=== PATIENT | male | born 1965 | race African-American/Black ===

== ENCOUNTER 2017-01-14 12:52 | Inpatient (IN) | payer OTHER ==
[2017-01-14 16:11] VITALS: BMI 51.0
--- NOTE | 2017-01-14 17:05 | HP ---
Admission ROS [facility] - [facility] Chief Complaint: I need rehab to stop using alcohol & cocaine Allergies/Adverse Reactions: Allergies Allergy/AdvReac Type Severity Reaction Status Date / Time No Known Allergies Allergy Verified 01/14/17 16:14 History of Present Illness: 51 y/o man with a long hx. of drug and alcohol dependence is admitted to rehab. Pt. completed detox [facility]. He reports previous detox & rehab and 18 months sober. Exam Limitations: No Limitations - Ebola screening Have you traveled outside of the country in the last 21 days: No Have you had contact with anyone from an Ebola affected area: No Have you been sick,other than usual withdrawal symptoms: No Do you have a fever: No - Review of Systems Constitutional: No Symptoms Reported EENT: reports: No Symptoms Reported Respiratory: reports: No Symptoms reported Cardiac: reports: No Symptoms Reported GI: reports: No Symptoms Reported : reports: No Symptoms Reported Musculoskeletal: reports: No Symptoms Reported Integumentary: reports: No Symptoms Reported Neuro: reports: No Symptoms reported Endocrine: reports: No Symptoms Reported Hematology: reports: No Symptoms Reported Psychiatric: reports: No Sypmtoms Reported Other Systems: Reviewed and Negative Patient History - Patient Medical History Hx Anemia: No Hx Asthma: No Hx Chronic Obstructive Pulmonary Disease (COPD): No Hx Cancer: No Hx Cardiac Disorders: No Hx Congestive Heart Failure: No Hx Hypertension: Yes Hx Hypercholesterolemia: No Hx Pacemaker: No HX Cerebrovascular Accident: No Hx Seizures: No Hx Diabetes: No Hx Gastrointestinal Disorders: No Hx Liver Disease: No Hx Genitourinary Disorders: No Hx Sexually Transmitted Disorders: No Hx Renal Disease (ESRD): No Hx Thyroid Disease: No Hx Human Immunodeficiency Virus (HIV): No Hx Hepatitis C: No Hx Depression: Yes Hx Suicide Attempt: No Hx Bipolar Disorder: No Hx Schizophrenia: No - Patient Surgical History Past Surgical History: No Hx Neurologic Surgery: No Hx Cataract Extraction: No Hx Cardiac Surgery: No Hx Lung Surgery: No Hx Breast Surgery: No Hx Breast Biopsy: No Hx Abdominal Surgery: No Hx Appendectomy: No Hx Cholecystectomy: No Hx Genitourinary Surgery: No Hx Section: No Hx Orthopedic Surgery: No Anesthesia Reaction: No - PPD History Previous Implant?: Yes Documented Results: Negative w/proof Implanted On Prior [facility] Admission?: Yes Date: 01/08/16 Results: 0 mm PPD to be Administered?: Yes - Smoking Cessation Smoking history: Current every day smoker Have you smoked in the past 12 months: Yes Aproximately how many cigarettes per day: 20 Cigars Per Day: 0 Hx Chewing Tobacco Use: No Initiated information on smoking cessation: Yes 'Breaking Loose' booklet given: 01/14/17 - Substance & Tx. History Hx Alcohol Use: Yes Hx Substance Use: Yes Substance Use Type: Alcohol, Cocaine Hx Substance Use Treatment: Yes (Detox & Rehab 08/2016) - Substances Abused Alcohol Route: Oral Frequency: Daily Amount used: 3-4 pints vodka of 4-5 6pks beer Age of first use: 14 Date of Last Use: 01/09/17 Crack Route: Smoking Frequency: Daily Amount used: $150 Age of first use: 16 Date of Last Use: 01/08/17 Family Disease History - Family Disease History Family History: Denies Admission Physical Exam [facility] - Vital Signs Vital Signs: Vital Signs - 24 hr 01/14/17 16:10 Temperature 97.0 F L Pulse Rate 96 H Respiratory 20 Rate Blood Pressure 146/108 - Physical General Appearance: Yes: Within Normal Limits HEENTM: Yes: Within Normal Limits Respiratory: Yes: Chest Non-Tender, Lungs Clear, Normal Breath Sounds Neck: Yes: Supple Breast: Yes: Breast Exam Deferred Cardiology: Yes: Regular Rhythm, Regular Rate, S1, S2 Abdominal: Yes: Normal Bowel Sounds, Non Tender, Soft, Protuberent Genitourinary: Yes: Within Normal Limits Back: Yes: Within Normal Limits Musculoskeletal: Yes: Within Normal Limits Extremities: Yes: Within Normal Limits Neurological: Yes: Fully Oriented, Alert Integumentary: Yes: Within Normal Limits Lymphatic: Yes: Within Normal Limits - Diagnostic (1) Alcohol dependence Current Visit: No Status: Acute Qualifiers: Substance use status: uncomplicated Qualified Code(s): F10.20 - Alcohol dependence, uncomplicated (2) Cocaine dependence Current Visit: No Status: Acute Qualifiers: Substance use status: uncomplicated Qualified Code(s): F14.20 - Cocaine dependence, uncomplicated (3) Nicotine dependence Current Visit: No Status: Acute Qualifiers: Nicotine product type: cigarettes Substance use status: uncomplicated Qualified Code(s): F17.210 - Nicotine dependence, cigarettes, uncomplicated (4) Essential hypertension Current Visit: No Status: Chronic (5) Obesity Current Visit: No Status: Chronic Qualifiers: Obesity type: unspecified obesity type Cleared for Admission [facility] - Detox or Rehab Claeared for Rehab Admission: Yes [facility] Breath Alcohol Content Breath Alcohol Content: 0 Urine Drug Screen - Results Drug Screen Negative: No Urine Drug Screen Results: BZO-Benzodiazepines
[2017-01-14] MEDS ORDERED: ACETAMINOPHEN 325 MG TABLET (FP) PO PRN (17:12)
[2017-01-14] MEDS ORDERED: MAGNESIUM HYDROX 2400MG/30ML ORAL SUSPENSION 30 ML CUP PO PRN (17:12)
[2017-01-14] MEDS ORDERED: IBUPROFEN 400 MG TABLET (FP) PO PRN (17:12)
[2017-01-14] MEDS ORDERED: guaiFENesin/D-METHORPHAN HB 10 ML UNIT-DOSE CUPS PO PRN (17:12)
[2017-01-14] MEDS ORDERED: NICOTINE POLACRILEX 2 MG GUM BUC PRN (17:12)
[2017-01-14] MEDS ORDERED: MENTHOL/PHENOL 1 EACH UD MM PRN (17:12)
[2017-01-14] MEDS ORDERED: LOPERAMIDE HCL 2 MG CAPSULE PO PRN (17:12)
[2017-01-14] MEDS ORDERED: P-EPHED 60MG/TRIPROLIDI 2.5MG TABLET PO PRN (17:12)
[2017-01-14] MEDS ORDERED: MAGNESIUM CITRATE 300 ML BOTTLE PO PRN (17:12)
[2017-01-14] MEDS ORDERED: MAG HYDROX/AL HYDROX/SIMETH 30 ML UNIT-DOSE CUP PO PRN (17:12)
[2017-01-14] MEDS: NICOTINE 21 MG/24 HOURS TOPICAL PATCH TD SCH (19:18)
[2017-01-14] MEDS ORDERED: TUBERCULIN PPD 5 TU/0.1ML VIAL ID ONE (19:46)
[2017-01-14] MEDS: amLODIPine BESYLATE 5 MG TABLET (FP) PO SCH (21:12)
[2017-01-14] MEDS: THIAMINE HCL 100 MG TABLET (FP) PO SCH (21:12)
[2017-01-14] MEDS: LISINOPRIL 20 MG TABLET (FP) PO SCH (21:12)
[2017-01-14 23:19] LABS: URINE APPEARANCE CLEAR; URINE BILIRUBIN NEGATIVE (NEGATIVE); URINE BLOOD NEGATIVE (NEGATIVE); URINE COLOR LTYELLOW; URINE GLUCOSE (UA) 2+ (NEGATIVE); URINE KETONE NEGATIVE (NEGATIVE); URINE LEUK ESTERASE NEGATIVE (NEGATIVE); URINE NITRITE NEGATIVE (NEGATIVE); URINE PROTEIN NEGATIVE (NEGATIVE); URINE UROBILINOGEN NEGATIVE mg/dL (0.2-1.0)
[2017-01-15] MEDS: amLODIPine BESYLATE 5 MG TABLET (FP) PO SCH ×2 (09:39→21:05)
[2017-01-15] MEDS: PRENATAL VITAMINS W/ FOLIC ACID TABLET (FP) PO SCH (09:39)
[2017-01-15] MEDS: LISINOPRIL 20 MG TABLET (FP) PO SCH ×2 (09:39→21:05)
[2017-01-15] MEDS: NICOTINE 21 MG/24 HOURS TOPICAL PATCH TD SCH (09:40)
[2017-01-15] MEDS: HYDROCHLOROTHIAZIDE 25 MG TABLET (FP) PO SCH (09:40)
--- NOTE | 2017-01-15 09:54 | HP ---
Psychiatrist Admission - Data Date of interview: 01/15/17 Admission source: [facility] Identifying data: This is the forth inpatient rehabilitation admission for this 51 year old dovorced Black male father of 2 children, he is unemployed and on SSI. [facility]. Medical History: HTN. Smokes cigarettes 1 PPD. Psychiatric History: Patient carries a diagnosis of Major Depressive Disorder, reports one psychiatric hospitalization at [facility] in 1988 for his first depressed episode. Since then was on and off treatments, non-compliant with follow ups and medications, states he visits ER to obtain scripts , or when in detox. or rehab. treat,emt he continues his medications. he currently on Zoloft 75 mf. Denies history of suicidal/homicidal attempts/thoughts. Physical/Sexual Abuse/Trauma History: Denies history of sexual, physical or verbal abuse. Additional Comment: The longest period of abstinence 18 month. Vital Signs: Vital Signs - 24 hr 01/14/17 01/14/17 01/14/17 16:10 20:42 21:00 Temperature 97.0 F L 98.4 F Pulse Rate 96 H 91 H 119 H Respiratory 20 18 Rate Blood Pressure 146/108 157/99 157/98 01/15/17 01/15/17 01/15/17 00:34 03:30 06:41 Temperature 98.1 F Pulse Rate 90 Respiratory 18 18 18 Rate Blood Pressure 144/93 Allergies/Adverse Reactions: Allergies Allergy/AdvReac Type Severity Reaction Status Date / Time No Known Allergies Allergy Verified 01/14/17 16:14 Date of last physical exam: 01/14/17 Concur with the findings of this exam: Yes - Substance Abuse/Tx History Hx Alcohol Use: Yes (beer 4- 40 oz , vodka 2 pints daily and rum 3 pints ) Hx Substance Use: Yes Substance Use Type: Cocaine (crack daily $150 daily) Hx Substance Use Treatment: Yes ([facility] - Admission Criteria Previous failed treatment: Yes Poor recovery environment: Yes Comorbidities: Yes Lacks judgement: Yes Mental Status Exam - Mental Status Exam Alert and Oriented to: Time, Place, Person Cognitive Function: Good Patient Appearance: Well Groomed Mood: Hopeful Affect: Appropriate, Mood Congruent Patient Behavior: Appropriate, Cooperative Speech Pattern: Clear, Appropriate Voice Loudness: Normal Thought Process: Intact, Goal Oriented Thought Disorder: Not Present Hallucinations: Denies Suicidal Ideation: Denies Homicidal Ideation: Denies Insight/Judgement: Fair Sleep: Fair Appetite: Good Muscle strength/Tone: Normal Gait/Station: Normal Psychiatric Findings - Problem List ([place] 1, 2,3) (1) Alcohol dependence Current Visit: No Status: Acute Qualifiers: Substance use status: uncomplicated Qualified Code(s): F10.20 - Alcohol dependence, uncomplicated (2) Cocaine dependence Current Visit: No Status: Acute Qualifiers: Substance use status: uncomplicated Qualified Code(s): F14.20 - Cocaine dependence, uncomplicated (3) MDD (major depressive disorder), recurrent episode, mild Current Visit: No Status: Acute (4) Nicotine dependence Current Visit: No Status: Acute Qualifiers: Nicotine product type: cigarettes Substance use status: uncomplicated Qualified Code(s): F17.210 - Nicotine dependence, cigarettes, uncomplicated - Initial Treatment Plan Initial Treatment Plan: Will continue Zoloft, monitor porgress. Psychoeducation on mental illness, medications/side effects discussed with the patient. Supportive tharapy provided, patient was encouraged to ventilate thoughts and feelings.
[2017-01-15 10:18] LABS: MCH 28.2 pg (25.7-33.7); MCHC 32.5 g/dl (32.0-35.9); MEAN CELL VOLUME 86.9 fl (80-96); MEAN PLT VOLUME 8.2 fl (7.5-11.1); PLATELET COUNT 168 K/MM3 (134-434); RDW 14.3 % (11.9-15.9); WHITE BLOOD COUNT 5.8 K/mm3 (4.0-10.0)
[2017-01-15] MEDS: SERTRALINE HCL 25 MG TABLET (FP) PO SCH (11:11)
[2017-01-15 11:25] LABS: ALBUMIN 3.9 g/dl (3.4-5.0); ALK PHOS 96 U/L (45-117); ANION GAP 11 (8-16); BILIRUBIN,TOTAL 0.3 mg/dL (0.2-1.0); CALCIUM 10.4 mg/dL (8.5-10.1); CO2 27 mmol/L (21-32); CREATININE 1.2 mg/dL (0.7-1.3); GLUCOSE,RANDOM 162 mg/dL (74-106); SGOT/AST 20 U/L (15-37); SGPT/ALT 43 U/L (12-78); TOT PROT 7.2 g/dl (6.4-8.2)
--- NOTE | 2017-01-15 12:22 | EKG ---
Test Reason : Blood Pressure : / mmHG Vent. Rate : 108 BPM Atrial Rate : 108 BPM P-R Int : 194 ms QRS Dur : 086 ms QT Int : 342 ms P-R-T Axes : 048 048 044 degrees QTc Int : 458 ms SINUS TACHYCARDIA OTHERWISE NORMAL ECG WHEN COMPARED WITH ECG OF 11-SEP-2016 18:20, NO SIGNIFICANT CHANGE WAS FOUND Confirmed by NAKUL CARRILLO MD ([id number]) on 01/15/2017 12:22:12 PM Referred By: Confirmed By:NAKUL CARRILLO MD
[2017-01-15] MEDS: THIAMINE HCL 100 MG TABLET (FP) PO SCH (21:05)
[2017-01-16] MEDS: PRENATAL VITAMINS W/ FOLIC ACID TABLET (FP) PO SCH (09:43)
[2017-01-16] MEDS: amLODIPine BESYLATE 5 MG TABLET (FP) PO SCH ×2 (09:43→21:10)
[2017-01-16] MEDS: HYDROCHLOROTHIAZIDE 25 MG TABLET (FP) PO SCH (09:43)
[2017-01-16] MEDS: LISINOPRIL 20 MG TABLET (FP) PO SCH ×2 (09:43→21:09)
[2017-01-16] MEDS: SERTRALINE HCL 25 MG TABLET (FP) PO SCH (09:44)
[2017-01-16] MEDS: NICOTINE 21 MG/24 HOURS TOPICAL PATCH TD SCH (09:44)
--- NOTE | 2017-01-16 15:27 | PN ---
[facility] Progress Note Note: Laboratory Last Values WBC 5.8 K/mm3 (4.0-10.0) 01/15/17 07:30 RBC 5.24 M/mm3 (4.00-5.60) 01/15/17 07:30 Hgb 14.8 GM/dL (11.7-16.9) 01/15/17 07:30 Hct 45.5 % (35.4-49) 01/15/17 07:30 MCV 86.9 fl (80-96) 01/15/17 07:30 MCH 28.2 pg (25.7-33.7) 01/15/17 07:30 MCHC 32.5 g/dl (32.0-35.9) 01/15/17 07:30 RDW 14.3 % (11.9-15.9) 01/15/17 07:30 Plt Count 168 K/MM3 (134-434) 01/15/17 07:30 MPV 8.2 fl (7.5-11.1) 01/15/17 07:30 Sodium 140 mmol/L (136-145) 01/15/17 07:30 Potassium 4.2 mmol/L (3.5-5.1) 01/15/17 07:30 Chloride 102 mmol/L (98-107) 01/15/17 07:30 Carbon Dioxide 27 mmol/L (21-32) 01/15/17 07:30 Anion Gap 11 (8-16) 01/15/17 07:30 BUN 14 mg/dL (7-18) D 01/15/17 07:30 Creatinine 1.2 mg/dL (0.7-1.3) 01/15/17 07:30 Creat Clearance w eGFR > 60 (>60) 01/15/17 07:30 Random Glucose 162 mg/dL (74-106) H 01/15/17 07:30 Calcium 10.4 mg/dL (8.5-10.1) H 01/15/17 07:30 Total Bilirubin 0.3 mg/dL (0.2-1.0) 01/15/17 07:30 AST 20 U/L (15-37) 01/15/17 07:30 ALT 43 U/L (12-78) 01/15/17 07:30 Alkaline Phosphatase 96 U/L (45-117) 01/15/17 07:30 Total Protein 7.2 g/dl (6.4-8.2) 01/15/17 07:30 Albumin 3.9 g/dl (3.4-5.0) 01/15/17 07:30 Urine Color Ltyellow 01/14/17 20:00 Urine Appearance Clear 01/14/17 20:00 Urine pH 7.0 (5.0-8.0) D 01/14/17 20:00 Ur Specific Gilliam 1.020 (1.005-1.025) 01/14/17 20:00 Urine Protein Negative (NEGATIVE) 01/14/17 20:00 Urine Glucose (UA) 2+ (NEGATIVE) H 01/14/17 20:00 Urine Ketones Negative (NEGATIVE) 01/14/17 20:00 Urine Blood Negative (NEGATIVE) 01/14/17 20:00 Urine Nitrite Negative (NEGATIVE) 01/14/17 20:00 Urine Bilirubin Negative (NEGATIVE) 01/14/17 20:00 Urine Urobilinogen Negative mg/dL (0.2-1.0) 01/14/17 20:00 Ur Leukocyte Esterase Negative (NEGATIVE) 01/14/17 20:00 RPR Titer Nonreactive (NONREACTIVE) 01/15/17 07:30 impression r/o dm glucose is 162,ca is 10.4 treatment bgm bid repeat Ca in am
[2017-01-16] MEDS: THIAMINE HCL 100 MG TABLET (FP) PO SCH (21:09)
[2017-01-16] MEDS: diphenhydrAMINE HCL 50 MG CAPSULE PO PRN (21:10)
[2017-01-17] MEDS: LISINOPRIL 20 MG TABLET (FP) PO SCH ×2 (09:44→21:03)
[2017-01-17] MEDS: amLODIPine BESYLATE 5 MG TABLET (FP) PO SCH ×2 (09:44→21:03)
[2017-01-17] MEDS: PRENATAL VITAMINS W/ FOLIC ACID TABLET (FP) PO SCH (09:45)
[2017-01-17] MEDS: NICOTINE 21 MG/24 HOURS TOPICAL PATCH TD SCH (09:45)
[2017-01-17] MEDS: HYDROCHLOROTHIAZIDE 25 MG TABLET (FP) PO SCH (10:35)
[2017-01-17] MEDS: SERTRALINE HCL 25 MG TABLET (FP) PO SCH (10:35)
[2017-01-17] MEDS: diphenhydrAMINE HCL 50 MG CAPSULE PO PRN (21:03)
[2017-01-17] MEDS: THIAMINE HCL 100 MG TABLET (FP) PO SCH (21:03)
[2017-01-18] MEDS: LISINOPRIL 20 MG TABLET (FP) PO SCH ×2 (09:42→21:11)
[2017-01-18] MEDS: amLODIPine BESYLATE 5 MG TABLET (FP) PO SCH ×2 (09:42→21:11)
[2017-01-18] MEDS: PRENATAL VITAMINS W/ FOLIC ACID TABLET (FP) PO SCH (09:42)
[2017-01-18] MEDS: SERTRALINE HCL 25 MG TABLET (FP) PO SCH (09:42)
[2017-01-18] MEDS: HYDROCHLOROTHIAZIDE 25 MG TABLET (FP) PO SCH (09:42)
[2017-01-18] MEDS: NICOTINE 21 MG/24 HOURS TOPICAL PATCH TD SCH (09:42)
[2017-01-18] MEDS: THIAMINE HCL 100 MG TABLET (FP) PO SCH (21:09)
[2017-01-18] MEDS: diphenhydrAMINE HCL 50 MG CAPSULE PO PRN (21:11)
[2017-01-19] MEDS: LISINOPRIL 20 MG TABLET (FP) PO SCH ×2 (09:49→21:14)
[2017-01-19] MEDS: PRENATAL VITAMINS W/ FOLIC ACID TABLET (FP) PO SCH (09:49)
[2017-01-19] MEDS: NICOTINE 21 MG/24 HOURS TOPICAL PATCH TD SCH (09:50)
[2017-01-19] MEDS: amLODIPine BESYLATE 5 MG TABLET (FP) PO SCH ×2 (09:50→21:14)
[2017-01-19] MEDS: SERTRALINE HCL 25 MG TABLET (FP) PO SCH (09:50)
[2017-01-19] MEDS: HYDROCHLOROTHIAZIDE 25 MG TABLET (FP) PO SCH (09:50)
[2017-01-19] MEDS: THIAMINE HCL 100 MG TABLET (FP) PO SCH (21:14)
[2017-01-19] MEDS: diphenhydrAMINE HCL 50 MG CAPSULE PO PRN (21:14)
[2017-01-20] MEDS: LISINOPRIL 20 MG TABLET (FP) PO SCH ×2 (09:46→21:16)
[2017-01-20] MEDS: SERTRALINE HCL 25 MG TABLET (FP) PO SCH (09:46)
[2017-01-20] MEDS: PRENATAL VITAMINS W/ FOLIC ACID TABLET (FP) PO SCH (09:46)
[2017-01-20] MEDS: HYDROCHLOROTHIAZIDE 25 MG TABLET (FP) PO SCH (09:46)
[2017-01-20] MEDS: amLODIPine BESYLATE 5 MG TABLET (FP) PO SCH ×2 (09:46→21:16)
[2017-01-20] MEDS: NICOTINE 21 MG/24 HOURS TOPICAL PATCH TD SCH (09:48)
[2017-01-20] MEDS: THIAMINE HCL 100 MG TABLET (FP) PO SCH (21:16)
[2017-01-20] MEDS: diphenhydrAMINE HCL 50 MG CAPSULE PO PRN (21:16)
[2017-01-21] MEDS: PRENATAL VITAMINS W/ FOLIC ACID TABLET (FP) PO SCH (10:26)
[2017-01-21] MEDS: NICOTINE 21 MG/24 HOURS TOPICAL PATCH TD SCH (10:27)
[2017-01-21] MEDS: amLODIPine BESYLATE 5 MG TABLET (FP) PO SCH ×2 (10:27→21:14)
[2017-01-21] MEDS: SERTRALINE HCL 25 MG TABLET (FP) PO SCH (10:27)
[2017-01-21] MEDS: LISINOPRIL 20 MG TABLET (FP) PO SCH ×2 (10:27→21:14)
[2017-01-21] MEDS: HYDROCHLOROTHIAZIDE 25 MG TABLET (FP) PO SCH (10:27)
[2017-01-21] MEDS: THIAMINE HCL 100 MG TABLET (FP) PO SCH (21:14)
[2017-01-21] MEDS: diphenhydrAMINE HCL 50 MG CAPSULE PO PRN (21:15)
[2017-01-22] MEDS: amLODIPine BESYLATE 5 MG TABLET (FP) PO SCH ×2 (09:48→21:22)
[2017-01-22] MEDS: HYDROCHLOROTHIAZIDE 25 MG TABLET (FP) PO SCH (09:48)
[2017-01-22] MEDS: SERTRALINE HCL 25 MG TABLET (FP) PO SCH (09:48)
[2017-01-22] MEDS: NICOTINE 21 MG/24 HOURS TOPICAL PATCH TD SCH (09:48)
[2017-01-22] MEDS: LISINOPRIL 20 MG TABLET (FP) PO SCH ×2 (09:48→21:22)
[2017-01-22] MEDS: PRENATAL VITAMINS W/ FOLIC ACID TABLET (FP) PO SCH (09:48)
[2017-01-22] MEDS: diphenhydrAMINE HCL 50 MG CAPSULE PO PRN (21:22)
[2017-01-22] MEDS: THIAMINE HCL 100 MG TABLET (FP) PO SCH (21:22)
[2017-01-23] MEDS: LISINOPRIL 20 MG TABLET (FP) PO SCH ×2 (09:49→21:16)
[2017-01-23] MEDS: SERTRALINE HCL 25 MG TABLET (FP) PO SCH (09:49)
[2017-01-23] MEDS: NICOTINE 21 MG/24 HOURS TOPICAL PATCH TD SCH (09:49)
[2017-01-23] MEDS: amLODIPine BESYLATE 5 MG TABLET (FP) PO SCH ×2 (09:49→21:16)
[2017-01-23] MEDS: HYDROCHLOROTHIAZIDE 25 MG TABLET (FP) PO SCH (09:49)
[2017-01-23] MEDS: PRENATAL VITAMINS W/ FOLIC ACID TABLET (FP) PO SCH (09:49)
[2017-01-23] MEDS: diphenhydrAMINE HCL 50 MG CAPSULE PO PRN (21:16)
[2017-01-23] MEDS: THIAMINE HCL 100 MG TABLET (FP) PO SCH (21:16)
[2017-01-24 06:52] VITALS: BP 122/75; PULSE 98; TEMP 98.7
[2017-01-24] MEDS: LISINOPRIL 20 MG TABLET (FP) PO SCH (09:30)
[2017-01-24] MEDS: PRENATAL VITAMINS W/ FOLIC ACID TABLET (FP) PO SCH (09:30)
[2017-01-24] MEDS: SERTRALINE HCL 25 MG TABLET (FP) PO SCH (09:31)
[2017-01-24] MEDS: NICOTINE 21 MG/24 HOURS TOPICAL PATCH TD SCH (09:31)
[2017-01-24] MEDS: HYDROCHLOROTHIAZIDE 25 MG TABLET (FP) PO SCH (09:31)
[2017-01-24] MEDS: amLODIPine BESYLATE 5 MG TABLET (FP) PO SCH (09:31)
--- NOTE | 2017-01-24 10:35 | PN ---
Psychiatric Progress Note Vital Signs: Vital Signs Period Temp Pulse Resp BP Sys/Mcfarland Pulse Ox Last 24 Hr 98.7 F 94-98 16-20 122-132/75-88 Date of Session: 01/24/17 Chief Complaint:: discharge visit HPI: Patient has addressed Alcohol and Cocaine Dependence comorbid with Nicotine Dependence and Major Depressive Disorder ROS: HTN medically managed. Current Medications: Active Medications Generic Name Dose Route Start Last Admin Trade Name Freq PRN Reason Stop Dose Admin Acetaminophen 650 mg 01/14/17 17:12 Tylenol - PO Q4H PRN PAIN Al Hydroxide/Mg Hydroxide 30 ml 01/14/17 17:12 Mylanta Oral Suspension - PO Q6H PRN DYSPEPSIA Amlodipine Besylate 5 mg 01/14/17 22:00 01/24/17 09:31 Norvasc - PO 5 mg BID TRINIDAD Administration Diphenhydramine HCl 50 mg 01/14/17 22:00 01/23/17 21:16 Benadryl - PO 50 mg HSMR1 PRN Administration INSOMNIA Eucalyptus/Menthol/Phenol/Sorbitol 1 each 01/14/17 17:12 Cepastat Lozenge - MM Q4H PRN SORE THROAT Guaifenesin 10 ml 01/14/17 17:12 Robitussin Dm - PO Q6H PRN COUGH Hydrochlorothiazide 25 mg 01/15/17 10:00 01/24/17 09:31 Hctz - PO 25 mg DAILY TRINIDAD Administration Ibuprofen 400 mg 01/14/17 17:12 Motrin - PO Q6H PRN SEVERE PAIN Lisinopril 20 mg 01/14/17 22:00 01/24/17 09:30 Prinivil PO 20 mg BID TRINIDAD Administration Loperamide HCl 4 mg 01/14/17 17:12 Imodium - PO Q6H PRN DIARRHEA Magnesium Citrate 300 ml 01/14/17 17:12 Citroma - PO Q48H PRN CONSTIPATION Magnesium Hydroxide 30 ml 01/14/17 17:12 Milk Of Magnesia - PO DAILY PRN CONSTIPATION Nicotine 21 mg 01/14/17 17:15 01/24/17 09:31 Nicoderm Patch - TD Not Given DAILY TRINIDAD Nicotine Polacrilex 2 mg 01/14/17 17:12 Nicorette Gum - BUC Q2H PRN NICOTINE REPLACEMENT RX Multivit/Folic Acid/Iron 1 tab 01/15/17 10:00 01/24/17 09:30 Vitamins (Sjr) - PO 1 tab DAILY TRINIDAD Administration Pseudoephedrine/Triprolidine 1 combo 01/14/17 17:12 Actifed - PO TID PRN NASAL CONGESTION Sertraline HCl 75 mg 01/15/17 11:02 01/24/17 09:31 Zoloft - PO 75 mg DAILY TRINIDAD Administration Thiamine HCl 100 mg 01/14/17 22:00 01/23/17 21:16 Vitamin B1 - PO 100 mg HS TRINIDAD Administration Current Side Effect: No Lab tests ordered: No Lab tests reviewed: Yes Provider note:: Patient requested for discharge today, he completed 10 days , met short term goals, will continue to address his issues at [facility] outpatient program.Patient gained indights into imprtnace of chaging attitudes for the utilization of supports to prevent relapses and to continue maintain abstinence. Zoloft well tolereted, scripts provided for 30 days, stable for discharge. Total face to face time:: 35 Mental Status Exam - Mental Status Exam Alert and Oriented to: Time, Place, Person Cognitive Function: Grossly Intact Patient Appearance: Well Groomed Mood: Hopeful Affect: Appropriate, Mood Congruent Patient Behavior: Appropriate, Cooperative Speech Pattern: Clear, Appropriate Voice Loudness: Normal Thought Process: Intact, Goal Oriented Thought Disorder: Not Present Hallucinations: Denies Suicidal Ideation: Denies Homicidal Ideation: Denies Insight/Judgement: Fair Sleep: Fair Appetite: Fair Muscle strength/Tone: Normal Gait/Station: Normal Psychiatric Treatment Plan - Problem List (1) Alcohol dependence Current Visit: No Qualifiers: Substance use status: uncomplicated Qualified Code(s): F10.20 - Alcohol dependence, uncomplicated (2) Cocaine dependence Current Visit: No Qualifiers: Substance use status: uncomplicated Qualified Code(s): F14.20 - Cocaine dependence, uncomplicated (3) MDD (major depressive disorder), recurrent episode, mild Current Visit: No (4) Nicotine dependence Current Visit: No Qualifiers: Nicotine product type: cigarettes Substance use status: uncomplicated Qualified Code(s): F17.210 - Nicotine dependence, cigarettes, uncomplicated
== END 2017-01-24 11:00 | disposition home or self-care (01) | DRG 895 ==
LOC: YASAS 12:52 → Y5N 17:20
PROVIDERS: ADMIT Psychiatry & Neurology Psychiatry; ATTEND Psychiatry & Neurology Psychiatry
PROC: HZ42ZZZ Group Counseling for Substance Abuse Treatment, Cognitive-Behavioral (ICD-10-PCS; principal; 2017-01-14)
DX: F10.20 Alcohol dependence, uncomplicated (principal); F14.20 Cocaine dependence, uncomplicated; F33.2 Major depressive disorder, recurrent severe without psychotic features; Z68.43 Body mass index [BMI] 50.0-59.9, adult; F17.210 Nicotine dependence, cigarettes, uncomplicated; I10 Essential (primary) hypertension; E66.9 Obesity, unspecified
CPT/HCPCS: 36415; 80053; 81003; 85027; 86593; 93005; 93010

== ENCOUNTER 2017-11-21 11:46 | Inpatient (IN) | payer OTHER ==
[2017-11-21 12:11] VITALS: BMI 31.6
--- NOTE | 2017-11-21 12:35 | HP ---
CIWA Score - CIWA Score Nausea/Vomitin-No Nausea/No Vomiting Muscle Tremors: 3 Anxiety: 4-Mod. Anxious/Guarded Agitation: 4-Moderately Restless Paroxysmal Sweats: 1-Minimal Palms Moist Orientation: 0-Oriented Tacttile Disturbances: 0-None Auditory Disturbances: 0-None Visual Disturbances: 0-None Headache: 0-None Present CIWA-Ar Total Score: 12 Admission ROS [facility] - HPI Chief Complaint: ALCOHOL WITHDRAWAL SX Allergies/Adverse Reactions: Allergies Allergy/AdvReac Type Severity Reaction Status Date / Time No Known Allergies Allergy Verified 11/21/17 12:17 History of Present Illness: 52 Y/O AA/MALE WITH A HX OF ALCOHOL AND CRACK DEPENDENCE SEEKING DETOX [place]. Exam Limitations: No Limitations - Ebola screening Have you traveled outside of the country in the last 21 days: No Have you had contact with anyone from an Ebola affected area: No Have you been sick,other than usual withdrawal symptoms: No Do you have a fever: No - Review of Systems Constitutional: Chills, Night Sweats, Changes in sleep EENT: reports: No Symptoms Reported Respiratory: reports: No Symptoms reported Cardiac: reports: Lightheadedness GI: reports: Poor Fluid Intake : reports: No Symptoms Reported Musculoskeletal: reports: No Symptoms Reported Integumentary: reports: No Symptoms Reported Neuro: reports: Headache, Unsteady Gait Endocrine: reports: No Symptoms Reported Hematology: reports: No Symptoms Reported Psychiatric: reports: Orientated x3 Other Systems: Reviewed and Negative Patient History - Patient Medical History Hx Anemia: No Hx Asthma: No Hx Chronic Obstructive Pulmonary Disease (COPD): No Hx Cancer: No Hx Cardiac Disorders: No Hx Congestive Heart Failure: No Hx Hypertension: Yes (ON NORVASC 10 MG DAILY) Hx Hypercholesterolemia: No Hx Pacemaker: No HX Cerebrovascular Accident: No Hx Seizures: No Hx Diabetes: No Hx Gastrointestinal Disorders: No Hx Liver Disease: No Hx Genitourinary Disorders: No Hx Sexually Transmitted Disorders: No (DENIES) Hx Renal Disease (ESRD): No Hx Thyroid Disease: No Hx Human Immunodeficiency Virus (HIV): No (NEGATIVE HX) Hx Hepatitis C: No (DENIES) Hx Depression: Yes (ON MEDS) Hx Suicide Attempt: No (DENIES) Hx Bipolar Disorder: No Hx Schizophrenia: No - Patient Surgical History Past Surgical History: No Hx Neurologic Surgery: No Hx Cataract Extraction: No Hx Cardiac Surgery: No Hx Lung Surgery: No Hx Breast Surgery: No Hx Breast Biopsy: No Hx Abdominal Surgery: No Hx Appendectomy: No Hx Cholecystectomy: No Hx Genitourinary Surgery: No Hx Orthopedic Surgery: No Anesthesia Reaction: No - PPD History Previous Implant?: Yes Documented Results: Negative w/proof Implanted On Prior [facility] Admission?: Yes Date: 01/16/17 Results: 0 mm PPD to be Administered?: No - Reproductive History Patient is a Female of Child Bearing Age (11 -55 yrs old): No (MALE) - Smoking Cessation Smoking history: Current every day smoker Have you smoked in the past 12 months: Yes Aproximately how many cigarettes per day: 20 Cigars Per Day: 0 Hx Chewing Tobacco Use: No Initiated information on smoking cessation: Yes 'Breaking Loose' booklet given: 11/21/17 - Substance & Tx. History Hx Alcohol Use: Yes (BEER/VODKA/RUM) Hx Substance Use: Yes (CRACK) Substance Use Type: Alcohol, Cocaine Hx Substance Use Treatment: Yes (LAST TX AT [facility]) - Substances Abused Crack Route: Smoking Frequency: Daily Amount used: $150 Age of first use: 16 Date of Last Use: 11/21/17 Alcohol-beer/vodka/rum Route: Oral Frequency: Daily Amount used: 2-3 6 pks./2 pts. Age of first use: 12 Date of Last Use: 11/21/17 Family Disease History - Family Disease History Family History: Denies Admission Physical Exam [facility] - Vital Signs Vital Signs: Vital Signs - 24 hr 11/21/17 12:07 Temperature 98.1 F Pulse Rate 98 H Respiratory 18 Rate Blood Pressure 135/84 - Physical General Appearance: Yes: Mild Distress, Irritable, Anxious HEENTM: Yes: EOMI, Normocephalic, MAKEDA, Pharynx Normal Respiratory: Yes: Chest Non-Tender, Lungs Clear, Normal Breath Sounds, No Respiratory Distress Neck: Yes: No masses,lesions,Nodules, Supple, Trachea in good position Breast: Yes: Breast Exam Deferred Cardiology: Yes: Regular Rhythm, Regular Rate, S1, S2 Abdominal: Yes: Normal Bowel Sounds, Non Tender, Soft, Protuberent Genitourinary: Yes: Other Back: Yes: Within Normal Limits Musculoskeletal: Yes: full range of Motion, Gait Steady Extremities: Yes: Normal Range of Motion, Non-Tender Neurological: Yes: academic coordinator II-XII NML intact, Fully Oriented, Alert, Motor Strength 5/5 Integumentary: Yes: Dry, Warm Lymphatic: Yes: Within Normal Limits - Diagnostic (1) Alcohol dependence Current Visit: Yes Status: Acute Qualifiers: Substance use status: in withdrawal (2) Cocaine dependence Current Visit: Yes Status: Acute Qualifiers: Substance use status: uncomplicated Qualified Code(s): F14.20 - Cocaine dependence, uncomplicated (3) Nicotine dependence Current Visit: Yes Status: Acute Qualifiers: Nicotine product type: cigarettes Substance use status: in withdrawal Qualified Code(s): F17.213 - Nicotine dependence, cigarettes, with withdrawal (4) Essential hypertension Current Visit: Yes Status: Chronic (5) Obesity Current Visit: Yes Status: Chronic Qualifiers: Obesity type: unspecified obesity type Cleared for Admission S - Detox or Rehab [facility] Level of Care: Medically Managed Detox Regimen/Protocol: Librium S Breath Alcohol Content Breath Alcohol Content: 0.062 Urine Drug Screen - Results Drug Screen Negative: No Urine Drug Screen Results: KRISTINA-Cocaine
[2017-11-21] MEDS ORDERED: MENTHOL/PHENOL 1 EACH UD MM PRN (12:56)
[2017-11-21] MEDS ORDERED: LOPERAMIDE HCL 2 MG CAPSULE PO PRN (12:56)
[2017-11-21] MEDS ORDERED: P-EPHED 60MG/TRIPROLIDI 2.5MG TABLET PO PRN (12:56)
[2017-11-21] MEDS ORDERED: chlordiazePOXIDE HCL 25 MG CAPSULE PO PRN (12:56)
[2017-11-21] MEDS ORDERED: guaiFENesin/D-METHORPHAN HB 10 ML UNIT-DOSE CUPS PO PRN (12:56)
[2017-11-21] MEDS ORDERED: NICOTINE POLACRILEX 4 MG GUM BC PRN (12:56)
[2017-11-21] MEDS ORDERED: hydrOXYzine PAMOATE 50 MG CAPSULE (FP) PO PRN (12:56)
[2017-11-21] MEDS ORDERED: MAGNESIUM HYDROX 2400MG/30ML ORAL SUSPENSION 30 ML CUP PO PRN (12:56)
[2017-11-21] MEDS ORDERED: IBUPROFEN 400 MG TABLET (FP) PO PRN (12:56)
[2017-11-21] MEDS ORDERED: MAGNESIUM CITRATE 300 ML BOTTLE PO PRN (12:56)
[2017-11-21] MEDS ORDERED: chlordiazePOXIDE HCL 25 MG CAPSULE PO ONE (14:00)
[2017-11-21] MEDS: amLODIPine BESYLATE 5 MG TABLET (FP) PO SCH (15:01)
[2017-11-21] MEDS: NICOTINE 21 MG/24 HOURS TOPICAL PATCH TD SCH (15:02)
[2017-11-21] MEDS: HYDROCHLOROTHIAZIDE 25 MG TABLET (FP) PO SCH (15:02)
[2017-11-21 17:14] LABS: URINE APPEARANCE CLEAR; URINE BILIRUBIN NEGATIVE (<2.0 mg/dL); URINE BLOOD NEGATIVE (NEGATIVE); URINE COLOR STRAW; URINE GLUCOSE (UA) NEGATIVE (NEGATIVE); URINE KETONE NEGATIVE (NEGATIVE); URINE LEUK ESTERASE NEGATIVE (NEGATIVE); URINE NITRITE NEGATIVE (NEGATIVE); URINE PROTEIN NEGATIVE (NEGATIVE); URINE UROBILINOGEN NEGATIVE mg/dL (0.2-1.0)
[2017-11-21] MEDS: chlordiazePOXIDE HCL 25 MG CAPSULE PO SCH ×2 (17:38→22:30)
[2017-11-21] MEDS ORDERED: MELATONIN 5 MG TABLETS PO PRN (22:00)
[2017-11-21] MEDS: THIAMINE HCL 100 MG TABLET (FP) PO SCH (22:28)
[2017-11-21] MEDS: LISINOPRIL 20 MG TABLET (FP) PO SCH (22:29)
[2017-11-22] MEDS: chlordiazePOXIDE HCL 25 MG CAPSULE PO SCH ×4 (05:49→22:12)
[2017-11-22] MEDS: ACETAMINOPHEN 325 MG TABLET (FP) PO PRN (09:45)
[2017-11-22 10:14] LABS: HEMATOCRIT 36.2 % (35.4-49); HEMOGLOBIN 10.7 GM/dL (11.7-16.9); MCH 21.9 pg (25.7-33.7); MCHC 29.6 g/dl (32.0-35.9); MEAN CELL VOLUME 73.9 fl (80-96); MEAN PLT VOLUME 9.2 fl (7.5-11.1); PLATELET COUNT 243 K/MM3 (134-434); RDW 26.7 % (11.9-15.9); WHITE BLOOD COUNT 8.6 K/mm3 (4.0-10.0)
[2017-11-22] MEDS: NICOTINE 21 MG/24 HOURS TOPICAL PATCH TD SCH (10:25)
[2017-11-22] MEDS: PRENATAL VITAMINS W/ FOLIC ACID TABLET (FP) PO SCH (10:25)
[2017-11-22] MEDS: HYDROCHLOROTHIAZIDE 25 MG TABLET (FP) PO SCH (10:26)
[2017-11-22] MEDS: amLODIPine BESYLATE 5 MG TABLET (FP) PO SCH (10:26)
[2017-11-22] MEDS: LISINOPRIL 20 MG TABLET (FP) PO SCH ×2 (10:26→22:12)
[2017-11-22 10:47] LABS: ALBUMIN 3.9 g/dl (3.4-5.0); ANION GAP 13 (8-16); BLOOD UREA NITROGEN 15 mg/dL (7-18); CALCIUM 9.7 mg/dL (8.5-10.1); CHLORIDE 105 mmol/L (98-107); CO2 21 mmol/L (21-32); GLUCOSE,RANDOM 99 mg/dL (74-106); POTASSIUM 3.6 mmol/L (3.5-5.1); SODIUM 139 mmol/L (136-145)
--- NOTE | 2017-11-22 10:51 | CONSULT ---
[facility] Psychiatric Consult - Data Date of interview: 11/22/17 Admission source: [facility] Identifying data: This is one of several admissions to [facility] for this 52 y/ o AA male seeking detox treatment on for alcohol and cocaine dependence.Patient is ,a father of two,homeless (resides in [facility]), unemployed and supported on SSI/SSD benefits. Substance Abuse History: Confirmed by patient in this session.Smoking history: Current every day smoker. Have you smoked in the past 12 months: Yes. Aproximately how many cigarettes per day: 20. Cigars Per Day: 0. Hx Chewing Tobacco Use: No. Initiated information on smoking cessation: Yes. 'Breaking Loose' booklet given: 11/21/17. - Substance & Tx. History. Hx Alcohol Use: Yes (BEER/VODKA/RUM). Hx Substance Use: Yes (CRACK). Substance Use Type: Alcohol, Cocaine. Hx Substance Use Treatment: Yes (LAST TX AT [facility]). - Substances Abused. Crack. Route: Smoking. Frequency: Daily. Amount used: $150. Age of first use: 16. Date of Last Use: 11/21/17. Alcohol-beer/vodka /rum. Route: Oral. Frequency: Daily. Amount used: 2-3 6 pks./2 pts. Age of first use: 12. Date of Last Use: 11/21/17 Medical History: Hypertension. Psychiatric History: Already known history of multiple but distant psychiatric hospitalizations at [facility] in [facility].Diagnosed with MDD, in 1988,and treated with sertraline 50 mg/day.Mr Gill reports OPD care at the [facility] in [facility].Patient denies history of suicide attempts. Physical/Sexual Abuse/Trauma History: Patient denies. Additional Comment: Urine Drug Screen Results: KRISTINA-Cocaine.Noted. Mental Status Exam - Mental Status Exam Alert and Oriented to: Time, Place, Person Cognitive Function: Good Patient Appearance: Well Groomed Mood: Withdrawn Affect: Appropriate, Normal Range Patient Behavior: Fatigued, Appropriate, Cooperative Speech Pattern: Clear, Appropriate Voice Loudness: Normal Thought Process: Intact, Goal Oriented Thought Disorder: Not Present Hallucinations: Denies Suicidal Ideation: Denies Homicidal Ideation: Denies Insight/Judgement: Poor Sleep: Poorly, Difficulty falling asleep Appetite: Good Muscle strength/Tone: Normal Gait/Station: Normal Psychiatric Findings - Problem List ([place] 1, 2,3) (1) Alcohol dependence Current Visit: Yes Status: Acute Qualifiers: Substance use status: in withdrawal (2) Cocaine dependence Current Visit: Yes Status: Acute Qualifiers: Substance use status: uncomplicated Qualified Code(s): F14.20 - Cocaine dependence, uncomplicated (3) Nicotine dependence Current Visit: Yes Status: Acute Qualifiers: Nicotine product type: cigarettes Substance use status: in withdrawal Qualified Code(s): F17.213 - Nicotine dependence, cigarettes, with withdrawal (4) MDD (major depressive disorder) Current Visit: Yes Status: Chronic (5) Insomnia Current Visit: Yes Status: Acute - Initial Treatment Plan Initial Treatment Plan: Psychoeducation.Sleep hygiene.Detoxification in progress.Zoloft 50 mg po daily + ambien 5 mg po hs prn.Side effects/benefits of both medications are discussed with the patient.Made aware of the risk of suicidal ideation,sexual dysfunction and parasomnias.Mr Gill has expressed his agreement with this plan of care.Observation.
[2017-11-22 10:52] LABS: ALK PHOS 109 U/L (45-117); BILIRUBIN,TOTAL 0.2 mg/dL (0.2-1.0); CREATININE 1.2 mg/dL (0.7-1.3); SGOT/AST 14 U/L (15-37); SGPT/ALT 21 U/L (12-78); TOT PROT 7.6 g/dl (6.4-8.2)
[2017-11-22] MEDS ORDERED: SERTRALINE HCL 25 MG TABLET (FP) PO SCH (11:15)
--- NOTE | 2017-11-22 13:11 | PN ---
S CIWA - CIWA Score Nausea/Vomitin-No Nausea/No Vomiting Muscle Tremors: 4-Moderate,w/Arms Extend Anxiety: 2 Agitation: 2 Paroxysmal Sweats: No Perspiration Orientation: 0-Oriented Tacttile Disturbances: 2-Mild Itch/Numbness/Burn Auditory Disturbances: 1-Very Mild Visual Disturbances: 2-Mild Sensitivity Headache: 0-None Present CIWA-Ar Total Score: 13 BHS Progress Note (SOAP) Subjective: Tremors, Anxious, Interrupted Sleep, Fatigue. Objective: PATIENT A & O X 3, OBSERVED AMBULATING ON UNIT. NO ACUTE DISTRESS. 11/22/17 13:11 Vital Signs Temperature 97.0 F L 11/22/17 09:24 Pulse Rate 78 11/22/17 09:24 Respiratory Rate 18 11/22/17 09:24 Blood Pressure 91/60 11/22/17 09:24 O2 Sat by Pulse Oximetry (%) Laboratory Tests 11/21/17 11/22/17 11/22/17 15:15 05:50 05:50 WBC 8.6 D RBC 4.90 Hgb 10.7 L D Hct 36.2 D MCV 73.9 L MCH 21.9 L D MCHC 29.6 L RDW 26.7 H Plt Count 243 D MPV 9.2 D Sodium 139 Potassium 3.6 Chloride 105 Carbon Dioxide 21 D Anion Gap 13 BUN 15 Creatinine 1.2 Creat Clearance w eGFR > 60 Random Glucose 99 D Calcium 9.7 Total Bilirubin 0.2 D AST 14 L D ALT 21 D Alkaline Phosphatase 109 Total Protein 7.6 Albumin 3.9 Urine Color Straw Urine Appearance Clear Urine pH 5.0 D Ur Specific [place] 1.011 Urine Protein Negative Urine Glucose (UA) Negative Urine Ketones Negative Urine Blood Negative Urine Nitrite Negative Urine Bilirubin Negative Urine Urobilinogen Negative Ur Leukocyte Esterase Negative LABS NOTED. RPR RESULT PENDING. 11/22/17 13:13 Assessment: 11/22/17 13:12 WITHDRAWAL SYMPTOMS. Plan: CONTINUE DETOX. INCREASE DAILY PO FLUID INTAKE.
[2017-11-22] MEDS: SERTRALINE HCL 50 MG TABLET (FP) PO SCH (13:40)
[2017-11-22] MEDS: THIAMINE HCL 100 MG TABLET (FP) PO SCH (22:12)
[2017-11-22] MEDS: ZOLPIDEM TARTRATE 5 MG TABLET PO PRN (22:12)
[2017-11-23] MEDS: chlordiazePOXIDE HCL 25 MG CAPSULE PO SCH ×2 (05:47→10:18)
[2017-11-23] MEDS: HYDROCHLOROTHIAZIDE 25 MG TABLET (FP) PO SCH (10:18)
[2017-11-23] MEDS: PRENATAL VITAMINS W/ FOLIC ACID TABLET (FP) PO SCH (10:18)
[2017-11-23] MEDS: SERTRALINE HCL 50 MG TABLET (FP) PO SCH (10:18)
[2017-11-23] MEDS: amLODIPine BESYLATE 5 MG TABLET (FP) PO SCH (10:18)
[2017-11-23] MEDS: LISINOPRIL 20 MG TABLET (FP) PO SCH ×2 (10:19→22:13)
[2017-11-23] MEDS: NICOTINE 21 MG/24 HOURS TOPICAL PATCH TD SCH (10:20)
--- NOTE | 2017-11-23 15:56 | PN ---
S CIWA - CIWA Score Nausea/Vomitin-No Nausea/No Vomiting Muscle Tremors: 4-Moderate,w/Arms Extend Anxiety: 3 Agitation: 1-Slight > Activity Paroxysmal Sweats: No Perspiration Orientation: 0-Oriented Tacttile Disturbances: 2-Mild Itch/Numbness/Burn Auditory Disturbances: 1-Very Mild Visual Disturbances: 2-Mild Sensitivity Headache: 0-None Present CIWA-Ar Total Score: 13 BHS Progress Note (SOAP) Subjective: Tremors, Anxious, Interrupted Sleep. Objective: PATIENT A & O X 3, OBSERVED AMBULATING ON UNIT. NO ACUTE DISTRESS. 11/23/17 15:56 Vital Signs Temperature 98 F 11/23/17 13:15 Pulse Rate 82 11/23/17 13:15 Respiratory Rate 18 11/23/17 13:15 Blood Pressure 121/88 11/23/17 13:15 O2 Sat by Pulse Oximetry (%) Laboratory Tests 11/21/17 11/22/17 11/22/17 15:15 05:50 05:50 WBC 8.6 D RBC 4.90 Hgb 10.7 L D Hct 36.2 D MCV 73.9 L MCH 21.9 L D MCHC 29.6 L RDW 26.7 H Plt Count 243 D MPV 9.2 D Sodium 139 Potassium 3.6 Chloride 105 Carbon Dioxide 21 D Anion Gap 13 BUN 15 Creatinine 1.2 Creat Clearance w eGFR > 60 Random Glucose 99 D Calcium 9.7 Total Bilirubin 0.2 D AST 14 L D ALT 21 D Alkaline Phosphatase 109 Total Protein 7.6 Albumin 3.9 Urine Color Straw Urine Appearance Clear Urine pH 5.0 D Ur Specific [place] 1.011 Urine Protein Negative Urine Glucose (UA) Negative Urine Ketones Negative Urine Blood Negative Urine Nitrite Negative Urine Bilirubin Negative Urine Urobilinogen Negative Ur Leukocyte Esterase Negative RPR Titer 11/22/17 05:50 WBC RBC Hgb Hct MCV MCH MCHC RDW Plt Count MPV Sodium Potassium Chloride Carbon Dioxide Anion Gap BUN Creatinine Creat Clearance w eGFR Random Glucose Calcium Total Bilirubin AST ALT Alkaline Phosphatase Total Protein Albumin Urine Color Urine Appearance Urine pH Ur Specific [place] Urine Protein Urine Glucose (UA) Urine Ketones Urine Blood Urine Nitrite Urine Bilirubin Urine Urobilinogen Ur Leukocyte Esterase RPR Titer Nonreactive LABS NOTED. Assessment: 11/23/17 15:57 WITHDRAWAL SYMPTOMS. Plan: CONTINUE DETOX.
[2017-11-23] MEDS: chlordiazePOXIDE 5 MG CAPSULE PO SCH ×2 (17:06→22:13)
[2017-11-23] MEDS: THIAMINE HCL 100 MG TABLET (FP) PO SCH (22:13)
[2017-11-23] MEDS: ZOLPIDEM TARTRATE 5 MG TABLET PO PRN (22:16)
--- NOTE | 2017-11-23 22:46 | EKG ---
Test Reason : Blood Pressure : / mmHG Vent. Rate : 092 BPM Atrial Rate : 092 BPM P-R Int : 192 ms QRS Dur : 084 ms QT Int : 368 ms P-R-T Axes : 056 058 056 degrees QTc Int : 455 ms NORMAL SINUS RHYTHM NORMAL ECG WHEN COMPARED WITH ECG OF 14-JAN-2017 20:47, NO SIGNIFICANT CHANGE WAS FOUND Confirmed by GERALDO PERRY MD ([id number]) on 11/23/2017 10:46:09 PM Referred By: Confirmed By:GERALDO PERRY MD
[2017-11-24] MEDS: chlordiazePOXIDE 5 MG CAPSULE PO SCH ×2 (05:57→10:18)
[2017-11-24] MEDS: PRENATAL VITAMINS W/ FOLIC ACID TABLET (FP) PO SCH (10:17)
[2017-11-24] MEDS: SERTRALINE HCL 50 MG TABLET (FP) PO SCH (10:20)
[2017-11-24] MEDS: NICOTINE 21 MG/24 HOURS TOPICAL PATCH TD SCH (10:20)
[2017-11-24] MEDS: LISINOPRIL 20 MG TABLET (FP) PO SCH (10:20)
[2017-11-24] MEDS: HYDROCHLOROTHIAZIDE 25 MG TABLET (FP) PO SCH (10:20)
[2017-11-24] MEDS: amLODIPine BESYLATE 5 MG TABLET (FP) PO SCH (10:21)
--- NOTE | 2017-11-24 10:41 | PN ---
BHS Progress Note (SOAP) Subjective: Sweats Sleep disturbance Objective: 11/24/17 10:38 A & O x 3 Sleepy BP low - denies dizziness nor other symptoms Vital Signs Temperature 99.6 F 11/24/17 09:53 Pulse Rate 93 H 11/24/17 09:53 Respiratory Rate 18 11/24/17 09:53 Blood Pressure 95/59 11/24/17 09:53 O2 Sat by Pulse Oximetry (%) Assessment: 11/24/17 10:40 withdrawal sx Plan: continue detox Hold day's dose of lisinopril and Norvasc Monitor Bp Increase hydration
[2017-11-24] MEDS: chlordiazePOXIDE HCL 10 MG CAPSULE PO SCH ×2 (17:28→22:10)
[2017-11-24] MEDS: THIAMINE HCL 100 MG TABLET (FP) PO SCH (22:08)
[2017-11-24] MEDS: ZOLPIDEM TARTRATE 5 MG TABLET PO PRN (22:10)
[2017-11-25] MEDS: chlordiazePOXIDE HCL 10 MG CAPSULE PO SCH ×2 (05:32→10:09)
[2017-11-25] MEDS: LISINOPRIL 20 MG TABLET (FP) PO SCH ×2 (10:09→22:54)
[2017-11-25] MEDS: SERTRALINE HCL 50 MG TABLET (FP) PO SCH (10:09)
[2017-11-25] MEDS: NICOTINE 21 MG/24 HOURS TOPICAL PATCH TD SCH (10:09)
[2017-11-25] MEDS: HYDROCHLOROTHIAZIDE 25 MG TABLET (FP) PO SCH (10:09)
[2017-11-25] MEDS: amLODIPine BESYLATE 5 MG TABLET (FP) PO SCH (10:09)
[2017-11-25] MEDS: PRENATAL VITAMINS W/ FOLIC ACID TABLET (FP) PO SCH (10:09)
--- NOTE | 2017-11-25 11:20 | PN ---
BHS Progress Note (SOAP) Subjective: Patient denies current Detox symptoms and reports that he feels well overall. Objective: PATIENT A & O X 3, OBSERVED AMBULATING ON UNIT. NO ACUTE DISTRESS. 11/25/17 11:18 Vital Signs Temperature 97.9 F 11/25/17 09:09 Pulse Rate 67 11/25/17 09:09 Respiratory Rate 18 11/25/17 09:09 Blood Pressure 118/93 11/25/17 09:09 O2 Sat by Pulse Oximetry (%) Laboratory Tests 11/21/17 11/22/17 11/22/17 15:15 05:50 05:50 WBC 8.6 D RBC 4.90 Hgb 10.7 L D Hct 36.2 D MCV 73.9 L MCH 21.9 L D MCHC 29.6 L RDW 26.7 H Plt Count 243 D MPV 9.2 D Sodium 139 Potassium 3.6 Chloride 105 Carbon Dioxide 21 D Anion Gap 13 BUN 15 Creatinine 1.2 Creat Clearance w eGFR > 60 Random Glucose 99 D Calcium 9.7 Total Bilirubin 0.2 D AST 14 L D ALT 21 D Alkaline Phosphatase 109 Total Protein 7.6 Albumin 3.9 Urine Color Straw Urine Appearance Clear Urine pH 5.0 D Ur Specific [place] 1.011 Urine Protein Negative Urine Glucose (UA) Negative Urine Ketones Negative Urine Blood Negative Urine Nitrite Negative Urine Bilirubin Negative Urine Urobilinogen Negative Ur Leukocyte Esterase Negative RPR Titer 11/22/17 05:50 WBC RBC Hgb Hct MCV MCH MCHC RDW Plt Count MPV Sodium Potassium Chloride Carbon Dioxide Anion Gap BUN Creatinine Creat Clearance w eGFR Random Glucose Calcium Total Bilirubin AST ALT Alkaline Phosphatase Total Protein Albumin Urine Color Urine Appearance Urine pH Ur Specific [place] Urine Protein Urine Glucose (UA) Urine Ketones Urine Blood Urine Nitrite Urine Bilirubin Urine Urobilinogen Ur Leukocyte Esterase RPR Titer Nonreactive LABS NOTED. Assessment: 11/25/17 11:19 COMPLETION OF DETOX REGIMEN. Plan: PATIENT SCHEDULED FOR DISCHARGE FROM DETOX UNIT TODAY.
--- NOTE | 2017-11-25 11:23 | DS ---
[facility] Detox Discharge Summary Admission Date: 11/21/17 Discharge Date: 11/25/17 - History Present History: Alcohol Dependence, Cocaine Dependence Additional Comments: PATIENT GOING TO [facility] ([place]) FOR AFTERCARE. PATIENT WAS DISCHARGED FROM DETOX UNIT IN STABLE MEDICAL CONDITION. Pertinent Past History: Depression, Nicotine Dependence, HTN, Insomnia. - Physical Exam Results Vital Signs: Vital Signs Temperature 97.9 F 11/25/17 09:09 Pulse Rate 67 11/25/17 09:09 Respiratory Rate 18 11/25/17 09:09 Blood Pressure 118/93 11/25/17 09:09 O2 Sat by Pulse Oximetry (%) Pertinent Admission Physical Exam Findings: WITHDRAWAL SYMPTOMS. Laboratory Tests 11/21/17 11/22/17 11/22/17 15:15 05:50 05:50 WBC 8.6 D RBC 4.90 Hgb 10.7 L D Hct 36.2 D MCV 73.9 L MCH 21.9 L D MCHC 29.6 L RDW 26.7 H Plt Count 243 D MPV 9.2 D Sodium 139 Potassium 3.6 Chloride 105 Carbon Dioxide 21 D Anion Gap 13 BUN 15 Creatinine 1.2 Creat Clearance w eGFR > 60 Random Glucose 99 D Calcium 9.7 Total Bilirubin 0.2 D AST 14 L D ALT 21 D Alkaline Phosphatase 109 Total Protein 7.6 Albumin 3.9 Urine Color Straw Urine Appearance Clear Urine pH 5.0 D Ur Specific [place] 1.011 Urine Protein Negative Urine Glucose (UA) Negative Urine Ketones Negative Urine Blood Negative Urine Nitrite Negative Urine Bilirubin Negative Urine Urobilinogen Negative Ur Leukocyte Esterase Negative RPR Titer 11/22/17 05:50 WBC RBC Hgb Hct MCV MCH MCHC RDW Plt Count MPV Sodium Potassium Chloride Carbon Dioxide Anion Gap BUN Creatinine Creat Clearance w eGFR Random Glucose Calcium Total Bilirubin AST ALT Alkaline Phosphatase Total Protein Albumin Urine Color Urine Appearance Urine pH Ur Specific [place] Urine Protein Urine Glucose (UA) Urine Ketones Urine Blood Urine Nitrite Urine Bilirubin Urine Urobilinogen Ur Leukocyte Esterase RPR Titer Nonreactive LABS NOTED. - Treatment Hospital Course: Detox Protocol Followed, Detoxed Safely, Responded well, Discharged Condition Good, Rehab Referral Accepted Patient has Accepted a Rehab Referral to: [facility] ([place]) . - Medication Discharge Medications: Ambulatory Orders Amlodipine Besylate [Norvasc -] 5 mg PO DAILY #30 tab 01/24/17 Hydrochlorothiazide 25 mg PO DAILY #30 tablet 01/24/17 Lisinopril [Prinivil] 20 mg PO DAILY #30 tab 01/24/17 Sertraline HCl [Zoloft -] 75 mg PO DAILY #45 tablet 01/24/17 - Diagnosis (1) Alcohol dependence with uncomplicated withdrawal Current Visit: Yes Status: Chronic (2) Cocaine dependence Current Visit: Yes Status: Acute Qualifiers: Substance use status: uncomplicated Qualified Code(s): F14.20 - Cocaine dependence, uncomplicated (3) Nicotine dependence Current Visit: Yes Status: Chronic Qualifiers: Nicotine product type: cigarettes Substance use status: in withdrawal Qualified Code(s): F17.213 - Nicotine dependence, cigarettes, with withdrawal (4) Essential hypertension Current Visit: Yes Status: Chronic (5) Obesity Current Visit: Yes Status: Chronic Qualifiers: Obesity type: unspecified obesity type Obesity classification: adult class 1 (BMI 30 - 34.9) Serious obesity comorbidity presence: unspecified whether serious comorbidity present Body mass index: BMI 31.0-31.9 Qualified Code(s) : E66.9 - Obesity, unspecified; Z68.31 - Body mass index (BMI) 31.0-31.9, adult (6) MDD (major depressive disorder) Current Visit: Yes Status: Chronic Qualifiers: Major depression recurrence: recurrent Active/Remission status: remission status unspecified Qualified Code(s): F33.9 - Major depressive disorder, recurrent, unspecified (7) Insomnia Current Visit: Yes Status: Chronic Qualifiers: Insomnia type: unspecified Qualified Code(s): G47.00 - Insomnia, unspecified - AMA Did Patient Leave Against Medical Advice: No
--- NOTE | 2017-11-25 11:26 | HP ---
[facility] Re[facility] Assess/Revision - Admission History Admitted to Rehab from: [facility] Date of Admission to Rehab: 11/25/2017 - Vital signs Vital Signs: Vital Signs Period Temp Pulse Resp BP Sys/[place]cfarland Pulse Ox Last 24 Hr 96.2 F-101.4 F 67-104 17-20 118-132/81-93 - Findings Detox History & Physical reviewed: Yes Concur with findings: Yes Comments/Additional Findings: PATIENT'S MEDICAL / MEDICATION HISTORY REVIEWED PRIOR TO DISCHARGE FROM DETOX UNIT. PATIENT WAS DISCHARGED FROM DETOX UNIT TO BE TAKEN TO REHAB UNIT IN STABLE MEDICAL CONDITION. Inpatient Rehab Admission - Initial Determination Are CD services needed?: Yes Free of communicable disease: Yes Not in need of hospitalization: Yes - Rehab Admission Criteria Previous failed treatment: Yes Comorbidities: Yes Patient is meeting Inpatient Rehab admission criteria:: Yes
--- NOTE | 2017-11-25 14:03 | HP ---
Psychiatrist Admission - Data Date of interview: 11/25/17 Admission source: 3N Identifying data: This is one of the multiple [facility] for this 52 years old Black, father of 2 children, unemployed on SSI/SSD, homeless Medical History: Significant for hypertension. Smokes cigarettes 1 ppd Psychiatric History: Patient reports that his first psychiatric contact was in 1982 when he was first admitted to [facility] in [place], [place] and diagnosed with MDD. Reports one subsequent admission to [facility] in 1984. Reports receiving psychiatric outpatient services at [facility] in [place] and he is prescribed Zoloft 50 mg po daily. Denies previous suicidal attempt. At present, reports doing well but sleeping poorly Physical/Sexual Abuse/Trauma History: Denies history of emotional, physical or sexual abuse as well as DV relationship. No service Additional Comment: Denies criminal history Vital Signs: Vital Signs - 24 hr 11/24/17 11/24/17 11/25/17 14:35 22:11 00:30 Temperature 98.0 F 98.5 F Pulse Rate 87 Respiratory 17 18 Rate Blood Pressure 132/85 11/25/17 11/25/17 11/25/17 03:30 05:43 09:09 Temperature 96.2 F L 97.9 F Pulse Rate 90 67 Respiratory 18 18 18 Rate Blood Pressure 122/81 118/93 Allergies/Adverse Reactions: Allergies Allergy/AdvReac Type Severity Reaction Status Date / Time No Known Allergies Allergy Verified 11/21/17 12:17 Date of last physical exam: 11/21/17 Concur with the findings of this exam: Yes - Substance Abuse/Tx History Hx Alcohol Use: Yes Hx Substance Use: Yes Substance Use Type: Alcohol (Started drinking alcohol at age 12, consumes 2pints of dodka or rum & 2-3x 6pk of beer daily. Last drank on 11/21/17), Cocaine (Started smoking crack cocaine at age 16, consumes $150 worth daily. Last smoked on 11/21/17) Hx Substance Use Treatment: Yes (Multiple inpt detox & inpt rehab admission@ [facility]) Mental Status Exam - Mental Status Exam Alert and Oriented to: Time, Place, Person Cognitive Function: Fair Patient Appearance: Well Groomed Mood: Hopeful, Euthymic Patient Behavior: Cooperative Speech Pattern: Clear Voice Loudness: Normal Thought Process: Intact, Goal Oriented Hallucinations: Denies Suicidal Ideation: Denies Homicidal Ideation: Denies Insight/Judgement: Fair Sleep: Poorly Appetite: Good Muscle strength/Tone: Normal Gait/Station: Normal Psychiatric Findings - Problem List ([place] 1, 2,3) (1) Alcohol dependence Current Visit: Yes Status: Acute Qualifiers: Substance use status: in withdrawal (2) Cocaine dependence Current Visit: Yes Status: Acute Qualifiers: Substance use status: uncomplicated Qualified Code(s): F14.20 - Cocaine dependence, uncomplicated (3) Nicotine dependence Current Visit: Yes Status: Chronic Qualifiers: Nicotine product type: cigarettes Substance use status: in withdrawal Qualified Code(s): F17.213 - Nicotine dependence, cigarettes, with withdrawal (4) MDD (major depressive disorder) Current Visit: Yes Status: Chronic Qualifiers: Major depression recurrence: recurrent Active/Remission status: remission status unspecified Qualified Code(s): F33.9 - Major depressive disorder, recurrent, unspecified (5) Substance-induced sleep disorder Current Visit: Yes Status: Acute (6) Essential hypertension Current Visit: Yes Status: Chronic - Initial Treatment Plan Initial Treatment Plan: 1) Continue Zoloft 50 mg po daily. 2) Start Trazadone 100 mg po HS for insomnia. 3) Monitor progress
[2017-11-25] MEDS: THIAMINE HCL 100 MG TABLET (FP) PO SCH (21:43)
[2017-11-25] MEDS: traZODone HCL 100 MG TABLET (FP) PO SCH (21:43)
[2017-11-26] MEDS: HYDROCHLOROTHIAZIDE 25 MG TABLET (FP) PO SCH (09:51)
[2017-11-26] MEDS: SERTRALINE HCL 50 MG TABLET (FP) PO SCH (09:51)
[2017-11-26] MEDS: LISINOPRIL 20 MG TABLET (FP) PO SCH ×2 (09:52→21:36)
[2017-11-26] MEDS: amLODIPine BESYLATE 5 MG TABLET (FP) PO SCH (09:52)
[2017-11-26] MEDS: PRENATAL VITAMINS W/ FOLIC ACID TABLET (FP) PO SCH (09:52)
[2017-11-26] MEDS: NICOTINE 21 MG/24 HOURS TOPICAL PATCH TD SCH (09:52)
[2017-11-26] MEDS: traZODone HCL 100 MG TABLET (FP) PO SCH (21:36)
[2017-11-26] MEDS: THIAMINE HCL 100 MG TABLET (FP) PO SCH (21:36)
[2017-11-27] MEDS: NICOTINE 21 MG/24 HOURS TOPICAL PATCH TD SCH (10:00)
[2017-11-27] MEDS: SERTRALINE HCL 50 MG TABLET (FP) PO SCH (10:00)
[2017-11-27] MEDS: amLODIPine BESYLATE 5 MG TABLET (FP) PO SCH (10:00)
[2017-11-27] MEDS: PRENATAL VITAMINS W/ FOLIC ACID TABLET (FP) PO SCH (10:00)
[2017-11-27] MEDS: LISINOPRIL 20 MG TABLET (FP) PO SCH ×2 (10:00→21:25)
[2017-11-27] MEDS: HYDROCHLOROTHIAZIDE 25 MG TABLET (FP) PO SCH (10:00)
[2017-11-27] MEDS: THIAMINE HCL 100 MG TABLET (FP) PO SCH (21:24)
[2017-11-27] MEDS: traZODone HCL 100 MG TABLET (FP) PO SCH (21:26)
[2017-11-28] MEDS: PRENATAL VITAMINS W/ FOLIC ACID TABLET (FP) PO SCH (09:46)
[2017-11-28] MEDS: amLODIPine BESYLATE 5 MG TABLET (FP) PO SCH (09:46)
[2017-11-28] MEDS: LISINOPRIL 20 MG TABLET (FP) PO SCH ×2 (09:46→21:28)
[2017-11-28] MEDS: NICOTINE 21 MG/24 HOURS TOPICAL PATCH TD SCH (09:46)
[2017-11-28] MEDS: SERTRALINE HCL 50 MG TABLET (FP) PO SCH (09:46)
[2017-11-28] MEDS: HYDROCHLOROTHIAZIDE 25 MG TABLET (FP) PO SCH (09:46)
[2017-11-28] MEDS: THIAMINE HCL 100 MG TABLET (FP) PO SCH (21:26)
[2017-11-28] MEDS: traZODone HCL 100 MG TABLET (FP) PO SCH (21:27)
[2017-11-29] MEDS: SERTRALINE HCL 50 MG TABLET (FP) PO SCH (09:56)
[2017-11-29] MEDS: amLODIPine BESYLATE 5 MG TABLET (FP) PO SCH (09:56)
[2017-11-29] MEDS: NICOTINE 21 MG/24 HOURS TOPICAL PATCH TD SCH (09:56)
[2017-11-29] MEDS: LISINOPRIL 20 MG TABLET (FP) PO SCH ×2 (09:56→21:48)
[2017-11-29] MEDS: HYDROCHLOROTHIAZIDE 25 MG TABLET (FP) PO SCH (09:56)
[2017-11-29] MEDS: PRENATAL VITAMINS W/ FOLIC ACID TABLET (FP) PO SCH (09:56)
[2017-11-29] MEDS: traZODone HCL 100 MG TABLET (FP) PO SCH (21:48)
[2017-11-29] MEDS: THIAMINE HCL 100 MG TABLET (FP) PO SCH (21:48)
[2017-11-30] MEDS: ACETAMINOPHEN 325 MG TABLET (FP) PO PRN (06:06)
[2017-11-30] MEDS: NICOTINE 21 MG/24 HOURS TOPICAL PATCH TD SCH (09:53)
[2017-11-30] MEDS: HYDROCHLOROTHIAZIDE 25 MG TABLET (FP) PO SCH (09:53)
[2017-11-30] MEDS: amLODIPine BESYLATE 5 MG TABLET (FP) PO SCH (09:53)
[2017-11-30] MEDS: SERTRALINE HCL 50 MG TABLET (FP) PO SCH (09:53)
[2017-11-30] MEDS: PRENATAL VITAMINS W/ FOLIC ACID TABLET (FP) PO SCH (09:53)
[2017-11-30] MEDS: LISINOPRIL 20 MG TABLET (FP) PO SCH ×2 (09:55→21:06)
[2017-11-30] MEDS: traZODone HCL 100 MG TABLET (FP) PO SCH (21:05)
[2017-11-30] MEDS: THIAMINE HCL 100 MG TABLET (FP) PO SCH (21:05)
[2017-12-01] MEDS: PRENATAL VITAMINS W/ FOLIC ACID TABLET (FP) PO SCH (10:07)
[2017-12-01] MEDS: SERTRALINE HCL 50 MG TABLET (FP) PO SCH (10:07)
[2017-12-01] MEDS: NICOTINE 21 MG/24 HOURS TOPICAL PATCH TD SCH (10:08)
[2017-12-01] MEDS: amLODIPine BESYLATE 5 MG TABLET (FP) PO SCH (10:08)
[2017-12-01] MEDS: LISINOPRIL 20 MG TABLET (FP) PO SCH ×2 (10:08→21:42)
[2017-12-01] MEDS: HYDROCHLOROTHIAZIDE 25 MG TABLET (FP) PO SCH (10:08)
[2017-12-01] MEDS: MAG HYDROX/AL HYDROX/SIMETH 30 ML UNIT-DOSE CUP PO PRN (15:16)
[2017-12-01] MEDS: THIAMINE HCL 100 MG TABLET (FP) PO SCH (21:41)
[2017-12-01] MEDS: traZODone HCL 100 MG TABLET (FP) PO SCH (21:41)
[2017-12-02] MEDS: PRENATAL VITAMINS W/ FOLIC ACID TABLET (FP) PO SCH (09:36)
[2017-12-02] MEDS: NICOTINE 21 MG/24 HOURS TOPICAL PATCH TD SCH (09:37)
[2017-12-02] MEDS: SERTRALINE HCL 50 MG TABLET (FP) PO SCH (09:37)
[2017-12-02] MEDS: amLODIPine BESYLATE 5 MG TABLET (FP) PO SCH (09:37)
[2017-12-02] MEDS: LISINOPRIL 20 MG TABLET (FP) PO SCH ×2 (09:37→21:41)
[2017-12-02] MEDS: HYDROCHLOROTHIAZIDE 25 MG TABLET (FP) PO SCH (09:37)
[2017-12-02] MEDS: MAG HYDROX/AL HYDROX/SIMETH 30 ML UNIT-DOSE CUP PO PRN (16:56)
[2017-12-02] MEDS: THIAMINE HCL 100 MG TABLET (FP) PO SCH (21:41)
[2017-12-02] MEDS: traZODone HCL 100 MG TABLET (FP) PO SCH (21:41)
[2017-12-03 07:03] VITALS: TEMP 98.4
[2017-12-03] MEDS: SERTRALINE HCL 50 MG TABLET (FP) PO SCH (10:05)
[2017-12-03] MEDS: PRENATAL VITAMINS W/ FOLIC ACID TABLET (FP) PO SCH (10:05)
[2017-12-03] MEDS: LISINOPRIL 20 MG TABLET (FP) PO SCH (10:06)
[2017-12-03] MEDS: NICOTINE 21 MG/24 HOURS TOPICAL PATCH TD SCH (10:06)
[2017-12-03] MEDS: HYDROCHLOROTHIAZIDE 25 MG TABLET (FP) PO SCH (10:06)
[2017-12-03] MEDS: amLODIPine BESYLATE 5 MG TABLET (FP) PO SCH (10:06)
[2017-12-03 10:31] VITALS: BP 124/82; PULSE 113
--- NOTE | 2017-12-03 11:10 | PN ---
Psychiatric Progress Note Vital Signs: Vital Signs Period Temp Pulse Resp BP Sys/Mcfarland Pulse Ox Last 24 Hr 98.4 F 97-113 18-20 124-146/80-82 Date of Session: 12/03/17 Chief Complaint:: Discharge Note HPI: Patient addressing Alcohol and Cocaine Dependence comorbid with Nicotine Dependence, MDD and Substance-Induced Sleep Disorder ROS: HTN Current Medications: Active Medications Generic Name Dose Route Start Last Admin Trade Name Freq PRN Reason Stop Dose Admin Acetaminophen 650 mg 11/21/17 12:56 11/30/17 06:06 Tylenol - PO 650 mg Q4H PRN Administration FEVER Al Hydroxide/Mg Hydroxide 30 ml 11/21/17 12:56 12/02/17 16:56 Mylanta Oral Suspension - PO 30 ml Q6H PRN Administration DYSPEPSIA Amlodipine Besylate 5 mg 11/21/17 13:45 12/03/17 10:06 Norvasc - PO 5 mg DAILY TRINIDAD Administration Eucalyptus/Menthol/Phenol/Sorbitol 1 each 11/21/17 12:56 Cepastat Lozenge - MM Q4H PRN SORE THROAT Guaifenesin 10 ml 11/21/17 12:56 Robitussin Dm - PO Q6H PRN COUGH Hydrochlorothiazide 25 mg 11/21/17 14:00 12/03/17 10:06 Hctz - PO 25 mg DAILY TRINIDAD Administration Hydroxyzine Pamoate 50 mg 11/21/17 12:56 Vistaril - PO Q4H PRN AGITATION Ibuprofen 400 mg 11/21/17 12:56 11/24/17 12:38 Motrin - PO 400 mg Q6H PRN Administration PAIN LEVEL 4-6 Lisinopril 10 mg 11/21/17 22:00 12/03/17 10:06 Prinivil PO 10 mg BID TRINIDAD Administration Loperamide HCl 4 mg 11/21/17 12:56 Imodium - PO Q6H PRN DIARRHEA Magnesium Citrate 300 ml 11/21/17 12:56 Citroma - PO Q48H PRN CONSTIPATION Magnesium Hydroxide 30 ml 11/21/17 12:56 Milk Of Magnesia - PO DAILY PRN CONSTIPATION Melatonin 5 mg 11/21/17 22:00 Melatonin PO HS PRN INSOMNIA Nicotine 21 mg 11/21/17 14:00 12/03/17 10:06 Nicoderm Patch - TD Not Given DAILY TRINIDAD Nicotine Polacrilex 4 mg 11/21/17 12:56 Nicorette Gum - BC Q2H PRN NICOTINE REPLACEMENT RX Multivit/Folic Acid/Iron 1 tab 11/22/17 10:00 12/03/17 10:05 Vitamins (Sjr) - PO 1 tab DAILY TRINIDAD Administration Pseudoephedrine/Triprolidine 1 combo 11/21/17 12:56 Actifed - PO TID PRN NASAL CONGESTION Sertraline HCl 50 mg 11/22/17 11:15 12/03/17 10:05 Zoloft - PO 50 mg DAILY TRINIDAD Administration Thiamine HCl 100 mg 11/21/17 22:00 12/02/17 21:41 Vitamin B1 - PO 100 mg HS TRINIDAD Administration Trazodone HCl 100 mg 11/25/17 22:00 12/02/17 21:41 Desyrel - PO 100 mg HS TRINIDAD Administration Current Side Effect: No Lab tests ordered: Yes Lab tests reviewed: Yes Provider note:: Patient has completed this program today. He has partially met his treatment goals and will continue to address his issues in outpatient treatment at [facility](self-referral). Told insurance underwriter from his participation in this program, he has learned to have a positive attitude and to identify his feelings. He responded well to Zoloft 50 mg po daily and Trazadone 100 mg po HS. Scripts for 30 days supply of these medications are electronically transmitted to [facility] at [address] [place] [address]. He is stable for discharge today Total face to face time:: 35 Mental Status Exam - Mental Status Exam Alert and Oriented to: Time, Place, Person Cognitive Function: Fair Patient Appearance: Well Groomed Mood: Hopeful, Euthymic Affect: Appropriate Patient Behavior: Cooperative Speech Pattern: Clear Voice Loudness: Normal Thought Process: Intact, Goal Oriented Thought Disorder: Not Present Hallucinations: Denies Suicidal Ideation: Denies Homicidal Ideation: Denies Insight/Judgement: Fair Sleep: Fair Appetite: Good Muscle strength/Tone: Normal Gait/Station: Normal Psychiatric Treatment Plan - Problem List (1) Alcohol dependence Current Visit: Yes Qualifiers: Substance use status: in withdrawal (2) Cocaine dependence Current Visit: Yes Qualifiers: Substance use status: uncomplicated Qualified Code(s): F14.20 - Cocaine dependence, uncomplicated (3) Nicotine dependence Current Visit: Yes Qualifiers: Nicotine product type: cigarettes Substance use status: in withdrawal Qualified Code(s): F17.213 - Nicotine dependence, cigarettes, with withdrawal (4) MDD (major depressive disorder) Current Visit: Yes Qualifiers: Major depression recurrence: recurrent Active/Remission status: remission status unspecified Qualified Code(s): F33.9 - Major depressive disorder, recurrent, unspecified (5) Substance-induced sleep disorder Current Visit: Yes (6) Essential hypertension Current Visit: Yes Initial treatment plan: Patient is discharged today and refuses referral for outpatient treatment. Claims that before this admission for rehab, he had a referral appointment at [facility] and he missed it because he relapsed. Told insurance underwriter that he will go there for outpatient treament
== END 2017-12-03 11:27 | disposition home or self-care (01) | DRG 895 ==
LOC: YASAS 11:46 → Y3N 13:38 → Y3W 11-25 12:24
PROVIDERS: ADMIT Surgery; ATTEND Psychiatry & Neurology Psychiatry
PROC: HZ2ZZZZ Detoxification Services for Substance Abuse Treatment (ICD-10-PCS; principal; 2017-11-21)
PROC: HZ42ZZZ Group Counseling for Substance Abuse Treatment, Cognitive-Behavioral (ICD-10-PCS; 2017-11-25)
DX: F10.230 Alcohol dependence with withdrawal, uncomplicated (principal); F14.20 Cocaine dependence, uncomplicated; F33.9 Major depressive disorder, recurrent, unspecified; F19.282 Other psychoactive substance dependence with psychoactive substance-induced sleep disorder; F17.213 Nicotine dependence, cigarettes, with withdrawal; I10 Essential (primary) hypertension; G47.00 Insomnia, unspecified; E66.9 Obesity, unspecified; Z68.31 Body mass index [BMI] 31.0-31.9, adult
CPT/HCPCS: 36415; 80053; 81003; 85027; 86593; 93005; 93010

== ENCOUNTER 2018-01-21 11:34 | Inpatient (IN) | payer OTHER ==
[2018-01-21 11:54] VITALS: BMI 29.3
--- NOTE | 2018-01-21 14:52 | HP ---
CIWA Score - CIWA Score Nausea/Vomitin Muscle Tremors: 3 Anxiety: 3 Agitation: 3 Paroxysmal Sweats: 1-Minimal Palms Moist Orientation: 0-Oriented Tacttile Disturbances: 1-Very Mild Itch/Numbness Auditory Disturbances: 1-Very Mild Visual Disturbances: 0-None Headache: 2-Mild CIWA-Ar Total Score: 17 Admission ROS BHS - HPI Chief Complaint: I NEED HELP TO STOP DRINKING ALCOHOL AND CRACK Allergies/Adverse Reactions: Allergies Allergy/AdvReac Type Severity Reaction Status Date / Time No Known Allergies Allergy Verified 01/21/18 11:55 History of Present Illness: THIS 52 YEARS OLD MALE WITH ALCOHOL AND CRACK DEPENDENCE,SEEKING DETOX, WITHDRAWAL SYMPTOM,LAST TREATMENT [facility] FROM 11/21/17 OT 12/03/17 HYPERTENSION TAKING MEDICATION NICOTINE DEPENDENCE DEPRESSION LONGEST PERIOD OF SOBRIETY 6 MONTHS MULTIPLE ADMISSIONS IN THE PAST BUT KEEP RELAPSING Exam Limitations: No Limitations - Ebola screening Have you traveled outside of the country in the last 21 days: No Have you had contact with anyone from an Ebola affected area: No Have you been sick,other than usual withdrawal symptoms: No Do you have a fever: No - Review of Systems Constitutional: Loss of Appetite, Malaise, Night Sweats, Changes in sleep EENT: reports: Nose Congestion Respiratory: reports: No Symptoms reported Cardiac: reports: No Symptoms Reported GI: reports: Diarrhea, Nausea, Abdominal cramping : reports: No Symptoms Reported Musculoskeletal: reports: Muscle Pain Integumentary: reports: Dryness Neuro: reports: Tremors Endocrine: reports: No Symptoms Reported Hematology: reports: No Symptoms Reported Psychiatric: reports: No Sypmtoms Reported, Judgement Intact, Mood/Affect Appropiate, Orientated x3, Depressed Patient History - Patient Medical History Hx Anemia: No Hx Asthma: No Hx Chronic Obstructive Pulmonary Disease (COPD): No Hx Cancer: No Hx Cardiac Disorders: No Hx Congestive Heart Failure: No Hx Hypertension: Yes (ON MED) Hx Hypercholesterolemia: No Hx Pacemaker: No HX Cerebrovascular Accident: No Hx Seizures: No Hx Diabetes: No Hx Gastrointestinal Disorders: No Hx Liver Disease: No Hx Genitourinary Disorders: No Hx Sexually Transmitted Disorders: No Hx Renal Disease (ESRD): No Hx Thyroid Disease: No Hx Human Immunodeficiency Virus (HIV): No (NEGATIVE HX LAST 11/07 NEGATIVE) Hx Hepatitis C: No (DENIES) Hx Depression: Yes (N MED) Hx Suicide Attempt: No Hx Bipolar Disorder: No Hx Schizophrenia: No Other Medical History: NO SUICIDAL,NO HOMICIDAL - Patient Surgical History Past Surgical History: No Hx Neurologic Surgery: No Hx Cataract Extraction: No Hx Cardiac Surgery: No Hx Lung Surgery: No Hx Breast Surgery: No Hx Breast Biopsy: No Hx Abdominal Surgery: No Hx Appendectomy: No Hx Cholecystectomy: No Hx Genitourinary Surgery: No Hx Section: No Hx Orthopedic Surgery: No Anesthesia Reaction: No - PPD History Previous Implant?: Yes Documented Results: Negative w/proof Implanted On Prior [facility] Admission?: Yes Date: 01/16/17 Results: 0 mm PPD to be Administered?: Yes - Smoking Cessation Smoking history: Current every day smoker Have you smoked in the past 12 months: Yes Aproximately how many cigarettes per day: 20 Cigars Per Day: 0 Hx Chewing Tobacco Use: No Initiated information on smoking cessation: Yes 'Breaking Loose' booklet given: 01/21/18 - Substance & Tx. History Hx Alcohol Use: Yes Hx Substance Use: Yes Substance Use Type: Alcohol, Cocaine - Substances Abused Crack Route: Smoking Frequency: Daily Amount used: $200 Age of first use: 16 Date of Last Use: 01/21/18 Alcohol-beer/vodka/rum Route: Oral Frequency: Daily Amount used: 3-6 pks./3 pts. Age of first use: 14 Date of Last Use: 01/21/18 Family Disease History - Family Disease History Family History: Denies Admission Physical Exam BHS - Vital Signs Vital Signs: Vital Signs - 24 hr 01/21/18 11:50 Temperature 98.2 F Pulse Rate 83 Respiratory 20 Rate Blood Pressure 146/101 - Physical General Appearance: Yes: Moderate Distress, Tremorous, Irritable, Sweating, Anxious HEENTM: Yes: Normal ENT Inspection, MAKEDA, Pharynx Normal Respiratory: Yes: Lungs Clear, Normal Breath Sounds, No Respiratory Distress Neck: Yes: Within Normal Limits, Supple, Trachea in good position Breast: Yes: Within Normal Limits Cardiology: Yes: Within Normal Limits, Regular Rhythm, Regular Rate, S1, S2 Abdominal: Yes: Within Normal Limits, Normal Bowel Sounds, Non Tender, Flat, Soft Genitourinary: Yes: Within Normal Limits Back: Yes: Muscle Spasm Extremities: Yes: Within Normal Limits, Normal Range of Motion, Tremors 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, Fully Oriented, Alert, Motor Strength 5/5 Integumentary: Yes: Dry Lymphatic: Yes: Within Normal Limits - Diagnostic (1) Alcohol dependence with uncomplicated withdrawal Current Visit: No Status: Chronic (2) Cocaine dependence Current Visit: No Status: Acute Qualifiers: Substance use status: uncomplicated Qualified Code(s): F14.20 - Cocaine dependence, uncomplicated (3) Syncope Current Visit: No Status: Acute (4) Essential hypertension Current Visit: No Status: Chronic (5) Insomnia Current Visit: No Status: Chronic Qualifiers: Insomnia type: unspecified Qualified Code(s): G47.00 - Insomnia, unspecified (6) MDD (major depressive disorder) Current Visit: No Status: Chronic Qualifiers: Major depression recurrence: recurrent Active/Remission status: remission status unspecified Qualified Code(s): F33.9 - Major depressive disorder, recurrent, unspecified Cleared for Admission B[facility] - Detox or Rehab [facility] Level of Care: Medically Managed Detox Regimen/Protocol: Librium S Breath Alcohol Content Breath Alcohol Content: 0.003 Urine Drug Screen - Results Drug Screen Negative: No Urine Drug Screen Results: KRISTINA-Cocaine
[2018-01-21] MEDS ORDERED: P-EPHED 60MG/TRIPROLIDI 2.5MG TABLET PO PRN (15:03)
[2018-01-21] MEDS ORDERED: MENTHOL/PHENOL 1 EACH UD MM PRN (15:03)
[2018-01-21] MEDS ORDERED: chlordiazePOXIDE HCL 25 MG CAPSULE PO PRN (15:03)
[2018-01-21] MEDS ORDERED: MAGNESIUM CITRATE 300 ML BOTTLE PO PRN (15:03)
[2018-01-21] MEDS ORDERED: guaiFENesin/D-METHORPHAN HB 10 ML UNIT-DOSE CUPS PO PRN (15:03)
[2018-01-21] MEDS ORDERED: hydrOXYzine PAMOATE 25 MG CAPSULE (FP) PO PRN (15:03)
[2018-01-21] MEDS ORDERED: MAG HYDROX/AL HYDROX/SIMETH 30 ML UNIT-DOSE CUP PO PRN (15:03)
[2018-01-21] MEDS ORDERED: IBUPROFEN 400 MG TABLET (FP) PO PRN (15:03)
[2018-01-21] MEDS ORDERED: MAGNESIUM HYDROX 2400MG/30ML ORAL SUSPENSION 30 ML CUP PO PRN (15:03)
[2018-01-21] MEDS ORDERED: LOPERAMIDE HCL 2 MG CAPSULE PO PRN (15:03)
[2018-01-21] MEDS: HYDROCHLOROTHIAZIDE 25 MG TABLET (FP) PO SCH (17:10)
[2018-01-21] MEDS: chlordiazePOXIDE HCL 25 MG CAPSULE PO SCH ×2 (17:10→22:21)
[2018-01-21] MEDS: amLODIPine BESYLATE 5 MG TABLET (FP) PO SCH (17:10)
[2018-01-21] MEDS: LISINOPRIL 20 MG TABLET (FP) PO SCH (17:10)
[2018-01-21] MEDS: ACETAMINOPHEN 325 MG TABLET (FP) PO PRN (17:18)
[2018-01-21] MEDS: NICOTINE 21 MG/24 HOURS TOPICAL PATCH TD SCH (17:21)
[2018-01-21] MEDS ORDERED: MELATONIN 5 MG TABLETS PO PRN (22:00)
[2018-01-21 22:14] LABS: URINE APPEARANCE TURBID; URINE BILIRUBIN NEGATIVE (<2.0 mg/dL); URINE COLOR YELLOW; URINE GLUCOSE (UA) NEGATIVE (NEGATIVE); URINE KETONE NEGATIVE (NEGATIVE); URINE LEUK ESTERASE NEGATIVE (NEGATIVE); URINE NITRITE NEGATIVE (NEGATIVE); URINE UROBILINOGEN NEGATIVE mg/dL (0.2-1.0)
[2018-01-21 22:15] LABS: URINE PROTEIN 1+ (NEGATIVE)
[2018-01-21] MEDS: THIAMINE HCL 100 MG TABLET (FP) PO SCH (22:21)
[2018-01-22] MEDS: chlordiazePOXIDE HCL 25 MG CAPSULE PO SCH ×4 (05:33→23:45)
[2018-01-22] MEDS: ACETAMINOPHEN 325 MG TABLET (FP) PO PRN ×2 (05:59→10:28)
--- NOTE | 2018-01-22 07:44 | CONSULT ---
[facility] Psychiatric Consult - Data Date of interview: 01/22/18 Admission source: [facility] Identifying data: THIS 52 YEARS OLD MALE WITH ALCOHOL AND CRACK DEPENDENCE, SEEKING DETOX,WITHDRAWAL SYMPTOM,LAST TREATMENT [facility] FROM 11/21/17 OT . HYPERTENSION TAKING MEDICATION. NICOTINE DEPENDENCE. DEPRESSION. LONGEST PERIOD OF SOBRIETY 6 MONTHS. MULTIPLE ADMISSIONS IN THE PAST BUT KEEP RELAPSING Substance Abuse History: - Smoking Cessation. Smoking history: Current every day smoker. Have you smoked in the past 12 months: Yes. Aproximately how many cigarettes per day: 20. Cigars Per Day: 0. Hx Chewing Tobacco Use: No. Initiated information on smoking cessation: Yes. 'Breaking Loose' booklet given : 01/21/18. - Substance & Tx. History. Hx Alcohol Use: Yes. Hx Substance Use : Yes. Substance Use Type: Alcohol, Cocaine. - Substances Abused. Crack. Route: Smoking. Frequency: Daily. Amount used: $200. Age of first use: 16. Date of Last Use: 01/21/18. Alcohol-beer/vodka/rum. Route: Oral. Frequency : Daily. Amount used: 3-6 pks./3 pts. Age of first use: 14. Date of Last Use : 01/21/18 Medical History: Syncope history, HTN, Psychiatric History: Patient reports history of MDD, denies psychiatric hospitalization history, denies suicidal, homicidal history, reports taking prior to admission: Trazodone 100 mg pomqhs. Zoloft 50mg poqd Physical/Sexual Abuse/Trauma History: Denies Additional Comment: Trazodone 100 mg pomqhs. Zoloft 50mg poqd Mental Status Exam - Mental Status Exam Alert and Oriented to: Person Cognitive Function: Fair Patient Appearance: Unkempt Mood: Sad Affect: Flat Patient Behavior: Sedated Speech Pattern: Delayed Voice Loudness: Normal Thought Process: Goal Oriented Thought Disorder: Being Controlled Hallucinations: Denies Suicidal Ideation: Denies Homicidal Ideation: Denies Insight/Judgement: Fair Sleep: Difficulty falling asleep Appetite: Weight gain Muscle strength/Tone: Mild Hypotonicity Gait/Station: Shuffling Additional Comments: Trazodone 100 mg pomqhs. Zoloft 50mg poqd Psychiatric Findings - Problem List ([place] 1, 2,3) (1) Alcohol dependence Current Visit: No Status: Acute Qualifiers: Substance use status: in withdrawal (2) Cocaine dependence Current Visit: No Status: Acute Qualifiers: Substance use status: uncomplicated Qualified Code(s): F14.20 - Cocaine dependence, uncomplicated (3) Substance-induced sleep disorder Current Visit: No Status: Acute (4) Syncope Current Visit: No Status: Acute (5) Alcohol dependence with uncomplicated withdrawal Current Visit: No Status: Chronic (6) Alcohol withdrawal Current Visit: No Status: Chronic Qualifiers: Complication of substance-induced condition: uncomplicated Qualified Code(s ): F10.230 - Alcohol dependence with withdrawal, uncomplicated (7) Crack cocaine use Current Visit: No Status: Chronic (8) Essential hypertension Current Visit: No Status: Chronic (9) MDD (major depressive disorder) Current Visit: No Status: Chronic Qualifiers: Major depression recurrence: recurrent Active/Remission status: remission status unspecified Qualified Code(s): F33.9 - Major depressive disorder, recurrent, unspecified (10) Obesity Current Visit: No Status: Chronic Qualifiers: Obesity type: unspecified obesity type Obesity classification: adult class 1 (BMI 30 - 34.9) Serious obesity comorbidity presence: unspecified whether serious comorbidity present Body mass index: BMI 31.0-31.9 Qualified Code(s) : E66.9 - Obesity, unspecified; Z68.31 - Body mass index (BMI) 31.0-31.9, adult - Initial Treatment Plan Initial Treatment Plan: Trazodone 100 mg pomqhs. Zoloft 50mg poqd
[2018-01-22 09:39] LABS: HEMATOCRIT 43.7 % (35.4-49); HEMOGLOBIN 13.7 GM/dL (11.7-16.9); MCHC 31.5 g/dl (32.0-35.9); MEAN CELL VOLUME 79.4 fl (80-96); MEAN PLT VOLUME 8.8 fl (7.5-11.1); PLATELET COUNT 161 K/MM3 (134-434); RDW 19.9 % (11.9-15.9); WHITE BLOOD COUNT 6.3 K/mm3 (4.0-10.0)
[2018-01-22 09:54] LABS: ANION GAP 9 (8-16); CALCIUM 10.8 mg/dL (8.5-10.1); CHLORIDE 105 mmol/L (98-107); CO2 26 mmol/L (21-32); POTASSIUM 3.9 mmol/L (3.5-5.1); SODIUM 140 mmol/L (136-145)
[2018-01-22 10:00] LABS: ALBUMIN 3.7 g/dl (3.4-5.0); ALK PHOS 109 U/L (45-117); BILIRUBIN,TOTAL 0.3 mg/dL (0.2-1.0); BLOOD UREA NITROGEN 18 mg/dL (7-18); CREATININE 1.3 mg/dL (0.7-1.3); GLUCOSE,RANDOM 116 mg/dL (74-106); SGOT/AST 13 U/L (15-37); SGPT/ALT 28 U/L (12-78); TOT PROT 7.2 g/dl (6.4-8.2)
[2018-01-22] MEDS: SERTRALINE HCL 50 MG TABLET (FP) PO SCH (10:26)
[2018-01-22] MEDS: amLODIPine BESYLATE 5 MG TABLET (FP) PO SCH (10:26)
[2018-01-22] MEDS: PRENATAL VITAMINS W/ FOLIC ACID TABLET (FP) PO SCH (10:26)
[2018-01-22] MEDS: HYDROCHLOROTHIAZIDE 25 MG TABLET (FP) PO SCH (10:26)
[2018-01-22] MEDS: LISINOPRIL 20 MG TABLET (FP) PO SCH (10:26)
[2018-01-22] MEDS: NICOTINE 21 MG/24 HOURS TOPICAL PATCH TD SCH (10:28)
--- NOTE | 2018-01-22 10:46 | PN ---
S CIWA - CIWA Score Nausea/Vomitin Muscle Tremors: 3 Anxiety: 2 Agitation: 2 Paroxysmal Sweats: 1-Minimal Palms Moist Orientation: 0-Oriented Tacttile Disturbances: 1-Very Mild Itch/Numbness Auditory Disturbances: 1-Very Mild Visual Disturbances: 0-None Headache: 2-Mild CIWA-Ar Total Score: 15 BHS Progress Note (SOAP) Subjective: alert,irritable,anxious,interrupted sleep,tremor Objective: 01/22/18 10:41 Vital Signs Temperature 98 F 01/22/18 09:18 Pulse Rate 92 H 01/22/18 09:18 Respiratory Rate 18 01/22/18 09:18 Blood Pressure 114/80 01/22/18 09:18 O2 Sat by Pulse Oximetry (%) ekg nsr,normal ecg 382/440 Laboratory Last Values WBC 6.3 K/mm3 (4.0-10.0) 01/22/18 07:30 RBC 5.50 M/mm3 (4.00-5.60) 01/22/18 07:30 Hgb 13.7 GM/dL (11.7-16.9) 01/22/18 07:30 Hct 43.7 % (35.4-49) D 01/22/18 07:30 MCV 79.4 fl (80-96) L 01/22/18 07:30 MCH 25.0 pg (25.7-33.7) L D 01/22/18 07:30 MCHC 31.5 g/dl (32.0-35.9) L 01/22/18 07:30 RDW 19.9 % (11.9-15.9) H 01/22/18 07:30 Plt Count 161 K/MM3 (134-434) D 01/22/18 07:30 MPV 8.8 fl (7.5-11.1) 01/22/18 07:30 Sodium 140 mmol/L (136-145) 01/22/18 07:30 Potassium 3.9 mmol/L (3.5-5.1) 01/22/18 07:30 Chloride 105 mmol/L (98-107) 01/22/18 07:30 Carbon Dioxide 26 mmol/L (21-32) D 01/22/18 07:30 Anion Gap 9 (8-16) 01/22/18 07:30 BUN 18 mg/dL (7-18) 01/22/18 07:30 Creatinine 1.3 mg/dL (0.7-1.3) 01/22/18 07:30 Creat Clearance w eGFR 57.53 (>60) 01/22/18 07:30 Random Glucose 116 mg/dL (74-106) H 01/22/18 07:30 Calcium 10.8 mg/dL (8.5-10.1) H 01/22/18 07:30 Total Bilirubin 0.3 mg/dL (0.2-1.0) 01/22/18 07:30 AST 13 U/L (15-37) L 01/22/18 07:30 ALT 28 U/L (12-78) D 01/22/18 07:30 Alkaline Phosphatase 109 U/L (45-117) 01/22/18 07:30 Total Protein 7.2 g/dl (6.4-8.2) 01/22/18 07:30 Albumin 3.7 g/dl (3.4-5.0) 01/22/18 07:30 Urine Color Yellow 01/21/18 20:30 Urine Appearance Turbid 01/21/18 20:30 Urine pH 5.0 (5.0-8.0) 01/21/18 20:30 Ur Specific [place] 1.028 (1.001-1.035) 01/21/18 20:30 Urine Protein 1+ (NEGATIVE) H 01/21/18 20:30 Urine Glucose (UA) Negative (NEGATIVE) 01/21/18 20:30 Urine Ketones Negative (NEGATIVE) 01/21/18 20:30 Urine Blood Negative (NEGATIVE) 01/21/18 20:30 Urine Nitrite Negative (NEGATIVE) 01/21/18 20:30 Urine Bilirubin Negative (<2.0 mg/dL) 01/21/18 20:30 Urine Urobilinogen Negative mg/dL (0.2-1.0) 01/21/18 20:30 Ur Leukocyte Esterase Negative (NEGATIVE) 01/21/18 20:30 Urine WBC (Auto) None /hpf (3-5) 01/21/18 20:30 Urine RBC (Auto) None /hpf (0-3) 01/21/18 20:30 Assessment: 01/22/18 10:44 withdrawal symptom Plan: continue detox,ca is 10.8,bun 18,creatinine 1.3 encourage oral fluid,repeat cmp in am
--- NOTE | 2018-01-22 12:50 | EKG ---
Test Reason : Blood Pressure : / mmHG Vent. Rate : 080 BPM Atrial Rate : 080 BPM P-R Int : 194 ms QRS Dur : 084 ms QT Int : 382 ms P-R-T Axes : 060 058 060 degrees QTc Int : 440 ms NORMAL SINUS RHYTHM NORMAL ECG WHEN COMPARED WITH ECG OF 21-NOV-2017 14:17, NO SIGNIFICANT CHANGE WAS FOUND Confirmed by ARMANDO JOHNSON MD ([id number]) on 01/22/2018 12:49:32 PM Referred By: Confirmed By:ARMANDO JOHNSON MD
[2018-01-22] MEDS: traZODone HCL 100 MG TABLET (FP) PO SCH (23:45)
[2018-01-22] MEDS: THIAMINE HCL 100 MG TABLET (FP) PO SCH (23:45)
[2018-01-23] MEDS: chlordiazePOXIDE HCL 25 MG CAPSULE PO SCH ×2 (05:47→10:53)
[2018-01-23 10:51] LABS: CHLORIDE 106 mmol/L (98-107); SODIUM 139 mmol/L (136-145)
[2018-01-23] MEDS: SERTRALINE HCL 50 MG TABLET (FP) PO SCH (10:53)
[2018-01-23] MEDS: LISINOPRIL 20 MG TABLET (FP) PO SCH (10:53)
[2018-01-23] MEDS: PRENATAL VITAMINS W/ FOLIC ACID TABLET (FP) PO SCH (10:53)
[2018-01-23] MEDS: HYDROCHLOROTHIAZIDE 25 MG TABLET (FP) PO SCH (10:53)
[2018-01-23] MEDS: amLODIPine BESYLATE 5 MG TABLET (FP) PO SCH (10:53)
[2018-01-23] MEDS: NICOTINE 21 MG/24 HOURS TOPICAL PATCH TD SCH (10:54)
--- NOTE | 2018-01-23 10:55 | PN ---
S CIWA - CIWA Score Nausea/Vomitin Muscle Tremors: 3 Anxiety: 2 Agitation: 2 Paroxysmal Sweats: 1-Minimal Palms Moist Orientation: 0-Oriented Tacttile Disturbances: 1-Very Mild Itch/Numbness Auditory Disturbances: 1-Very Mild Visual Disturbances: 0-None Headache: 2-Mild CIWA-Ar Total Score: 15 BHS Progress Note (SOAP) Subjective: alert,irritable,anxious,interrupted sleep,tremor,pain in the body Objective: 01/23/18 10:57 Vital Signs Temperature 97.2 F L 01/23/18 09:44 Pulse Rate 90 01/23/18 09:44 Respiratory Rate 18 01/23/18 09:44 Blood Pressure 109/71 01/23/18 09:44 O2 Sat by Pulse Oximetry (%) Assessment: 01/23/18 10:58 withdrawal symptom Plan: continue detox,repeat cmp pending
[2018-01-23 11:03] LABS: ALBUMIN 3.6 g/dl (3.4-5.0); ALK PHOS 110 U/L (45-117); ANION GAP 10 (8-16); BILIRUBIN,TOTAL 0.3 mg/dL (0.2-1.0); BLOOD UREA NITROGEN 11 mg/dL (7-18); CALCIUM 9.9 mg/dL (8.5-10.1); CO2 23 mmol/L (21-32); CREATININE 0.9 mg/dL (0.7-1.3); GLUCOSE,RANDOM 83 mg/dL (74-106); SGPT/ALT 29 U/L (12-78); TOT PROT 7.1 g/dl (6.4-8.2)
[2018-01-23 11:05] LABS: POTASSIUM 4.3 mmol/L (3.5-5.1); SGOT/AST 15 U/L (15-37)
[2018-01-23] MEDS: ACETAMINOPHEN 325 MG TABLET (FP) PO PRN (15:25)
[2018-01-23] MEDS: chlordiazePOXIDE 5 MG CAPSULE PO SCH ×2 (17:57→22:06)
[2018-01-23] MEDS: traZODone HCL 100 MG TABLET (FP) PO SCH (22:06)
[2018-01-23] MEDS: THIAMINE HCL 100 MG TABLET (FP) PO SCH (22:06)
[2018-01-24] MEDS: chlordiazePOXIDE 5 MG CAPSULE PO SCH ×2 (06:12→10:28)
[2018-01-24] MEDS: LISINOPRIL 20 MG TABLET (FP) PO SCH (10:28)
[2018-01-24] MEDS: HYDROCHLOROTHIAZIDE 25 MG TABLET (FP) PO SCH (10:28)
[2018-01-24] MEDS: SERTRALINE HCL 50 MG TABLET (FP) PO SCH (10:28)
[2018-01-24] MEDS: NICOTINE 21 MG/24 HOURS TOPICAL PATCH TD SCH (10:28)
[2018-01-24] MEDS: amLODIPine BESYLATE 5 MG TABLET (FP) PO SCH (10:28)
[2018-01-24] MEDS: PRENATAL VITAMINS W/ FOLIC ACID TABLET (FP) PO SCH (10:28)
--- NOTE | 2018-01-24 12:26 | PN ---
S Progress Note (SOAP) Subjective: alert,irritable,interrupted sleep,,pain in the body Objective: 01/24/18 12:23 Vital Signs Temperature 96.3 F L 01/24/18 09:55 Pulse Rate 85 01/24/18 09:55 Respiratory Rate 18 01/24/18 09:55 Blood Pressure 113/79 01/24/18 09:55 O2 Sat by Pulse Oximetry (%) 01/24/18 12:25 Laboratory Last Values WBC 6.3 K/mm3 (4.0-10.0) 01/22/18 07:30 RBC 5.50 M/mm3 (4.00-5.60) 01/22/18 07:30 Hgb 13.7 GM/dL (11.7-16.9) 01/22/18 07:30 Hct 43.7 % (35.4-49) D 01/22/18 07:30 MCV 79.4 fl (80-96) L 01/22/18 07:30 MCH 25.0 pg (25.7-33.7) L D 01/22/18 07:30 MCHC 31.5 g/dl (32.0-35.9) L 01/22/18 07:30 RDW 19.9 % (11.9-15.9) H 01/22/18 07:30 Plt Count 161 K/MM3 (134-434) D 01/22/18 07:30 MPV 8.8 fl (7.5-11.1) 01/22/18 07:30 Sodium 139 mmol/L (136-145) 01/23/18 07:40 Potassium 4.3 mmol/L (3.5-5.1) 01/23/18 07:40 Chloride 106 mmol/L (98-107) 01/23/18 07:40 Carbon Dioxide 23 mmol/L (21-32) 01/23/18 07:40 Anion Gap 10 (8-16) 01/23/18 07:40 BUN 11 mg/dL (7-18) 01/23/18 07:40 Creatinine 0.9 mg/dL (0.7-1.3) 01/23/18 07:40 Creat Clearance w eGFR > 60 (>60) 01/23/18 07:40 Random Glucose 83 mg/dL (74-106) D 01/23/18 07:40 Calcium 9.9 mg/dL (8.5-10.1) 01/23/18 07:40 Total Bilirubin 0.3 mg/dL (0.2-1.0) 01/23/18 07:40 AST 15 U/L (15-37) 01/23/18 07:40 ALT 29 U/L (12-78) 01/23/18 07:40 Alkaline Phosphatase 110 U/L (45-117) 01/23/18 07:40 Total Protein 7.1 g/dl (6.4-8.2) 01/23/18 07:40 Albumin 3.6 g/dl (3.4-5.0) 01/23/18 07:40 Urine Color Yellow 01/21/18 20:30 Urine Appearance Turbid 01/21/18 20:30 Urine pH 5.0 (5.0-8.0) 01/21/18 20:30 Ur Specific [place] 1.028 (1.001-1.035) 01/21/18 20:30 Urine Protein 1+ (NEGATIVE) H 01/21/18 20:30 Urine Glucose (UA) Negative (NEGATIVE) 01/21/18 20:30 Urine Ketones Negative (NEGATIVE) 01/21/18 20:30 Urine Blood Negative (NEGATIVE) 01/21/18 20:30 Urine Nitrite Negative (NEGATIVE) 01/21/18 20:30 Urine Bilirubin Negative (<2.0 mg/dL) 01/21/18 20:30 Urine Urobilinogen Negative mg/dL (0.2-1.0) 01/21/18 20:30 Ur Leukocyte Esterase Negative (NEGATIVE) 01/21/18 20:30 Urine WBC (Auto) None /hpf (3-5) 01/21/18 20:30 Urine RBC (Auto) None /hpf (0-3) 01/21/18 20:30 RPR Titer Nonreactive (NONREACTIVE) 01/22/18 07:30 Assessment: 01/24/18 12:23 withdrawal symptom Plan: continue detox,
[2018-01-24] MEDS: chlordiazePOXIDE HCL 10 MG CAPSULE PO SCH ×2 (17:19→22:15)
[2018-01-24] MEDS: THIAMINE HCL 100 MG TABLET (FP) PO SCH (22:15)
[2018-01-24] MEDS: traZODone HCL 100 MG TABLET (FP) PO SCH (22:15)
[2018-01-24] MEDS: ACETAMINOPHEN 325 MG TABLET (FP) PO PRN (22:16)
[2018-01-25] MEDS: chlordiazePOXIDE HCL 10 MG CAPSULE PO SCH ×2 (06:22→10:31)
--- NOTE | 2018-01-25 09:08 | PN ---
BHS Progress Note (SOAP) Subjective: mild alcohol withdrawal sx less sweat sleep better at night social with peers in day room Objective: 01/25/18 09:07 Vital Signs Temperature 97.7 F 01/25/18 07:39 Pulse Rate 87 01/25/18 07:39 Respiratory Rate 18 01/25/18 07:39 Blood Pressure 122/67 01/25/18 07:39 O2 Sat by Pulse Oximetry (%) Laboratory Last Values WBC 6.3 K/mm3 (4.0-10.0) 01/22/18 07:30 RBC 5.50 M/mm3 (4.00-5.60) 01/22/18 07:30 Hgb 13.7 GM/dL (11.7-16.9) 01/22/18 07:30 Hct 43.7 % (35.4-49) D 01/22/18 07:30 MCV 79.4 fl (80-96) L 01/22/18 07:30 MCH 25.0 pg (25.7-33.7) L D 01/22/18 07:30 MCHC 31.5 g/dl (32.0-35.9) L 01/22/18 07:30 RDW 19.9 % (11.9-15.9) H 01/22/18 07:30 Plt Count 161 K/MM3 (134-434) D 01/22/18 07:30 MPV 8.8 fl (7.5-11.1) 01/22/18 07:30 Sodium 139 mmol/L (136-145) 01/23/18 07:40 Potassium 4.3 mmol/L (3.5-5.1) 01/23/18 07:40 Chloride 106 mmol/L (98-107) 01/23/18 07:40 Carbon Dioxide 23 mmol/L (21-32) 01/23/18 07:40 Anion Gap 10 (8-16) 01/23/18 07:40 BUN 11 mg/dL (7-18) 01/23/18 07:40 Creatinine 0.9 mg/dL (0.7-1.3) 01/23/18 07:40 Creat Clearance w eGFR > 60 (>60) 01/23/18 07:40 Random Glucose 83 mg/dL (74-106) D 01/23/18 07:40 Calcium 9.9 mg/dL (8.5-10.1) 01/23/18 07:40 Total Bilirubin 0.3 mg/dL (0.2-1.0) 01/23/18 07:40 AST 15 U/L (15-37) 01/23/18 07:40 ALT 29 U/L (12-78) 01/23/18 07:40 Alkaline Phosphatase 110 U/L (45-117) 01/23/18 07:40 Total Protein 7.1 g/dl (6.4-8.2) 01/23/18 07:40 Albumin 3.6 g/dl (3.4-5.0) 01/23/18 07:40 Urine Color Yellow 01/21/18 20:30 Urine Appearance Turbid 01/21/18 20:30 Urine pH 5.0 (5.0-8.0) 01/21/18 20:30 Ur Specific [place] 1.028 (1.001-1.035) 01/21/18 20:30 Urine Protein 1+ (NEGATIVE) H 01/21/18 20:30 Urine Glucose (UA) Negative (NEGATIVE) 01/21/18 20:30 Urine Ketones Negative (NEGATIVE) 01/21/18 20:30 Urine Blood Negative (NEGATIVE) 01/21/18 20:30 Urine Nitrite Negative (NEGATIVE) 01/21/18 20:30 Urine Bilirubin Negative (<2.0 mg/dL) 01/21/18 20:30 Urine Urobilinogen Negative mg/dL (0.2-1.0) 01/21/18 20:30 Ur Leukocyte Esterase Negative (NEGATIVE) 01/21/18 20:30 Urine WBC (Auto) None /hpf (3-5) 01/21/18 20:30 Urine RBC (Auto) None /hpf (0-3) 01/21/18 20:30 RPR Titer Nonreactive (NONREACTIVE) 01/22/18 07:30 lab noted Assessment: 01/25/18 09:07 mild alcohol withdrawal sx Plan: medically supervised detox discuss aftercare [facility]
[2018-01-25] MEDS: PRENATAL VITAMINS W/ FOLIC ACID TABLET (FP) PO SCH (10:31)
[2018-01-25] MEDS: LISINOPRIL 20 MG TABLET (FP) PO SCH (10:31)
[2018-01-25] MEDS: HYDROCHLOROTHIAZIDE 25 MG TABLET (FP) PO SCH (10:31)
[2018-01-25] MEDS: SERTRALINE HCL 50 MG TABLET (FP) PO SCH (10:31)
[2018-01-25] MEDS: amLODIPine BESYLATE 5 MG TABLET (FP) PO SCH (10:31)
[2018-01-25] MEDS: NICOTINE 21 MG/24 HOURS TOPICAL PATCH TD SCH (10:31)
[2018-01-25] MEDS: traZODone HCL 100 MG TABLET (FP) PO SCH (22:32)
[2018-01-25] MEDS: THIAMINE HCL 100 MG TABLET (FP) PO SCH (22:32)
--- NOTE | 2018-01-26 08:38 | PN ---
S Progress Note (SOAP) Subjective: alert,no complaint Objective: 01/26/18 08:37 Vital Signs Temperature 97.9 F 01/26/18 07:01 Pulse Rate 82 01/26/18 07:01 Respiratory Rate 18 01/26/18 07:01 Blood Pressure 106/73 01/26/18 07:01 O2 Sat by Pulse Oximetry (%) Assessment: 01/26/18 08:37 detox completed,no withdrawal symptom Plan: transfer to rehab for further level of care
--- NOTE | 2018-01-26 08:41 | DS ---
[facility] Detox Discharge Summary Admission Date: 01/21/18 Discharge Date: 01/26/18 - History Present History: Alcohol Dependence, Cocaine Dependence Additional Comments: transfer to rehab for further level of care [facility] Pertinent Past History: hypertension insomnia syncope depression - Physical Exam Results Vital Signs: Vital Signs Temperature 97.9 F 01/26/18 07:01 Pulse Rate 82 01/26/18 07:01 Respiratory Rate 18 01/26/18 07:01 Blood Pressure 106/73 01/26/18 07:01 O2 Sat by Pulse Oximetry (%) Pertinent Admission Physical Exam Findings: withdrawal signs and symptom Vital Signs Temperature 97.9 F 01/26/18 07:01 Pulse Rate 82 01/26/18 07:01 Respiratory Rate 18 01/26/18 07:01 Blood Pressure 106/73 01/26/18 07:01 O2 Sat by Pulse Oximetry (%) Laboratory Last Values WBC 6.3 K/mm3 (4.0-10.0) 01/22/18 07:30 RBC 5.50 M/mm3 (4.00-5.60) 01/22/18 07:30 Hgb 13.7 GM/dL (11.7-16.9) 01/22/18 07:30 Hct 43.7 % (35.4-49) D 01/22/18 07:30 MCV 79.4 fl (80-96) L 01/22/18 07:30 MCH 25.0 pg (25.7-33.7) L D 01/22/18 07:30 MCHC 31.5 g/dl (32.0-35.9) L 01/22/18 07:30 RDW 19.9 % (11.9-15.9) H 01/22/18 07:30 Plt Count 161 K/MM3 (134-434) D 01/22/18 07:30 MPV 8.8 fl (7.5-11.1) 01/22/18 07:30 Sodium 139 mmol/L (136-145) 01/23/18 07:40 Potassium 4.3 mmol/L (3.5-5.1) 01/23/18 07:40 Chloride 106 mmol/L (98-107) 01/23/18 07:40 Carbon Dioxide 23 mmol/L (21-32) 01/23/18 07:40 Anion Gap 10 (8-16) 01/23/18 07:40 BUN 11 mg/dL (7-18) 01/23/18 07:40 Creatinine 0.9 mg/dL (0.7-1.3) 01/23/18 07:40 Creat Clearance w eGFR > 60 (>60) 01/23/18 07:40 Random Glucose 83 mg/dL (74-106) D 01/23/18 07:40 Calcium 9.9 mg/dL (8.5-10.1) 01/23/18 07:40 Total Bilirubin 0.3 mg/dL (0.2-1.0) 01/23/18 07:40 AST 15 U/L (15-37) 01/23/18 07:40 ALT 29 U/L (12-78) 01/23/18 07:40 Alkaline Phosphatase 110 U/L (45-117) 01/23/18 07:40 Total Protein 7.1 g/dl (6.4-8.2) 01/23/18 07:40 Albumin 3.6 g/dl (3.4-5.0) 01/23/18 07:40 Urine Color Yellow 01/21/18 20:30 Urine Appearance Turbid 01/21/18 20:30 Urine pH 5.0 (5.0-8.0) 01/21/18 20:30 Ur Specific [place] 1.028 (1.001-1.035) 01/21/18 20:30 Urine Protein 1+ (NEGATIVE) H 01/21/18 20:30 Urine Glucose (UA) Negative (NEGATIVE) 01/21/18 20:30 Urine Ketones Negative (NEGATIVE) 01/21/18 20:30 Urine Blood Negative (NEGATIVE) 01/21/18 20:30 Urine Nitrite Negative (NEGATIVE) 01/21/18 20:30 Urine Bilirubin Negative (<2.0 mg/dL) 01/21/18 20:30 Urine Urobilinogen Negative mg/dL (0.2-1.0) 01/21/18 20:30 Ur Leukocyte Esterase Negative (NEGATIVE) 01/21/18 20:30 Urine WBC (Auto) None /hpf (3-5) 01/21/18 20:30 Urine RBC (Auto) None /hpf (0-3) 01/21/18 20:30 RPR Titer Nonreactive (NONREACTIVE) 01/22/18 07:30 - Treatment Hospital Course: Detox Protocol Followed, Detoxed Safely, Responded well, Discharged Condition Good - Medication Discharge Medications: Ambulatory Orders Amlodipine Besylate [Norvasc -] 5 mg PO DAILY #30 tab 01/24/17 Hydrochlorothiazide 25 mg PO DAILY #30 tablet 01/24/17 Lisinopril [Prinivil] 20 mg PO DAILY #30 tab 01/24/17 Sertraline HCl [Zoloft -] 50 mg PO DAILY #30 tablet 12/03/17 Sertraline HCl [Zoloft -] 50 mg PO DAILY #30 tablet 01/22/18 traZODone HCL [Desyrel -] 100 mg PO HS #30 tablet 01/22/18 - Diagnosis (1) Alcohol dependence with uncomplicated withdrawal Current Visit: No Status: Chronic (2) Cocaine dependence Current Visit: No Status: Acute Qualifiers: Substance use status: uncomplicated Qualified Code(s): F14.20 - Cocaine dependence, uncomplicated (3) Syncope Current Visit: No Status: Acute (4) Essential hypertension Current Visit: No Status: Chronic (5) Insomnia Current Visit: No Status: Chronic Qualifiers: Insomnia type: unspecified Qualified Code(s): G47.00 - Insomnia, unspecified (6) MDD (major depressive disorder) Current Visit: No Status: Chronic Qualifiers: Major depression recurrence: recurrent Active/Remission status: remission status unspecified Qualified Code(s): F33.9 - Major depressive disorder, recurrent, unspecified - AMA Did Patient Leave Against Medical Advice: No
[2018-01-26] MEDS: SERTRALINE HCL 50 MG TABLET (FP) PO SCH (09:26)
[2018-01-26] MEDS: amLODIPine BESYLATE 5 MG TABLET (FP) PO SCH (09:26)
[2018-01-26] MEDS: LISINOPRIL 20 MG TABLET (FP) PO SCH (09:26)
[2018-01-26] MEDS: HYDROCHLOROTHIAZIDE 25 MG TABLET (FP) PO SCH (09:26)
[2018-01-26] MEDS: PRENATAL VITAMINS W/ FOLIC ACID TABLET (FP) PO SCH (09:26)
--- NOTE | 2018-01-26 09:36 | PN ---
[facility] Progress Note Note: patient declined to go to rehab,follow up with after care program as arrangement
--- NOTE | 2018-01-26 09:42 | DS ---
[facility] Detox Discharge Summary Admission Date: 01/21/18 Discharge Date: 01/26/18 - History Present History: Alcohol Dependence, Cocaine Dependence Additional Comments: patient changed his mind did not want to go to rehab,follow up with after care program as arrangement and primary care provider for follow up,stated has all medication at home Pertinent Past History: essential hypertension syncope insomnia depression - Physical Exam Results Vital Signs: Vital Signs Temperature 97.9 F 01/26/18 07:01 Pulse Rate 82 01/26/18 07:01 Respiratory Rate 18 01/26/18 07:01 Blood Pressure 106/73 01/26/18 07:01 O2 Sat by Pulse Oximetry (%) Pertinent Admission Physical Exam Findings: withdrawal sign and symptom Laboratory Last Values WBC 6.3 K/mm3 (4.0-10.0) 01/22/18 07:30 RBC 5.50 M/mm3 (4.00-5.60) 01/22/18 07:30 Hgb 13.7 GM/dL (11.7-16.9) 01/22/18 07:30 Hct 43.7 % (35.4-49) D 01/22/18 07:30 MCV 79.4 fl (80-96) L 01/22/18 07:30 MCH 25.0 pg (25.7-33.7) L D 01/22/18 07:30 MCHC 31.5 g/dl (32.0-35.9) L 01/22/18 07:30 RDW 19.9 % (11.9-15.9) H 01/22/18 07:30 Plt Count 161 K/MM3 (134-434) D 01/22/18 07:30 MPV 8.8 fl (7.5-11.1) 01/22/18 07:30 Sodium 139 mmol/L (136-145) 01/23/18 07:40 Potassium 4.3 mmol/L (3.5-5.1) 01/23/18 07:40 Chloride 106 mmol/L (98-107) 01/23/18 07:40 Carbon Dioxide 23 mmol/L (21-32) 01/23/18 07:40 Anion Gap 10 (8-16) 01/23/18 07:40 BUN 11 mg/dL (7-18) 01/23/18 07:40 Creatinine 0.9 mg/dL (0.7-1.3) 01/23/18 07:40 Creat Clearance w eGFR > 60 (>60) 01/23/18 07:40 Random Glucose 83 mg/dL (74-106) D 01/23/18 07:40 Calcium 9.9 mg/dL (8.5-10.1) 01/23/18 07:40 Total Bilirubin 0.3 mg/dL (0.2-1.0) 01/23/18 07:40 AST 15 U/L (15-37) 01/23/18 07:40 ALT 29 U/L (12-78) 01/23/18 07:40 Alkaline Phosphatase 110 U/L (45-117) 01/23/18 07:40 Total Protein 7.1 g/dl (6.4-8.2) 01/23/18 07:40 Albumin 3.6 g/dl (3.4-5.0) 01/23/18 07:40 Urine Color Yellow 01/21/18 20:30 Urine Appearance Turbid 01/21/18 20:30 Urine pH 5.0 (5.0-8.0) 01/21/18 20:30 Ur Specific [place] 1.028 (1.001-1.035) 01/21/18 20:30 Urine Protein 1+ (NEGATIVE) H 01/21/18 20:30 Urine Glucose (UA) Negative (NEGATIVE) 01/21/18 20:30 Urine Ketones Negative (NEGATIVE) 01/21/18 20:30 Urine Blood Negative (NEGATIVE) 01/21/18 20:30 Urine Nitrite Negative (NEGATIVE) 01/21/18 20:30 Urine Bilirubin Negative (<2.0 mg/dL) 01/21/18 20:30 Urine Urobilinogen Negative mg/dL (0.2-1.0) 01/21/18 20:30 Ur Leukocyte Esterase Negative (NEGATIVE) 01/21/18 20:30 Urine WBC (Auto) None /hpf (3-5) 01/21/18 20:30 Urine RBC (Auto) None /hpf (0-3) 01/21/18 20:30 RPR Titer Nonreactive (NONREACTIVE) 01/22/18 07:30 Vital Signs Temperature 97.9 F 01/26/18 07:01 Pulse Rate 82 01/26/18 07:01 Respiratory Rate 18 08/06/18 07:01 Blood Pressure 106/73 01/26/18 07:01 O2 Sat by Pulse Oximetry (%) - Treatment Hospital Course: Detox Protocol Followed, Detoxed Safely, Responded well, Discharged Condition Good Patient has Accepted a Rehab Referral to: declined - Medication Discharge Medications: Ambulatory Orders Amlodipine Besylate [Norvasc -] 5 mg PO DAILY #30 tab 01/24/17 Hydrochlorothiazide 25 mg PO DAILY #30 tablet 01/24/17 Lisinopril [Prinivil] 20 mg PO DAILY #30 tab 01/24/17 Sertraline HCl [Zoloft -] 50 mg PO DAILY #30 tablet 12/03/17 Sertraline HCl [Zoloft -] 50 mg PO DAILY #30 tablet 01/22/18 traZODone HCL [Desyrel -] 100 mg PO HS #30 tablet 01/22/18 - Diagnosis (1) Alcohol dependence with uncomplicated withdrawal Current Visit: No Status: Chronic (2) Cocaine dependence Current Visit: No Status: Acute Qualifiers: Substance use status: uncomplicated Qualified Code(s): F14.20 - Cocaine dependence, uncomplicated (3) Syncope Current Visit: No Status: Acute (4) Essential hypertension Current Visit: No Status: Chronic (5) Insomnia Current Visit: No Status: Chronic Qualifiers: Insomnia type: unspecified Qualified Code(s): G47.00 - Insomnia, unspecified (6) MDD (major depressive disorder) Current Visit: No Status: Chronic Qualifiers: Major depression recurrence: recurrent Active/Remission status: remission status unspecified Qualified Code(s): F33.9 - Major depressive disorder, recurrent, unspecified - AMA Did Patient Leave Against Medical Advice: No
[2018-01-26 09:45] VITALS: BP 117/86; PULSE 89; TEMP 96.8
== END 2018-01-26 09:36 | disposition home or self-care (01) | DRG 897 ==
LOC: YASAS 11:34 → Y6N 14:57
PROVIDERS: ADMIT Surgery; ATTEND Surgery
PROC: HZ2ZZZZ Detoxification Services for Substance Abuse Treatment (ICD-10-PCS; principal; 2018-01-21)
DX: F10.230 Alcohol dependence with withdrawal, uncomplicated (principal); F14.20 Cocaine dependence, uncomplicated; F19.282 Other psychoactive substance dependence with psychoactive substance-induced sleep disorder; F17.210 Nicotine dependence, cigarettes, uncomplicated; I10 Essential (primary) hypertension; G47.00 Insomnia, unspecified; E66.9 Obesity, unspecified; Z68.31 Body mass index [BMI] 31.0-31.9, adult; Z86.79 Personal history of other diseases of the circulatory system
CPT/HCPCS: 36415; 80053; 81003; 81015; 85027; 86593; 93005; 93010

== ENCOUNTER 2018-05-26 11:43 | Inpatient (IN) | payer OTHER ==
[2018-05-26 12:13] VITALS: BMI 32.8
--- NOTE | 2018-05-26 12:53 | HP ---
CIWA Score Nausea/Vomitin Muscle Tremors: 2 Anxiety: 2 Agitation: 2 Paroxysmal Sweats: 1-Minimal Palms Moist Orientation: 0-Oriented Tacttile Disturbances: 1-Very Mild Itch/Numbness Auditory Disturbances: 0-None Visual Disturbances: 1-Very Mild Sensitivity Headache: 2-Mild CIWA-Ar Total Score: 13 - Admission Criteria OASAS Guidelines: Admission for Medically Managed Detox: Requires at least one of the followin. CIWA greater than 12 2. Seizures within the past 24 hours 3. Delirium tremens within the past 24 hours 4. Hallucinations within the past 24 hours 5. Acute intervention needed for co occurring medical disorder 6. Acute intervention needed for co occurring psychiatric disorder 7. Severe withdrawal that cannot be handled at a lower level of care (continued vomiting, continued diarrhea, abnormal vital signs) requiring intravenous medication and/or fluids 8. Patient presents the following: CIWA greater than 12 Admission Criteria Met: Admission criteria met Admission ROS BHS - HPI Chief Complaint: i need help to stop drinking alcohol and crack Allergies/Adverse Reactions: Allergies Allergy/AdvReac Type Severity Reaction Status Date / Time No Known Allergies Allergy Verified 05/26/18 12:22 History of Present Illness: this 53 years old male with alcohol and cocaine dependence,seeking detox, withdrawal symptom,last treatment [facility] rehab 03/25/18 to 03/30/18 history of hypertension bipolar disorder nicotine dependence longest period of sobriety 1 and a half year plan for rehab - Ebola screening Have you traveled outside of the country in the last 21 days: No Have you had contact with anyone from an Ebola affected area: No Have you been sick,other than usual withdrawal symptoms: No Do you have a fever: No - Review of Systems Constitutional: Loss of Appetite, Malaise, Night Sweats, Weakness EENT: reports: Tearing, Nose Congestion Respiratory: reports: No Symptoms reported Cardiac: reports: Palpitations GI: reports: Diarrhea, Nausea, Vomiting, Abdominal cramping : reports: No Symptoms Reported Musculoskeletal: reports: Back Pain, Muscle Pain Integumentary: reports: Dryness Neuro: reports: Headache, Tremors Endocrine: reports: No Symptoms Reported Hematology: reports: No Symptoms Reported Psychiatric: reports: No Sypmtoms Reported, Judgement Intact, Mood/Affect Appropiate, Orientated x3, other (bipolar disorder) Patient History - Patient Medical History Hx Anemia: No Hx Asthma: No Hx Chronic Obstructive Pulmonary Disease (COPD): No Hx Cancer: No Hx Cardiac Disorders: No Hx Congestive Heart Failure: No Hx Hypertension: Yes (on med) Hx Hypercholesterolemia: No Hx Pacemaker: No HX Cerebrovascular Accident: No Hx Seizures: No Hx Dementia: No Hx Diabetes: No Hx Gastrointestinal Disorders: No Hx Liver Disease: No Hx Genitourinary Disorders: No Hx Sexually Transmitted Disorders: No Hx Renal Disease (ESRD): No Hx Thyroid Disease: No Hx Human Immunodeficiency Virus (HIV): No (NEGATIVE HX LAST 11/07 NEGATIVE) Hx Hepatitis C: No (DENIES) Hx Depression: Yes Hx Suicide Attempt: No Hx Bipolar Disorder: Yes Hx Schizophrenia: No Other Medical History: no sucidal,no homicidal - Patient Surgical History Past Surgical History: No Hx Neurologic Surgery: No Hx Cataract Extraction: No Hx Cardiac Surgery: No Hx Lung Surgery: No Hx Breast Surgery: No Hx Breast Biopsy: No Hx Abdominal Surgery: No Hx Appendectomy: No Hx Cholecystectomy: No Hx Genitourinary Surgery: No Hx Section: No Hx Orthopedic Surgery: No Anesthesia Reaction: No - PPD History Previous Implant?: Yes Documented Results: Negative w/proof Implanted On Prior [facility] Admission?: Yes Date: 03/27/18 Results: 0 mm PPD to be Administered?: No - Smoking Cessation Smoking history: Current every day smoker Have you smoked in the past 12 months: Yes Aproximately how many cigarettes per day: 20 Cigars Per Day: 0 Hx Chewing Tobacco Use: No Initiated information on smoking cessation: Yes 'Breaking Loose' booklet given: 05/26/18 - Substance & Tx. History Hx Alcohol Use: Yes Hx Substance Use: Yes Substance Use Type: Alcohol, Cocaine Hx Substance Use Treatment: Yes (rehab [facility] 03/25/18 to 03/30/18) - Substances Abused Crack Route: Smoking Frequency: Daily Amount used: $150 Age of first use: 18 Date of Last Use: 05/26/18 Alcohol-vodka/rum/beer Route: Oral Frequency: Daily Amount used: 3 pts./4-6 pks. Age of first use: 14 Date of Last Use: 05/26/18 Family Disease History - Family Disease History Family History: Denies Admission Physical Exam BHS - Vital Signs Vital Signs: Vital Signs - 24 hr 05/26/18 12:11 Temperature 98.9 F Pulse Rate 103 H Respiratory 18 Rate Blood Pressure 137/104 H - Physical General Appearance: Yes: Moderate Distress, Tremorous, Irritable, Sweating, Anxious HEENTM: Yes: Normal ENT Inspection, MAKEDA, Pharynx Normal Respiratory: Yes: Lungs Clear, Normal Breath Sounds, No Respiratory Distress Neck: Yes: Within Normal Limits, Supple, Trachea in good position Breast: Yes: Within Normal Limits Cardiology: Yes: Tachycardia Abdominal: Yes: Soft, Organomegaly Genitourinary: Yes: Within Normal Limits Back: Yes: Muscle Spasm Musculoskeletal: Yes: Back pain, Muscle Pain Extremities: Yes: Tremors Neurological: Yes: manager telemetry II-XII NML intact, Fully Oriented, Alert, Motor Strength 5/5 Integumentary: Yes: Dry Lymphatic: Yes: Within Normal Limits - Diagnostic (1) Alcohol dependence with uncomplicated withdrawal Current Visit: Yes Status: Acute (2) Syncope Current Visit: No Status: Acute (3) Cocaine dependence Current Visit: Yes Status: Chronic Qualifiers: Substance use status: uncomplicated Qualified Code(s): F14.20 - Cocaine dependence, uncomplicated (4) Essential hypertension Current Visit: No Status: Chronic (5) Insomnia Current Visit: Yes Status: Acute Qualifiers: Insomnia type: unspecified Qualified Code(s): G47.00 - Insomnia, unspecified (6) Nicotine dependence Current Visit: Yes Status: Chronic Qualifiers: Nicotine product type: cigarettes Substance use status: uncomplicated Qualified Code(s): F17.210 - Nicotine dependence, cigarettes, uncomplicated (7) Obesity Current Visit: No Status: Chronic Qualifiers: Obesity type: unspecified obesity type Obesity classification: adult class 1 (BMI 30 - 34.9) Serious obesity comorbidity presence: unspecified whether serious comorbidity present Body mass index: BMI 31.0-31.9 Qualified Code(s) : E66.9 - Obesity, unspecified; Z68.31 - Body mass index (BMI) 31.0-31.9, adult (8) Bipolar disorder Current Visit: Yes Status: Acute Cleared for Admission S - Detox or Rehab [facility] Level of Care: Medically Managed Detox Regimen/Protocol: Librium [facility] Breath Alcohol Content Breath Alcohol Content: 0 Urine Drug Screen - Results Drug Screen Negative: No Urine Drug Screen Results: KRISTINA-Cocaine, BZO-Benzodiazepines
[2018-05-26] MEDS ORDERED: hydrOXYzine PAMOATE 50 MG CAPSULE (FP) PO PRN (13:01)
[2018-05-26] MEDS ORDERED: ACETAMINOPHEN 325 MG TABLET (FP) PO PRN (13:01)
[2018-05-26] MEDS ORDERED: MENTHOL/PHENOL 1 EACH UD MM PRN (13:01)
[2018-05-26] MEDS ORDERED: chlordiazePOXIDE HCL 25 MG CAPSULE PO PRN (13:01)
[2018-05-26] MEDS ORDERED: LOPERAMIDE HCL 2 MG CAPSULE PO PRN (13:01)
[2018-05-26] MEDS ORDERED: guaiFENesin/D-METHORPHAN HB 10 ML UNIT-DOSE CUPS PO PRN (13:01)
[2018-05-26] MEDS ORDERED: MAGNESIUM HYDROX 2400MG/30ML ORAL SUSPENSION 30 ML CUP PO PRN (13:01)
[2018-05-26] MEDS ORDERED: MAG HYDROX/AL HYDROX/SIMETH 30 ML UNIT-DOSE CUP PO PRN (13:01)
[2018-05-26] MEDS ORDERED: IBUPROFEN 400 MG TABLET (FP) PO PRN (13:01)
[2018-05-26] MEDS ORDERED: MAGNESIUM CITRATE 300 ML BOTTLE PO PRN (13:01)
[2018-05-26] MEDS ORDERED: P-EPHED 60MG/TRIPROLIDI 2.5MG TABLET PO PRN (13:01)
[2018-05-26] MEDS: NICOTINE 21 MG/24 HOURS TOPICAL PATCH TD SCH (14:29)
--- NOTE | 2018-05-26 16:40 | CONSULT ---
[facility] Psychiatric Consult - Data Date of interview: 05/26/18 Admission source: [facility] Identifying data: Readmission to [facility] for this 53 y/o AA male seeking detoxification treatment, on , for alcohol and cocaine dependence. Patient is , a father of two, homeless (resides in jail), unemployed and supported on SSI/SSD benefits. Substance Abuse History: Confirmed by patient in this session. Details in current [facility] report : Smoking history: Current every day smoker. Have you smoked in the past 12 months: Yes. Aproximately how many cigarettes per day: 20. Cigars Per Day: 0. Hx Chewing Tobacco Use: No. Initiated information on smoking cessation: Yes. 'Breaking Loose' booklet given: 05/26/18. - Substance & Tx. History. Hx Alcohol Use: Yes. Hx Substance Use: Yes. Substance Use Type : Alcohol, Cocaine. Hx Substance Use Treatment: Yes (rehab [facility] 03/25/18 to 02/07). - Substances Abused. Crack. Route: Smoking. Frequency: Daily. Amount used: $150. Age of first use: 18. Date of Last Use: 05/26/18. Alcohol-vodka/rum/beer. Route: Oral. Frequency: Daily. Amount used: 3 pts./4- 6 pks. Age of first use: 14. Date of Last Use: 05/26/18 Medical History: Hypertension. Psychiatric History: History of three psychiatric hospitalizations (all at [facility] in [facility]). Patient is diagnosed with MDD (1988) . Treated with sertraline 50 mg/day. Mr Gill gets his outpatient psychiatric services at the [facility] in [facility]. Denies history of suicide attempts. Physical/Sexual Abuse/Trauma History: Patient denies. Additional Comment: Urine Drug Screen Results: KRISTINA-Cocaine, BZO- Benzodiazepines. Noted. Mental Status Exam - Mental Status Exam Alert and Oriented to: Time, Place, Person Cognitive Function: Good Patient Appearance: Well Groomed Mood: Sad, Withdrawn Affect: Mood Congruent, Constricted Patient Behavior: Fatigued, Appropriate, Cooperative Speech Pattern: Clear Voice Loudness: Moderately Soft/Quiet Thought Process: Intact, Goal Oriented Thought Disorder: Not Present Hallucinations: Denies Suicidal Ideation: Denies Homicidal Ideation: Denies Insight/Judgement: Poor Sleep: Poorly, Difficulty falling asleep Appetite: Good Muscle strength/Tone: Normal Gait/Station: Normal Psychiatric Findings - Problem List ([place] 1, 2,3) (1) Alcohol dependence with uncomplicated withdrawal Current Visit: Yes Status: Acute (2) Cocaine dependence Current Visit: Yes Status: Chronic Qualifiers: Substance use status: uncomplicated Qualified Code(s): F14.20 - Cocaine dependence, uncomplicated (3) Nicotine dependence Current Visit: Yes Status: Chronic Qualifiers: Nicotine product type: cigarettes Substance use status: uncomplicated Qualified Code(s): F17.210 - Nicotine dependence, cigarettes, uncomplicated (4) MDD (major depressive disorder) Current Visit: Yes Status: Chronic Qualifiers: Major depression recurrence: recurrent Active/Remission status: remission status unspecified Qualified Code(s): F33.9 - Major depressive disorder, recurrent, unspecified (5) Insomnia Current Visit: Yes Status: Acute Qualifiers: Insomnia type: unspecified Qualified Code(s): G47.00 - Insomnia, unspecified - Initial Treatment Plan Initial Treatment Plan: Psychoeducation. Sleep hygiene. Detoxification in progress. AA meetings. Group + supportive therapy sessions. Medications resumed as : zoloft 50 mg po daily + trazodone 50 mg po hs. Side effects/benefits of both drugs are discussed with the patient. Made aware of the risk of priapism, sexual dysfunction, suicidal ideation. Mr Gill endorses these medications as historically well tolerated and consents (verbally) to adhere to this regimen. Observation.
[2018-05-26] MEDS: chlordiazePOXIDE HCL 25 MG CAPSULE PO SCH ×2 (17:17→22:12)
[2018-05-26 17:21] LABS: URINE APPEARANCE CLEAR; URINE BILIRUBIN NEGATIVE (<2.0 mg/dL); URINE COLOR LTYELLOW; URINE GLUCOSE (UA) NEGATIVE (NEGATIVE); URINE KETONE NEGATIVE (NEGATIVE); URINE LEUK ESTERASE NEGATIVE (NEGATIVE); URINE NITRITE NEGATIVE (NEGATIVE); URINE PROTEIN NEGATIVE (NEGATIVE); URINE UROBILINOGEN NEGATIVE mg/dL (0.2-1.0)
[2018-05-26] MEDS ORDERED: MELATONIN 5 MG TABLETS PO PRN (22:00)
[2018-05-26] MEDS: traZODone HCL 50 MG TABLET (FP) PO SCH (22:12)
[2018-05-26] MEDS: THIAMINE HCL 100 MG TABLET (FP) PO SCH (22:12)
[2018-05-26] MEDS: METOPROLOL TARTRATE 50 MG TABLET (FP) PO SCH (22:12)
[2018-05-27] MEDS: chlordiazePOXIDE HCL 25 MG CAPSULE PO SCH ×4 (05:31→22:07)
[2018-05-27] MEDS: HYDROCHLOROTHIAZIDE 25 MG TABLET (FP) PO SCH (10:20)
[2018-05-27] MEDS: amLODIPine BESYLATE 5 MG TABLET (FP) PO SCH (10:20)
[2018-05-27] MEDS: LISINOPRIL 20 MG TABLET (FP) PO SCH (10:20)
[2018-05-27] MEDS: SERTRALINE HCL 50 MG TABLET (FP) PO SCH (10:20)
[2018-05-27] MEDS: PRENATAL VITAMINS W/ FOLIC ACID TABLET (FP) PO SCH (10:20)
[2018-05-27] MEDS: METOPROLOL TARTRATE 50 MG TABLET (FP) PO SCH ×2 (10:20→22:08)
[2018-05-27] MEDS: NICOTINE 21 MG/24 HOURS TOPICAL PATCH TD SCH (10:20)
--- NOTE | 2018-05-27 10:27 | PN ---
S CIWA - CIWA Score Nausea/Vomitin-Mild Nausea/No Vomiting Muscle Tremors: 3 Anxiety: 2 Agitation: 2 Paroxysmal Sweats: 1-Minimal Palms Moist Orientation: 1-Uncertain about Date Tacttile Disturbances: 1-Very Mild Itch/Numbness Auditory Disturbances: 0-None Visual Disturbances: 0-None Headache: 0-None Present CIWA-Ar Total Score: 11 BHS Progress Note (SOAP) Subjective: tremor sweat gi distress anxiety restlessness Objective: 05/27/18 10:28 Vital Signs Temperature 96.1 F L 05/27/18 09:17 Pulse Rate 74 05/27/18 09:17 Respiratory Rate 18 05/27/18 09:17 Blood Pressure 126/86 05/27/18 09:17 O2 Sat by Pulse Oximetry (%) Laboratory Last Values Urine Color Ltyellow 05/26/18 16:45 Urine Appearance Clear 05/26/18 16:45 Urine pH 5.0 (5.0-8.0) 05/26/18 16:45 Ur Specific [place] 1.025 (1.010-1.035) 05/26/18 16:45 Urine Protein Negative (NEGATIVE) 05/26/18 16:45 Urine Glucose (UA) Negative (NEGATIVE) 05/26/18 16:45 Urine Ketones Negative (NEGATIVE) 05/26/18 16:45 Urine Blood Negative (NEGATIVE) 05/26/18 16:45 Urine Nitrite Negative (NEGATIVE) 05/26/18 16:45 Urine Bilirubin Negative (<2.0 mg/dL) 05/26/18 16:45 Urine Urobilinogen Negative mg/dL (0.2-1.0) 05/26/18 16:45 Ur Leukocyte Esterase Negative (NEGATIVE) 05/26/18 16:45 lab noted Assessment: 05/27/18 10:28 withdrawal sx Plan: continue detox
[2018-05-27 11:25] LABS: ALK PHOS 114 U/L (45-117); ANION GAP 8 MMOL/L (8-16); BILIRUBIN,TOTAL 0.6 mg/dL (0.2-1); BLOOD UREA NITROGEN 24 mg/dL (7-18); CALCIUM 10.3 mg/dL (8.5-10.1); CHLORIDE 105 mmol/L (98-107); CO2 26 mmol/L (21-32); CREATININE 1.4 mg/dL (0.55-1.3); GLUCOSE,RANDOM 92 mg/dL (74-106); POTASSIUM 4.1 mmol/L (3.5-5.1); SGOT/AST 18 U/L (15-37); SGPT/ALT 31 U/L (13-61); SODIUM 139 mmol/L (136-145); TOT PROT 7.7 g/dl (6.4-8.2)
[2018-05-27 11:28] LABS: HEMATOCRIT 45.5 % (35.4-49); HEMOGLOBIN 15.5 GM/dL (11.7-16.9); MCH 30.3 pg (25.7-33.7); MEAN CELL VOLUME 88.9 fl (80-96); MEAN PLT VOLUME 9.8 fl (7.5-11.1); PLATELET COUNT 173 K/MM3 (134-434); RBC 5.11 M/mm3 (4.00-5.60); RDW 14.8 % (11.9-15.9); WHITE BLOOD COUNT 7.8 K/mm3 (4.0-10.0)
[2018-05-27] MEDS: THIAMINE HCL 100 MG TABLET (FP) PO SCH (22:07)
[2018-05-27] MEDS: traZODone HCL 50 MG TABLET (FP) PO SCH (22:08)
[2018-05-28] MEDS: chlordiazePOXIDE HCL 25 MG CAPSULE PO SCH ×2 (05:14→10:45)
[2018-05-28] MEDS: NICOTINE 21 MG/24 HOURS TOPICAL PATCH TD SCH (10:45)
[2018-05-28] MEDS: LISINOPRIL 20 MG TABLET (FP) PO SCH (10:45)
[2018-05-28] MEDS: SERTRALINE HCL 50 MG TABLET (FP) PO SCH (10:45)
[2018-05-28] MEDS: HYDROCHLOROTHIAZIDE 25 MG TABLET (FP) PO SCH (10:45)
[2018-05-28] MEDS: amLODIPine BESYLATE 5 MG TABLET (FP) PO SCH (10:45)
[2018-05-28] MEDS: PRENATAL VITAMINS W/ FOLIC ACID TABLET (FP) PO SCH (10:45)
[2018-05-28] MEDS: METOPROLOL TARTRATE 50 MG TABLET (FP) PO SCH ×2 (12:10→22:15)
--- NOTE | 2018-05-28 16:05 | PN ---
[facility] CIWA - CIWA Score Nausea/Vomitin-No Nausea/No Vomiting Muscle Tremors: 3 Anxiety: 3 Agitation: 1-Slight > Activity Paroxysmal Sweats: 1-Minimal Palms Moist Orientation: 0-Oriented Tacttile Disturbances: 0-None Auditory Disturbances: 0-None Visual Disturbances: 0-None Headache: 1-Very Mild CIWA-Ar Total Score: 9 S Progress Note (SOAP) Subjective: tremor sweat mild gi distress trouble sleep at night Objective: 05/28/18 16:04 Vital Signs Temperature 98.6 F 05/28/18 13:49 Pulse Rate 82 05/28/18 13:49 Respiratory Rate 18 05/28/18 13:49 Blood Pressure 114/78 05/28/18 13:49 O2 Sat by Pulse Oximetry (%) Laboratory Last Values WBC 7.8 K/mm3 (4.0-10.0) 05/27/18 06:00 RBC 5.11 M/mm3 (4.00-5.60) 05/27/18 06:00 Hgb 15.5 GM/dL (11.7-16.9) 05/27/18 06:00 Hct 45.5 % (35.4-49) 05/27/18 06:00 MCV 88.9 fl (80-96) 05/27/18 06:00 MCH 30.3 pg (25.7-33.7) D 05/27/18 06:00 MCHC 34.0 g/dl (32.0-35.9) 05/27/18 06:00 RDW 14.8 % (11.9-15.9) D 05/27/18 06:00 Plt Count 173 K/MM3 (134-434) D 05/27/18 06:00 MPV 9.8 fl (7.5-11.1) 05/27/18 06:00 Sodium 139 mmol/L (136-145) 05/27/18 06:00 Potassium 4.1 mmol/L (3.5-5.1) 05/27/18 06:00 Chloride 105 mmol/L (98-107) 05/27/18 06:00 Carbon Dioxide 26 mmol/L (21-32) 05/27/18 06:00 Anion Gap 8 MMOL/L (8-16) 05/27/18 06:00 BUN 24 mg/dL (7-18) H 05/27/18 06:00 Creatinine 1.4 mg/dL (0.55-1.3) H 05/27/18 06:00 Creat Clearance w eGFR 52.62 (>60) 05/27/18 06:00 Random Glucose 92 mg/dL (74-106) 05/27/18 06:00 Calcium 10.3 mg/dL (8.5-10.1) H 05/27/18 06:00 Total Bilirubin 0.6 mg/dL (0.2-1) 05/27/18 06:00 AST 18 U/L (15-37) 05/27/18 06:00 ALT 31 U/L (13-61) 05/27/18 06:00 Alkaline Phosphatase 114 U/L (45-117) 05/27/18 06:00 Total Protein 7.7 g/dl (6.4-8.2) 05/27/18 06:00 Albumin 4.0 g/dl (3.4-5.0) 05/27/18 06:00 Urine Color Ltyellow 05/26/18 16:45 Urine Appearance Clear 05/26/18 16:45 Urine pH 5.0 (5.0-8.0) 05/26/18 16:45 Ur Specific [place] 1.025 (1.010-1.035) 05/26/18 16:45 Urine Protein Negative (NEGATIVE) 05/26/18 16:45 Urine Glucose (UA) Negative (NEGATIVE) 05/26/18 16:45 Urine Ketones Negative (NEGATIVE) 05/26/18 16:45 Urine Blood Negative (NEGATIVE) 05/26/18 16:45 Urine Nitrite Negative (NEGATIVE) 05/26/18 16:45 Urine Bilirubin Negative (<2.0 mg/dL) 05/26/18 16:45 Urine Urobilinogen Negative mg/dL (0.2-1.0) 05/26/18 16:45 Ur Leukocyte Esterase Negative (NEGATIVE) 05/26/18 16:45 RPR Titer Nonreactive (NONREACTIVE) 05/27/18 06:00 lab noted Assessment: 05/28/18 16:05 withdrawal sx Plan: continue detox
[2018-05-28] MEDS: chlordiazePOXIDE 5 MG CAPSULE PO SCH ×2 (17:45→22:15)
[2018-05-28] MEDS: traZODone HCL 50 MG TABLET (FP) PO SCH (22:15)
[2018-05-28] MEDS: THIAMINE HCL 100 MG TABLET (FP) PO SCH (22:15)
[2018-05-29] MEDS: chlordiazePOXIDE 5 MG CAPSULE PO SCH ×2 (05:24→10:34)
[2018-05-29] MEDS: NICOTINE 21 MG/24 HOURS TOPICAL PATCH TD SCH (10:34)
[2018-05-29] MEDS: LISINOPRIL 20 MG TABLET (FP) PO SCH (10:34)
[2018-05-29] MEDS: PRENATAL VITAMINS W/ FOLIC ACID TABLET (FP) PO SCH (10:34)
[2018-05-29] MEDS: amLODIPine BESYLATE 5 MG TABLET (FP) PO SCH (10:34)
[2018-05-29] MEDS: METOPROLOL TARTRATE 50 MG TABLET (FP) PO SCH ×2 (10:34→22:10)
[2018-05-29] MEDS: SERTRALINE HCL 50 MG TABLET (FP) PO SCH (10:34)
[2018-05-29] MEDS: HYDROCHLOROTHIAZIDE 25 MG TABLET (FP) PO SCH (10:35)
--- NOTE | 2018-05-29 11:47 | PN ---
S Progress Note Note: PATIENT C/O ANXIETY AND SLEEP DISTURBANCE BUT REPORTS FEELING BETTER. Vital Signs Temperature 97.8 F 05/29/18 09:40 Pulse Rate 78 05/29/18 09:40 Respiratory Rate 18 05/29/18 09:40 Blood Pressure 121/83 05/29/18 09:40 O2 Sat by Pulse Oximetry (%) Laboratory Tests 05/26/18 05/27/18 05/27/18 16:45 06:00 06:00 WBC 7.8 RBC 5.11 Hgb 15.5 Hct 45.5 MCV 88.9 MCH 30.3 D MCHC 34.0 RDW 14.8 D Plt Count 173 D MPV 9.8 Sodium 139 Potassium 4.1 Chloride 105 Carbon Dioxide 26 Anion Gap 8 BUN 24 H Creatinine 1.4 H Creat Clearance w eGFR 52.62 Random Glucose 92 Calcium 10.3 H Total Bilirubin 0.6 AST 18 ALT 31 Alkaline Phosphatase 114 Total Protein 7.7 Albumin 4.0 Urine Color Ltyellow Urine Appearance Clear Urine pH 5.0 Ur Specific [place] 1.025 Urine Protein Negative Urine Glucose (UA) Negative Urine Ketones Negative Urine Blood Negative Urine Nitrite Negative Urine Bilirubin Negative Urine Urobilinogen Negative Ur Leukocyte Esterase Negative RPR Titer 05/27/18 06:00 WBC RBC Hgb Hct MCV MCH MCHC RDW Plt Count MPV Sodium Potassium Chloride Carbon Dioxide Anion Gap BUN Creatinine Creat Clearance w eGFR Random Glucose Calcium Total Bilirubin AST ALT Alkaline Phosphatase Total Protein Albumin Urine Color Urine Appearance Urine pH Ur Specific [place] Urine Protein Urine Glucose (UA) Urine Ketones Urine Blood Urine Nitrite Urine Bilirubin Urine Urobilinogen Ur Leukocyte Esterase RPR Titer Nonreactive PE: ALERT AND ORIENTED X 3 SKIN WARM AND DRY EXT FULL ROM, NO TREMORS ANXIOUS AMB AD PRITI
[2018-05-29] MEDS: chlordiazePOXIDE HCL 10 MG CAPSULE PO SCH ×2 (16:52→22:10)
[2018-05-29] MEDS: traZODone HCL 50 MG TABLET (FP) PO SCH (22:10)
[2018-05-29] MEDS: THIAMINE HCL 100 MG TABLET (FP) PO SCH (22:10)
[2018-05-30] MEDS: chlordiazePOXIDE HCL 10 MG CAPSULE PO SCH (05:48)
[2018-05-30 06:21] VITALS: BP 110/70; PULSE 76; TEMP 97.7
[2018-05-30] MEDS: NICOTINE 21 MG/24 HOURS TOPICAL PATCH TD SCH (09:59)
[2018-05-30] MEDS: PRENATAL VITAMINS W/ FOLIC ACID TABLET (FP) PO SCH (09:59)
[2018-05-30] MEDS: METOPROLOL TARTRATE 50 MG TABLET (FP) PO SCH (09:59)
[2018-05-30] MEDS: SERTRALINE HCL 50 MG TABLET (FP) PO SCH (09:59)
[2018-05-30] MEDS: amLODIPine BESYLATE 5 MG TABLET (FP) PO SCH (09:59)
[2018-05-30] MEDS: LISINOPRIL 20 MG TABLET (FP) PO SCH (09:59)
[2018-05-30] MEDS: HYDROCHLOROTHIAZIDE 25 MG TABLET (FP) PO SCH (09:59)
--- NOTE | 2018-05-30 12:04 | PN ---
[facility] Progress Note (SOAP) Subjective: DETOX COMPLETED. ALERT O X 3. Objective: 05/30/18 12:03 Vital Signs 05/30/18 06:21 Temperature 97.7 F Pulse Rate 76 Respiratory 18 Rate Blood Pressure 110/70 Laboratory Tests 05/26/18 05/27/18 05/27/18 16:45 06:00 06:00 WBC 7.8 RBC 5.11 Hgb 15.5 Hct 45.5 MCV 88.9 MCH 30.3 D MCHC 34.0 RDW 14.8 D Plt Count 173 D MPV 9.8 Sodium 139 Potassium 4.1 Chloride 105 Carbon Dioxide 26 Anion Gap 8 BUN 24 H Creatinine 1.4 H Creat Clearance w eGFR 52.62 Random Glucose 92 Calcium 10.3 H Total Bilirubin 0.6 AST 18 ALT 31 Alkaline Phosphatase 114 Total Protein 7.7 Albumin 4.0 Urine Color Ltyellow Urine Appearance Clear Urine pH 5.0 Ur Specific [place] 1.025 Urine Protein Negative Urine Glucose (UA) Negative Urine Ketones Negative Urine Blood Negative Urine Nitrite Negative Urine Bilirubin Negative Urine Urobilinogen Negative Ur Leukocyte Esterase Negative RPR Titer 05/27/18 06:00 WBC RBC Hgb Hct MCV MCH MCHC RDW Plt Count MPV Sodium Potassium Chloride Carbon Dioxide Anion Gap BUN Creatinine Creat Clearance w eGFR Random Glucose Calcium Total Bilirubin AST ALT Alkaline Phosphatase Total Protein Albumin Urine Color Urine Appearance Urine pH Ur Specific [place] Urine Protein Urine Glucose (UA) Urine Ketones Urine Blood Urine Nitrite Urine Bilirubin Urine Urobilinogen Ur Leukocyte Esterase RPR Titer Nonreactive Assessment: 05/30/18 12:03 MEDICALLY STABLE Plan: PT D/C'D TODAY
--- NOTE | 2018-05-30 12:05 | DS ---
[facility] Detox Discharge Summary Admission Date: 05/26/18 Discharge Date: 05/30/18 - History Present History: Alcohol Dependence, Cocaine Dependence Additional Comments: PT TO FOLLOW UP WITH PMD FOR MEDICAL MANAGEMENT. Pertinent Past History: PLEASE SEE DX BELOW - Physical Exam Results Vital Signs: Vital Signs Temperature 97.7 F 05/30/18 06:21 Pulse Rate 76 05/30/18 06:21 Respiratory Rate 18 05/30/18 06:21 Blood Pressure 110/70 05/30/18 06:21 O2 Sat by Pulse Oximetry (%) Pertinent Admission Physical Exam Findings: WITHDRAWAL SX Laboratory Tests 05/26/18 05/27/18 05/27/18 16:45 06:00 06:00 WBC 7.8 RBC 5.11 Hgb 15.5 Hct 45.5 MCV 88.9 MCH 30.3 D MCHC 34.0 RDW 14.8 D Plt Count 173 D MPV 9.8 Sodium 139 Potassium 4.1 Chloride 105 Carbon Dioxide 26 Anion Gap 8 BUN 24 H Creatinine 1.4 H Creat Clearance w eGFR 52.62 Random Glucose 92 Calcium 10.3 H Total Bilirubin 0.6 AST 18 ALT 31 Alkaline Phosphatase 114 Total Protein 7.7 Albumin 4.0 Urine Color Ltyellow Urine Appearance Clear Urine pH 5.0 Ur Specific [place] 1.025 Urine Protein Negative Urine Glucose (UA) Negative Urine Ketones Negative Urine Blood Negative Urine Nitrite Negative Urine Bilirubin Negative Urine Urobilinogen Negative Ur Leukocyte Esterase Negative RPR Titer 05/27/18 06:00 WBC RBC Hgb Hct MCV MCH MCHC RDW Plt Count MPV Sodium Potassium Chloride Carbon Dioxide Anion Gap BUN Creatinine Creat Clearance w eGFR Random Glucose Calcium Total Bilirubin AST ALT Alkaline Phosphatase Total Protein Albumin Urine Color Urine Appearance Urine pH Ur Specific [place] Urine Protein Urine Glucose (UA) Urine Ketones Urine Blood Urine Nitrite Urine Bilirubin Urine Urobilinogen Ur Leukocyte Esterase RPR Titer Nonreactive - Treatment Hospital Course: Detox Protocol Followed, Detoxed Safely, Responded well, Discharged Condition Good - Medication Discharge Medications: Ambulatory Orders Sertraline HCl [Zoloft -] 50 mg PO DAILY #30 tablet 12/03/17 traZODone HCL [Desyrel -] 100 mg PO HS #30 tablet 01/22/18 Amlodipine Besylate [Norvasc -] 5 mg PO DAILY #14 tablet 05/29/18 Hydrochlorothiazide 25 mg PO DAILY #14 tablet 05/29/18 Lisinopril [Prinivil] 20 mg PO DAILY #14 tab 05/29/18 Metoprolol Tartrate [Lopressor -] 50 mg PO BID #30 tablet 05/29/18 - AMA Did Patient Leave Against Medical Advice: No
== END 2018-05-30 10:20 | disposition home or self-care (01) | DRG 897 ==
LOC: YASAS 11:43 → Y3N 12:48
PROC: HZ2ZZZZ Detoxification Services for Substance Abuse Treatment (ICD-10-PCS; principal; 2018-05-26)
DX: F10.230 Alcohol dependence with withdrawal, uncomplicated (principal); F14.20 Cocaine dependence, uncomplicated; F33.9 Major depressive disorder, recurrent, unspecified; F17.213 Nicotine dependence, cigarettes, with withdrawal; F31.9 Bipolar disorder, unspecified; G47.00 Insomnia, unspecified; I10 Essential (primary) hypertension; R55 Syncope and collapse; E66.9 Obesity, unspecified; Z68.32 Body mass index [BMI] 32.0-32.9, adult
CPT/HCPCS: 36415; 80053; 81003; 85027; 86593

== ENCOUNTER 2018-07-24 16:40 | Inpatient (IN) | payer OTHER ==
[2018-07-24 17:27] VITALS: BMI 34.6
--- NOTE | 2018-07-24 21:03 | HP ---
CIWA Score Nausea/Vomitin Muscle Tremors: 4-Moderate,w/Arms Extend Anxiety: 4-Mod. Anxious/Guarded Agitation: 4-Moderately Restless Paroxysmal Sweats: 1-Minimal Palms Moist Orientation: 0-Oriented Tacttile Disturbances: 1-Very Mild Itch/Numbness Auditory Disturbances: 0-None Visual Disturbances: 0-None Headache: 0-None Present CIWA-Ar Total Score: 17 - Admission Criteria OASAS Guidelines: Admission for Medically Managed Detox: Requires at least one of the followin. CIWA greater than 12 2. Seizures within the past 24 hours 3. Delirium tremens within the past 24 hours 4. Hallucinations within the past 24 hours 5. Acute intervention needed for co occurring medical disorder 6. Acute intervention needed for co occurring psychiatric disorder 7. Severe withdrawal that cannot be handled at a lower level of care (continued vomiting, continued diarrhea, abnormal vital signs) requiring intravenous medication and/or fluids 8. Admission ROS S - [facility] Chief Complaint: Alcohol withdrawal symptoms Allergies/Adverse Reactions: Allergies Allergy/AdvReac Type Severity Reaction Status Date / Time No Known Allergies Allergy Verified 07/24/18 20:22 History of Present Illness: 53 years old male with a long history of alcohol dependence is seeking admission to detox. Patient has been to detox multiple times, last in May 26/2018 - 05/30/2019. He reports 18 months of sobriety. He has medical of hypertension, depression and anxiety. He denies suicide attempt and suicidal ideation at this time. Exam Limitations: No Limitations - Ebola screening Have you traveled outside of the country in the last 21 days: No Have you had contact with anyone from an Ebola affected area: No Have you been sick,other than usual withdrawal symptoms: No Do you have a fever: No - Review of Systems Constitutional: Chills, Malaise, Night Sweats EENT: reports: Nose Congestion Respiratory: reports: No Symptoms reported Cardiac: reports: No Symptoms Reported GI: reports: Nausea, Poor Appetite, Poor Fluid Intake, Abdominal cramping : reports: No Symptoms Reported Musculoskeletal: reports: No Symptoms Reported Integumentary: reports: Dryness, Flushing Neuro: reports: Tremors Endocrine: reports: No Symptoms Reported Hematology: reports: No Symptoms Reported Psychiatric: reports: Mood/Affect Appropiate, Orientated x3, Anxious Other Systems: Reviewed and Negative Patient History - Patient Medical History Hx Anemia: No Hx Asthma: No Hx Chronic Obstructive Pulmonary Disease (COPD): No Hx Cancer: No Hx Cardiac Disorders: No Hx Congestive Heart Failure: No Hx Hypertension: Yes (Amlodipine) Hx Hypercholesterolemia: No Hx Pacemaker: No HX Cerebrovascular Accident: No Hx Seizures: No Hx Dementia: No Hx Diabetes: No Hx Gastrointestinal Disorders: No Hx Liver Disease: No Hx Genitourinary Disorders: No Hx Sexually Transmitted Disorders: No Hx Renal Disease (ESRD): No Hx Thyroid Disease: No Hx Human Immunodeficiency Virus (HIV): No (NEGATIVE OCTOBER 2017) Hx Hepatitis C: No (DENIES) Hx Depression: Yes (ZOLOFT) Hx Suicide Attempt: No Hx Bipolar Disorder: Yes Hx Schizophrenia: No Other Medical History: ANXIETY - NOT ON MEDICATION - Patient Surgical History Past Surgical History: No Hx Neurologic Surgery: No Hx Cataract Extraction: No Hx Cardiac Surgery: No Hx Lung Surgery: No Hx Breast Surgery: No Hx Breast Biopsy: No Hx Abdominal Surgery: No Hx Appendectomy: No Hx Cholecystectomy: No Hx Genitourinary Surgery: No Hx Section: No Hx Orthopedic Surgery: No Anesthesia Reaction: No - PPD History Previous Implant?: Yes Documented Results: Negative w/proof Implanted On Prior [facility] Admission?: Yes Date: 03/27/18 Results: 0 mm PPD to be Administered?: No - Reproductive History Patient is a Female of Child Bearing Age (11 -55 yrs old): No (MALE) - Smoking Cessation Smoking history: Current every day smoker Have you smoked in the past 12 months: Yes Aproximately how many cigarettes per day: 20 Cigars Per Day: 0 Hx Chewing Tobacco Use: No Initiated information on smoking cessation: Yes 'Breaking Loose' booklet given: 07/24/18 - Substance & Tx. History Hx Alcohol Use: Yes Hx Substance Use: Yes Substance Use Type: Alcohol, Cocaine Hx Substance Use Treatment: Yes ([facility]) - Substances Abused Alcohol Route: Oral Frequency: Daily Amount used: LIQUOR- 3 PINTS, BEER- 4 SIX PACKS Age of first use: 12 Date of Last Use: 07/24/18 Crack Route: Smoking Frequency: Daily Amount used: $100 Age of first use: 18 Date of Last Use: 07/24/18 Family Disease History - Family Disease History Family History: Denies Admission Physical Exam BHS - Vital Signs Vital Signs: Vital Signs - 24 hr 07/24/18 17:23 Temperature 100.3 F H Pulse Rate 105 H Respiratory 18 Rate Blood Pressure 172/108 H - Physical General Appearance: Yes: Moderate Distress, Tremorous, Irritable, Anxious HEENTM: Yes: EOMI, Normal ENT Inspection, Normocephalic, Normal Voice Respiratory: Yes: Lungs Clear, Normal Breath Sounds, No Respiratory Distress Breast: Yes: Breast Exam Deferred Cardiology: Yes: Tachycardia Abdominal: Yes: Normal Bowel Sounds, Soft Genitourinary: Yes: Within Normal Limits Musculoskeletal: Yes: Back pain, Muscle Pain Extremities: Yes: Tremors 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, Alert Integumentary: Yes: Warm Lymphatic: Yes: Within Normal Limits - Diagnostic (1) Alcohol dependence with uncomplicated withdrawal Current Visit: Yes Status: Chronic (2) Cocaine dependence Current Visit: Yes Status: Chronic Qualifiers: Substance use status: uncomplicated Qualified Code(s): F14.20 - Cocaine dependence, uncomplicated (3) Nicotine dependence Current Visit: Yes Status: Chronic Qualifiers: Nicotine product type: cigarettes Substance use status: uncomplicated Qualified Code(s): F17.210 - Nicotine dependence, cigarettes, uncomplicated (4) Essential hypertension Current Visit: Yes Status: Chronic (5) Obesity Current Visit: Yes Status: Chronic Qualifiers: Obesity type: unspecified obesity type Obesity classification: adult class 1 (BMI 30 - 34.9) Serious obesity comorbidity presence: unspecified whether serious comorbidity present Body mass index: BMI 34.0-34.9 Qualified Code(s) : E66.9 - Obesity, unspecified; Z68.34 - Body mass index (BMI) 34.0-34.9, adult Cleared for Admission [facility] - Detox or Rehab [facility] Level of Care: Medically Managed Detox Regimen/Protocol: Librium [facility] Breath Alcohol Content Breath Alcohol Content: 0 Urine Drug Screen - Results Drug Screen Negative: Yes Urine Drug Screen Results: KRISTINA-Cocaine, BZO-Benzodiazepines
[2018-07-24] MEDS ORDERED: MAGNESIUM CITRATE 300 ML BOTTLE PO PRN (21:12)
[2018-07-24] MEDS ORDERED: IBUPROFEN 400 MG TABLET (FP) PO PRN (21:12)
[2018-07-24] MEDS ORDERED: P-EPHED 60MG/TRIPROLIDI 2.5MG TABLET PO PRN (21:12)
[2018-07-24] MEDS ORDERED: chlordiazePOXIDE HCL 25 MG CAPSULE PO PRN (21:12)
[2018-07-24] MEDS ORDERED: NICOTINE POLACRILEX 2 MG GUM BC PRN (21:12)
[2018-07-24] MEDS ORDERED: guaiFENesin/D-METHORPHAN HB 10 ML UNIT-DOSE CUPS PO PRN (21:12)
[2018-07-24] MEDS ORDERED: MENTHOL/PHENOL 1 EACH UD MM PRN (21:12)
[2018-07-24] MEDS ORDERED: LOPERAMIDE HCL 2 MG CAPSULE PO PRN (21:12)
[2018-07-24] MEDS ORDERED: MAGNESIUM HYDROX 2400MG/30ML ORAL SUSPENSION 30 ML CUP PO PRN (21:12)
[2018-07-24] MEDS ORDERED: MELATONIN 5 MG TABLETS PO PRN (22:00)
[2018-07-24] MEDS: HYDROCHLOROTHIAZIDE 25 MG TABLET (FP) PO SCH (23:10)
[2018-07-24] MEDS: METOPROLOL TARTRATE 50 MG TABLET (FP) PO SCH (23:10)
[2018-07-24] MEDS: THIAMINE HCL 100 MG TABLET (FP) PO SCH (23:11)
[2018-07-24] MEDS: amLODIPine BESYLATE 5 MG TABLET (FP) PO SCH (23:11)
[2018-07-24] MEDS: chlordiazePOXIDE HCL 25 MG CAPSULE PO SCH (23:11)
[2018-07-24] MEDS: LISINOPRIL 20 MG TABLET (FP) PO SCH (23:15)
[2018-07-25] MEDS: chlordiazePOXIDE HCL 25 MG CAPSULE PO SCH ×4 (05:24→22:21)
[2018-07-25] MEDS: NICOTINE 21 MG/24 HOURS TOPICAL PATCH TD SCH (10:16)
[2018-07-25] MEDS: HYDROCHLOROTHIAZIDE 25 MG TABLET (FP) PO SCH (10:16)
[2018-07-25] MEDS: amLODIPine BESYLATE 5 MG TABLET (FP) PO SCH (10:16)
[2018-07-25] MEDS: LISINOPRIL 20 MG TABLET (FP) PO SCH (10:16)
[2018-07-25] MEDS: METOPROLOL TARTRATE 50 MG TABLET (FP) PO SCH ×2 (10:16→22:21)
[2018-07-25] MEDS: PRENATAL VITAMINS W/ FOLIC ACID TABLET (FP) PO SCH (10:16)
[2018-07-25] MEDS: ACETAMINOPHEN 325 MG TABLET (FP) PO PRN ×2 (10:18→18:19)
[2018-07-25] MEDS: MAG HYDROX/AL HYDROX/SIMETH 30 ML UNIT-DOSE CUP PO PRN (10:27)
[2018-07-25 10:38] LABS: HEMATOCRIT 47.6 % (35.4-49); HEMOGLOBIN 15.8 GM/dL (11.7-16.9); MCH 29.8 pg (25.7-33.7); MCHC 33.2 g/dl (32.0-35.9); MEAN CELL VOLUME 89.6 fl (80-96); MEAN PLT VOLUME 8.2 fl (7.5-11.1); PLATELET COUNT 142 K/MM3 (134-434); RBC 5.32 M/mm3 (4.00-5.60); RDW 14.6 % (11.9-15.9); WHITE BLOOD COUNT 6.3 K/mm3 (4.0-10.0)
--- NOTE | 2018-07-25 10:39 | PN ---
[facility] CIWA - CIWA Score Nausea/Vomitin Muscle Tremors: 3 Anxiety: 2 Agitation: 2 Paroxysmal Sweats: 2 Orientation: 0-Oriented Tacttile Disturbances: 1-Very Mild Itch/Numbness Auditory Disturbances: 0-None Visual Disturbances: 0-None Headache: 1-Very Mild CIWA-Ar Total Score: 13 BHS Progress Note (SOAP) Subjective: Tremors, sweats, abdominal cramps and interrupted sleep Objective: 07/25/18 10:38 Vital Signs 07/25/18 07/25/18 07/25/18 03:30 06:40 09:16 Temperature 97.5 F L 97.7 F Pulse Rate 75 79 Respiratory 18 18 18 Rate Blood Pressure 103/64 131/75 Labs noted Assessment: 07/25/18 10:39 Withdrawal sx Plan: Continue detox
[2018-07-25 10:56] LABS: ALK PHOS 84 U/L (45-117); ANION GAP 11 MMOL/L (8-16); BILIRUBIN,TOTAL 0.7 mg/dL (0.2-1); BLOOD UREA NITROGEN 20 mg/dL (7-18); CALCIUM 9.8 mg/dL (8.5-10.1); CHLORIDE 102 mmol/L (98-107); CO2 25 mmol/L (21-32); CREATININE 1.1 mg/dL (0.55-1.3); GLUCOSE,RANDOM 96 mg/dL (74-106); POTASSIUM 3.9 mmol/L (3.5-5.1); SGOT/AST 23 U/L (15-37); SGPT/ALT 35 U/L (13-61); SODIUM 138 mmol/L (136-145); TOT PROT 7.6 g/dl (6.4-8.2)
--- NOTE | 2018-07-25 15:00 | CONSULT ---
[facility] Psychiatric Consult - Data Date of interview: 07/25/18 Admission source: [facility] Identifying data: This is one of several admissions to [facility] for this 53 y/ o AA male for detoxification treatment for alcohol and cocaine dependence. Examined on . Patient is , a father of two, homeless (resides in [place]), unemployed and supported on SSI/SSD benefits. Substance Abuse History: Confirmed by the patient in this interview. Details in current [facility] report as follows : Smoking history: Current every day smoker. Have you smoked in the past 12 months: Yes. Aproximately how many cigarettes per day: 20. Cigars Per Day: 0. Hx Chewing Tobacco Use: No. Initiated information on smoking cessation: Yes. 'Breaking Loose' booklet given: . - Substance & Tx. History. Hx Alcohol Use: Yes. Hx Substance Use: Yes. Substance Use Type: Alcohol, Cocaine. Hx Substance Use Treatment: Yes ([facility]). - Substances Abused. Alcohol. Route: Oral. Frequency: Daily. Amount used : LIQUOR- 3 PINTS, BEER- 4 SIX PACKS. Age of first use: 12. Date of Last Use: 07/24/18. Crack. Route: Smoking. Frequency: Daily. Amount used: $100. Age of first use: 18. Date of Last Use: 07/24/18 Medical History: Hypertension. Psychiatric History: Patient endorses a history of three psychiatric hospitalizations (all at [facility] in [facility]). Diagnosed with MDD (1988). Not re-hospitalized since the . Prescribed sertraline 50 mg/day + trazodone 50 mg/hs. Mr Gill gets his outpatient psychiatric services at the [facility] health clinic in [place]. Denies history of suicide attempts. Physical/Sexual Abuse/Trauma History: Patient denies. Additional Comment: Urine Drug Screen Results: KRISTINA-Cocaine, BZO- Benzodiazepines. Noted. Mental Status Exam - Mental Status Exam Alert and Oriented to: Time, Place, Person Cognitive Function: Good Patient Appearance: Well Groomed Mood: Withdrawn Affect: Appropriate, Normal Range Patient Behavior: Fatigued, Cooperative Speech Pattern: Clear, Appropriate Voice Loudness: Normal Thought Process: Goal Oriented Thought Disorder: Not Present Hallucinations: Denies Suicidal Ideation: Denies Homicidal Ideation: Denies Insight/Judgement: Poor Sleep: Poorly, Difficulty falling asleep Appetite: Good Gait/Station: Normal Psychiatric Findings - Problem List ([place] 1, 2,3) (1) Alcohol dependence with uncomplicated withdrawal Current Visit: Yes Status: Acute (2) Cocaine dependence Current Visit: Yes Status: Chronic Qualifiers: Substance use status: uncomplicated Qualified Code(s): F14.20 - Cocaine dependence, uncomplicated (3) Nicotine dependence Current Visit: Yes Status: Chronic Qualifiers: Nicotine product type: cigarettes Substance use status: uncomplicated Qualified Code(s): F17.210 - Nicotine dependence, cigarettes, uncomplicated (4) Substance induced mood disorder Current Visit: Yes Status: Chronic (5) MDD (major depressive disorder) Current Visit: Yes Status: Chronic Qualifiers: Major depression recurrence: recurrent Active/Remission status: remission status unspecified Qualified Code(s): F33.9 - Major depressive disorder, recurrent, unspecified (6) Insomnia Current Visit: Yes Status: Chronic Qualifiers: Insomnia type: alcohol-induced Qualified Code(s): F10.982 - Alcohol use, unspecified with alcohol-induced sleep disorder - Initial Treatment Plan Initial Treatment Plan: Psychoeducation. Sleep hygiene. Detoxification in progress. Resumed : zoloft 50 mg po daily + trazodone 50 mg po hs. Side effects/ benefits of both drugs are discussed with the patient. Made aware of the additional risk of priapism (trazodone). Patient expressed his agreement with this regimen. Support. Motivational rounds to encourage maintenance of sobriety. AA meetings. Observation.
--- NOTE | 2018-07-25 16:52 | EKG ---
Test Reason : Blood Pressure : / mmHG Vent. Rate : 091 BPM Atrial Rate : 091 BPM P-R Int : 174 ms QRS Dur : 086 ms QT Int : 366 ms P-R-T Axes : 053 031 048 degrees QTc Int : 450 ms NORMAL SINUS RHYTHM NORMAL ECG WHEN COMPARED WITH ECG OF 25-MAR-2018 17:09, NO SIGNIFICANT CHANGE WAS FOUND Confirmed by Adela Milan ([id number]) on 07/25/2018 4:52:20 PM Referred By: Britni GATES Confirmed By:Adela Milan
[2018-07-25] MEDS ORDERED: traZODone HCL 100 MG TABLET (FP) PO SCH (22:00)
[2018-07-25] MEDS: THIAMINE HCL 100 MG TABLET (FP) PO SCH (22:21)
[2018-07-25] MEDS: traZODone HCL 50 MG TABLET (FP) PO SCH (22:21)
[2018-07-26] MEDS: chlordiazePOXIDE HCL 25 MG CAPSULE PO SCH ×3 (05:31→17:16)
[2018-07-26] MEDS ORDERED: SERTRALINE HCL 50 MG TABLET (FP) PO SCH (10:00)
[2018-07-26] MEDS: HYDROCHLOROTHIAZIDE 25 MG TABLET (FP) PO SCH (10:50)
[2018-07-26] MEDS: METOPROLOL TARTRATE 50 MG TABLET (FP) PO SCH ×2 (10:50→22:43)
[2018-07-26] MEDS: LISINOPRIL 20 MG TABLET (FP) PO SCH (10:50)
[2018-07-26] MEDS: PRENATAL VITAMINS W/ FOLIC ACID TABLET (FP) PO SCH (10:50)
[2018-07-26] MEDS: NICOTINE 21 MG/24 HOURS TOPICAL PATCH TD SCH (10:50)
[2018-07-26] MEDS: amLODIPine BESYLATE 5 MG TABLET (FP) PO SCH (10:50)
[2018-07-26] MEDS: ACETAMINOPHEN 325 MG TABLET (FP) PO PRN (11:11)
[2018-07-26] MEDS: MAG HYDROX/AL HYDROX/SIMETH 30 ML UNIT-DOSE CUP PO PRN ×2 (13:11→22:46)
--- NOTE | 2018-07-26 15:32 | PN ---
[facility] CIWA - CIWA Score Nausea/Vomitin-No Nausea/No Vomiting Muscle Tremors: None Anxiety: 0-No Anxiety, at Ease Agitation: 0-Normal Activity Paroxysmal Sweats: No Perspiration Orientation: 0-Oriented Tacttile Disturbances: 0-None Auditory Disturbances: 0-None Visual Disturbances: 0-None Headache: 0-None Present CIWA-Ar Total Score: 0 BHS Progress Note (SOAP) Subjective: pt states feeling fine on alcohol detox protocol, going to rehab after detox O: Vital Signs - 24 hr 07/25/18 07/25/18 07/26/18 17:24 22:07 00:30 Temperature 98.3 F 98.1 F Pulse Rate 82 87 Respiratory 19 18 18 Rate Blood Pressure 122/72 128/90 07/26/18 07/26/18 07/26/18 03:30 06:37 09:18 Temperature 97.8 F 98.2 F Pulse Rate 80 93 H Respiratory 18 18 16 Rate Blood Pressure 127/70 146/87 07/26/18 13:56 Temperature 98.2 F Pulse Rate 81 Respiratory 18 Rate Blood Pressure 121/87 Laboratory Tests 07/25/18 07/25/18 07/25/18 08:00 08:00 08:00 WBC 6.3 RBC 5.32 Hgb 15.8 Hct 47.6 MCV 89.6 MCH 29.8 MCHC 33.2 RDW 14.6 Plt Count 142 MPV 8.2 D Sodium 138 Potassium 3.9 Chloride 102 Carbon Dioxide 25 Anion Gap 11 BUN 20 H Creatinine 1.1 Creat Clearance w eGFR > 60 Random Glucose 96 Calcium 9.8 Total Bilirubin 0.7 AST 23 ALT 35 Alkaline Phosphatase 84 Total Protein 7.6 Albumin 4.0 RPR Titer Nonreactive labs WNL VS WNL a/p continue alcohol detox protocol- rehab planned
[2018-07-26] MEDS: chlordiazePOXIDE 5 MG CAPSULE PO SCH (22:43)
[2018-07-26] MEDS: THIAMINE HCL 100 MG TABLET (FP) PO SCH (22:43)
[2018-07-26] MEDS: traZODone HCL 50 MG TABLET (FP) PO SCH (22:43)
[2018-07-27] MEDS: chlordiazePOXIDE 5 MG CAPSULE PO SCH (05:26)
--- NOTE | 2018-07-27 08:28 | DS ---
[facility] Detox Discharge Summary Admission Date: 07/24/18 Discharge Date: 07/27/18 - History Present History: Alcohol Dependence, Cocaine Dependence - Physical Exam Results Vital Signs: Vital Signs Temperature 98.1 F 07/27/18 05:48 Pulse Rate 82 07/27/18 05:48 Respiratory Rate 20 07/27/18 05:48 Blood Pressure 126/85 07/27/18 05:48 O2 Sat by Pulse Oximetry (%) - Treatment Hospital Course: Detox Protocol Followed, Detoxed Safely, Responded well, Discharged Condition Good, Rehab Referral Accepted - Medication Discharge Medications: Ambulatory Orders Sertraline HCl [Zoloft -] 50 mg PO DAILY #30 tablet 12/03/17 traZODone HCL [Desyrel -] 100 mg PO HS #30 tablet 01/22/18 Amlodipine Besylate [Norvasc -] 5 mg PO DAILY #14 tablet 05/29/18 Hydrochlorothiazide 25 mg PO DAILY #14 tablet 05/29/18 Lisinopril [Prinivil] 20 mg PO DAILY #14 tab 05/29/18 Metoprolol Tartrate [Lopressor -] 50 mg PO BID #30 tablet 05/29/18 - Diagnosis (1) Alcohol dependence with uncomplicated withdrawal Current Visit: Yes Status: Chronic (2) Cocaine dependence Current Visit: Yes Status: Chronic Qualifiers: Substance use status: uncomplicated Qualified Code(s): F14.20 - Cocaine dependence, uncomplicated (3) Essential hypertension Current Visit: Yes Status: Chronic (4) Insomnia Current Visit: Yes Status: Chronic Qualifiers: Insomnia type: alcohol-induced Qualified Code(s): F10.982 - Alcohol use, unspecified with alcohol-induced sleep disorder (5) MDD (major depressive disorder) Current Visit: Yes Status: Chronic Qualifiers: Major depression recurrence: recurrent Active/Remission status: remission status unspecified Qualified Code(s): F33.9 - Major depressive disorder, recurrent, unspecified (6) Nicotine dependence Current Visit: Yes Status: Chronic Qualifiers: Nicotine product type: cigarettes Substance use status: uncomplicated Qualified Code(s): F17.210 - Nicotine dependence, cigarettes, uncomplicated (7) Obesity Current Visit: Yes Status: Chronic Qualifiers: Obesity type: unspecified obesity type Obesity classification: adult class 1 (BMI 30 - 34.9) Serious obesity comorbidity presence: unspecified whether serious comorbidity present Body mass index: BMI 34.0-34.9 Qualified Code(s) : E66.9 - Obesity, unspecified; Z68.34 - Body mass index (BMI) 34.0-34.9, adult (8) Substance induced mood disorder Current Visit: Yes Status: Chronic (9) Bipolar disorder Current Visit: No Status: Acute (10) MDD (major depressive disorder), recurrent episode, mild Current Visit: No Status: Acute (11) Substance-induced sleep disorder Current Visit: No Status: Acute (12) Syncope Current Visit: No Status: Acute - AMA Did Patient Leave Against Medical Advice: No (going home declined rehab aftercare)
--- NOTE | 2018-07-27 08:29 | PN ---
[facility] Progress Note Note: pt states he feels comfortable and will like to leave today. Pt has no s/s of withdrawals. Pt will be d/c. pt states he has a PCP whom he will f/u with. pt declined rehab referral.
[2018-07-27 09:06] VITALS: BP 123/78; PULSE 90; TEMP 98.3
[2018-07-27] MEDS ORDERED: chlordiazePOXIDE HCL 10 MG CAPSULE PO SCH (23:00)
== END 2018-07-27 09:20 | disposition home or self-care (01) | DRG 897 ==
LOC: YASAS 16:40 → Y6N 21:22
PROVIDERS: ADMIT Neuromusculoskeletal Medicine & OMM; ATTEND Neuromusculoskeletal Medicine & OMM
PROC: HZ2ZZZZ Detoxification Services for Substance Abuse Treatment (ICD-10-PCS; principal; 2018-07-24)
DX: F10.230 Alcohol dependence with withdrawal, uncomplicated (principal); F14.20 Cocaine dependence, uncomplicated; F33.1 Major depressive disorder, recurrent, moderate; F19.282 Other psychoactive substance dependence with psychoactive substance-induced sleep disorder; F17.210 Nicotine dependence, cigarettes, uncomplicated; F19.24 Other psychoactive substance dependence with psychoactive substance-induced mood disorder; F31.9 Bipolar disorder, unspecified; I10 Essential (primary) hypertension; R00.0 Tachycardia, unspecified; G47.00 Insomnia, unspecified; E66.9 Obesity, unspecified; Z68.34 Body mass index [BMI] 34.0-34.9, adult
CPT/HCPCS: 36415; 80053; 85027; 86593; 93005; 93010

== ENCOUNTER 2018-09-22 10:38 | Inpatient (IN) | payer OTHER ==
--- NOTE | 2018-09-22 12:27 | HP ---
CIWA Score Nausea/Vomitin Muscle Tremors: 2 Anxiety: 2 Agitation: 2 Paroxysmal Sweats: 1-Minimal Palms Moist Orientation: 0-Oriented Tacttile Disturbances: 1-Very Mild Itch/Numbness Auditory Disturbances: 1-Very Mild Visual Disturbances: 0-None Headache: 2-Mild CIWA-Ar Total Score: 13 - Admission Criteria OASAS Guidelines: Admission for Medically Managed Detox: Requires at least one of the followin. CIWA greater than 12 2. Seizures within the past 24 hours 3. Delirium tremens within the past 24 hours 4. Hallucinations within the past 24 hours 5. Acute intervention needed for co occurring medical disorder 6. Acute intervention needed for co occurring psychiatric disorder 7. Severe withdrawal that cannot be handled at a lower level of care (continued vomiting, continued diarrhea, abnormal vital signs) requiring intravenous medication and/or fluids 8. Admission ROS BHS - HPI Chief Complaint: i need help to stop drinking alcohol and cocaine Allergies/Adverse Reactions: Allergies Allergy/AdvReac Type Severity Reaction Status Date / Time No Known Allergies Allergy Verified 09/22/18 10:57 History of Present Illness: this 53 years old male with alcohol and cocaine dependence,seeking detox, withdrawal symptom, multiple admissions in the past,last treatment in [facility] 07/24/18 to 07/27/18 but keep relapsing history of hypertension on med nicotine dependence 1 pack/day,would like nicotine patch longest period sobriety 18 months paln to go to rehab after detox Exam Limitations: No Limitations - Ebola screening Have you traveled outside of the country in the last 21 days: No Have you had contact with anyone from an Ebola affected area: No Do you have a fever: No - Review of Systems Constitutional: Night Sweats, Changes in sleep EENT: reports: Nose Congestion Respiratory: reports: No Symptoms reported Cardiac: reports: No Symptoms Reported GI: reports: Nausea, Abdominal cramping : reports: No Symptoms Reported Musculoskeletal: reports: Back Pain, Muscle Pain Integumentary: reports: Dryness Neuro: reports: Headache, Tremors Endocrine: reports: No Symptoms Reported Hematology: reports: No Symptoms Reported Psychiatric: reports: No Sypmtoms Reported Other Systems: Reviewed and Negative Patient History - Patient Medical History Hx Anemia: No Hx Asthma: No Hx Chronic Obstructive Pulmonary Disease (COPD): No Hx Cancer: No Hx Cardiac Disorders: No Hx Congestive Heart Failure: No Hx Hypertension: Yes (Amlodipine) Hx Hypercholesterolemia: No Hx Pacemaker: No HX Cerebrovascular Accident: No Hx Seizures: No Hx Dementia: No Hx Diabetes: No Hx Gastrointestinal Disorders: No Hx Liver Disease: No Hx Genitourinary Disorders: No Hx Sexually Transmitted Disorders: No Hx Renal Disease (ESRD): No Hx Thyroid Disease: No Hx Human Immunodeficiency Virus (HIV): No (NEGATIVE OCTOBER 2017) Hx Hepatitis C: No (DENIES) Hx Depression: Yes (ZOLOFT) Hx Suicide Attempt: No Hx Bipolar Disorder: Yes Hx Schizophrenia: No Other Medical History: no suicidal,no homicidal - Patient Surgical History Past Surgical History: No Hx Neurologic Surgery: No Hx Cataract Extraction: No Hx Cardiac Surgery: No Hx Lung Surgery: No Hx Breast Surgery: No Hx Breast Biopsy: No Hx Abdominal Surgery: No Hx Appendectomy: No Hx Cholecystectomy: No Hx Genitourinary Surgery: No Hx Section: No Hx Orthopedic Surgery: No Anesthesia Reaction: No - PPD History Previous Implant?: Yes Documented Results: Negative w/proof Date: 03/27/18 Results: 0 mm PPD to be Administered?: No - Smoking Cessation Smoking history: Current every day smoker Have you smoked in the past 12 months: Yes Aproximately how many cigarettes per day: 20 Cigars Per Day: 0 Hx Chewing Tobacco Use: No Initiated information on smoking cessation: Yes 'Breaking Loose' booklet given: 09/22/18 - Substance & Tx. History Hx Alcohol Use: Yes Hx Substance Use: Yes Substance Use Type: Alcohol, Cocaine Hx Substance Use Treatment: Yes ([facility] 07/24/18 to 07/27/18) - Substances abused Alcohol Substance route: Oral Frequency: Daily Amount used: 3 pt. vodka, 4 six packs beer (16 oz cans) Age of first use: 14 Date of last use: 09/21/18 Crack Substance route: Smoking Frequency: Daily Amount used: $150 Age of first use: 16 Date of last use: 09/21/18 Family Disease History - Family Disease History Family History: Denies Admission Physical Exam S - Vital Signs Vital Signs: Vital Signs - 24 hr 09/22/18 11:19 Temperature 98.1 F Pulse Rate 80 Respiratory 18 Rate Blood Pressure 149/100 - Physical General Appearance: Yes: Moderate Distress, Tremorous, Irritable, Sweating HEENTM: Yes: Normocephalic, MAKEDA, Pharynx Normal Respiratory: Yes: Lungs Clear, Normal Breath Sounds, No Respiratory Distress Neck: Yes: Within Normal Limits, Supple, Trachea in good position Breast: Yes: Within Normal Limits Cardiology: Yes: Within Normal Limits, Regular Rhythm, Regular Rate, S1, S2 Abdominal: Yes: Within Normal Limits, Normal Bowel Sounds, Non Tender, Flat, Soft Genitourinary: Yes: Within Normal Limits Back: Yes: Muscle Spasm Musculoskeletal: Yes: Back pain, Muscle Pain Extremities: Yes: Tremors 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, Alert, Motor Strength 5/5 Integumentary: Yes: Dry Lymphatic: Yes: Within Normal Limits - Diagnostic (1) Alcohol dependence with uncomplicated withdrawal Current Visit: No Status: Chronic (2) Bipolar disorder Current Visit: No Status: Acute (3) Syncope Current Visit: No Status: Acute (4) Cocaine dependence Current Visit: No Status: Chronic Qualifiers: Substance use status: uncomplicated Qualified Code(s): F14.20 - Cocaine dependence, uncomplicated (5) Essential hypertension Current Visit: No Status: Chronic (6) Insomnia Current Visit: No Status: Chronic Qualifiers: Insomnia type: alcohol-induced Qualified Code(s): F10.982 - Alcohol use, unspecified with alcohol-induced sleep disorder (7) Nicotine dependence Current Visit: No Status: Chronic Qualifiers: Nicotine product type: cigarettes Substance use status: uncomplicated Qualified Code(s): F17.210 - Nicotine dependence, cigarettes, uncomplicated Cleared for Admission S - Detox or Rehab [facility] Level of Care: Medically Managed Detox Regimen/Protocol: Librium Screened but not Admitted - Documentation of Visit Screened but not Admitted: No Breathalyzer - Breathalyzer Breathalyzer: 0 Urine Drug Screen - Test Device Lot number: [id number] Expiration date: 05/22/20 - Control Is test valid?: Yes - Results Drug screen NEGATIVE: No Urine drug screen results: KRISTINA-Cocaine, BZO-Benzodiazepines Inpatient Rehab Admission - Rehab Decision to Admit Inpatient rehab admission?: No
[2018-09-22] MEDS ORDERED: MAG HYDROX/AL HYDROX/SIMETH 30 ML UNIT-DOSE CUP PO PRN (12:57)
[2018-09-22] MEDS ORDERED: ACETAMINOPHEN 325 MG TABLET (FP) PO PRN ×2 (12:57)
[2018-09-22] MEDS ORDERED: MENTHOL/PHENOL 1 EACH UD MM PRN (12:57)
[2018-09-22] MEDS ORDERED: chlordiazePOXIDE HCL 25 MG CAPSULE PO PRN (12:57)
[2018-09-22] MEDS ORDERED: hydrOXYzine PAMOATE 25 MG CAPSULE (FP) PO PRN (12:57)
[2018-09-22] MEDS ORDERED: MAGNESIUM HYDROX 2400MG/30ML ORAL SUSPENSION 30 ML CUP PO PRN (12:57)
[2018-09-22] MEDS ORDERED: MAGNESIUM CITRATE 300 ML BOTTLE PO PRN (12:57)
[2018-09-22] MEDS ORDERED: IBUPROFEN 400 MG TABLET (FP) PO PRN (12:57)
[2018-09-22] MEDS ORDERED: METHOCARBAMOL 500 MG TABLET PO PRN (12:57)
[2018-09-22] MEDS ORDERED: BISMUTH SUBSALICYLATE 524 MG/30 ML UD PO PRN (12:57)
[2018-09-22] MEDS: LISINOPRIL 20 MG TABLET (FP) PO SCH (13:46)
[2018-09-22] MEDS: HYDROCHLOROTHIAZIDE 25 MG TABLET (FP) PO SCH (13:46)
[2018-09-22] MEDS: amLODIPine BESYLATE 5 MG TABLET (FP) PO SCH (13:47)
[2018-09-22] MEDS: NICOTINE 21 MG/24 HOURS TOPICAL PATCH TD SCH (13:48)
[2018-09-22 17:02] LABS: HEMATOCRIT 50.2 % (35.4-49); HEMOGLOBIN 16.4 GM/dL (11.7-16.9); MCH 29.4 pg (25.7-33.7); MCHC 32.7 g/dl (32.0-35.9); PLATELET COUNT 176 K/MM3 (134-434); RBC 5.57 M/mm3 (4.00-5.60); RDW 14.6 % (11.9-15.9); WHITE BLOOD COUNT 8.2 K/mm3 (4.0-10.0)
[2018-09-22] MEDS: chlordiazePOXIDE HCL 25 MG CAPSULE PO SCH ×2 (17:34→22:10)
[2018-09-22 17:37] LABS: ALBUMIN 4.5 g/dl (3.4-5.0); ALK PHOS 87 U/L (45-117); ANION GAP 10 MMOL/L (8-16); BILIRUBIN,TOTAL 0.3 mg/dL (0.2-1); BLOOD UREA NITROGEN 21 mg/dL (7-18); CALCIUM 10.3 mg/dL (8.5-10.1); CHLORIDE 106 mmol/L (98-107); CO2 23 mmol/L (21-32); CREATININE 1.4 mg/dL (0.55-1.3); GLUCOSE,RANDOM 165 mg/dL (74-106); POTASSIUM 4.1 mmol/L (3.5-5.1); SGOT/AST 21 U/L (15-37); SGPT/ALT 40 U/L (13-61); SODIUM 140 mmol/L (136-145); TOT PROT 8.4 g/dl (6.4-8.2)
[2018-09-22 19:58] LABS: URINE APPEARANCE TURBID; URINE BACTERIA 15.2 /hpf (NEGATIVE); URINE BILIRUBIN NEGATIVE (NEGATIVE); URINE CASTS 4 /hpf (0-8); URINE COLOR YELLOW; URINE GLUCOSE (UA) NEGATIVE (NEGATIVE); URINE KETONE NEGATIVE (NEGATIVE); URINE LEUK ESTERASE NEGATIVE (NEGATIVE); URINE NITRITE NEGATIVE (NEGATIVE); URINE PROTEIN 3+ (NEGATIVE); URINE RBC 1 /hpf (0-4); URINE UROBILINOGEN 0.2 mg/dL (0.2-1.0); URINE WBC 3 /hpf (0-5)
[2018-09-22] MEDS: METOPROLOL TARTRATE 50 MG TABLET (FP) PO SCH (22:10)
[2018-09-22] MEDS: traZODone HCL 100 MG TABLET (FP) PO SCH (22:10)
[2018-09-22] MEDS: THIAMINE HCL 100 MG TABLET (FP) PO SCH (22:22)
[2018-09-23] MEDS: chlordiazePOXIDE HCL 25 MG CAPSULE PO SCH ×4 (05:22→22:38)
[2018-09-23] MEDS: SERTRALINE HCL 50 MG TABLET (FP) PO SCH (10:13)
[2018-09-23] MEDS: amLODIPine BESYLATE 5 MG TABLET (FP) PO SCH (10:13)
[2018-09-23] MEDS: LISINOPRIL 20 MG TABLET (FP) PO SCH (10:13)
[2018-09-23] MEDS: PRENATAL VITAMINS W/ FOLIC ACID TABLET (FP) PO SCH (10:13)
[2018-09-23] MEDS: METOPROLOL TARTRATE 50 MG TABLET (FP) PO SCH ×2 (10:13→22:38)
[2018-09-23] MEDS: NICOTINE 21 MG/24 HOURS TOPICAL PATCH TD SCH (10:13)
[2018-09-23] MEDS: HYDROCHLOROTHIAZIDE 25 MG TABLET (FP) PO SCH (10:13)
--- NOTE | 2018-09-23 12:56 | CONSULT ---
[facility] Psychiatric Consult - Data Date of interview: 09/23/18 Admission source: [facility] Identifying data: Readmission to [facility] for this 53 y/o AA male, self- referred for detoxification treatment (alcohol, cocaine). Interviewed on . Patient is , a father of two, homeless ([place] in [place]), unemployed and supported on SSI/SSD benefits. Substance Abuse History: Confirmed by the patient in this interview. Details in current [facility] report : Smoking history: Current every day smoker. Have you smoked in the past 12 months: Yes. Aproximately how many cigarettes per day: 20. Cigars Per Day: 0. Hx Chewing Tobacco Use: No. Initiated information on smoking cessation: Yes. 'Breaking Loose' booklet given: 09/22/18. - Substance & Tx. History. Hx Alcohol Use: Yes. Hx Substance Use: Yes. Substance Use Type : Alcohol, Cocaine. Hx Substance Use Treatment: Yes ([facility] 07/24/18 to 07/27/18) . - Substances abused. Alcohol. Substance route: Oral. Frequency: Daily. Amount used: 3 pt. vodka, 4 six packs beer (16 oz cans). Age of first use: 14. Date of last use: 09/21/18. Crack. Substance route: Smoking. Frequency: Daily. Amount used: $150. Age of first use: 16. Date of last use: 09/21/18 Medical History: Hypertension. Psychiatric History: History of three psychiatric hospitalizations ([facility] in [facility]). Patient endorses the diagnosis of MDD (made in 1988). Not re-hospitalized since the . Still maintained on a regimen of sertraline 50 mg/day + trazodone 50 mg/hs. Mr Gill gets his outpatient psychiatric services at the [facility] clinic in [facility]. Denies history of suicide attempts. Physical/Sexual Abuse/Trauma History: No history. Additional Comment: Urine drug screen results: KRISTINA-Cocaine, BZO- Benzodiazepines. Noted. Mental Status Exam - Mental Status Exam Alert and Oriented to: Time, Place, Person Cognitive Function: Good Patient Appearance: Well Groomed (obese) Mood: Sad, Withdrawn Affect: Mood Congruent, Constricted Patient Behavior: Fatigued, Appropriate, Cooperative Speech Pattern: Clear, Appropriate Voice Loudness: Normal Thought Process: Intact, Goal Oriented Thought Disorder: Not Present Hallucinations: Denies Suicidal Ideation: Denies Homicidal Ideation: Denies Insight/Judgement: Poor Sleep: Fair Appetite: Good Muscle strength/Tone: Normal Gait/Station: Normal Psychiatric Findings - Problem List (Benge 1, 2,3) (1) Alcohol dependence with uncomplicated withdrawal Current Visit: Yes Status: Acute (2) Cocaine dependence Current Visit: Yes Status: Chronic Qualifiers: Substance use status: uncomplicated Qualified Code(s): F14.20 - Cocaine dependence, uncomplicated (3) Nicotine dependence Current Visit: Yes Status: Chronic Qualifiers: Nicotine product type: cigarettes Substance use status: uncomplicated Qualified Code(s): F17.210 - Nicotine dependence, cigarettes, uncomplicated (4) Substance induced mood disorder Current Visit: Yes Status: Chronic (5) MDD (major depressive disorder) Current Visit: Yes Status: Chronic Qualifiers: Major depression recurrence: recurrent Active/Remission status: remission status unspecified Qualified Code(s): F33.9 - Major depressive disorder, recurrent, unspecified (6) Insomnia Current Visit: Yes Status: Chronic Qualifiers: Insomnia type: alcohol-induced Qualified Code(s): F10.982 - Alcohol use, unspecified with alcohol-induced sleep disorder - Initial Treatment Plan Initial Treatment Plan: Evaluation conducted with medical students in attendance. Psychoeducation. Sleep hygiene. Detoxification. Support. AA meetings. Rehabilitation recommended. Relapse prevention (MAT) : discussed in this session. Resume zoloft 50 mg po daily + trazodone 50 mg po hs. Side effects /benefits of both drugs are discussed with patient. Mr Gill is made aware of the risk of sexual dysfunction, suicidal ideation and priapism. Endorses no prior history of adverse events from this regimen. Agrees to this plan of care. Consent (verbal) granted to MD. Lovell.
--- NOTE | 2018-09-23 16:31 | PN ---
S CIWA - CIWA Score Nausea/Vomitin Muscle Tremors: 3 Anxiety: 3 Agitation: 0-Normal Activity Paroxysmal Sweats: 2 Orientation: 0-Oriented Tacttile Disturbances: 0-None Auditory Disturbances: 2-Mild Harshness/Frighten Visual Disturbances: 2-Mild Sensitivity Headache: 0-None Present CIWA-Ar Total Score: 14 BHS Progress Note (SOAP) Subjective: Sweating, Stomach Cramping, Nausea, Anxious. Objective: PATIENT A & O X 3, OBSERVED AMBULATING ON UNIT. IN NO ACUTE DISTRESS. 09/23/18 16:27 Vital Signs Temperature 97.9 F 09/23/18 14:29 Pulse Rate 90 09/23/18 14:29 Respiratory Rate 18 09/23/18 14:29 Blood Pressure 127/82 09/23/18 14:29 O2 Sat by Pulse Oximetry (%) Laboratory Tests 09/22/18 09/22/18 09/22/18 13:05 13:05 13:05 WBC 8.2 RBC 5.57 Hgb 16.4 Hct 50.2 H MCV 90.0 MCH 29.4 MCHC 32.7 RDW 14.6 Plt Count 176 D MPV 9.0 Sodium 140 Potassium 4.1 Chloride 106 Carbon Dioxide 23 Anion Gap 10 BUN 21 H Creatinine 1.4 H Creat Clearance w eGFR 52.62 Random Glucose 165 H Calcium 10.3 H Total Bilirubin 0.3 AST 21 ALT 40 Alkaline Phosphatase 87 Total Protein 8.4 H Albumin 4.5 Urine Color Urine Appearance Urine pH Ur Specific [place] Urine Protein Urine Glucose (UA) Urine Ketones Urine Blood Urine Nitrite Urine Bilirubin Urine Urobilinogen Ur Leukocyte Esterase Urine WBC (Auto) Urine RBC (Auto) Urine Casts (Auto) U Epithel Cells (Auto) Urine Bacteria (Auto) RPR Titer Nonreactive 09/22/18 16:40 WBC RBC Hgb Hct MCV MCH MCHC RDW Plt Count MPV Sodium Potassium Chloride Carbon Dioxide Anion Gap BUN Creatinine Creat Clearance w eGFR Random Glucose Calcium Total Bilirubin AST ALT Alkaline Phosphatase Total Protein Albumin Urine Color Yellow Urine Appearance Turbid Urine pH 5.0 Ur Specific [place] 1.028 Urine Protein 3+ H Urine Glucose (UA) Negative Urine Ketones Negative Urine Blood Negative Urine Nitrite Negative Urine Bilirubin Negative Urine Urobilinogen 0.2 Ur Leukocyte Esterase Negative Urine WBC (Auto) 3 Urine RBC (Auto) 1 Urine Casts (Auto) 4 U Epithel Cells (Auto) 1.0 Urine Bacteria (Auto) 15.2 RPR Titer LABS NOTED. Assessment: 09/23/18 16:27 WITHDRAWAL SYMPTOMS. HYPERCALCEMIA. HYPERGLYCEMIA. 09/23/18 16:29 Plan: CONTINUE DETOX. INCREASE DAILY PO FLUID INTAKE. BGM ACBK FOR ELEVATED ADMISSION RANDOM GLUCOSE LEVEL. D/C IBUPROFEN AND MAGNESIUM-CONTAINING MEDS. FOR ABNORMAL ADMISSION RENAL LAB VALUES. BMP ON 09/25/2018 FOR ABNORMAL ADMISSION RENAL LAB RESULTS.
[2018-09-23] MEDS: traZODone HCL 100 MG TABLET (FP) PO SCH (22:38)
[2018-09-23] MEDS: THIAMINE HCL 100 MG TABLET (FP) PO SCH (22:38)
[2018-09-24] MEDS: chlordiazePOXIDE HCL 25 MG CAPSULE PO SCH ×2 (05:25→10:15)
[2018-09-24] MEDS: amLODIPine BESYLATE 5 MG TABLET (FP) PO SCH (10:15)
[2018-09-24] MEDS: LISINOPRIL 20 MG TABLET (FP) PO SCH (10:15)
[2018-09-24] MEDS: HYDROCHLOROTHIAZIDE 25 MG TABLET (FP) PO SCH (10:15)
[2018-09-24] MEDS: PRENATAL VITAMINS W/ FOLIC ACID TABLET (FP) PO SCH (10:15)
[2018-09-24] MEDS: METOPROLOL TARTRATE 50 MG TABLET (FP) PO SCH ×2 (10:15→22:25)
[2018-09-24] MEDS: NICOTINE 21 MG/24 HOURS TOPICAL PATCH TD SCH (10:15)
[2018-09-24] MEDS: SERTRALINE HCL 50 MG TABLET (FP) PO SCH (10:15)
--- NOTE | 2018-09-24 15:45 | PN ---
S CIWA - CIWA Score Nausea/Vomitin Muscle Tremors: None Anxiety: 3 Agitation: 0-Normal Activity Paroxysmal Sweats: 3 Orientation: 0-Oriented Tacttile Disturbances: 1-Very Mild Itch/Numbness Auditory Disturbances: 0-None Visual Disturbances: 2-Mild Sensitivity Headache: 0-None Present CIWA-Ar Total Score: 11 BHS Progress Note (SOAP) Subjective: Sweating, Stomach Cramping, Nausea, Fatigue. Objective: PATIENT A & O X 3, OBSERVED AMBULATING ON UNIT. IN NO ACUTE DISTRESS. 09/24/18 15:43 Vital Signs Temperature 96.2 F L 09/24/18 14:02 Pulse Rate 84 09/24/18 14:02 Respiratory Rate 20 09/24/18 14:02 Blood Pressure 127/85 09/24/18 14:02 O2 Sat by Pulse Oximetry (%) Laboratory Tests 09/22/18 09/22/18 09/22/18 13:05 13:05 13:05 WBC 8.2 RBC 5.57 Hgb 16.4 Hct 50.2 H MCV 90.0 MCH 29.4 MCHC 32.7 RDW 14.6 Plt Count 176 D MPV 9.0 Sodium 140 Potassium 4.1 Chloride 106 Carbon Dioxide 23 Anion Gap 10 BUN 21 H Creatinine 1.4 H Creat Clearance w eGFR 52.62 POC Glucometer Random Glucose 165 H Calcium 10.3 H Total Bilirubin 0.3 AST 21 ALT 40 Alkaline Phosphatase 87 Total Protein 8.4 H Albumin 4.5 Urine Color Urine Appearance Urine pH Ur Specific [place] Urine Protein Urine Glucose (UA) Urine Ketones Urine Blood Urine Nitrite Urine Bilirubin Urine Urobilinogen Ur Leukocyte Esterase Urine WBC (Auto) Urine RBC (Auto) Urine Casts (Auto) U Epithel Cells (Auto) Urine Bacteria (Auto) RPR Titer Nonreactive 09/22/18 09/24/18 16:40 05:24 WBC RBC Hgb Hct MCV MCH MCHC RDW Plt Count MPV Sodium Potassium Chloride Carbon Dioxide Anion Gap BUN Creatinine Creat Clearance w eGFR POC Glucometer 131 Random Glucose Calcium Total Bilirubin AST ALT Alkaline Phosphatase Total Protein Albumin Urine Color Yellow Urine Appearance Turbid Urine pH 5.0 Ur Specific [place] 1.028 Urine Protein 3+ H Urine Glucose (UA) Negative Urine Ketones Negative Urine Blood Negative Urine Nitrite Negative Urine Bilirubin Negative Urine Urobilinogen 0.2 Ur Leukocyte Esterase Negative Urine WBC (Auto) 3 Urine RBC (Auto) 1 Urine Casts (Auto) 4 U Epithel Cells (Auto) 1.0 Urine Bacteria (Auto) 15.2 RPR Titer LABS NOTED. Assessment: 09/24/18 15:44 WITHDRAWAL SYMPTOMS. Plan: CONTINUE DETOX. INCREASE DAILY PO FLUID INTAKE.
[2018-09-24] MEDS ORDERED: chlordiazePOXIDE HCL 10 MG CAPSULE PO PRN (17:00)
[2018-09-24] MEDS: chlordiazePOXIDE HCL 10 MG CAPSULE PO SCH ×2 (18:01→22:25)
[2018-09-24] MEDS: MELATONIN 5 MG TABLETS PO PRN (22:25)
[2018-09-24] MEDS: traZODone HCL 100 MG TABLET (FP) PO SCH (22:25)
[2018-09-24] MEDS: THIAMINE HCL 100 MG TABLET (FP) PO SCH (22:25)
[2018-09-25] MEDS: chlordiazePOXIDE HCL 10 MG CAPSULE PO SCH ×3 (05:30→17:37)
[2018-09-25] MEDS: LISINOPRIL 20 MG TABLET (FP) PO SCH (10:51)
[2018-09-25] MEDS: PRENATAL VITAMINS W/ FOLIC ACID TABLET (FP) PO SCH (10:51)
[2018-09-25] MEDS: NICOTINE 21 MG/24 HOURS TOPICAL PATCH TD SCH (10:51)
[2018-09-25] MEDS: HYDROCHLOROTHIAZIDE 25 MG TABLET (FP) PO SCH (10:51)
[2018-09-25] MEDS: SERTRALINE HCL 50 MG TABLET (FP) PO SCH (10:51)
[2018-09-25] MEDS: METOPROLOL TARTRATE 50 MG TABLET (FP) PO SCH ×2 (10:51→22:10)
[2018-09-25] MEDS: amLODIPine BESYLATE 5 MG TABLET (FP) PO SCH (10:51)
--- NOTE | 2018-09-25 16:22 | PN ---
BHS Progress Note (SOAP) Subjective: Nausea. Objective: PATIENT A & O X 3, OBSERVED AMBULATING ON UNIT. IN NO ACUTE DISTRESS. 09/25/18 16:19 Vital Signs Temperature 97.6 F 09/25/18 10:28 Pulse Rate 96 H 09/25/18 10:28 Respiratory Rate 18 09/25/18 10:28 Blood Pressure 116/81 09/25/18 10:28 O2 Sat by Pulse Oximetry (%) Laboratory Tests 09/22/18 09/22/18 09/22/18 13:05 13:05 13:05 WBC 8.2 RBC 5.57 Hgb 16.4 Hct 50.2 H MCV 90.0 MCH 29.4 MCHC 32.7 RDW 14.6 Plt Count 176 D MPV 9.0 Sodium 140 Potassium 4.1 Chloride 106 Carbon Dioxide 23 Anion Gap 10 BUN 21 H Creatinine 1.4 H Creat Clearance w eGFR 52.62 POC Glucometer Random Glucose 165 H Calcium 10.3 H Total Bilirubin 0.3 AST 21 ALT 40 Alkaline Phosphatase 87 Total Protein 8.4 H Albumin 4.5 Urine Color Urine Appearance Urine pH Ur Specific [place] Urine Protein Urine Glucose (UA) Urine Ketones Urine Blood Urine Nitrite Urine Bilirubin Urine Urobilinogen Ur Leukocyte Esterase Urine WBC (Auto) Urine RBC (Auto) Urine Casts (Auto) U Epithel Cells (Auto) Urine Bacteria (Auto) RPR Titer Nonreactive 09/22/18 09/24/18 09/25/18 16:40 05:24 05:30 WBC RBC Hgb Hct MCV MCH MCHC RDW Plt Count MPV Sodium Potassium Chloride Carbon Dioxide Anion Gap BUN Creatinine Creat Clearance w eGFR POC Glucometer 131 119 Random Glucose Calcium Total Bilirubin AST ALT Alkaline Phosphatase Total Protein Albumin Urine Color Yellow Urine Appearance Turbid Urine pH 5.0 Ur Specific [place] 1.028 Urine Protein 3+ H Urine Glucose (UA) Negative Urine Ketones Negative Urine Blood Negative Urine Nitrite Negative Urine Bilirubin Negative Urine Urobilinogen 0.2 Ur Leukocyte Esterase Negative Urine WBC (Auto) 3 Urine RBC (Auto) 1 Urine Casts (Auto) 4 U Epithel Cells (Auto) 1.0 Urine Bacteria (Auto) 15.2 RPR Titer 09/25/18 07:00 WBC RBC Hgb Hct MCV MCH MCHC RDW Plt Count MPV Sodium Cancelled Potassium Cancelled Chloride Cancelled Carbon Dioxide Cancelled Anion Gap Cancelled BUN Cancelled Creatinine Cancelled Creat Clearance w eGFR Cancelled POC Glucometer Random Glucose Cancelled Calcium Cancelled Total Bilirubin AST ALT Alkaline Phosphatase Total Protein Albumin Urine Color Urine Appearance Urine pH Ur Specific [place] Urine Protein Urine Glucose (UA) Urine Ketones Urine Blood Urine Nitrite Urine Bilirubin Urine Urobilinogen Ur Leukocyte Esterase Urine WBC (Auto) Urine RBC (Auto) Urine Casts (Auto) U Epithel Cells (Auto) Urine Bacteria (Auto) RPR Titer LABS NOTED. Assessment: 09/25/18 16:19 WITHDRAWAL SYMPTOMS. Plan: CONTINUE DETOX.
[2018-09-25] MEDS: THIAMINE HCL 100 MG TABLET (FP) PO SCH (22:10)
[2018-09-25] MEDS: traZODone HCL 100 MG TABLET (FP) PO SCH (22:10)
[2018-09-25] MEDS: MELATONIN 5 MG TABLETS PO PRN (22:11)
[2018-09-26] MEDS: chlordiazePOXIDE HCL 10 MG CAPSULE PO SCH ×2 (06:00→18:00)
[2018-09-26] MEDS: NICOTINE 21 MG/24 HOURS TOPICAL PATCH TD SCH (10:33)
[2018-09-26] MEDS: LISINOPRIL 20 MG TABLET (FP) PO SCH (10:33)
[2018-09-26] MEDS: METOPROLOL TARTRATE 50 MG TABLET (FP) PO SCH ×2 (10:33→21:13)
[2018-09-26] MEDS: amLODIPine BESYLATE 5 MG TABLET (FP) PO SCH (10:33)
[2018-09-26] MEDS: HYDROCHLOROTHIAZIDE 25 MG TABLET (FP) PO SCH (10:33)
[2018-09-26] MEDS: SERTRALINE HCL 50 MG TABLET (FP) PO SCH (10:33)
[2018-09-26] MEDS: PRENATAL VITAMINS W/ FOLIC ACID TABLET (FP) PO SCH (10:33)
--- NOTE | 2018-09-26 14:59 | PN ---
S Progress Note (SOAP) Subjective: Patient denies current Withdrawal / Detox symptoms and reports that he feels well overall. Objective: PATIENT A & O X 3, OBSERVED AMBULATING ON UNIT. IN NO ACUTE DISTRESS. 09/26/18 14:57 Vital Signs Temperature 97.3 F L 09/26/18 09:23 Pulse Rate 90 09/26/18 09:23 Respiratory Rate 16 09/26/18 09:23 Blood Pressure 121/87 09/26/18 09:23 O2 Sat by Pulse Oximetry (%) Laboratory Tests 09/22/18 09/22/18 09/22/18 13:05 13:05 13:05 WBC 8.2 RBC 5.57 Hgb 16.4 Hct 50.2 H MCV 90.0 MCH 29.4 MCHC 32.7 RDW 14.6 Plt Count 176 D MPV 9.0 Sodium 140 Potassium 4.1 Chloride 106 Carbon Dioxide 23 Anion Gap 10 BUN 21 H Creatinine 1.4 H Creat Clearance w eGFR 52.62 POC Glucometer Random Glucose 165 H Calcium 10.3 H Total Bilirubin 0.3 AST 21 ALT 40 Alkaline Phosphatase 87 Total Protein 8.4 H Albumin 4.5 Urine Color Urine Appearance Urine pH Ur Specific [place] Urine Protein Urine Glucose (UA) Urine Ketones Urine Blood Urine Nitrite Urine Bilirubin Urine Urobilinogen Ur Leukocyte Esterase Urine WBC (Auto) Urine RBC (Auto) Urine Casts (Auto) U Epithel Cells (Auto) Urine Bacteria (Auto) RPR Titer Nonreactive 09/22/18 09/24/18 09/25/18 16:40 05:24 05:30 WBC RBC Hgb Hct MCV MCH MCHC RDW Plt Count MPV Sodium Potassium Chloride Carbon Dioxide Anion Gap BUN Creatinine Creat Clearance w eGFR POC Glucometer 131 119 Random Glucose Calcium Total Bilirubin AST ALT Alkaline Phosphatase Total Protein Albumin Urine Color Yellow Urine Appearance Turbid Urine pH 5.0 Ur Specific [place] 1.028 Urine Protein 3+ H Urine Glucose (UA) Negative Urine Ketones Negative Urine Blood Negative Urine Nitrite Negative Urine Bilirubin Negative Urine Urobilinogen 0.2 Ur Leukocyte Esterase Negative Urine WBC (Auto) 3 Urine RBC (Auto) 1 Urine Casts (Auto) 4 U Epithel Cells (Auto) 1.0 Urine Bacteria (Auto) 15.2 RPR Titer 09/25/18 07:00 WBC RBC Hgb Hct MCV MCH MCHC RDW Plt Count MPV Sodium Cancelled Potassium Cancelled Chloride Cancelled Carbon Dioxide Cancelled Anion Gap Cancelled BUN Cancelled Creatinine Cancelled Creat Clearance w eGFR Cancelled POC Glucometer Random Glucose Cancelled Calcium Cancelled Total Bilirubin AST ALT Alkaline Phosphatase Total Protein Albumin Urine Color Urine Appearance Urine pH Ur Specific [place] Urine Protein Urine Glucose (UA) Urine Ketones Urine Blood Urine Nitrite Urine Bilirubin Urine Urobilinogen Ur Leukocyte Esterase Urine WBC (Auto) Urine RBC (Auto) Urine Casts (Auto) U Epithel Cells (Auto) Urine Bacteria (Auto) RPR Titer LABS NOTED. Assessment: 09/26/18 14:58 COMPLETION OF DETOX REGIMEN. Plan: SINCE PATIENT DENIES CURRENT WITHDRAWAL / DETOX SYMPTOMS AND REPORTS THAT HE FEELS WELL OVERALL, AT PATIENTS REQUEST, HE WAS GRANTED AN EARLY DISCHARGE FROM DETOX UNIT TODAY SO THAT HE MAY PROCEED ON TO [facility] ([place], [place]), ADMISSION BED IS CURRENTLY AVAILABLE THERE.
--- NOTE | 2018-09-26 15:06 | DS ---
[facility] Detox Discharge Summary Admission Date: 09/22/18 Discharge Date: 09/26/18 - History Present History: Alcohol Dependence, Cocaine Dependence Additional Comments: PATIENT DENIES CURRENT WITHDRAWAL / DETOX SYMPTOMS AND REPORTS THAT HE FEELS WELL OVERALL AT TIME OF DISCHARGE FROM DETOX UNIT. PATIENT GOING ON TO [facility] ([place], [place]) FOR AFTERCARE. PATIENT WAS DISCHARGED FROM DETOX UNIT TO BE TAKEN OVER TO REHAB UNIT IN STABLE MEDICAL CONDITION. Pertinent Past History: HTN, Major Depressive Disorder, Bipolar Disorder, Hypercalcemia, History of Syncope, Nicotine Dependence, Insomnia. - Physical Exam Results Vital Signs: Vital Signs Temperature 97.3 F L 09/26/18 09:23 Pulse Rate 90 09/26/18 09:23 Respiratory Rate 16 09/26/18 09:23 Blood Pressure 121/87 09/26/18 09:23 O2 Sat by Pulse Oximetry (%) Pertinent Admission Physical Exam Findings: WITHDRAWAL SYMPTOMS. Laboratory Tests 09/22/18 09/22/18 09/22/18 13:05 13:05 13:05 WBC 8.2 RBC 5.57 Hgb 16.4 Hct 50.2 H MCV 90.0 MCH 29.4 MCHC 32.7 RDW 14.6 Plt Count 176 D MPV 9.0 Sodium 140 Potassium 4.1 Chloride 106 Carbon Dioxide 23 Anion Gap 10 BUN 21 H Creatinine 1.4 H Creat Clearance w eGFR 52.62 POC Glucometer Random Glucose 165 H Calcium 10.3 H Total Bilirubin 0.3 AST 21 ALT 40 Alkaline Phosphatase 87 Total Protein 8.4 H Albumin 4.5 Urine Color Urine Appearance Urine pH Ur Specific [place] Urine Protein Urine Glucose (UA) Urine Ketones Urine Blood Urine Nitrite Urine Bilirubin Urine Urobilinogen Ur Leukocyte Esterase Urine WBC (Auto) Urine RBC (Auto) Urine Casts (Auto) U Epithel Cells (Auto) Urine Bacteria (Auto) RPR Titer Nonreactive 09/22/18 09/24/18 09/25/18 16:40 05:24 05:30 WBC RBC Hgb Hct MCV MCH MCHC RDW Plt Count MPV Sodium Potassium Chloride Carbon Dioxide Anion Gap BUN Creatinine Creat Clearance w eGFR POC Glucometer 131 119 Random Glucose Calcium Total Bilirubin AST ALT Alkaline Phosphatase Total Protein Albumin Urine Color Yellow Urine Appearance Turbid Urine pH 5.0 Ur Specific [place] 1.028 Urine Protein 3+ H Urine Glucose (UA) Negative Urine Ketones Negative Urine Blood Negative Urine Nitrite Negative Urine Bilirubin Negative Urine Urobilinogen 0.2 Ur Leukocyte Esterase Negative Urine WBC (Auto) 3 Urine RBC (Auto) 1 Urine Casts (Auto) 4 U Epithel Cells (Auto) 1.0 Urine Bacteria (Auto) 15.2 RPR Titer 09/25/18 07:00 WBC RBC Hgb Hct MCV MCH MCHC RDW Plt Count MPV Sodium Cancelled Potassium Cancelled Chloride Cancelled Carbon Dioxide Cancelled Anion Gap Cancelled BUN Cancelled Creatinine Cancelled Creat Clearance w eGFR Cancelled POC Glucometer Random Glucose Cancelled Calcium Cancelled Total Bilirubin AST ALT Alkaline Phosphatase Total Protein Albumin Urine Color Urine Appearance Urine pH Ur Specific [place] Urine Protein Urine Glucose (UA) Urine Ketones Urine Blood Urine Nitrite Urine Bilirubin Urine Urobilinogen Ur Leukocyte Esterase Urine WBC (Auto) Urine RBC (Auto) Urine Casts (Auto) U Epithel Cells (Auto) Urine Bacteria (Auto) RPR Titer LABS NOTED. - Treatment Hospital Course: Detox Protocol Followed, Detoxed Safely, Responded well, Discharged Condition Good, Rehab Referral Accepted Patient has Accepted a Rehab Referral to: [facility] ([place], [place]). - Medication Discharge Medications: Ambulatory Orders Sertraline HCl [Zoloft -] 50 mg PO DAILY #30 tablet 12/03/17 traZODone HCL [Desyrel -] 100 mg PO HS #30 tablet 01/22/18 Amlodipine Besylate [Norvasc -] 5 mg PO DAILY #14 tablet 05/29/18 Hydrochlorothiazide 25 mg PO DAILY #14 tablet 05/29/18 Lisinopril [Prinivil] 20 mg PO DAILY #14 tab 05/29/18 Metoprolol Tartrate [Lopressor -] 50 mg PO BID #30 tablet 05/29/18 - Diagnosis (1) Alcohol dependence with uncomplicated withdrawal Current Visit: Yes Status: Acute (2) Hypercalcemia Current Visit: Yes Status: Acute (3) Cocaine dependence Current Visit: Yes Status: Chronic Qualifiers: Substance use status: uncomplicated Qualified Code(s): F14.20 - Cocaine dependence, uncomplicated (4) Insomnia Current Visit: Yes Status: Chronic Qualifiers: Insomnia type: alcohol-induced Qualified Code(s): F10.982 - Alcohol use, unspecified with alcohol-induced sleep disorder (5) MDD (major depressive disorder) Current Visit: Yes Status: Chronic Qualifiers: Major depression recurrence: recurrent Active/Remission status: remission status unspecified Qualified Code(s): F33.9 - Major depressive disorder, recurrent, unspecified (6) Nicotine dependence Current Visit: Yes Status: Chronic Qualifiers: Nicotine product type: cigarettes Substance use status: uncomplicated Qualified Code(s): F17.210 - Nicotine dependence, cigarettes, uncomplicated (7) Substance induced mood disorder Current Visit: Yes Status: Chronic (8) Bipolar disorder Current Visit: No Status: Acute Qualifiers: Active/Remission status: remission status unspecified Qualified Code(s): F31.9 - Bipolar disorder, unspecified (9) Syncope Current Visit: Yes Status: Acute Qualifiers: Syncope type: unspecified Qualified Code(s): R55 - Syncope and collapse (10) Essential hypertension Current Visit: Yes Status: Chronic - AMA Did Patient Leave Against Medical Advice: No
--- NOTE | 2018-09-26 15:06 | HP ---
[facility] Rehab Assess/Revision - Admission History Admitted to Rehab from: [facility] Date of Admission to Rehab: 09/26/2018 - Vital signs Vital Signs: Vital Signs Period Temp Pulse Resp BP Sys/[place] Pulse Ox Last 24 Hr 97.3 F-98.8 F 84-104 16-18 101-129/66-87 - Findings Detox History & Physical reviewed: Yes Concur with findings: Yes Comments/Additional Findings: PATIENT'S MEDICAL / MEDICATION HISTORY REVIEWED PRIOR TO DISCHARGE FROM DETOX UNIT. PATIENT WAS DISCHARGED FROM DETOX UNIT TO BE TAKEN OVER TO REHAB UNIT IN STABLE MEDICAL CONDITION. Inpatient Rehab Admission - Rehab Decision to Admit Inpatient rehab admission?: Yes - Initial Determination Are CD services needed?: Yes Free of communicable disease: Yes Not in need of hospitalization: Yes - Rehab Admission Criteria Previous failed treatment: Yes Poor recovery environment: Yes Comorbidities: Yes Lacks judgement: Yes Patient is meeting Inpatient Rehab admission criteria:: Yes
[2018-09-26] MEDS: THIAMINE HCL 100 MG TABLET (FP) PO SCH (21:13)
[2018-09-26] MEDS: traZODone HCL 100 MG TABLET (FP) PO SCH (21:13)
[2018-09-27] MEDS: PRENATAL VITAMINS W/ FOLIC ACID TABLET (FP) PO SCH (09:54)
[2018-09-27] MEDS: LISINOPRIL 20 MG TABLET (FP) PO SCH (09:54)
[2018-09-27] MEDS: METOPROLOL TARTRATE 50 MG TABLET (FP) PO SCH ×2 (09:54→21:54)
[2018-09-27] MEDS: HYDROCHLOROTHIAZIDE 25 MG TABLET (FP) PO SCH (09:54)
[2018-09-27] MEDS: SERTRALINE HCL 50 MG TABLET (FP) PO SCH (09:54)
[2018-09-27] MEDS: amLODIPine BESYLATE 5 MG TABLET (FP) PO SCH (09:54)
[2018-09-27] MEDS: NICOTINE 21 MG/24 HOURS TOPICAL PATCH TD SCH (09:56)
[2018-09-27] MEDS: THIAMINE HCL 100 MG TABLET (FP) PO SCH (21:54)
[2018-09-27] MEDS: traZODone HCL 100 MG TABLET (FP) PO SCH (21:54)
[2018-09-28] MEDS: NICOTINE 21 MG/24 HOURS TOPICAL PATCH TD SCH (10:17)
[2018-09-28] MEDS: HYDROCHLOROTHIAZIDE 25 MG TABLET (FP) PO SCH (10:17)
[2018-09-28] MEDS: SERTRALINE HCL 50 MG TABLET (FP) PO SCH (10:17)
[2018-09-28] MEDS: LISINOPRIL 20 MG TABLET (FP) PO SCH (10:17)
[2018-09-28] MEDS: amLODIPine BESYLATE 5 MG TABLET (FP) PO SCH (10:18)
[2018-09-28] MEDS: PRENATAL VITAMINS W/ FOLIC ACID TABLET (FP) PO SCH (10:18)
[2018-09-28] MEDS: METOPROLOL TARTRATE 50 MG TABLET (FP) PO SCH ×2 (10:18→21:14)
[2018-09-28] MEDS: traZODone HCL 100 MG TABLET (FP) PO SCH (21:14)
[2018-09-28] MEDS: THIAMINE HCL 100 MG TABLET (FP) PO SCH (21:14)
[2018-09-29] MEDS: SERTRALINE HCL 50 MG TABLET (FP) PO SCH (09:55)
[2018-09-29] MEDS: METOPROLOL TARTRATE 50 MG TABLET (FP) PO SCH ×2 (09:55→21:11)
[2018-09-29] MEDS: PRENATAL VITAMINS W/ FOLIC ACID TABLET (FP) PO SCH (09:55)
[2018-09-29] MEDS: amLODIPine BESYLATE 5 MG TABLET (FP) PO SCH (09:55)
[2018-09-29] MEDS: LISINOPRIL 20 MG TABLET (FP) PO SCH (09:56)
[2018-09-29] MEDS: NICOTINE 21 MG/24 HOURS TOPICAL PATCH TD SCH (09:56)
[2018-09-29] MEDS: HYDROCHLOROTHIAZIDE 25 MG TABLET (FP) PO SCH (09:56)
[2018-09-29] MEDS: THIAMINE HCL 100 MG TABLET (FP) PO SCH (21:11)
[2018-09-29] MEDS: traZODone HCL 100 MG TABLET (FP) PO SCH (21:11)
[2018-09-30 06:44] VITALS: TEMP 98.6
[2018-09-30] MEDS: METOPROLOL TARTRATE 50 MG TABLET (FP) PO SCH (09:53)
[2018-09-30] MEDS: PRENATAL VITAMINS W/ FOLIC ACID TABLET (FP) PO SCH (09:53)
[2018-09-30] MEDS: LISINOPRIL 20 MG TABLET (FP) PO SCH (09:53)
[2018-09-30] MEDS: amLODIPine BESYLATE 5 MG TABLET (FP) PO SCH (09:53)
[2018-09-30] MEDS: SERTRALINE HCL 50 MG TABLET (FP) PO SCH (09:53)
[2018-09-30] MEDS: NICOTINE 21 MG/24 HOURS TOPICAL PATCH TD SCH (09:53)
[2018-09-30] MEDS: HYDROCHLOROTHIAZIDE 25 MG TABLET (FP) PO SCH (09:53)
[2018-09-30 10:39] VITALS: BP 135/87; PULSE 98
--- NOTE | 2018-09-30 11:22 | PN ---
[facility] Progress Note Note: PT REQUESTS FOR EARLY DISCHARGE TODAY STATING HE HAS 'THINGS TO TAKE CARE OF AND I FEEL MUCH BETTER". PT MET WITH HIS COUNSELOR AND HAS BEEN REFERRED TO [facility] [place] [address] [place] [address] FOR CD AFTERCARE. PT ALSO REPORTS HE HAS A PCP AT SAME LOCATION FOR MEDICAL MANAGEMENT. PT STATES HE HAS OWN MEDS AT HOME AND AT HIS PHARMACY AND NO NEED FOR COURTESY RX. ALERT O X 3. DENIES S/H/I. Home Medications Medication Instructions Recorded Sertraline HCl [Zoloft -] 50 mg PO DAILY #30 tablet 12/03/17 traZODone HCL [Desyrel -] 100 mg PO HS #30 tablet 01/22/18 Amlodipine Besylate [Norvasc -] 5 mg PO DAILY #14 tablet 05/29/18 Hydrochlorothiazide 25 mg PO DAILY #14 tablet 05/29/18 Lisinopril [Prinivil] 20 mg PO DAILY #14 tab 05/29/18 Metoprolol Tartrate [Lopressor -] 50 mg PO BID #30 tablet 05/29/18 Vital Signs - 24 hr 09/29/18 09/29/18 09/30/18 12:10 20:55 00:30 Temperature Pulse Rate 79 103 H Respiratory 18 18 Rate Blood Pressure 122/90 145/96 09/30/18 09/30/18 09/30/18 03:30 06:43 10:00 Temperature 98.6 F Pulse Rate 78 98 H Respiratory 18 20 Rate Blood Pressure 159/88 135/87 Laboratory Tests 09/22/18 09/22/18 09/22/18 13:05 13:05 13:05 WBC 8.2 RBC 5.57 Hgb 16.4 Hct 50.2 H MCV 90.0 MCH 29.4 MCHC 32.7 RDW 14.6 Plt Count 176 D MPV 9.0 Sodium 140 Potassium 4.1 Chloride 106 Carbon Dioxide 23 Anion Gap 10 BUN 21 H Creatinine 1.4 H Creat Clearance w eGFR 52.62 POC Glucometer Random Glucose 165 H Calcium 10.3 H Total Bilirubin 0.3 AST 21 ALT 40 Alkaline Phosphatase 87 Total Protein 8.4 H Albumin 4.5 Urine Color Urine Appearance Urine pH Ur Specific [place] Urine Protein Urine Glucose (UA) Urine Ketones Urine Blood Urine Nitrite Urine Bilirubin Urine Urobilinogen Ur Leukocyte Esterase Urine WBC (Auto) Urine RBC (Auto) Urine Casts (Auto) U Epithel Cells (Auto) Urine Bacteria (Auto) RPR Titer Nonreactive 09/22/18 09/24/18 09/25/18 16:40 05:24 05:30 WBC RBC Hgb Hct MCV MCH MCHC RDW Plt Count MPV Sodium Potassium Chloride Carbon Dioxide Anion Gap BUN Creatinine Creat Clearance w eGFR POC Glucometer 131 119 Random Glucose Calcium Total Bilirubin AST ALT Alkaline Phosphatase Total Protein Albumin Urine Color Yellow Urine Appearance Turbid Urine pH 5.0 Ur Specific [place] 1.028 Urine Protein 3+ H Urine Glucose (UA) Negative Urine Ketones Negative Urine Blood Negative Urine Nitrite Negative Urine Bilirubin Negative Urine Urobilinogen 0.2 Ur Leukocyte Esterase Negative Urine WBC (Auto) 3 Urine RBC (Auto) 1 Urine Casts (Auto) 4 U Epithel Cells (Auto) 1.0 Urine Bacteria (Auto) 15.2 RPR Titer 09/25/18 09/27/18 09/28/18 07:00 06:54 06:30 WBC RBC Hgb Hct MCV MCH MCHC RDW Plt Count MPV Sodium Cancelled Potassium Cancelled Chloride Cancelled Carbon Dioxide Cancelled Anion Gap Cancelled BUN Cancelled Creatinine Cancelled Creat Clearance w eGFR Cancelled POC Glucometer 186 154 Random Glucose Cancelled Calcium Cancelled Total Bilirubin AST ALT Alkaline Phosphatase Total Protein Albumin Urine Color Urine Appearance Urine pH Ur Specific [place] Urine Protein Urine Glucose (UA) Urine Ketones Urine Blood Urine Nitrite Urine Bilirubin Urine Urobilinogen Ur Leukocyte Esterase Urine WBC (Auto) Urine RBC (Auto) Urine Casts (Auto) U Epithel Cells (Auto) Urine Bacteria (Auto) RPR Titer 09/30/18 06:16 WBC RBC Hgb Hct MCV MCH MCHC RDW Plt Count MPV Sodium Potassium Chloride Carbon Dioxide Anion Gap BUN Creatinine Creat Clearance w eGFR POC Glucometer 148 Random Glucose Calcium Total Bilirubin AST ALT Alkaline Phosphatase Total Protein Albumin Urine Color Urine Appearance Urine pH Ur Specific [place] Urine Protein Urine Glucose (UA) Urine Ketones Urine Blood Urine Nitrite Urine Bilirubin Urine Urobilinogen Ur Leukocyte Esterase Urine WBC (Auto) Urine RBC (Auto) Urine Casts (Auto) U Epithel Cells (Auto) Urine Bacteria (Auto) RPR Titer NAD MEDICALLY STABLE PLAN:FOLLOW UP WITH CD AFTERCARE AND MEDICAL MANAGEMENT RECOMMENDED.
--- NOTE | 2018-09-30 11:33 | PN ---
[facility] Progress Note Note: Patient is discharged today. Scripts for 30 days supply of medications(Zoloft, Trazadone) are electronically transmitted to [facility] at [address] [place], [place] [id number]
== END 2018-09-30 11:25 | disposition home or self-care (01) | DRG 895 ==
LOC: YASAS 10:38 → Y3N 12:47 → Y5N 09-26 18:26
PROVIDERS: ADMIT Neuromusculoskeletal Medicine & OMM; ATTEND Neuromusculoskeletal Medicine & OMM
PROC: HZ2ZZZZ Detoxification Services for Substance Abuse Treatment (ICD-10-PCS; principal; 2018-09-22)
PROC: HZ42ZZZ Group Counseling for Substance Abuse Treatment, Cognitive-Behavioral (ICD-10-PCS; 2018-09-26)
DX: F10.230 Alcohol dependence with withdrawal, uncomplicated (principal); F14.20 Cocaine dependence, uncomplicated; F33.9 Major depressive disorder, recurrent, unspecified; F17.210 Nicotine dependence, cigarettes, uncomplicated; F19.24 Other psychoactive substance dependence with psychoactive substance-induced mood disorder; F31.9 Bipolar disorder, unspecified; I10 Essential (primary) hypertension; E83.51 Hypocalcemia; G47.00 Insomnia, unspecified; R73.9 Hyperglycemia, unspecified; E66.9 Obesity, unspecified; Z68.35 Body mass index [BMI] 35.0-35.9, adult
CPT/HCPCS: 36415; 80053; 81003; 82962; 85027; 86593

== ENCOUNTER 2018-11-23 20:25 | Inpatient (IN) | payer OTHER ==
[2018-11-23 21:40] VITALS: BMI 37.5
--- NOTE | 2018-11-23 22:58 | HP ---
CIWA Score Nausea/Vomitin Muscle Tremors: 2 Anxiety: 2 Agitation: 2 Paroxysmal Sweats: 2 Orientation: 0-Oriented Tacttile Disturbances: 2-Mild Itch/Numbness/Burn Auditory Disturbances: 2-Mild Harshness/Frighten Visual Disturbances: 2-Mild Sensitivity Headache: 2-Mild CIWA-Ar Total Score: 18 - Admission Criteria OASAS Guidelines: Admission for Medically Managed Detox: Requires at least one of the followin. CIWA greater than 12 2. Seizures within the past 24 hours 3. Delirium tremens within the past 24 hours 4. Hallucinations within the past 24 hours 5. Acute intervention needed for co occurring medical disorder 6. Acute intervention needed for co occurring psychiatric disorder 7. Severe withdrawal that cannot be handled at a lower level of care (continued vomiting, continued diarrhea, abnormal vital signs) requiring intravenous medication and/or fluids 8. Admission ROS BHS - HPI Chief Complaint: DEPENDENT ON ETOH AND CRACK/COCAINE Allergies/Adverse Reactions: Allergies Allergy/AdvReac Type Severity Reaction Status Date / Time No Known Allergies Allergy Verified 11/23/18 21:31 History of Present Illness: THE PT. IS REQUESTING ADMISSION TO THE DETOX UNIT AND CAME FOR MEDICAL CLEARANCE Exam Limitations: No Limitations - Ebola screening Have you traveled outside of the country in the last 21 days: No (N) Have you had contact with anyone from an Ebola affected area: No Have you been sick,other than usual withdrawal symptoms: No Do you have a fever: No - Review of Systems Constitutional: See HPI, Malaise, Weakness EENT: reports: See HPI Respiratory: reports: See HPI Cardiac: reports: See HPI GI: reports: See HPI, Nausea, Abdominal cramping : reports: See HPI Musculoskeletal: reports: See HPI, Muscle Pain, Muscle Weakness Integumentary: reports: See HPI, Sweating Neuro: reports: See HPI, Headache, Tremors, Weakness Endocrine: reports: See HPI Hematology: reports: See HPI Psychiatric: reports: Judgement Intact, Orientated x3, Anxious, Depressed Patient History - Patient Medical History Hx Anemia: No Hx Asthma: No Hx Chronic Obstructive Pulmonary Disease (COPD): No Hx Cancer: No Hx Cardiac Disorders: No Hx Congestive Heart Failure: No Hx Hypertension: Yes (Amlodipine) Hx Hypercholesterolemia: No Hx Pacemaker: No HX Cerebrovascular Accident: No Hx Seizures: No Hx Dementia: No Hx Diabetes: No Hx Gastrointestinal Disorders: No Hx Liver Disease: No Hx Genitourinary Disorders: No Hx Sexually Transmitted Disorders: No Hx Renal Disease (ESRD): No Hx Thyroid Disease: No Hx Human Immunodeficiency Virus (HIV): No (NEGATIVE OCTOBER 2017) Hx Hepatitis C: No (DENIES) Hx Depression: Yes (ZOLOFT) Hx Suicide Attempt: No Hx Bipolar Disorder: Yes Hx Schizophrenia: No Other Medical History: OBESITY - Patient Surgical History Past Surgical History: No Hx Neurologic Surgery: No Hx Cataract Extraction: No Hx Cardiac Surgery: No Hx Lung Surgery: No Hx Breast Surgery: No Hx Breast Biopsy: No Hx Abdominal Surgery: No Hx Appendectomy: No Hx Cholecystectomy: No Hx Genitourinary Surgery: No Hx Section: No Hx Orthopedic Surgery: No Anesthesia Reaction: No - PPD History Date: 03/27/18 Results: 0 mm - Smoking Cessation Smoking history: Current every day smoker Have you smoked in the past 12 months: Yes Aproximately how many cigarettes per day: 20 Cigars Per Day: 0 Hx Chewing Tobacco Use: No Initiated information on smoking cessation: Yes 'Breaking Loose' booklet given: 11/23/18 - Substance & Tx. History Hx Alcohol Use: Yes Hx Substance Use: Yes Substance Use Type: Alcohol, Cocaine Hx Substance Use Treatment: Yes - Substances abused Alcohol Substance route: Oral Frequency: Daily Amount used: 3 pt. vodka, 4 six packs beer (16 oz cans) Age of first use: 14 Date of last use: 11/23/18 Crack Substance route: Smoking Frequency: Daily Amount used: $150 Age of first use: 16 Date of last use: 11/23/18 Family Disease History - Family Disease History Family History: Denies Admission Physical Exam [facility] - Vital Signs Vital Signs: Vital Signs - 24 hr 11/23/18 21:35 Temperature 99.2 F Pulse Rate 101 H Respiratory 18 Rate Blood Pressure 162/98 - Physical General Appearance: Yes: No Apparent Distress, Nourished, Appropriately Dressed , Obese, Tremorous, Sweating, Anxious HEENTM: Yes: Hearing grossly Normal, Normocephalic, Normal Voice, MAKEDA, Pharynx Normal Respiratory: Yes: Chest Non-Tender, Lungs Clear, Normal Breath Sounds, No Respiratory Distress, No Accessory Muscle Use Neck: Yes: No masses,lesions,Nodules, Supple, Trachea in good position Breast: Yes: Breast Exam Deferred, Axillae without masses Cardiology: Yes: Regular Rate, S1, S2, Tachycardia Abdominal: Yes: Normal Bowel Sounds, Non Tender, Protuberent, Distended Back: Yes: Normal Inspection, Decreased Range of Motion Musculoskeletal: Yes: full range of Motion, Gait Steady, Pelvis Stable, Muscle Pain, Muscle weakness Extremities: Yes: Normal Capillary Refill, Non-Tender, Tremors Neurological: Yes: tractor mechanic II-XII NML intact, Fully Oriented, Alert, Motor Strength 5/5, Depressed Affect Integumentary: Yes: Warm, Moist - Diagnostic (1) Alcohol dependence with uncomplicated withdrawal Current Visit: No Status: Chronic (2) Bipolar disorder Current Visit: No Status: Chronic Qualifiers: Active/Remission status: remission status unspecified Qualified Code(s): F31.9 - Bipolar disorder, unspecified (3) Cocaine dependence Current Visit: No Status: Chronic Qualifiers: Substance use status: uncomplicated Qualified Code(s): F14.20 - Cocaine dependence, uncomplicated (4) Essential hypertension Current Visit: No Status: Chronic (5) Nicotine dependence Current Visit: No Status: Chronic Qualifiers: Nicotine product type: cigarettes Substance use status: uncomplicated Qualified Code(s): F17.210 - Nicotine dependence, cigarettes, uncomplicated (6) Obesity Current Visit: No Status: Chronic Qualifiers: Obesity type: unspecified obesity type Obesity classification: adult class 1 (BMI 30 - 34.9) Serious obesity comorbidity presence: unspecified whether serious comorbidity present Body mass index: BMI 34.0-34.9 Qualified Code(s) : E66.9 - Obesity, unspecified; Z68.34 - Body mass index (BMI) 34.0-34.9, adult Cleared for Admission [facility] - Detox or Rehab [facility] Level of Care: Medically Supervised Detox Regimen/Protocol: Librium Breathalyzer - Breathalyzer Breathalyzer: 0.032 Urine Drug Screen - Test Device Lot number: [id number] Expiration date: 05/22/20 - Control Is test valid?: Yes - Results Drug screen NEGATIVE: No Urine drug screen results: KRISTINA-Cocaine, BZO-Benzodiazepines Inpatient Rehab Admission - Rehab Decision to Admit Inpatient rehab admission?: No
[2018-11-23] MEDS ORDERED: chlordiazePOXIDE HCL 10 MG CAPSULE PO PRN (23:03)
[2018-11-23] MEDS ORDERED: MAG HYDROX/AL HYDROX/SIMETH 30 ML UNIT-DOSE CUP PO PRN (23:03)
[2018-11-23] MEDS ORDERED: METHOCARBAMOL 500 MG TABLET PO PRN (23:03)
[2018-11-23] MEDS ORDERED: ACETAMINOPHEN 325 MG TABLET (FP) PO PRN ×2 (23:03)
[2018-11-23] MEDS ORDERED: IBUPROFEN 400 MG TABLET (FP) PO PRN (23:03)
[2018-11-23] MEDS ORDERED: NICOTINE POLACRILEX 4 MG GUM BUC PRN (23:03)
[2018-11-23] MEDS ORDERED: hydrOXYzine PAMOATE 25 MG CAPSULE (FP) PO PRN (23:03)
[2018-11-23] MEDS ORDERED: MENTHOL/PHENOL 1 EACH UD MM PRN (23:03)
[2018-11-23] MEDS ORDERED: MELATONIN 5 MG TABLETS PO PRN (23:03)
[2018-11-23] MEDS ORDERED: MAGNESIUM HYDROX 2400MG/30ML ORAL SUSPENSION 30 ML CUP PO PRN (23:03)
[2018-11-23] MEDS ORDERED: MAGNESIUM CITRATE 300 ML BOTTLE PO PRN (23:03)
[2018-11-23] MEDS ORDERED: BISMUTH SUBSALICYLATE 524 MG/30 ML UD PO PRN (23:03)
[2018-11-24] MEDS: METOPROLOL TARTRATE 50 MG TABLET (FP) PO SCH ×3 (00:23→21:36)
[2018-11-24] MEDS: chlordiazePOXIDE HCL 25 MG CAPSULE PO SCH ×3 (00:24→12:53)
[2018-11-24] MEDS: SERTRALINE HCL 50 MG TABLET (FP) PO SCH (10:05)
[2018-11-24] MEDS: NICOTINE 21 MG/24 HOURS TOPICAL PATCH TD SCH (10:05)
[2018-11-24] MEDS: HYDROCHLOROTHIAZIDE 25 MG TABLET (FP) PO SCH (10:05)
[2018-11-24] MEDS: amLODIPine BESYLATE 5 MG TABLET (FP) PO SCH (10:05)
[2018-11-24] MEDS: LISINOPRIL 20 MG TABLET (FP) PO SCH (10:05)
[2018-11-24] MEDS: PRENATAL VITAMINS W/ FOLIC ACID TABLET (FP) PO SCH (10:05)
[2018-11-24 10:40] LABS: HEMATOCRIT 45.1 % (35.4-49); HEMOGLOBIN 14.7 GM/dL (11.7-16.9); MCH 29.4 pg (25.7-33.7); MCHC 32.7 g/dl (32.0-35.9); MEAN CELL VOLUME 89.9 fl (80-96); MEAN PLT VOLUME 8.7 fl (7.5-11.1); PLATELET COUNT 146 K/MM3 (134-434); RBC 5.02 M/mm3 (4.00-5.60); RDW 14.6 % (11.9-15.9); WHITE BLOOD COUNT 6.5 K/mm3 (4.0-10.0)
[2018-11-24 10:48] LABS: ALBUMIN 4.1 g/dl (3.4-5.0); BILIRUBIN,TOTAL 0.6 mg/dL (0.2-1); CALCIUM 9.9 mg/dL (8.5-10.1); CREATININE 1.3 mg/dL (0.55-1.3); POTASSIUM 3.9 mmol/L (3.5-5.1); TOT PROT 7.5 g/dl (6.4-8.2)
--- NOTE | 2018-11-24 12:07 | PN ---
S CIWA - CIWA Score Nausea/Vomitin Muscle Tremors: 3 Anxiety: 2 Agitation: 2 Paroxysmal Sweats: 1-Minimal Palms Moist Orientation: 0-Oriented Tacttile Disturbances: 1-Very Mild Itch/Numbness Auditory Disturbances: 1-Very Mild Visual Disturbances: 0-None Headache: 1-Very Mild CIWA-Ar Total Score: 13 BHS Progress Note (SOAP) Subjective: alert,irritable,anxious,interrupted sleep,tremor Objective: 11/24/18 12:06 Vital Signs Temperature 97.4 F L 11/24/18 10:04 Pulse Rate 85 11/24/18 10:04 Respiratory Rate 20 11/24/18 10:04 Blood Pressure 113/68 11/24/18 10:04 O2 Sat by Pulse Oximetry (%) Laboratory Last Values WBC 6.5 K/mm3 (4.0-10.0) 11/24/18 07:00 RBC 5.02 M/mm3 (4.00-5.60) 11/24/18 07:00 Hgb 14.7 GM/dL (11.7-16.9) 11/24/18 07:00 Hct 45.1 % (35.4-49) 11/24/18 07:00 MCV 89.9 fl (80-96) 11/24/18 07:00 MCH 29.4 pg (25.7-33.7) 11/24/18 07:00 MCHC 32.7 g/dl (32.0-35.9) 11/24/18 07:00 RDW 14.6 % (11.9-15.9) 11/24/18 07:00 Plt Count 146 K/MM3 (134-434) 11/24/18 07:00 MPV 8.7 fl (7.5-11.1) 11/24/18 07:00 Sodium 137 mmol/L (136-145) 11/24/18 07:00 Potassium 3.9 mmol/L (3.5-5.1) 11/24/18 07:00 Chloride 103 mmol/L (98-107) 11/24/18 07:00 Carbon Dioxide 24 mmol/L (21-32) 11/24/18 07:00 Anion Gap 11 MMOL/L (8-16) 11/24/18 07:00 BUN 16 mg/dL (7-18) 11/24/18 07:00 Creatinine 1.3 mg/dL (0.55-1.3) 11/24/18 07:00 Est GFR (CKD-EPI)AfAm 71.19 11/24/18 07:00 Est GFR (CKD-EPI)NonAf 61.43 11/24/18 07:00 Random Glucose 141 mg/dL (74-106) H 11/24/18 07:00 Calcium 9.9 mg/dL (8.5-10.1) 11/24/18 07:00 Total Bilirubin 0.6 mg/dL (0.2-1) 11/24/18 07:00 AST 38 U/L (15-37) H 11/24/18 07:00 ALT 54 U/L (13-61) 11/24/18 07:00 Alkaline Phosphatase 77 U/L (45-117) 11/24/18 07:00 Total Protein 7.5 g/dl (6.4-8.2) 11/24/18 07:00 Albumin 4.1 g/dl (3.4-5.0) 11/24/18 07:00 labs pemding Assessment: 11/24/18 12:07 withdrawal symptom Plan: continue detox librium regimen and bp monitoring
[2018-11-24] MEDS: chlordiazePOXIDE 5 MG CAPSULE PO SCH (21:36)
[2018-11-24] MEDS: traZODone HCL 100 MG TABLET (FP) PO SCH (21:36)
[2018-11-24] MEDS: THIAMINE HCL 100 MG TABLET (FP) PO SCH (21:36)
[2018-11-25] MEDS: chlordiazePOXIDE 5 MG CAPSULE PO SCH ×2 (05:12→13:19)
[2018-11-25] MEDS: NICOTINE 21 MG/24 HOURS TOPICAL PATCH TD SCH (10:13)
[2018-11-25] MEDS: amLODIPine BESYLATE 5 MG TABLET (FP) PO SCH (10:14)
[2018-11-25] MEDS: LISINOPRIL 20 MG TABLET (FP) PO SCH (10:14)
[2018-11-25] MEDS: SERTRALINE HCL 50 MG TABLET (FP) PO SCH (10:14)
[2018-11-25] MEDS: METOPROLOL TARTRATE 50 MG TABLET (FP) PO SCH ×2 (10:14→22:25)
[2018-11-25] MEDS: PRENATAL VITAMINS W/ FOLIC ACID TABLET (FP) PO SCH (10:14)
[2018-11-25] MEDS: HYDROCHLOROTHIAZIDE 25 MG TABLET (FP) PO SCH (10:14)
--- NOTE | 2018-11-25 10:18 | PN ---
[facility] CIWA - CIWA Score Nausea/Vomitin-Mild Nausea/No Vomiting Muscle Tremors: 3 Anxiety: 2 Agitation: 2 Paroxysmal Sweats: 1-Minimal Palms Moist Orientation: 0-Oriented Tacttile Disturbances: 1-Very Mild Itch/Numbness Auditory Disturbances: 0-None Visual Disturbances: 0-None Headache: 1-Very Mild CIWA-Ar Total Score: 11 S Progress Note (SOAP) Subjective: mild tremor doing well today ambulating on hallway social with peers and staff discuss aftercare Objective: 11/25/18 10:17 Vital Signs Temperature 98.3 F 11/25/18 09:29 Pulse Rate 95 H 11/25/18 09:29 Respiratory Rate 18 11/25/18 09:29 Blood Pressure 138/90 11/25/18 09:29 O2 Sat by Pulse Oximetry (%) Laboratory Last Values WBC 6.5 K/mm3 (4.0-10.0) 11/24/18 07:00 RBC 5.02 M/mm3 (4.00-5.60) 11/24/18 07:00 Hgb 14.7 GM/dL (11.7-16.9) 11/24/18 07:00 Hct 45.1 % (35.4-49) 11/24/18 07:00 MCV 89.9 fl (80-96) 11/24/18 07:00 MCH 29.4 pg (25.7-33.7) 11/24/18 07:00 MCHC 32.7 g/dl (32.0-35.9) 11/24/18 07:00 RDW 14.6 % (11.9-15.9) 11/24/18 07:00 Plt Count 146 K/MM3 (134-434) 11/24/18 07:00 MPV 8.7 fl (7.5-11.1) 11/24/18 07:00 Sodium 137 mmol/L (136-145) 11/24/18 07:00 Potassium 3.9 mmol/L (3.5-5.1) 11/24/18 07:00 Chloride 103 mmol/L (98-107) 11/24/18 07:00 Carbon Dioxide 24 mmol/L (21-32) 11/24/18 07:00 Anion Gap 11 MMOL/L (8-16) 11/24/18 07:00 BUN 16 mg/dL (7-18) 11/24/18 07:00 Creatinine 1.3 mg/dL (0.55-1.3) 11/24/18 07:00 Est GFR (CKD-EPI)AfAm 71.19 11/24/18 07:00 Est GFR (CKD-EPI)NonAf 61.43 11/24/18 07:00 Random Glucose 141 mg/dL (74-106) H 11/24/18 07:00 Calcium 9.9 mg/dL (8.5-10.1) 11/24/18 07:00 Total Bilirubin 0.6 mg/dL (0.2-1) 11/24/18 07:00 AST 38 U/L (15-37) H 11/24/18 07:00 ALT 54 U/L (13-61) 11/24/18 07:00 Alkaline Phosphatase 77 U/L (45-117) 11/24/18 07:00 Total Protein 7.5 g/dl (6.4-8.2) 11/24/18 07:00 Albumin 4.1 g/dl (3.4-5.0) 11/24/18 07:00 RPR Titer Nonreactive (NONREACTIVE) 11/24/18 07:00 lab noted Assessment: 11/25/18 10:17 alcohol withdrawal sx Plan: continue detox
[2018-11-25] MEDS ORDERED: chlordiazePOXIDE HCL 10 MG CAPSULE PO PRN (21:00)
[2018-11-25] MEDS: THIAMINE HCL 100 MG TABLET (FP) PO SCH (22:26)
[2018-11-25] MEDS: chlordiazePOXIDE HCL 10 MG CAPSULE PO SCH (22:26)
[2018-11-25] MEDS: traZODone HCL 100 MG TABLET (FP) PO SCH (22:26)
[2018-11-26] MEDS: chlordiazePOXIDE HCL 10 MG CAPSULE PO SCH ×2 (05:36→16:11)
[2018-11-26] MEDS: NICOTINE 21 MG/24 HOURS TOPICAL PATCH TD SCH (10:11)
[2018-11-26] MEDS: LISINOPRIL 20 MG TABLET (FP) PO SCH (10:12)
[2018-11-26] MEDS: HYDROCHLOROTHIAZIDE 25 MG TABLET (FP) PO SCH (10:12)
[2018-11-26] MEDS: SERTRALINE HCL 50 MG TABLET (FP) PO SCH (10:12)
[2018-11-26] MEDS: METOPROLOL TARTRATE 50 MG TABLET (FP) PO SCH ×2 (10:12→21:43)
[2018-11-26] MEDS: amLODIPine BESYLATE 5 MG TABLET (FP) PO SCH (10:12)
[2018-11-26] MEDS: PRENATAL VITAMINS W/ FOLIC ACID TABLET (FP) PO SCH (12:48)
--- NOTE | 2018-11-26 13:26 | PN ---
S CIWA - CIWA Score Nausea/Vomitin-No Nausea/No Vomiting Muscle Tremors: None Anxiety: 0-No Anxiety, at Ease Agitation: 0-Normal Activity Paroxysmal Sweats: No Perspiration Orientation: 0-Oriented Tacttile Disturbances: 0-None Auditory Disturbances: 0-None Visual Disturbances: 0-None Headache: 0-None Present CIWA-Ar Total Score: 0 BHS Progress Note (SOAP) Subjective: Patient denies current Withdrawal / Detox symptoms and reports that he feels well overall at this time. Objective: PATIENT A & O X 3, OBSERVED AMBULATING ON UNIT UNASSISTED. IN NO ACUTE DISTRESS. 11/26/18 13:29 Vital Signs Temperature 96.9 F L 11/26/18 09:18 Pulse Rate 97 H 11/26/18 09:18 Respiratory Rate 18 11/26/18 09:18 Blood Pressure 116/74 11/26/18 09:18 O2 Sat by Pulse Oximetry (%) Laboratory Tests 11/24/18 11/24/18 11/24/18 07:00 07:00 07:00 WBC 6.5 RBC 5.02 Hgb 14.7 Hct 45.1 MCV 89.9 MCH 29.4 MCHC 32.7 RDW 14.6 Plt Count 146 MPV 8.7 Sodium 137 Potassium 3.9 Chloride 103 Carbon Dioxide 24 Anion Gap 11 BUN 16 Creatinine 1.3 Est GFR (CKD-EPI)AfAm 71.19 Est GFR (CKD-EPI)NonAf 61.43 Random Glucose 141 H Calcium 9.9 Total Bilirubin 0.6 AST 38 H ALT 54 Alkaline Phosphatase 77 Total Protein 7.5 Albumin 4.1 RPR Titer Nonreactive LABS NOTED. 11/26/18 13:30 Assessment: 11/26/18 13:29 COMPLETION OF DETOX REGIMEN. Plan: SINCE PATIENT DENIES CURRENT WITHDRAWAL / DETOX SYMPTOMS AND REPORTS THAT HE FEELS WELL OVERALL, AT PATIENTS REQUEST, HE WAS GRANTED AN EARLY DISCHARGE FROM DETOX UNIT TODAY SO THAT HE MAY PROCEED ON TO AFTERCARE PLAN OF [facility] ([place], [place]).
--- NOTE | 2018-11-26 13:40 | DS ---
[facility] Detox Discharge Summary Admission Date: 11/23/18 Discharge Date: 11/26/18 - History Present History: Alcohol Dependence, Cocaine Dependence Additional Comments: PATIENT DENIES CURRENT WITHDRAWAL / DETOX SYMPTOMS AND REPORTS THAT HE FEELS WELL OVERALL AT TIME OF DISCHARGE FROM DETOX UNIT. PATIENT GOING ON TO [facility] ([place], [place]) FOR AFTERCARE. PATIENT WAS DISCHARGED FROM DETOX UNIT TO BE TAKEN OVER TO REHAB UNIT IN STABLE MEDICAL CONDITION. Pertinent Past History: HTN, Depression, Bipolar Disorder, Nicotine Dependence, Hyperglycemia (Noted On Admission Detox Laboratory Assessment), Obesity. - Physical Exam Results Vital Signs: Vital Signs Temperature 96.9 F L 11/26/18 09:18 Pulse Rate 97 H 11/26/18 09:18 Respiratory Rate 18 11/26/18 09:18 Blood Pressure 116/74 11/26/18 09:18 O2 Sat by Pulse Oximetry (%) Pertinent Admission Physical Exam Findings: WITHDRAWAL SYMPTOMS. Laboratory Tests 11/24/18 11/24/18 11/24/18 07:00 07:00 07:00 WBC 6.5 RBC 5.02 Hgb 14.7 Hct 45.1 MCV 89.9 MCH 29.4 MCHC 32.7 RDW 14.6 Plt Count 146 MPV 8.7 Sodium 137 Potassium 3.9 Chloride 103 Carbon Dioxide 24 Anion Gap 11 BUN 16 Creatinine 1.3 Est GFR (CKD-EPI)AfAm 71.19 Est GFR (CKD-EPI)NonAf 61.43 Random Glucose 141 H Calcium 9.9 Total Bilirubin 0.6 AST 38 H ALT 54 Alkaline Phosphatase 77 Total Protein 7.5 Albumin 4.1 RPR Titer Nonreactive LABS NOTED. - Treatment Hospital Course: Detox Protocol Followed, Detoxed Safely, Responded well, Discharged Condition Good, Rehab Referral Accepted Patient has Accepted a Rehab Referral to: [facility] ([place], [place]). - Medication Discharge Medications: Ambulatory Orders Amlodipine Besylate [Norvasc -] 5 mg PO DAILY #14 tablet 05/29/18 Hydrochlorothiazide 25 mg PO DAILY #14 tablet 05/29/18 Lisinopril [Prinivil] 20 mg PO DAILY #14 tab 05/29/18 Metoprolol Tartrate [Lopressor -] 50 mg PO BID #30 tablet 05/29/18 Sertraline HCl [Zoloft -] 50 mg PO DAILY #30 tablet 04/10/19 traZODone HCL [Desyrel -] 100 mg PO HS #30 tablet 09/30/18 - Diagnosis (1) Hyperglycemia Current Visit: Yes Status: Acute (2) Alcohol dependence with uncomplicated withdrawal Current Visit: Yes Status: Acute (3) Bipolar disorder Current Visit: Yes Status: Chronic Qualifiers: Active/Remission status: remission status unspecified Qualified Code(s): F31.9 - Bipolar disorder, unspecified (4) Cocaine dependence Current Visit: Yes Status: Chronic Qualifiers: Substance use status: uncomplicated Qualified Code(s): F14.20 - Cocaine dependence, uncomplicated (5) Essential hypertension Current Visit: Yes Status: Chronic (6) Nicotine dependence Current Visit: Yes Status: Chronic Qualifiers: Nicotine product type: cigarettes Substance use status: uncomplicated Qualified Code(s): F17.210 - Nicotine dependence, cigarettes, uncomplicated (7) Obesity Current Visit: Yes Status: Chronic Qualifiers: Obesity type: unspecified obesity type Obesity classification: adult class 1 (BMI 30 - 34.9) Serious obesity comorbidity presence: unspecified whether serious comorbidity present Body mass index: BMI 34.0-34.9 Qualified Code(s) : E66.9 - Obesity, unspecified; Z68.34 - Body mass index (BMI) 34.0-34.9, adult - AMA Did Patient Leave Against Medical Advice: No
--- NOTE | 2018-11-26 13:46 | HP ---
[facility] Rehab Assess/Revision - Admission History Admitted to Rehab from: [facility] Date of Admission to Rehab: 11/26/2018 - Vital signs Vital Signs: Vital Signs Period Temp Pulse Resp BP Sys/[place] Pulse Ox Last 24 Hr 96.9 F-98.7 F 88-105 18-18 111-136/72-95 - Findings Detox History & Physical reviewed: Yes Concur with findings: Yes Comments/Additional Findings: PATIENT'S MEDICAL / MEDICATION HISTORY REVIEWED PRIOR TO DISCHARGE FROM DETOX UNIT. FASTING BLOOD GLUCOSE LEVEL AND HGB A1C ORDERED FOR PATIENT WHILE ON REHAB FOR ELEVATED FASTING BLOOD GLUCOSE LEVEL NOTED ON ADMISSION TO DETOX. PATIENT WAS DISCHARGED FROM DETOX UNIT TO BE TAKEN OVER TO REHAB UNIT IN STABLE MEDICAL CONDITION. Inpatient Rehab Admission - Rehab Decision to Admit Inpatient rehab admission?: Yes - Initial Determination Are CD services needed?: Yes Free of communicable disease: Yes Not in need of hospitalization: Yes - Rehab Admission Criteria Previous failed treatment: Yes Poor recovery environment: Yes Comorbidities: Yes Lacks judgement: No Patient is meeting Inpatient Rehab admission criteria:: Yes
[2018-11-26] MEDS ORDERED: NICOTINE POLACRILEX 4 MG GUM BUC PRN (15:47)
[2018-11-26] MEDS ORDERED: MAGNESIUM HYDROX 2400MG/30ML ORAL SUSPENSION 30 ML CUP PO PRN (15:47)
[2018-11-26] MEDS ORDERED: BISMUTH SUBSALICYLATE 524 MG/30 ML UD PO PRN (15:47)
[2018-11-26] MEDS ORDERED: MAGNESIUM CITRATE 300 ML BOTTLE PO PRN (15:47)
[2018-11-26] MEDS ORDERED: MENTHOL/PHENOL 1 EACH UD MM PRN (15:47)
[2018-11-26] MEDS: THIAMINE HCL 100 MG TABLET (FP) PO SCH (21:42)
[2018-11-26] MEDS: traZODone HCL 100 MG TABLET (FP) PO SCH (21:43)
[2018-11-27] MEDS ORDERED: PT OWN MED DRAWER 7, Y5N ONE ×2 (08:46→20:28)
[2018-11-27] MEDS: NICOTINE 21 MG/24 HOURS TOPICAL PATCH TD SCH (09:12)
[2018-11-27] MEDS: HYDROCHLOROTHIAZIDE 25 MG TABLET (FP) PO SCH (09:12)
[2018-11-27] MEDS: SERTRALINE HCL 50 MG TABLET (FP) PO SCH (09:12)
[2018-11-27] MEDS: METOPROLOL TARTRATE 50 MG TABLET (FP) PO SCH ×2 (09:12→21:38)
[2018-11-27] MEDS: LISINOPRIL 20 MG TABLET (FP) PO SCH (09:12)
[2018-11-27] MEDS: amLODIPine BESYLATE 5 MG TABLET (FP) PO SCH (09:12)
[2018-11-27] MEDS: PRENATAL VITAMINS W/ FOLIC ACID TABLET (FP) PO SCH (09:12)
[2018-11-27] MEDS: MAG HYDROX/AL HYDROX/SIMETH 30 ML UNIT-DOSE CUP PO PRN (09:58)
[2018-11-27] MEDS: traZODone HCL 100 MG TABLET (FP) PO SCH (21:38)
[2018-11-27] MEDS: THIAMINE HCL 100 MG TABLET (FP) PO SCH (21:38)
[2018-11-28] MEDS ORDERED: PT OWN MED DRAWER 7, Y5N ONE ×2 (08:46→19:36)
[2018-11-28] MEDS: METOPROLOL TARTRATE 50 MG TABLET (FP) PO SCH ×2 (09:59→21:32)
[2018-11-28] MEDS: PRENATAL VITAMINS W/ FOLIC ACID TABLET (FP) PO SCH (09:59)
[2018-11-28] MEDS: SERTRALINE HCL 50 MG TABLET (FP) PO SCH (09:59)
[2018-11-28] MEDS: LISINOPRIL 20 MG TABLET (FP) PO SCH (09:59)
[2018-11-28] MEDS: amLODIPine BESYLATE 5 MG TABLET (FP) PO SCH (09:59)
[2018-11-28] MEDS: HYDROCHLOROTHIAZIDE 25 MG TABLET (FP) PO SCH (09:59)
[2018-11-28] MEDS: NICOTINE 21 MG/24 HOURS TOPICAL PATCH TD SCH (10:00)
[2018-11-28] MEDS: ACETAMINOPHEN 325 MG TABLET (FP) PO PRN (12:39)
[2018-11-28] MEDS: THIAMINE HCL 100 MG TABLET (FP) PO SCH (21:32)
[2018-11-28] MEDS: traZODone HCL 100 MG TABLET (FP) PO SCH (21:32)
[2018-11-29] MEDS ORDERED: PT OWN MED DRAWER 7, Y5N ONE (08:44)
[2018-11-29] MEDS: NICOTINE 21 MG/24 HOURS TOPICAL PATCH TD SCH (09:54)
[2018-11-29] MEDS: SERTRALINE HCL 50 MG TABLET (FP) PO SCH (09:54)
[2018-11-29] MEDS: HYDROCHLOROTHIAZIDE 25 MG TABLET (FP) PO SCH (09:54)
[2018-11-29] MEDS: PRENATAL VITAMINS W/ FOLIC ACID TABLET (FP) PO SCH (09:54)
[2018-11-29] MEDS: amLODIPine BESYLATE 5 MG TABLET (FP) PO SCH (09:54)
[2018-11-29] MEDS: METOPROLOL TARTRATE 50 MG TABLET (FP) PO SCH ×2 (09:54→21:38)
[2018-11-29] MEDS: LISINOPRIL 20 MG TABLET (FP) PO SCH (09:54)
[2018-11-29] MEDS: MAG HYDROX/AL HYDROX/SIMETH 30 ML UNIT-DOSE CUP PO PRN (12:56)
[2018-11-29] MEDS: THIAMINE HCL 100 MG TABLET (FP) PO SCH (21:38)
[2018-11-29] MEDS: traZODone HCL 100 MG TABLET (FP) PO SCH (21:38)
[2018-11-30] MEDS ORDERED: PT OWN MED DRAWER 7, Y5N ONE (08:45)
[2018-11-30] MEDS: PRENATAL VITAMINS W/ FOLIC ACID TABLET (FP) PO SCH (09:43)
[2018-11-30] MEDS: LISINOPRIL 20 MG TABLET (FP) PO SCH (09:43)
[2018-11-30] MEDS: METOPROLOL TARTRATE 50 MG TABLET (FP) PO SCH ×2 (09:43→21:44)
[2018-11-30] MEDS: HYDROCHLOROTHIAZIDE 25 MG TABLET (FP) PO SCH (09:43)
[2018-11-30] MEDS: NICOTINE 21 MG/24 HOURS TOPICAL PATCH TD SCH (09:43)
[2018-11-30] MEDS: amLODIPine BESYLATE 5 MG TABLET (FP) PO SCH (09:43)
[2018-11-30] MEDS: SERTRALINE HCL 50 MG TABLET (FP) PO SCH (09:43)
[2018-11-30] MEDS: THIAMINE HCL 100 MG TABLET (FP) PO SCH (21:44)
[2018-11-30] MEDS: traZODone HCL 100 MG TABLET (FP) PO SCH (21:44)
[2018-12-01] MEDS: HYDROCHLOROTHIAZIDE 25 MG TABLET (FP) PO SCH (10:02)
[2018-12-01] MEDS: amLODIPine BESYLATE 5 MG TABLET (FP) PO SCH (10:02)
[2018-12-01] MEDS: LISINOPRIL 20 MG TABLET (FP) PO SCH (10:02)
[2018-12-01] MEDS: SERTRALINE HCL 50 MG TABLET (FP) PO SCH (10:02)
[2018-12-01] MEDS: PRENATAL VITAMINS W/ FOLIC ACID TABLET (FP) PO SCH (10:02)
[2018-12-01] MEDS: NICOTINE 21 MG/24 HOURS TOPICAL PATCH TD SCH (10:03)
[2018-12-01] MEDS: METOPROLOL TARTRATE 50 MG TABLET (FP) PO SCH ×2 (10:03→21:19)
[2018-12-01] MEDS: traZODone HCL 100 MG TABLET (FP) PO SCH (21:19)
[2018-12-01] MEDS: THIAMINE HCL 100 MG TABLET (FP) PO SCH (21:19)
[2018-12-02] MEDS ORDERED: PT OWN MED DRAWER 7, Y5N ONE ×2 (08:53→19:33)
[2018-12-02] MEDS: PRENATAL VITAMINS W/ FOLIC ACID TABLET (FP) PO SCH (09:36)
[2018-12-02] MEDS: SERTRALINE HCL 50 MG TABLET (FP) PO SCH (09:36)
[2018-12-02] MEDS: LISINOPRIL 20 MG TABLET (FP) PO SCH (09:36)
[2018-12-02] MEDS: METOPROLOL TARTRATE 50 MG TABLET (FP) PO SCH ×2 (09:36→21:42)
[2018-12-02] MEDS: NICOTINE 21 MG/24 HOURS TOPICAL PATCH TD SCH (09:36)
[2018-12-02] MEDS: HYDROCHLOROTHIAZIDE 25 MG TABLET (FP) PO SCH (09:36)
[2018-12-02] MEDS: amLODIPine BESYLATE 5 MG TABLET (FP) PO SCH (09:36)
[2018-12-02] MEDS: traZODone HCL 100 MG TABLET (FP) PO SCH (21:42)
[2018-12-02] MEDS: THIAMINE HCL 100 MG TABLET (FP) PO SCH (21:42)
[2018-12-03] MEDS ORDERED: PT OWN MED DRAWER 7, Y5N ONE (09:01)
[2018-12-03] MEDS: NICOTINE 21 MG/24 HOURS TOPICAL PATCH TD SCH (09:44)
[2018-12-03] MEDS: amLODIPine BESYLATE 5 MG TABLET (FP) PO SCH (09:44)
[2018-12-03] MEDS: LISINOPRIL 20 MG TABLET (FP) PO SCH (09:44)
[2018-12-03] MEDS: HYDROCHLOROTHIAZIDE 25 MG TABLET (FP) PO SCH (09:44)
[2018-12-03] MEDS: SERTRALINE HCL 50 MG TABLET (FP) PO SCH (09:44)
[2018-12-03] MEDS: PRENATAL VITAMINS W/ FOLIC ACID TABLET (FP) PO SCH (09:44)
[2018-12-03] MEDS: METOPROLOL TARTRATE 50 MG TABLET (FP) PO SCH ×2 (09:46→21:13)
[2018-12-03] MEDS: THIAMINE HCL 100 MG TABLET (FP) PO SCH (21:13)
[2018-12-03] MEDS: MELATONIN 5 MG TABLETS PO PRN (21:13)
[2018-12-03] MEDS: traZODone HCL 100 MG TABLET (FP) PO SCH (21:13)
[2018-12-04] MEDS: LISINOPRIL 20 MG TABLET (FP) PO SCH (10:15)
[2018-12-04] MEDS: amLODIPine BESYLATE 5 MG TABLET (FP) PO SCH (10:15)
[2018-12-04] MEDS: METOPROLOL TARTRATE 50 MG TABLET (FP) PO SCH ×2 (10:15→21:55)
[2018-12-04] MEDS: PRENATAL VITAMINS W/ FOLIC ACID TABLET (FP) PO SCH (10:15)
[2018-12-04] MEDS: SERTRALINE HCL 50 MG TABLET (FP) PO SCH (10:15)
[2018-12-04] MEDS: NICOTINE 21 MG/24 HOURS TOPICAL PATCH TD SCH (10:15)
[2018-12-04] MEDS: HYDROCHLOROTHIAZIDE 25 MG TABLET (FP) PO SCH (10:15)
[2018-12-04] MEDS: THIAMINE HCL 100 MG TABLET (FP) PO SCH (21:55)
[2018-12-04] MEDS: traZODone HCL 100 MG TABLET (FP) PO SCH (21:55)
[2018-12-05] MEDS: METOPROLOL TARTRATE 50 MG TABLET (FP) PO SCH ×2 (09:36→21:21)
[2018-12-05] MEDS: PRENATAL VITAMINS W/ FOLIC ACID TABLET (FP) PO SCH (09:36)
[2018-12-05] MEDS: amLODIPine BESYLATE 5 MG TABLET (FP) PO SCH (09:36)
[2018-12-05] MEDS: HYDROCHLOROTHIAZIDE 25 MG TABLET (FP) PO SCH (09:36)
[2018-12-05] MEDS: SERTRALINE HCL 50 MG TABLET (FP) PO SCH (09:36)
[2018-12-05] MEDS: NICOTINE 21 MG/24 HOURS TOPICAL PATCH TD SCH (09:36)
[2018-12-05] MEDS: LISINOPRIL 20 MG TABLET (FP) PO SCH (09:36)
[2018-12-05] MEDS: THIAMINE HCL 100 MG TABLET (FP) PO SCH (21:21)
[2018-12-05] MEDS: traZODone HCL 100 MG TABLET (FP) PO SCH (21:21)
[2018-12-05] MEDS: ACETAMINOPHEN 325 MG TABLET (FP) PO PRN (21:22)
[2018-12-06] MEDS: PRENATAL VITAMINS W/ FOLIC ACID TABLET (FP) PO SCH (09:04)
[2018-12-06] MEDS: NICOTINE 21 MG/24 HOURS TOPICAL PATCH TD SCH (09:04)
[2018-12-06] MEDS: METOPROLOL TARTRATE 50 MG TABLET (FP) PO SCH ×2 (09:04→21:36)
[2018-12-06] MEDS: SERTRALINE HCL 50 MG TABLET (FP) PO SCH (09:04)
[2018-12-06] MEDS: HYDROCHLOROTHIAZIDE 25 MG TABLET (FP) PO SCH (09:05)
[2018-12-06] MEDS: amLODIPine BESYLATE 5 MG TABLET (FP) PO SCH (09:05)
[2018-12-06] MEDS: LISINOPRIL 20 MG TABLET (FP) PO SCH (09:05)
[2018-12-06] MEDS: THIAMINE HCL 100 MG TABLET (FP) PO SCH (21:36)
[2018-12-06] MEDS: traZODone HCL 100 MG TABLET (FP) PO SCH (21:37)
[2018-12-07] MEDS: LISINOPRIL 20 MG TABLET (FP) PO SCH (10:00)
[2018-12-07] MEDS: PRENATAL VITAMINS W/ FOLIC ACID TABLET (FP) PO SCH (10:00)
[2018-12-07] MEDS: SERTRALINE HCL 50 MG TABLET (FP) PO SCH (10:00)
[2018-12-07] MEDS: amLODIPine BESYLATE 5 MG TABLET (FP) PO SCH (10:00)
[2018-12-07] MEDS: METOPROLOL TARTRATE 50 MG TABLET (FP) PO SCH ×2 (10:00→21:47)
[2018-12-07] MEDS: NICOTINE 21 MG/24 HOURS TOPICAL PATCH TD SCH (10:00)
[2018-12-07] MEDS: HYDROCHLOROTHIAZIDE 25 MG TABLET (FP) PO SCH (10:00)
[2018-12-07] MEDS: MAG HYDROX/AL HYDROX/SIMETH 30 ML UNIT-DOSE CUP PO PRN (10:37)
[2018-12-07] MEDS: traZODone HCL 100 MG TABLET (FP) PO SCH (21:47)
[2018-12-07] MEDS: THIAMINE HCL 100 MG TABLET (FP) PO SCH (21:47)
[2018-12-08] MEDS: HYDROCHLOROTHIAZIDE 25 MG TABLET (FP) PO SCH (09:51)
[2018-12-08] MEDS: SERTRALINE HCL 50 MG TABLET (FP) PO SCH (09:51)
[2018-12-08] MEDS: LISINOPRIL 20 MG TABLET (FP) PO SCH (09:51)
[2018-12-08] MEDS: METOPROLOL TARTRATE 50 MG TABLET (FP) PO SCH ×2 (09:51→21:23)
[2018-12-08] MEDS: NICOTINE 21 MG/24 HOURS TOPICAL PATCH TD SCH (09:51)
[2018-12-08] MEDS: PRENATAL VITAMINS W/ FOLIC ACID TABLET (FP) PO SCH (09:51)
[2018-12-08] MEDS: amLODIPine BESYLATE 5 MG TABLET (FP) PO SCH (09:51)
[2018-12-08] MEDS: traZODone HCL 100 MG TABLET (FP) PO SCH (21:23)
[2018-12-08] MEDS: THIAMINE HCL 100 MG TABLET (FP) PO SCH (21:23)
[2018-12-09] MEDS: SERTRALINE HCL 50 MG TABLET (FP) PO SCH (10:00)
[2018-12-09] MEDS: PRENATAL VITAMINS W/ FOLIC ACID TABLET (FP) PO SCH (10:00)
[2018-12-09] MEDS: METOPROLOL TARTRATE 50 MG TABLET (FP) PO SCH ×2 (10:00→21:30)
[2018-12-09] MEDS: HYDROCHLOROTHIAZIDE 25 MG TABLET (FP) PO SCH (10:00)
[2018-12-09] MEDS: NICOTINE 21 MG/24 HOURS TOPICAL PATCH TD SCH (10:00)
[2018-12-09] MEDS: LISINOPRIL 20 MG TABLET (FP) PO SCH (10:00)
[2018-12-09] MEDS: amLODIPine BESYLATE 5 MG TABLET (FP) PO SCH (10:00)
[2018-12-09] MEDS: ACETAMINOPHEN 325 MG TABLET (FP) PO PRN (10:01)
[2018-12-09] MEDS: traZODone HCL 100 MG TABLET (FP) PO SCH (21:30)
[2018-12-09] MEDS: THIAMINE HCL 100 MG TABLET (FP) PO SCH (21:30)
[2018-12-10] MEDS: METOPROLOL TARTRATE 50 MG TABLET (FP) PO SCH ×2 (10:10→21:40)
[2018-12-10] MEDS: PRENATAL VITAMINS W/ FOLIC ACID TABLET (FP) PO SCH (10:10)
[2018-12-10] MEDS: NICOTINE 21 MG/24 HOURS TOPICAL PATCH TD SCH (10:10)
[2018-12-10] MEDS: HYDROCHLOROTHIAZIDE 25 MG TABLET (FP) PO SCH (10:10)
[2018-12-10] MEDS: SERTRALINE HCL 50 MG TABLET (FP) PO SCH (10:10)
[2018-12-10] MEDS: LISINOPRIL 20 MG TABLET (FP) PO SCH (10:10)
[2018-12-10] MEDS: amLODIPine BESYLATE 5 MG TABLET (FP) PO SCH (10:10)
[2018-12-10] MEDS: ACETAMINOPHEN 325 MG TABLET (FP) PO PRN (11:56)
[2018-12-10] MEDS: THIAMINE HCL 100 MG TABLET (FP) PO SCH (21:40)
[2018-12-10] MEDS: traZODone HCL 100 MG TABLET (FP) PO SCH (21:40)
[2018-12-11] MEDS: NICOTINE 21 MG/24 HOURS TOPICAL PATCH TD SCH (10:10)
[2018-12-11] MEDS: amLODIPine BESYLATE 5 MG TABLET (FP) PO SCH (10:10)
[2018-12-11] MEDS: METOPROLOL TARTRATE 50 MG TABLET (FP) PO SCH ×2 (10:10→21:44)
[2018-12-11] MEDS: SERTRALINE HCL 50 MG TABLET (FP) PO SCH (10:11)
[2018-12-11] MEDS: PRENATAL VITAMINS W/ FOLIC ACID TABLET (FP) PO SCH (10:11)
[2018-12-11] MEDS: HYDROCHLOROTHIAZIDE 25 MG TABLET (FP) PO SCH (10:11)
[2018-12-11] MEDS: LISINOPRIL 20 MG TABLET (FP) PO SCH (10:11)
[2018-12-11] MEDS: THIAMINE HCL 100 MG TABLET (FP) PO SCH (21:43)
[2018-12-11] MEDS: traZODone HCL 100 MG TABLET (FP) PO SCH (21:43)
[2018-12-12] MEDS: NICOTINE 21 MG/24 HOURS TOPICAL PATCH TD SCH (10:07)
[2018-12-12] MEDS: LISINOPRIL 20 MG TABLET (FP) PO SCH (10:07)
[2018-12-12] MEDS: amLODIPine BESYLATE 5 MG TABLET (FP) PO SCH (10:07)
[2018-12-12] MEDS: HYDROCHLOROTHIAZIDE 25 MG TABLET (FP) PO SCH (10:07)
[2018-12-12] MEDS: SERTRALINE HCL 50 MG TABLET (FP) PO SCH (10:07)
[2018-12-12] MEDS: METOPROLOL TARTRATE 50 MG TABLET (FP) PO SCH ×2 (10:07→21:34)
[2018-12-12] MEDS: PRENATAL VITAMINS W/ FOLIC ACID TABLET (FP) PO SCH (10:07)
[2018-12-12] MEDS: THIAMINE HCL 100 MG TABLET (FP) PO SCH (21:34)
[2018-12-12] MEDS: traZODone HCL 100 MG TABLET (FP) PO SCH (21:34)
[2018-12-13] MEDS: SERTRALINE HCL 50 MG TABLET (FP) PO SCH (09:47)
[2018-12-13] MEDS: METOPROLOL TARTRATE 50 MG TABLET (FP) PO SCH ×2 (09:47→21:08)
[2018-12-13] MEDS: PRENATAL VITAMINS W/ FOLIC ACID TABLET (FP) PO SCH (09:47)
[2018-12-13] MEDS: HYDROCHLOROTHIAZIDE 25 MG TABLET (FP) PO SCH (09:47)
[2018-12-13] MEDS: LISINOPRIL 20 MG TABLET (FP) PO SCH (09:47)
[2018-12-13] MEDS: NICOTINE 21 MG/24 HOURS TOPICAL PATCH TD SCH (09:47)
[2018-12-13] MEDS: amLODIPine BESYLATE 5 MG TABLET (FP) PO SCH (09:47)
[2018-12-13] MEDS: traZODone HCL 100 MG TABLET (FP) PO SCH (21:08)
[2018-12-13] MEDS: THIAMINE HCL 100 MG TABLET (FP) PO SCH (21:08)
[2018-12-14] MEDS: PRENATAL VITAMINS W/ FOLIC ACID TABLET (FP) PO SCH (09:54)
[2018-12-14] MEDS: amLODIPine BESYLATE 5 MG TABLET (FP) PO SCH (09:54)
[2018-12-14] MEDS: NICOTINE 21 MG/24 HOURS TOPICAL PATCH TD SCH (09:54)
[2018-12-14] MEDS: METOPROLOL TARTRATE 50 MG TABLET (FP) PO SCH ×2 (09:54→21:32)
[2018-12-14] MEDS: HYDROCHLOROTHIAZIDE 25 MG TABLET (FP) PO SCH (09:54)
[2018-12-14] MEDS: SERTRALINE HCL 50 MG TABLET (FP) PO SCH (09:54)
[2018-12-14] MEDS: LISINOPRIL 20 MG TABLET (FP) PO SCH (10:22)
[2018-12-14] MEDS: MAG HYDROX/AL HYDROX/SIMETH 30 ML UNIT-DOSE CUP PO PRN (12:56)
[2018-12-14] MEDS: traZODone HCL 100 MG TABLET (FP) PO SCH (21:32)
[2018-12-14] MEDS: THIAMINE HCL 100 MG TABLET (FP) PO SCH (21:32)
[2018-12-15] MEDS: PRENATAL VITAMINS W/ FOLIC ACID TABLET (FP) PO SCH (10:13)
[2018-12-15] MEDS: METOPROLOL TARTRATE 50 MG TABLET (FP) PO SCH ×2 (10:13→21:23)
[2018-12-15] MEDS: NICOTINE 21 MG/24 HOURS TOPICAL PATCH TD SCH (10:13)
[2018-12-15] MEDS: HYDROCHLOROTHIAZIDE 25 MG TABLET (FP) PO SCH (10:13)
[2018-12-15] MEDS: LISINOPRIL 20 MG TABLET (FP) PO SCH (10:13)
[2018-12-15] MEDS: amLODIPine BESYLATE 5 MG TABLET (FP) PO SCH (10:13)
[2018-12-15] MEDS: SERTRALINE HCL 50 MG TABLET (FP) PO SCH (10:13)
[2018-12-15] MEDS: ACETAMINOPHEN 325 MG TABLET (FP) PO PRN (15:33)
[2018-12-15] MEDS: THIAMINE HCL 100 MG TABLET (FP) PO SCH (21:23)
[2018-12-15] MEDS: traZODone HCL 100 MG TABLET (FP) PO SCH (21:23)
[2018-12-16] MEDS: PRENATAL VITAMINS W/ FOLIC ACID TABLET (FP) PO SCH (09:56)
[2018-12-16] MEDS: amLODIPine BESYLATE 5 MG TABLET (FP) PO SCH (09:56)
[2018-12-16] MEDS: NICOTINE 21 MG/24 HOURS TOPICAL PATCH TD SCH (09:56)
[2018-12-16] MEDS: SERTRALINE HCL 50 MG TABLET (FP) PO SCH (09:56)
[2018-12-16] MEDS: HYDROCHLOROTHIAZIDE 25 MG TABLET (FP) PO SCH (09:56)
[2018-12-16] MEDS: METOPROLOL TARTRATE 50 MG TABLET (FP) PO SCH ×2 (09:56→21:39)
[2018-12-16] MEDS: LISINOPRIL 20 MG TABLET (FP) PO SCH (09:56)
[2018-12-16] MEDS: traZODone HCL 100 MG TABLET (FP) PO SCH (21:38)
[2018-12-16] MEDS: THIAMINE HCL 100 MG TABLET (FP) PO SCH (21:39)
[2018-12-16] MEDS: ACETAMINOPHEN 325 MG TABLET (FP) PO PRN (21:40)
[2018-12-17] MEDS: NICOTINE 21 MG/24 HOURS TOPICAL PATCH TD SCH (10:11)
[2018-12-17] MEDS: SERTRALINE HCL 50 MG TABLET (FP) PO SCH (10:12)
[2018-12-17] MEDS: LISINOPRIL 20 MG TABLET (FP) PO SCH (10:12)
[2018-12-17] MEDS: PRENATAL VITAMINS W/ FOLIC ACID TABLET (FP) PO SCH (10:12)
[2018-12-17] MEDS: amLODIPine BESYLATE 5 MG TABLET (FP) PO SCH (10:12)
[2018-12-17] MEDS: HYDROCHLOROTHIAZIDE 25 MG TABLET (FP) PO SCH (10:12)
[2018-12-17] MEDS: METOPROLOL TARTRATE 50 MG TABLET (FP) PO SCH ×2 (10:12→21:30)
[2018-12-17] MEDS: THIAMINE HCL 100 MG TABLET (FP) PO SCH (21:30)
[2018-12-17] MEDS: traZODone HCL 100 MG TABLET (FP) PO SCH (21:30)
[2018-12-18] MEDS: SERTRALINE HCL 50 MG TABLET (FP) PO SCH (10:07)
[2018-12-18] MEDS: PRENATAL VITAMINS W/ FOLIC ACID TABLET (FP) PO SCH (10:07)
[2018-12-18] MEDS: METOPROLOL TARTRATE 50 MG TABLET (FP) PO SCH ×2 (10:07→21:17)
[2018-12-18] MEDS: amLODIPine BESYLATE 5 MG TABLET (FP) PO SCH (10:07)
[2018-12-18] MEDS: LISINOPRIL 20 MG TABLET (FP) PO SCH (10:07)
[2018-12-18] MEDS: HYDROCHLOROTHIAZIDE 25 MG TABLET (FP) PO SCH (10:07)
[2018-12-18] MEDS: NICOTINE 21 MG/24 HOURS TOPICAL PATCH TD SCH (10:07)
[2018-12-18] MEDS: traZODone HCL 100 MG TABLET (FP) PO SCH (21:17)
[2018-12-18] MEDS: THIAMINE HCL 100 MG TABLET (FP) PO SCH (21:17)
[2018-12-19] MEDS: PRENATAL VITAMINS W/ FOLIC ACID TABLET (FP) PO SCH (09:38)
[2018-12-19] MEDS: HYDROCHLOROTHIAZIDE 25 MG TABLET (FP) PO SCH (09:38)
[2018-12-19] MEDS: NICOTINE 21 MG/24 HOURS TOPICAL PATCH TD SCH (09:38)
[2018-12-19] MEDS: LISINOPRIL 20 MG TABLET (FP) PO SCH (09:38)
[2018-12-19] MEDS: SERTRALINE HCL 50 MG TABLET (FP) PO SCH (09:38)
[2018-12-19] MEDS: amLODIPine BESYLATE 5 MG TABLET (FP) PO SCH (09:38)
[2018-12-19] MEDS: METOPROLOL TARTRATE 50 MG TABLET (FP) PO SCH ×2 (09:38→21:51)
[2018-12-19] MEDS: traZODone HCL 100 MG TABLET (FP) PO SCH (21:51)
[2018-12-19] MEDS: THIAMINE HCL 100 MG TABLET (FP) PO SCH (21:51)
[2018-12-20] MEDS: NICOTINE 21 MG/24 HOURS TOPICAL PATCH TD SCH (10:11)
[2018-12-20] MEDS: amLODIPine BESYLATE 5 MG TABLET (FP) PO SCH (10:11)
[2018-12-20] MEDS: PRENATAL VITAMINS W/ FOLIC ACID TABLET (FP) PO SCH (10:11)
[2018-12-20] MEDS: LISINOPRIL 20 MG TABLET (FP) PO SCH (10:12)
[2018-12-20] MEDS: SERTRALINE HCL 50 MG TABLET (FP) PO SCH (10:12)
[2018-12-20] MEDS: METOPROLOL TARTRATE 50 MG TABLET (FP) PO SCH ×2 (10:12→21:37)
[2018-12-20] MEDS: HYDROCHLOROTHIAZIDE 25 MG TABLET (FP) PO SCH (10:12)
[2018-12-20] MEDS: traZODone HCL 100 MG TABLET (FP) PO SCH (21:37)
[2018-12-20] MEDS: THIAMINE HCL 100 MG TABLET (FP) PO SCH (21:37)
[2018-12-20] MEDS: MELATONIN 5 MG TABLETS PO PRN (21:38)
[2018-12-21] MEDS: HYDROCHLOROTHIAZIDE 25 MG TABLET (FP) PO SCH (09:42)
[2018-12-21] MEDS: NICOTINE 21 MG/24 HOURS TOPICAL PATCH TD SCH (09:42)
[2018-12-21] MEDS: amLODIPine BESYLATE 5 MG TABLET (FP) PO SCH (09:42)
[2018-12-21] MEDS: PRENATAL VITAMINS W/ FOLIC ACID TABLET (FP) PO SCH (09:42)
[2018-12-21] MEDS: LISINOPRIL 20 MG TABLET (FP) PO SCH (09:42)
[2018-12-21] MEDS: SERTRALINE HCL 50 MG TABLET (FP) PO SCH (09:42)
[2018-12-21] MEDS: METOPROLOL TARTRATE 50 MG TABLET (FP) PO SCH ×2 (10:49→21:38)
[2018-12-21] MEDS: traZODone HCL 100 MG TABLET (FP) PO SCH (21:38)
[2018-12-21] MEDS: THIAMINE HCL 100 MG TABLET (FP) PO SCH (21:38)
[2018-12-21] MEDS: MELATONIN 5 MG TABLETS PO PRN (21:39)
[2018-12-22] MEDS: LISINOPRIL 20 MG TABLET (FP) PO SCH (09:51)
[2018-12-22] MEDS: SERTRALINE HCL 50 MG TABLET (FP) PO SCH (09:51)
[2018-12-22] MEDS: amLODIPine BESYLATE 5 MG TABLET (FP) PO SCH (09:51)
[2018-12-22] MEDS: NICOTINE 21 MG/24 HOURS TOPICAL PATCH TD SCH (09:51)
[2018-12-22] MEDS: PRENATAL VITAMINS W/ FOLIC ACID TABLET (FP) PO SCH (09:51)
[2018-12-22] MEDS: HYDROCHLOROTHIAZIDE 25 MG TABLET (FP) PO SCH (09:51)
[2018-12-22] MEDS: METOPROLOL TARTRATE 50 MG TABLET (FP) PO SCH ×2 (09:51→21:18)
[2018-12-22] MEDS: ACETAMINOPHEN 325 MG TABLET (FP) PO PRN (15:59)
[2018-12-22] MEDS: THIAMINE HCL 100 MG TABLET (FP) PO SCH (21:18)
[2018-12-22] MEDS: traZODone HCL 100 MG TABLET (FP) PO SCH (21:18)
[2018-12-23] MEDS: PRENATAL VITAMINS W/ FOLIC ACID TABLET (FP) PO SCH (09:54)
[2018-12-23] MEDS: METOPROLOL TARTRATE 50 MG TABLET (FP) PO SCH ×2 (09:54→21:42)
[2018-12-23] MEDS: amLODIPine BESYLATE 5 MG TABLET (FP) PO SCH (09:54)
[2018-12-23] MEDS: HYDROCHLOROTHIAZIDE 25 MG TABLET (FP) PO SCH (09:54)
[2018-12-23] MEDS: SERTRALINE HCL 50 MG TABLET (FP) PO SCH (09:54)
[2018-12-23] MEDS: NICOTINE 21 MG/24 HOURS TOPICAL PATCH TD SCH (09:55)
[2018-12-23] MEDS: LISINOPRIL 20 MG TABLET (FP) PO SCH (09:55)
[2018-12-23] MEDS: traZODone HCL 100 MG TABLET (FP) PO SCH (21:42)
[2018-12-23] MEDS: THIAMINE HCL 100 MG TABLET (FP) PO SCH (21:42)
[2018-12-24] MEDS: HYDROCHLOROTHIAZIDE 25 MG TABLET (FP) PO SCH (09:32)
[2018-12-24] MEDS: amLODIPine BESYLATE 5 MG TABLET (FP) PO SCH (09:32)
[2018-12-24] MEDS: NICOTINE 21 MG/24 HOURS TOPICAL PATCH TD SCH (09:32)
[2018-12-24] MEDS: METOPROLOL TARTRATE 50 MG TABLET (FP) PO SCH ×2 (09:32→21:40)
[2018-12-24] MEDS: LISINOPRIL 20 MG TABLET (FP) PO SCH (09:32)
[2018-12-24] MEDS: SERTRALINE HCL 50 MG TABLET (FP) PO SCH (09:32)
[2018-12-24] MEDS: PRENATAL VITAMINS W/ FOLIC ACID TABLET (FP) PO SCH (09:33)
--- NOTE | 2018-12-24 14:35 | PN ---
[facility] Progress Note (SOAP) Subjective: Patient to be discharged tomorrow. Patient has achieved his goals for rehab; he has attended group meetings, planned his discharge with his counselor and adhered to his psychiatric medication regimen. Patient feels he is ready for discharge. Objective: A+Ox3, no neurological deficits noted, heart sounds regular, lungs clear, abd obese, non-tender, non-distended. +BS, skin clear, mucous membranes moist. 12/24/18 14:32 CBC, BMP 11/24/18 07:00 11/24/18 07:00 Vital Signs (72 hours) 12/21/18 12/22/18 12/22/18 22:51 00:30 03:30 Temperature Pulse Rate 95 H Respiratory 20 20 Rate Blood Pressure 136/94 12/22/18 12/22/18 12/22/18 06:43 10:37 21:07 Temperature 98.1 F 98.7 F Pulse Rate 91 H 109 H 96 H Respiratory 20 18 18 Rate Blood Pressure 155/99 154/97 157/99 12/23/18 12/23/18 12/23/18 00:30 03:30 07:08 Temperature 98.3 F Pulse Rate 81 Respiratory 20 20 18 Rate Blood Pressure 148/96 12/23/18 12/23/18 12/24/18 12:21 20:33 00:30 Temperature 98 F Pulse Rate 98 H 104 H Respiratory 18 18 18 Rate Blood Pressure 148/89 147/98 12/24/18 12/24/18 12/24/18 03:30 07:02 09:17 Temperature 98.0 F 98.4 F Pulse Rate 97 H 98 H Respiratory 18 19 17 Rate Blood Pressure 148/94 138/101 H Assessment: Medically stable for discharge Discharge Dx: ETOH Dependence Cocaine dependence Obesity HTN 12/24/18 14:33 Plan: Client will be discharged to a senior care. He will get aftercare at [facility] and primary care at [facility] in [place]. Prescriptions transmitted to his pharmacy.
[2018-12-24] MEDS: traZODone HCL 100 MG TABLET (FP) PO SCH (21:40)
[2018-12-24] MEDS: THIAMINE HCL 100 MG TABLET (FP) PO SCH (21:40)
--- NOTE | 2018-12-25 06:25 | PN ---
[facility] Progress Note Note: Patient is scheduled for discharge today. Scripts for 30 days supply of medications(Zoloft 50 mg/day, Trazadone 100 mg/hs) are electronically transmitted to [facility] at [address] [place] [id number]
[2018-12-25 06:54] VITALS: TEMP 98.1
[2018-12-25 09:22] VITALS: BP 160/89; PULSE 109
[2018-12-25] MEDS: PRENATAL VITAMINS W/ FOLIC ACID TABLET (FP) PO SCH (09:48)
[2018-12-25] MEDS: HYDROCHLOROTHIAZIDE 25 MG TABLET (FP) PO SCH (09:48)
[2018-12-25] MEDS: SERTRALINE HCL 50 MG TABLET (FP) PO SCH (09:48)
[2018-12-25] MEDS: LISINOPRIL 20 MG TABLET (FP) PO SCH (09:48)
[2018-12-25] MEDS: NICOTINE 21 MG/24 HOURS TOPICAL PATCH TD SCH (09:48)
[2018-12-25] MEDS: METOPROLOL TARTRATE 50 MG TABLET (FP) PO SCH (09:48)
[2018-12-25] MEDS: amLODIPine BESYLATE 5 MG TABLET (FP) PO SCH (09:48)
== END 2018-12-25 09:55 | disposition home or self-care (01) | DRG 895 ==
LOC: YASAS 20:25 → Y3N 23:13 → Y3W 11-26 13:08
PROVIDERS: ADMIT Neuromusculoskeletal Medicine & OMM; ATTEND Psychiatry & Neurology Psychiatry
PROC: HZ42ZZZ Group Counseling for Substance Abuse Treatment, Cognitive-Behavioral (ICD-10-PCS; principal; 2018-11-23)
PROC: HZ2ZZZZ Detoxification Services for Substance Abuse Treatment (ICD-10-PCS; 2018-11-23)
DX: F10.20 Alcohol dependence, uncomplicated (principal); F14.20 Cocaine dependence, uncomplicated; F17.210 Nicotine dependence, cigarettes, uncomplicated; F31.9 Bipolar disorder, unspecified; I10 Essential (primary) hypertension; R73.9 Hyperglycemia, unspecified; E66.9 Obesity, unspecified; Z68.37 Body mass index [BMI] 37.0-37.9, adult
CPT/HCPCS: 36415; 80053; 82947; 83036; 85027; 86593

== ENCOUNTER 2019-02-25 09:05 | Inpatient (IN) | payer OTHER ==
[2019-02-25 09:49] VITALS: BMI 36.3
--- NOTE | 2019-02-25 10:55 | HP ---
CIWA Score Nausea/Vomitin-No Nausea/No Vomiting Muscle Tremors: 4-Moderate,w/Arms Extend Anxiety: 4-Mod. Anxious/Guarded Agitation: 4-Moderately Restless Paroxysmal Sweats: 2 Orientation: 0-Oriented Tacttile Disturbances: 0-None Auditory Disturbances: 0-None Visual Disturbances: 0-None Headache: 0-None Present CIWA-Ar Total Score: 14 - Admission Criteria OASAS Guidelines: Admission for Medically Managed Detox: Requires at least one of the followin. CIWA greater than 12 2. Seizures within the past 24 hours 3. Delirium tremens within the past 24 hours 4. Hallucinations within the past 24 hours 5. Acute intervention needed for co occurring medical disorder 6. Acute intervention needed for co occurring psychiatric disorder 7. Severe withdrawal that cannot be handled at a lower level of care (continued vomiting, continued diarrhea, abnormal vital signs) requiring intravenous medication and/or fluids 8. Admission ROS S - HPI Allergies/Adverse Reactions: Allergies Allergy/AdvReac Type Severity Reaction Status Date / Time No Known Allergies Allergy Verified 02/25/19 09:37 History of Present Illness: 53 y.o. male pt requesting detox from etoh use , reports 3-4 pints and 3-4 x 6-pk beers /day x " a few years " multiple prior detox episodes at this facility , latest use 2 days ago . Denies blackoutsor seizures, starts drinking in the mornings . tobacco : 1 ppd cocaine : 150 $/day PMHX :HTN , pharmacy called , latest rx December 2018 confirmed Metoprolol and lisnopril PSYCh : depression , denies SI / HI . Exam Limitations: Clinical Condition - Ebola screening Have you traveled outside of the country in the last 21 days: No (N) Have you had contact with anyone from an Ebola affected area: No Do you have a fever: No - Review of Systems Constitutional: See HPI EENT: reports: No Symptoms Reported Respiratory: reports: No Symptoms reported Cardiac: reports: No Symptoms Reported GI: reports: No Symptoms Reported : reports: No Symptoms Reported Musculoskeletal: reports: No Symptoms Reported Integumentary: reports: No Symptoms Reported Neuro: reports: See HPI Endocrine: reports: No Symptoms Reported Psychiatric: reports: Orientated x3, Agitated, Anxious Patient History - Patient Medical History Hx Anemia: No Hx Asthma: No Hx Chronic Obstructive Pulmonary Disease (COPD): No Hx Cancer: No Hx Cardiac Disorders: No Hx Congestive Heart Failure: No Hx Hypertension: Yes Hx Hypercholesterolemia: No Hx Pacemaker: No HX Cerebrovascular Accident: No Hx Seizures: No Hx Dementia: No Hx Diabetes: No Hx Gastrointestinal Disorders: No Hx Liver Disease: No Hx Genitourinary Disorders: No Hx Sexually Transmitted Disorders: No Hx Renal Disease (ESRD): No Hx Thyroid Disease: No Hx Human Immunodeficiency Virus (HIV): No (NEGATIVE OCTOBER 2017) Hx Hepatitis C: No (DENIES) Hx Depression: Yes Hx Suicide Attempt: No Hx Bipolar Disorder: Yes Hx Schizophrenia: No - Patient Surgical History Past Surgical History: No Hx Neurologic Surgery: No Hx Cataract Extraction: No Hx Cardiac Surgery: No Hx Lung Surgery: No Hx Breast Surgery: No Hx Breast Biopsy: No Hx Abdominal Surgery: No Hx Appendectomy: No Hx Cholecystectomy: No Hx Genitourinary Surgery: No Hx Section: No Hx Orthopedic Surgery: No Anesthesia Reaction: No - PPD History Date: 12/13/18 Results: 0 MM - Smoking Cessation Smoking history: Current every day smoker Have you smoked in the past 12 months: Yes Aproximately how many cigarettes per day: 20 Cigars Per Day: 0 Hx Chewing Tobacco Use: No Initiated information on smoking cessation: No - Substances abused Alcohol Substance route: Oral Frequency: Daily Amount used: 3 pints, 4 six packs of 16 ounce/beer Age of first use: 14 Date of last use: 02/23/19 Crack Substance route: Smoking Frequency: Daily Amount used: $150 Age of first use: 16 Date of last use: 02/23/19 Admission Physical Exam [facility] - Vital Signs Vital Signs: Vital Signs - 24 hr 02/25/19 02/25/19 09:39 10:05 Temperature 99.1 F 99.1 F Pulse Rate 108 H 108 H Respiratory 18 18 Rate Blood Pressure 172/104 H 172/104 H - Physical General Appearance: Yes: Disheveled, Moderate Distress, Tremorous, Anxious HEENTM: Yes: EOMI, Hearing grossly Normal, Normocephalic, Normal Voice Respiratory: Yes: Chest Non-Tender, Lungs Clear, Normal Breath Sounds, No Respiratory Distress, No Accessory Muscle Use Neck: Yes: No masses,lesions,Nodules, Trachea in good position Cardiology: Yes: Regular Rhythm, Regular Rate, S1, S2 Abdominal: Yes: Non Tender, Soft Back: Yes: Normal Inspection Musculoskeletal: Yes: Gait Steady Extremities: Yes: Normal Range of Motion, Non-Tender, Tremors Neurological: Yes: Fully Oriented, Alert, Motor Strength 5/5 Integumentary: Yes: Warm - Diagnostic (1) Alcohol dependence with uncomplicated withdrawal Current Visit: Yes Status: Acute Breathalyzer - Breathalyzer Breathalyzer: 0 Urine Drug Screen - Test Device Lot number: [id number] Expiration date: 11/20/20 - Control Is test valid?: Yes - Results Drug screen NEGATIVE: No Urine drug screen results: KRISTINA-Cocaine, BZO-Benzodiazepines Inpatient Rehab Admission - Rehab Decision to Admit Inpatient rehab admission?: No
[2019-02-25] MEDS ORDERED: MAG HYDROX/AL HYDROX/SIMETH 30 ML UNIT-DOSE CUP PO PRN (10:57)
[2019-02-25] MEDS ORDERED: MENTHOL/PHENOL 1 EACH UD MM PRN (10:57)
[2019-02-25] MEDS ORDERED: MAGNESIUM HYDROX 2400MG/30ML ORAL SUSPENSION 30 ML CUP PO PRN (10:57)
[2019-02-25] MEDS ORDERED: BISMUTH SUBSALICYLATE 262 MG/15 ML BTL PO PRN (10:57)
[2019-02-25] MEDS ORDERED: ACETAMINOPHEN 325 MG TABLET (FP) PO PRN ×2 (10:57)
[2019-02-25] MEDS ORDERED: hydrOXYzine PAMOATE 25 MG CAPSULE (FP) PO PRN (10:57)
[2019-02-25] MEDS ORDERED: MAGNESIUM CITRATE 300 ML BOTTLE PO PRN (10:57)
[2019-02-25] MEDS ORDERED: NICOTINE POLACRILEX 2 MG GUM BUC PRN (10:57)
[2019-02-25] MEDS ORDERED: IBUPROFEN 400 MG TABLET (FP) PO PRN (10:57)
[2019-02-25] MEDS ORDERED: amLODIPine BESYLATE 5 MG TABLET (FP) PO SCH (11:00)
[2019-02-25] MEDS ORDERED: chlordiazePOXIDE HCL 10 MG CAPSULE PO PRN (11:03)
[2019-02-25] MEDS: METOPROLOL TARTRATE 50 MG TABLET (FP) PO SCH ×2 (12:10→22:19)
[2019-02-25] MEDS: chlordiazePOXIDE HCL 25 MG CAPSULE PO SCH ×2 (12:10→22:20)
[2019-02-25] MEDS: LISINOPRIL 20 MG TABLET (FP) PO SCH (12:10)
[2019-02-25] MEDS: THIAMINE HCL 100 MG TABLET (FP) PO SCH (22:20)
[2019-02-25] MEDS: MELATONIN 5 MG TABLETS PO PRN (22:22)
[2019-02-26] MEDS: chlordiazePOXIDE HCL 25 MG CAPSULE PO SCH ×3 (05:43→21:22)
--- NOTE | 2019-02-26 08:58 | CONSULT ---
[facility] Psychiatric Consult - Data Date of interview: 02/26/19 Admission source: Self-referred Identifying data: Mr Gill is a 53 years old Black male, father of 2 children, unemployed receiving SSD/SSI, homeless seeking detox treatment for alcohol and cocaine Substance Abuse History: Reports history of alcohol and crack cocaine use. Refer to addiction counselor's summary for further information Medical History: Significant for hypertension. Smokes cigarettes 1 ppd Psychiatric History: Patient is well known to this facility from multiple previous admissions. Reports that his first psychiatric contact was in 1988 when he was admitted to [facility] for 28 days for depression. He was diagnosed with MDD and started on psychotropic medications. Reports 2 subsequent hospitalizations both at [facility] with most recent being in 1981. Reports receiving outpatient psychiatric treatment at [facility] in [facility]. He is currently prescribed Zoloft 50 mg/day and Trazadone 100 mg/hs. This is confirmed by external medication history from [facility] where scripts for 30 days supply of these medications were filled on 12/31/18. Denies previous suicide attempts. At present, denies experiencing depressive symptoms, S/H ideations. However, reports sleeping poorly Physical/Sexual Abuse/Trauma History: Denies history of emotional, physical or sexual abuse as well as DV relationship Additional Comment: No criminal history Mental Status Exam - Mental Status Exam Alert and Oriented to: Time, Place, Person Cognitive Function: Fair Patient Appearance: Disheveled Mood: Hopeful, Euthymic Patient Behavior: Cooperative Speech Pattern: Clear Voice Loudness: Normal Thought Process: Intact, Goal Oriented Thought Disorder: Not Present Hallucinations: Denies Suicidal Ideation: Denies Homicidal Ideation: Denies Insight/Judgement: Poor Sleep: Poorly Appetite: Good Muscle strength/Tone: Normal Gait/Station: Normal Psychiatric Findings - Problem List ([place] 1, 2,3) (1) MDD (major depressive disorder), recurrent episode, mild Current Visit: No Status: Chronic (2) Substance-induced sleep disorder Current Visit: No Status: Acute (3) Alcohol dependence with uncomplicated withdrawal Current Visit: Yes Status: Acute (4) Cocaine dependence Current Visit: No Status: Acute Qualifiers: Substance use status: uncomplicated Qualified Code(s): F14.20 - Cocaine dependence, uncomplicated (5) Nicotine dependence Current Visit: No Status: Chronic Qualifiers: Nicotine product type: cigarettes Substance use status: uncomplicated Qualified Code(s): F17.210 - Nicotine dependence, cigarettes, uncomplicated (6) Essential hypertension Current Visit: No Status: Chronic (7) Obesity Current Visit: No Status: Chronic Qualifiers: Obesity type: unspecified obesity type Obesity classification: adult class 1 (BMI 30 - 34.9) Serious obesity comorbidity presence: unspecified whether serious comorbidity present Body mass index: BMI 34.0-34.9 Qualified Code(s) : E66.9 - Obesity, unspecified; Z68.34 - Body mass index (BMI) 34.0-34.9, adult - Initial Treatment Plan Initial Treatment Plan: 1) Resume Zoloft 50 mg po daily and Trazadone 100 mg po HS. 2) Continue inpatient detoxification
[2019-02-26] MEDS: PRENATAL VITAMINS W/ FOLIC ACID TABLET (FP) PO SCH (09:39)
[2019-02-26] MEDS: METOPROLOL TARTRATE 50 MG TABLET (FP) PO SCH ×2 (09:39→22:22)
[2019-02-26] MEDS: LISINOPRIL 20 MG TABLET (FP) PO SCH (09:39)
[2019-02-26] MEDS: SERTRALINE HCL 50 MG TABLET (FP) PO SCH (09:39)
[2019-02-26 12:04] LABS: HEMATOCRIT 46.9 % (35.4-49); HEMOGLOBIN 15.2 GM/dL (11.7-16.9); MCH 29.4 pg (25.7-33.7); MCHC 32.4 g/dl (32.0-35.9); MEAN CELL VOLUME 90.7 fl (80-96); MEAN PLT VOLUME 8.7 fl (7.5-11.1); PLATELET COUNT 151 K/MM3 (134-434); RBC 5.17 M/mm3 (4.00-5.60); RDW 14.5 % (11.9-15.9); WHITE BLOOD COUNT 5.5 K/mm3 (4.0-10.0)
--- NOTE | 2019-02-26 12:17 | PN ---
S CIWA - CIWA Score Nausea/Vomitin-No Nausea/No Vomiting Muscle Tremors: 4-Moderate,w/Arms Extend Anxiety: 4-Mod. Anxious/Guarded Agitation: 4-Moderately Restless Paroxysmal Sweats: 3 Orientation: 0-Oriented Tacttile Disturbances: 0-None Auditory Disturbances: 0-None Visual Disturbances: 0-None Headache: 0-None Present CIWA-Ar Total Score: 15 [facility] Progress Note (SOAP) Subjective: sweats shakes interrupted sleep body aches chills agitation Objective: 02/26/19 12:16 Vital Signs Temperature 97.7 F 02/26/19 09:32 Pulse Rate 82 02/26/19 09:32 Respiratory Rate 18 02/26/19 09:32 Blood Pressure 153/112 H 02/26/19 09:32 O2 Sat by Pulse Oximetry (%) Laboratory Tests 02/26/19 08:30 WBC 5.5 RBC 5.17 Hgb 15.2 Hct 46.9 MCV 90.7 MCH 29.4 MCHC 32.4 RDW 14.5 Plt Count 151 MPV 8.7 rest of labs pending aaox3 ambulating no acute distress pt received his HTN medication; will reassess BP Assessment: 02/26/19 12:17 withdrawal sx Plan: continue detox increase fluids pending labs
[2019-02-26 12:23] LABS: ALBUMIN 3.9 g/dl (3.4-5.0); BILIRUBIN,TOTAL 0.6 mg/dL (0.2-1); CALCIUM 10.2 mg/dL (8.5-10.1); CREATININE 1.2 mg/dL (0.55-1.3); POTASSIUM 3.9 mmol/L (3.5-5.1); TOT PROT 7.3 g/dl (6.4-8.2)
[2019-02-26] MEDS: THIAMINE HCL 100 MG TABLET (FP) PO SCH (22:22)
[2019-02-26] MEDS: traZODone HCL 100 MG TABLET (FP) PO SCH (22:22)
[2019-02-27] MEDS: chlordiazePOXIDE 5 MG CAPSULE PO SCH ×3 (05:16→21:56)
[2019-02-27] MEDS: LISINOPRIL 20 MG TABLET (FP) PO SCH (10:33)
[2019-02-27] MEDS: PRENATAL VITAMINS W/ FOLIC ACID TABLET (FP) PO SCH (10:33)
[2019-02-27] MEDS: METOPROLOL TARTRATE 50 MG TABLET (FP) PO SCH ×2 (10:33→22:17)
[2019-02-27] MEDS: SERTRALINE HCL 50 MG TABLET (FP) PO SCH (10:33)
--- NOTE | 2019-02-27 11:47 | PN ---
S CIWA - CIWA Score Nausea/Vomitin-No Nausea/No Vomiting Muscle Tremors: 2 Anxiety: 3 Agitation: 0-Normal Activity Paroxysmal Sweats: 3 Orientation: 0-Oriented Tacttile Disturbances: 0-None Auditory Disturbances: 0-None Visual Disturbances: 0-None Headache: 2-Mild CIWA-Ar Total Score: 10 S Progress Note (SOAP) Subjective: c/o anxiety, headache, sweats, and interrupted sleep. Objective: 02/27/19 11:45 Vital Signs 02/27/19 02/27/19 06:00 09:14 Temperature 97.7 F 97.7 F Pulse Rate 78 88 Respiratory 18 18 Rate Blood Pressure 118/86 116/70 Lab Results WBC 5.5 K/mm3 (4.0-10.0) 02/26/19 08:30 RBC 5.17 M/mm3 (4.00-5.60) 02/26/19 08:30 Hgb 15.2 GM/dL (11.7-16.9) 02/26/19 08:30 Hct 46.9 % (35.4-49) 02/26/19 08:30 MCV 90.7 fl (80-96) 02/26/19 08:30 MCHC 32.4 g/dl (32.0-35.9) 02/26/19 08:30 RDW 14.5 % (11.9-15.9) 02/26/19 08:30 Plt Count 151 K/MM3 (134-434) 02/26/19 08:30 Sodium 138 mmol/L (136-145) 02/26/19 08:30 Potassium 3.9 mmol/L (3.5-5.1) 02/26/19 08:30 Chloride 102 mmol/L (98-107) 02/26/19 08:30 Carbon Dioxide 28 mmol/L (21-32) 02/26/19 08:30 Anion Gap 8 MMOL/L (8-16) 02/26/19 08:30 BUN 15.0 mg/dL (7-18) 02/26/19 08:30 Creatinine 1.2 mg/dL (0.55-1.3) 02/26/19 08:30 Random Glucose 134 mg/dL (74-106) H 02/26/19 08:30 Calcium 10.2 mg/dL (8.5-10.1) H 02/26/19 08:30 Labs noted. Assessment: 02/27/19 11:46 AOX3, in no acute respiratory distress. Full ROM, ambulating in the unit. Withdrawal symptoms. Plan: continue detox.
[2019-02-27] MEDS: traZODone HCL 100 MG TABLET (FP) PO SCH (22:18)
[2019-02-27] MEDS: THIAMINE HCL 100 MG TABLET (FP) PO SCH (22:18)
[2019-02-28] MEDS ORDERED: chlordiazePOXIDE HCL 10 MG CAPSULE PO PRN
[2019-02-28] MEDS: chlordiazePOXIDE HCL 10 MG CAPSULE PO SCH ×3 (05:10→22:15)
[2019-02-28] MEDS: PRENATAL VITAMINS W/ FOLIC ACID TABLET (FP) PO SCH (10:25)
[2019-02-28] MEDS: METOPROLOL TARTRATE 50 MG TABLET (FP) PO SCH ×2 (10:26→22:14)
[2019-02-28] MEDS: LISINOPRIL 20 MG TABLET (FP) PO SCH (10:26)
[2019-02-28] MEDS: SERTRALINE HCL 50 MG TABLET (FP) PO SCH (10:26)
--- NOTE | 2019-02-28 16:34 | PN ---
S CIWA - CIWA Score Nausea/Vomitin-No Nausea/No Vomiting Muscle Tremors: None Anxiety: 3 Agitation: 2 Paroxysmal Sweats: 2 Orientation: 0-Oriented Tacttile Disturbances: 0-None Auditory Disturbances: 0-None Visual Disturbances: 0-None Headache: 0-None Present CIWA-Ar Total Score: 7 [facility] Progress Note (SOAP) Subjective: Feels ok Objective: 02/28/19 16:30 Last Vital Signs Temp Pulse Resp BP Pulse Ox 98.4 F 80 18 145/98 02/28/19 13:12 02/28/19 13:12 02/28/19 13:12 02/28/19 13:12 Elevated b/p (has htn, on med) Laboratory Tests 02/26/19 02/26/19 02/26/19 08:30 08:30 08:30 WBC 5.5 RBC 5.17 Hgb 15.2 Hct 46.9 MCV 90.7 MCH 29.4 MCHC 32.4 RDW 14.5 Plt Count 151 MPV 8.7 Sodium 138 Potassium 3.9 Chloride 102 Carbon Dioxide 28 Anion Gap 8 BUN 15.0 Creatinine 1.2 Est GFR (CKD-EPI)AfAm 78.43 Est GFR (CKD-EPI)NonAf 67.67 Random Glucose 134 H Calcium 10.2 H Total Bilirubin 0.6 AST 19 ALT 43 Alkaline Phosphatase 90 Total Protein 7.3 Albumin 3.9 RPR Titer Nonreactive Labs reviewed: glucose 134, Ca 10.2 Assessment: 02/28/19 16:32 Withdrawal sxs Noted with hyperglycemia and mild hypercalcemia Plan: Continue detox Encouraged PO water intake Hold discharge until repeated lab result available Hyperglycemia: repeat fasting glucose, send HbA1c Hypercalcemia, mild: repeat serum calcium
[2019-02-28] MEDS: THIAMINE HCL 100 MG TABLET (FP) PO SCH (22:14)
[2019-02-28] MEDS: MELATONIN 5 MG TABLETS PO PRN (22:15)
[2019-02-28] MEDS: traZODone HCL 100 MG TABLET (FP) PO SCH (22:15)
[2019-03-01] MEDS ORDERED: chlordiazePOXIDE HCL 10 MG CAPSULE PO ONE (05:00)
--- NOTE | 2019-03-01 09:32 | DS ---
[facility] Detox Discharge Summary Admission Date: 02/25/19 Discharge Date: 03/01/19 - History Present History: Alcohol Dependence, Cocaine Dependence - Physical Exam Results Vital Signs: Vital Signs Temperature 97.5 F L 03/01/19 07:06 Pulse Rate 83 03/01/19 07:06 Respiratory Rate 18 03/01/19 07:06 Blood Pressure 124/81 03/01/19 07:06 O2 Sat by Pulse Oximetry (%) Pertinent Admission Physical Exam Findings: pt arrived in withdrawals Laboratory Tests 02/26/19 02/26/19 02/26/19 08:30 08:30 08:30 WBC 5.5 RBC 5.17 Hgb 15.2 Hct 46.9 MCV 90.7 MCH 29.4 MCHC 32.4 RDW 14.5 Plt Count 151 MPV 8.7 Sodium 138 Potassium 3.9 Chloride 102 Carbon Dioxide 28 Anion Gap 8 BUN 15.0 Creatinine 1.2 Est GFR (CKD-EPI)AfAm 78.43 Est GFR (CKD-EPI)NonAf 67.67 Random Glucose 134 H Calcium 10.2 H Total Bilirubin 0.6 AST 19 ALT 43 Alkaline Phosphatase 90 Total Protein 7.3 Albumin 3.9 RPR Titer Nonreactive today pt is aaox3 ambulating no acute distress - Treatment Hospital Course: Detox Protocol Followed, Detoxed Safely, Responded well, Discharged Condition Good, Rehab Referral Accepted Patient has Accepted a Rehab Referral to: referred to [facility] - Medication Discharge Medications: Ambulatory Orders Amlodipine Besylate [Norvasc -] 5 mg PO DAILY #14 tablet 12/24/18 Hydrochlorothiazide 25 mg PO DAILY #14 tablet 12/24/18 Lisinopril [Prinivil] 20 mg PO DAILY #14 tab 12/24/18 Metoprolol Tartrate [Lopressor -] 50 mg PO BID #30 tablet 12/24/18 Sertraline HCl [Zoloft -] 50 mg PO DAILY #30 tablet 12/25/18 traZODone HCL [Desyrel -] 100 mg PO HS #30 tablet 12/25/18 - Diagnosis (1) Alcohol dependence with uncomplicated withdrawal Current Visit: Yes Status: Chronic (2) Cocaine dependence Current Visit: Yes Status: Chronic Qualifiers: Substance use status: uncomplicated Qualified Code(s): F14.20 - Cocaine dependence, uncomplicated (3) Hyperglycemia Current Visit: Yes Status: Acute (4) Substance-induced sleep disorder Current Visit: No Status: Acute (5) Bipolar disorder Current Visit: No Status: Chronic Qualifiers: Active/Remission status: remission status unspecified Qualified Code(s): F31.9 - Bipolar disorder, unspecified (6) Essential hypertension Current Visit: No Status: Chronic (7) Insomnia Current Visit: No Status: Chronic Qualifiers: Insomnia type: alcohol-induced Qualified Code(s): F10.982 - Alcohol use, unspecified with alcohol-induced sleep disorder (8) MDD (major depressive disorder) Current Visit: No Status: Chronic Qualifiers: Major depression recurrence: recurrent Active/Remission status: remission status unspecified Qualified Code(s): F33.9 - Major depressive disorder, recurrent, unspecified (9) MDD (major depressive disorder), recurrent episode, mild Current Visit: No Status: Chronic (10) Nicotine dependence Current Visit: Yes Status: Chronic Qualifiers: Nicotine product type: cigarettes Substance use status: uncomplicated Qualified Code(s): F17.210 - Nicotine dependence, cigarettes, uncomplicated (11) Obesity Current Visit: Yes Status: Chronic Qualifiers: Obesity type: unspecified obesity type Obesity classification: adult class 1 (BMI 30 - 34.9) Serious obesity comorbidity presence: unspecified whether serious comorbidity present Body mass index: BMI 34.0-34.9 Qualified Code(s) : E66.9 - Obesity, unspecified; Z68.34 - Body mass index (BMI) 34.0-34.9, adult (12) Substance induced mood disorder Current Visit: No Status: Chronic - AMA Did Patient Leave Against Medical Advice: No
[2019-03-01] MEDS: PRENATAL VITAMINS W/ FOLIC ACID TABLET (FP) PO SCH (09:35)
[2019-03-01] MEDS: LISINOPRIL 20 MG TABLET (FP) PO SCH (09:35)
[2019-03-01] MEDS: SERTRALINE HCL 50 MG TABLET (FP) PO SCH (09:35)
[2019-03-01] MEDS: METOPROLOL TARTRATE 50 MG TABLET (FP) PO SCH (09:35)
[2019-03-01 12:45] LABS: CALCIUM 10.9 mg/dL (8.5-10.1)
[2019-03-01 13:26] VITALS: BP 119/87; PULSE 80; TEMP 98.2
== END 2019-03-01 14:08 | disposition home or self-care (01) | DRG 897 ==
LOC: YASAS 09:05 → Y6N 11:17
PROVIDERS: ADMIT Surgery; ATTEND Surgery
PROC: HZ2ZZZZ Detoxification Services for Substance Abuse Treatment (ICD-10-PCS; principal; 2019-02-25)
DX: F10.230 Alcohol dependence with withdrawal, uncomplicated (principal); F14.20 Cocaine dependence, uncomplicated; F19.282 Other psychoactive substance dependence with psychoactive substance-induced sleep disorder; F33.1 Major depressive disorder, recurrent, moderate; F17.210 Nicotine dependence, cigarettes, uncomplicated; F19.24 Other psychoactive substance dependence with psychoactive substance-induced mood disorder; I10 Essential (primary) hypertension; R73.9 Hyperglycemia, unspecified; G47.00 Insomnia, unspecified; E66.9 Obesity, unspecified; Z68.36 Body mass index [BMI] 36.0-36.9, adult
CPT/HCPCS: 36415; 80053; 82310; 82947; 83036; 85027; 86593

== ENCOUNTER 2019-05-06 11:36 | Inpatient (IN) | payer OTHER ==
[2019-05-06 11:56] VITALS: BMI 37.5
--- NOTE | 2019-05-06 13:04 | HP ---
CIWA Score Nausea/Vomitin-No Nausea/No Vomiting Muscle Tremors: 4-Moderate,w/Arms Extend Anxiety: 0-No Anxiety, at Ease Agitation: 0-Normal Activity Paroxysmal Sweats: 2 Orientation: 0-Oriented Tacttile Disturbances: 0-None Auditory Disturbances: 0-None Visual Disturbances: 0-None Headache: 0-None Present CIWA-Ar Total Score: 6 - Admission Criteria OASAS Guidelines: Admission for Medically Managed Detox: Requires at least one of the followin. CIWA greater than 12 2. Seizures within the past 24 hours 3. Delirium tremens within the past 24 hours 4. Hallucinations within the past 24 hours 5. Acute intervention needed for co occurring medical disorder 6. Acute intervention needed for co occurring psychiatric disorder 7. Severe withdrawal that cannot be handled at a lower level of care (continued vomiting, continued diarrhea, abnormal vital signs) requiring intravenous medication and/or fluids 8. Patient presents the following: None of the above Admission Criteria Met: Admission criteria not met Admitting History and Physical - Smoking History Smoking history: Current every day smoker Have you smoked in the past 12 months: Yes Aproximately how many cigarettes per day: 20 - Alcohol/Substance Use Hx Alcohol Use: Yes Admission ROS [facility] Allergies/Adverse Reactions: Allergies Allergy/AdvReac Type Severity Reaction Status Date / Time No Known Allergies Allergy Verified 05/06/19 11:49 History of Present Illness: 53 y.o. male pt requesting detox from etoh use , reports 2-4 pints /day multiple prior detox episodes at this facility , latest use yesterday . Denies blackouts or seizure tobacco : 1 ppd cocaine : 150 $/day PMHX :HTN PSYCh : depression , denies SI / HI . Exam Limitations: No Limitations - Ebola screening Have you traveled outside of the country in the last 21 days: No Have you had contact with anyone from an Ebola affected area: No - Review of Systems Constitutional: No Symptoms Reported EENT: reports: No Symptoms Reported Respiratory: reports: No Symptoms reported Cardiac: reports: No Symptoms Reported GI: reports: No Symptoms Reported : reports: No Symptoms Reported Musculoskeletal: reports: No Symptoms Reported Integumentary: reports: No Symptoms Reported Neuro: reports: No Symptoms reported Endocrine: reports: No Symptoms Reported Psychiatric: reports: Orientated x3 Patient History - Patient Medical History Hx Anemia: No Hx Asthma: No Hx Chronic Obstructive Pulmonary Disease (COPD): No Hx Cancer: No Hx Cardiac Disorders: No Hx Congestive Heart Failure: No Hx Hypertension: Yes Hx Hypercholesterolemia: No Hx Pacemaker: No HX Cerebrovascular Accident: No Hx Seizures: No Hx Dementia: No Hx Diabetes: No Hx Gastrointestinal Disorders: No Hx Liver Disease: No Hx Genitourinary Disorders: No Hx Sexually Transmitted Disorders: No Hx Renal Disease (ESRD): No Hx Thyroid Disease: No Hx Human Immunodeficiency Virus (HIV): No (NEGATIVE OCTOBER 2017) Hx Hepatitis C: No (DENIES) Hx Depression: Yes Hx Suicide Attempt: No Hx Bipolar Disorder: Yes Hx Schizophrenia: No - Patient Surgical History Past Surgical History: No Hx Neurologic Surgery: No Hx Cataract Extraction: No Hx Cardiac Surgery: No Hx Lung Surgery: No Hx Breast Surgery: No Hx Breast Biopsy: No Hx Abdominal Surgery: No Hx Appendectomy: No Hx Cholecystectomy: No Hx Genitourinary Surgery: No Hx Section: No Hx Orthopedic Surgery: No Anesthesia Reaction: No - PPD History Date: 12/13/18 Results: 0 MM - Smoking Cessation Smoking history: Current every day smoker Have you smoked in the past 12 months: Yes Aproximately how many cigarettes per day: 20 Cigars Per Day: 0 Hx Chewing Tobacco Use: No Initiated information on smoking cessation: Yes 'Breaking Loose' booklet given: 05/06/19 - Substances abused Alcohol Substance route: Oral Frequency: Daily Amount used: 2-4 pints of vodka, 4 six packs of 16 ounce/beer Age of first use: 14 Date of last use: 05/05/19 Crack Substance route: Smoking Frequency: Daily Amount used: $150 Age of first use: 16 Date of last use: 05/05/19 Admission Physical Exam BHS - Vital Signs Vital Signs: Vital Signs - 24 hr 05/06/19 11:52 Temperature 98.8 F Pulse Rate 100 H Respiratory 16 Rate Blood Pressure 176/103 H - Physical General Appearance: Yes: Mild Distress HEENTM: Yes: EOMI, Hearing grossly Normal, Normocephalic, Normal Voice Respiratory: Yes: Chest Non-Tender, Lungs Clear, Normal Breath Sounds, No Respiratory Distress, No Accessory Muscle Use Neck: Yes: No masses,lesions,Nodules, Trachea in good position Cardiology: Yes: Regular Rhythm, Regular Rate, S1, S2, Tachycardia Abdominal: Yes: Soft, Protuberent Musculoskeletal: Yes: Gait Steady Extremities: Yes: Normal Range of Motion, Non-Tender Neurological: Yes: Fully Oriented, Alert, Motor Strength 5/5 Integumentary: Yes: Warm - Diagnostic (1) Alcohol dependence with uncomplicated withdrawal Current Visit: No Status: Chronic (2) Cocaine dependence Current Visit: Yes Status: Chronic Qualifiers: Substance use status: uncomplicated Qualified Code(s): F14.20 - Cocaine dependence, uncomplicated (3) Nicotine dependence Current Visit: Yes Status: Chronic Qualifiers: Nicotine product type: cigarettes Substance use status: uncomplicated Qualified Code(s): F17.210 - Nicotine dependence, cigarettes, uncomplicated Breathalyzer - Breathalyzer Breathalyzer: 0 Urine Drug Screen - Test Device Lot number: [id number] Expiration date: 11/20/20 - Control Is test valid?: Yes - Results Drug screen NEGATIVE: No Urine drug screen results: KRISTINA-Cocaine, BZO-Benzodiazepines Inpatient Rehab Admission - Rehab Decision to Admit Inpatient rehab admission?: No
[2019-05-06] MEDS ORDERED: MAGNESIUM CITRATE 300 ML BOTTLE PO PRN (13:16)
[2019-05-06] MEDS ORDERED: METHOCARBAMOL 500 MG TABLET PO PRN (13:16)
[2019-05-06] MEDS ORDERED: MAGNESIUM HYDROX 2400MG/30ML ORAL SUSPENSION 30 ML CUP PO PRN (13:16)
[2019-05-06] MEDS ORDERED: MAG HYDROX/AL HYDROX/SIMETH 30 ML UNIT-DOSE CUP PO PRN (13:16)
[2019-05-06] MEDS ORDERED: ACETAMINOPHEN 325 MG TABLET (FP) PO PRN (13:16)
[2019-05-06] MEDS ORDERED: MENTHOL/PHENOL 1 EACH UD MM PRN (13:16)
[2019-05-06] MEDS ORDERED: IBUPROFEN 400 MG TABLET (FP) PO PRN (13:16)
[2019-05-06] MEDS ORDERED: BISMUTH SUBSALICYLATE 262 MG/15 ML BTL PO PRN (13:16)
[2019-05-06] MEDS ORDERED: hydrOXYzine PAMOATE 25 MG CAPSULE (FP) PO PRN (13:16)
[2019-05-06] MEDS ORDERED: chlordiazePOXIDE HCL 25 MG CAPSULE PO PRN (13:20)
[2019-05-06] MEDS: METOPROLOL TARTRATE 50 MG TABLET (FP) PO SCH ×2 (15:13→22:57)
[2019-05-06] MEDS: LISINOPRIL 20 MG TABLET (FP) PO SCH (15:14)
[2019-05-06 16:33] LABS: HEMATOCRIT 48.2 % (35.4-49); HEMOGLOBIN 15.5 GM/dL (11.7-16.9); MCH 28.7 pg (25.7-33.7); MCHC 32.2 g/dl (32.0-35.9); MEAN CELL VOLUME 89.1 fl (80-96); MEAN PLT VOLUME 8.8 fl (7.5-11.1); PLATELET COUNT 197 K/MM3 (134-434); RBC 5.41 M/mm3 (4.00-5.60); RDW 14.6 % (11.9-15.9); WHITE BLOOD COUNT 7.1 K/mm3 (4.0-10.0)
[2019-05-06 16:44] LABS: ALBUMIN 4.7 g/dl (3.4-5.0); BILIRUBIN,TOTAL 0.3 mg/dL (0.2-1); BLOOD UREA NITROGEN 19.8 mg/dL (7-18); CALCIUM 11.1 mg/dL (8.5-10.1); CREATININE 1.2 mg/dL (0.55-1.3); POTASSIUM 4.1 mmol/L (3.5-5.1); TOT PROT 8.4 g/dl (6.4-8.2)
[2019-05-06] MEDS: chlordiazePOXIDE HCL 25 MG CAPSULE PO SCH ×2 (17:44→22:58)
[2019-05-06] MEDS: THIAMINE HCL 100 MG TABLET (FP) PO SCH (22:57)
[2019-05-06] MEDS: MELATONIN 5 MG TABLETS PO PRN (22:59)
[2019-05-07] MEDS: chlordiazePOXIDE HCL 25 MG CAPSULE PO SCH ×4 (06:19→22:10)
--- NOTE | 2019-05-07 08:27 | CONSULT ---
[facility] Psychiatric Consult - Data Date of interview: 05/07/19 Admission source: Self-referred Identifying data: Mr Gill is a 53 years old Black male, father of 2 children, unemployed receiving SSD/SSI, homeless seeking detox treatment for alcohol and cocaine Substance Abuse History: Reports history of alcohol and crack cocaine use. Refer to addiction counselor's summary for further information Medical History: Significant for hypertension and mild obesity. Smokes cigarettes 1 ppd Psychiatric History: Patient has had multiple admissions to this facility and was recently seen by automotive service writer on 02/26/19. Historical narrative remains consistent. He reports that his first psychiatric contact was in 1988 when he was admitted to [facility] for 28 days for depression. He was diagnosed with MDD and started on psychotropic medications. Reports 2 subsequent hospitalizations both at [facility] with most recent being in 1981. Reports receiving outpatient psychiatric treatment at [facility] in [facility]. He is currently prescribed Zoloft 50 mg/day and Trazadone 100 mg /hs. When seen by automotive service writer on 02/26/19, he was continued on his medications as prescribed. Told automotive service writer that he did not make an appointment to see his psychiatrist at [facility] and has been off medications after running out of the 30 days supply provided to him after his discharge on 03/01/19 from this facility. Denies previous suicide attempts. At present, denies experiencing depressive symptoms, S/H ideations. However, reports sleeping poorly. Requests to resume medications as prescribed Physical/Sexual Abuse/Trauma History: Denies history of emotional, physical or sexual abuse as well as DV relationship Additional Comment: No criminal history Mental Status Exam - Mental Status Exam Alert and Oriented to: Time, Place, Person Cognitive Function: Fair Patient Appearance: Well Groomed Mood: Hopeful, Euthymic Patient Behavior: Cooperative Speech Pattern: Clear Voice Loudness: Normal Thought Process: Intact, Goal Oriented Thought Disorder: Not Present Hallucinations: Denies Suicidal Ideation: Denies Homicidal Ideation: Denies Sleep: Poorly Appetite: Good Muscle strength/Tone: Normal Gait/Station: Normal Psychiatric Findings - Problem List ([place] 1, 2,3) (1) MDD (major depressive disorder), recurrent episode, mild Current Visit: No Status: Chronic (2) Substance-induced sleep disorder Current Visit: No Status: Acute (3) Alcohol dependence with uncomplicated withdrawal Current Visit: No Status: Acute (4) Cocaine dependence Current Visit: Yes Status: Acute Qualifiers: Substance use status: uncomplicated Qualified Code(s): F14.20 - Cocaine dependence, uncomplicated (5) Nicotine dependence Current Visit: Yes Status: Chronic Qualifiers: Nicotine product type: cigarettes Substance use status: uncomplicated Qualified Code(s): F17.210 - Nicotine dependence, cigarettes, uncomplicated (6) Essential hypertension Current Visit: No Status: Chronic (7) Obesity Current Visit: No Status: Chronic Qualifiers: Obesity type: unspecified obesity type Obesity classification: adult class 1 (BMI 30 - 34.9) Serious obesity comorbidity presence: unspecified whether serious comorbidity present Body mass index: BMI 34.0-34.9 Qualified Code(s) : E66.9 - Obesity, unspecified; Z68.34 - Body mass index (BMI) 34.0-34.9, adult - Initial Treatment Plan Initial Treatment Plan: 1) Resume Zoloft 50 mg po daily and Trazadone 100 mg po HS. 2) Continue inpatient detoxification
[2019-05-07] MEDS: PRENATAL VITAMINS W/ FOLIC ACID TABLET (FP) PO SCH (10:20)
[2019-05-07] MEDS: METOPROLOL TARTRATE 50 MG TABLET (FP) PO SCH ×2 (10:20→22:10)
[2019-05-07] MEDS: SERTRALINE HCL 50 MG TABLET (FP) PO SCH (10:20)
[2019-05-07] MEDS: LISINOPRIL 20 MG TABLET (FP) PO SCH (10:21)
--- NOTE | 2019-05-07 11:42 | PN ---
BHS CIWA - CIWA Score Nausea/Vomitin-No Nausea/No Vomiting Muscle Tremors: 2 Anxiety: 0-No Anxiety, at Ease Agitation: 2 Paroxysmal Sweats: 2 Orientation: 0-Oriented Tacttile Disturbances: 0-None Auditory Disturbances: 0-None Visual Disturbances: 0-None Headache: 0-None Present CIWA-Ar Total Score: 6 BHS Progress Note (SOAP) Subjective: sweats shakes interrupted sleep body aches Objective: 05/07/19 11:42 Vital Signs Temperature 98.2 F 05/07/19 10:00 Pulse Rate 93 H 05/07/19 10:00 Respiratory Rate 18 05/07/19 10:00 Blood Pressure 122/81 05/07/19 10:00 O2 Sat by Pulse Oximetry (%) Laboratory Tests 05/06/19 05/06/19 05/06/19 13:00 14:00 14:00 WBC 7.1 RBC 5.41 Hgb 15.5 Hct 48.2 MCV 89.1 MCH 28.7 MCHC 32.2 RDW 14.6 Plt Count 197 D MPV 8.8 Sodium 138 Potassium 4.1 Chloride 105 Carbon Dioxide 25 Anion Gap 8 BUN 19.8 H Creatinine 1.2 Est GFR (CKD-EPI)AfAm 77.88 Est GFR (CKD-EPI)NonAf 67.19 Random Glucose 110 H Calcium 11.1 H Total Bilirubin 0.3 AST 24 ALT 58 Alkaline Phosphatase 100 Total Protein 8.4 H Albumin 4.7 RPR Titer Nonreactive labs noted pt denies being a diabetic encouraged pt to increase in water intake. refrain from sugary/processed foods, pt in agreement aaox3 ambulating no acute distress Assessment: 05/07/19 11:44 withdrawals Plan: continue detox increase fluids
[2019-05-07] MEDS: traZODone HCL 100 MG TABLET (FP) PO SCH (22:10)
[2019-05-07] MEDS: MELATONIN 5 MG TABLETS PO PRN (22:10)
[2019-05-07] MEDS: THIAMINE HCL 100 MG TABLET (FP) PO SCH (22:10)
[2019-05-08] MEDS: chlordiazePOXIDE HCL 25 MG CAPSULE PO SCH ×4 (05:28→22:05)
[2019-05-08] MEDS: SERTRALINE HCL 50 MG TABLET (FP) PO SCH (09:58)
[2019-05-08] MEDS: LISINOPRIL 20 MG TABLET (FP) PO SCH (09:58)
[2019-05-08] MEDS: PRENATAL VITAMINS W/ FOLIC ACID TABLET (FP) PO SCH (09:58)
[2019-05-08] MEDS: METOPROLOL TARTRATE 50 MG TABLET (FP) PO SCH ×2 (09:58→22:05)
[2019-05-08] MEDS: ACETAMINOPHEN 325 MG TABLET (FP) PO PRN ×2 (10:00→22:08)
--- NOTE | 2019-05-08 13:48 | PN ---
S CIWA - CIWA Score Nausea/Vomitin-No Nausea/No Vomiting Muscle Tremors: None Anxiety: 1-Mildly Anxious Agitation: 1-Slight > Activity Paroxysmal Sweats: No Perspiration Orientation: 0-Oriented Tacttile Disturbances: 1-Very Mild Itch/Numbness Auditory Disturbances: 1-Very Mild Visual Disturbances: 0-None Headache: 0-None Present CIWA-Ar Total Score: 4 BHS Progress Note (SOAP) Subjective: Fatigue, Anxious. Patient reports That Current withdrawal Detox Symptoms in General Are Subsiding in Severity. Objective: PATIENT A & O X 3, OBSERVED AMBULATING ON DETOX UNIT UNASSISTED. IN NO ACUTE DISTRESS. 05/08/19 13:46 Vital Signs Temperature 98.2 F 05/08/19 10:00 Pulse Rate 104 H 05/08/19 10:00 Respiratory Rate 18 05/08/19 10:00 Blood Pressure 130/94 05/08/19 10:00 O2 Sat by Pulse Oximetry (%) Laboratory Tests 05/06/19 05/06/19 05/06/19 13:00 14:00 14:00 WBC 7.1 RBC 5.41 Hgb 15.5 Hct 48.2 MCV 89.1 MCH 28.7 MCHC 32.2 RDW 14.6 Plt Count 197 D MPV 8.8 Sodium 138 Potassium 4.1 Chloride 105 Carbon Dioxide 25 Anion Gap 8 BUN 19.8 H Creatinine 1.2 Est GFR (CKD-EPI)AfAm 77.88 Est GFR (CKD-EPI)NonAf 67.19 Random Glucose 110 H Calcium 11.1 H Total Bilirubin 0.3 AST 24 ALT 58 Alkaline Phosphatase 100 Total Protein 8.4 H Albumin 4.7 RPR Titer Nonreactive LABS NOTED. Assessment: 05/08/19 13:47 WITHDRAWAL SYMPTOMS. Plan: CONTINUE DETOX. INCREASE DAILY PO WATER INTAKE.
[2019-05-08] MEDS: traZODone HCL 100 MG TABLET (FP) PO SCH (22:05)
[2019-05-08] MEDS: THIAMINE HCL 100 MG TABLET (FP) PO SCH (22:05)
[2019-05-09] MEDS ORDERED: chlordiazePOXIDE HCL 10 MG CAPSULE PO PRN
[2019-05-09] MEDS: chlordiazePOXIDE HCL 10 MG CAPSULE PO SCH ×4 (05:31→22:05)
[2019-05-09] MEDS: LISINOPRIL 20 MG TABLET (FP) PO SCH (10:30)
[2019-05-09] MEDS: PRENATAL VITAMINS W/ FOLIC ACID TABLET (FP) PO SCH (10:30)
[2019-05-09] MEDS: METOPROLOL TARTRATE 50 MG TABLET (FP) PO SCH ×2 (10:30→22:05)
[2019-05-09] MEDS: SERTRALINE HCL 50 MG TABLET (FP) PO SCH (10:30)
--- NOTE | 2019-05-09 13:58 | PN ---
S CIWA - CIWA Score Nausea/Vomitin-No Nausea/No Vomiting Muscle Tremors: None Anxiety: 2 Agitation: 2 Paroxysmal Sweats: 2 Orientation: 0-Oriented Tacttile Disturbances: 0-None Auditory Disturbances: 0-None Visual Disturbances: 0-None Headache: 0-None Present CIWA-Ar Total Score: 6 BHS Progress Note (SOAP) Subjective: Stomachache, slight headache Objective: 05/09/19 13:53 Last Vital Signs Temp Pulse Resp BP Pulse Ox 97.9 F 88 20 143/90 05/09/19 10:54 05/09/19 10:54 05/09/19 10:54 05/09/19 10:54 Elevated b/p: has htn, on medication Laboratory Tests 05/06/19 05/06/19 05/06/19 13:00 14:00 14:00 WBC 7.1 RBC 5.41 Hgb 15.5 Hct 48.2 MCV 89.1 MCH 28.7 MCHC 32.2 RDW 14.6 Plt Count 197 D MPV 8.8 Sodium 138 Potassium 4.1 Chloride 105 Carbon Dioxide 25 Anion Gap 8 BUN 19.8 H Creatinine 1.2 Est GFR (CKD-EPI)AfAm 77.88 Est GFR (CKD-EPI)NonAf 67.19 Random Glucose 110 H Calcium 11.1 H Total Bilirubin 0.3 AST 24 ALT 58 Alkaline Phosphatase 100 Total Protein 8.4 H Albumin 4.7 RPR Titer Nonreactive Labs reviewed: bun 19.8 (high), Calcium 11.1 (high) Assessment: 05/09/19 13:55 Withdrawal sxs Noted with azotemia and hypercalcemia Plan: Continue detox Azotemia: encouraged PO water hydration Hypercalcemia: asymptomatic, repeat BMP
[2019-05-09] MEDS: THIAMINE HCL 100 MG TABLET (FP) PO SCH (22:05)
[2019-05-09] MEDS: traZODone HCL 100 MG TABLET (FP) PO SCH (22:05)
[2019-05-10] MEDS: chlordiazePOXIDE HCL 10 MG CAPSULE PO SCH ×2 (05:35→17:33)
--- NOTE | 2019-05-10 10:02 | PN ---
S CIWA - CIWA Score Nausea/Vomitin-No Nausea/No Vomiting Muscle Tremors: 2 Anxiety: 0-No Anxiety, at Ease Agitation: 0-Normal Activity Paroxysmal Sweats: No Perspiration Orientation: 0-Oriented Tacttile Disturbances: 0-None Auditory Disturbances: 0-None Visual Disturbances: 0-None Headache: 0-None Present CIWA-Ar Total Score: 2 BHS Progress Note (SOAP) Subjective: feeling better little sweats Objective: 05/10/19 10:02 Vital Signs Temperature 98.1 F 05/10/19 09:24 Pulse Rate 107 H 05/10/19 09:24 Respiratory Rate 16 05/10/19 09:24 Blood Pressure 161/71 05/10/19 09:24 O2 Sat by Pulse Oximetry (%) aaox3 ambulating no acute distress Assessment: 05/10/19 10:02 mild withdrawals Plan: continue detox d/c in am
[2019-05-10] MEDS: LISINOPRIL 20 MG TABLET (FP) PO SCH (10:36)
[2019-05-10] MEDS: SERTRALINE HCL 50 MG TABLET (FP) PO SCH (10:36)
[2019-05-10] MEDS: PRENATAL VITAMINS W/ FOLIC ACID TABLET (FP) PO SCH (10:36)
[2019-05-10] MEDS: METOPROLOL TARTRATE 50 MG TABLET (FP) PO SCH ×2 (10:36→21:56)
[2019-05-10] MEDS: THIAMINE HCL 100 MG TABLET (FP) PO SCH (21:56)
[2019-05-10] MEDS: traZODone HCL 100 MG TABLET (FP) PO SCH (21:56)
[2019-05-11] MEDS ORDERED: chlordiazePOXIDE HCL 10 MG CAPSULE PO ONE (05:00)
--- NOTE | 2019-05-11 09:53 | DS ---
[facility] Detox Discharge Summary Admission Date: 05/06/19 Discharge Date: 05/11/19 - History Present History: Alcohol Dependence, Cocaine Dependence - Physical Exam Results Vital Signs: Vital Signs Temperature 97.5 F L 05/11/19 06:32 Pulse Rate 79 05/11/19 06:32 Respiratory Rate 18 05/11/19 06:32 Blood Pressure 124/84 05/11/19 06:32 O2 Sat by Pulse Oximetry (%) Pertinent Admission Physical Exam Findings: pt arrived in withdrawals Vital Signs Temperature 97.5 F L 05/11/19 06:32 Pulse Rate 79 05/11/19 06:32 Respiratory Rate 18 05/11/19 06:32 Blood Pressure 124/84 05/11/19 06:32 O2 Sat by Pulse Oximetry (%) Laboratory Tests 05/06/19 05/06/19 05/06/19 13:00 14:00 14:00 WBC 7.1 RBC 5.41 Hgb 15.5 Hct 48.2 MCV 89.1 MCH 28.7 MCHC 32.2 RDW 14.6 Plt Count 197 D MPV 8.8 Sodium 138 Potassium 4.1 Chloride 105 Carbon Dioxide 25 Anion Gap 8 BUN 19.8 H Creatinine 1.2 Est GFR (CKD-EPI)AfAm 77.88 Est GFR (CKD-EPI)NonAf 67.19 Random Glucose 110 H Calcium 11.1 H Total Bilirubin 0.3 AST 24 ALT 58 Alkaline Phosphatase 100 Total Protein 8.4 H Albumin 4.7 RPR Titer Nonreactive today pt is aaox3 ambulating no acute distress no s/s of withdrawals - Treatment Hospital Course: Detox Protocol Followed, Detoxed Safely, Responded well, Discharged Condition Good, Rehab Referral Accepted Patient has Accepted a Rehab Referral to: referred to [address] inpatient rehab - Medication Discharge Medications: Ambulatory Orders Amlodipine Besylate [Norvasc -] 5 mg PO DAILY #14 tablet 12/24/18 Hydrochlorothiazide 25 mg PO DAILY #14 tablet 12/24/18 Lisinopril [Prinivil] 20 mg PO DAILY #14 tab 12/24/18 Metoprolol Tartrate [Lopressor -] 50 mg PO BID #30 tablet 12/24/18 Sertraline HCl [Zoloft -] 50 mg PO DAILY #30 tablet 12/25/18 traZODone HCL [Desyrel -] 100 mg PO HS #30 tablet 12/25/18 hydrOXYzine PAMOATE [Vistaril -] 25 mg PO HS 05/05/19 - Diagnosis (1) Cocaine dependence Current Visit: Yes Status: Chronic Qualifiers: Substance use status: uncomplicated Qualified Code(s): F14.20 - Cocaine dependence, uncomplicated (2) Nicotine dependence Current Visit: Yes Status: Chronic Qualifiers: Nicotine product type: cigarettes Substance use status: uncomplicated Qualified Code(s): F17.210 - Nicotine dependence, cigarettes, uncomplicated (3) Alcohol dependence with uncomplicated withdrawal Current Visit: Yes Status: Chronic (4) Hyperglycemia Current Visit: No Status: Acute (5) Substance-induced sleep disorder Current Visit: No Status: Acute (6) Bipolar disorder Current Visit: No Status: Chronic Qualifiers: Active/Remission status: remission status unspecified Qualified Code(s): F31.9 - Bipolar disorder, unspecified (7) Essential hypertension Current Visit: No Status: Chronic (8) Insomnia Current Visit: No Status: Chronic Qualifiers: Insomnia type: alcohol-induced Qualified Code(s): F10.982 - Alcohol use, unspecified with alcohol-induced sleep disorder (9) MDD (major depressive disorder), recurrent episode, mild Current Visit: No Status: Chronic (10) Obesity Current Visit: No Status: Chronic Qualifiers: Obesity type: unspecified obesity type Obesity classification: adult class 1 (BMI 30 - 34.9) Serious obesity comorbidity presence: unspecified whether serious comorbidity present Body mass index: BMI 34.0-34.9 Qualified Code(s) : E66.9 - Obesity, unspecified; Z68.34 - Body mass index (BMI) 34.0-34.9, adult (11) Substance induced mood disorder Current Visit: No Status: Chronic - AMA Did Patient Leave Against Medical Advice: No
[2019-05-11] MEDS: LISINOPRIL 20 MG TABLET (FP) PO SCH (10:24)
[2019-05-11] MEDS: SERTRALINE HCL 50 MG TABLET (FP) PO SCH (10:24)
[2019-05-11] MEDS: PRENATAL VITAMINS W/ FOLIC ACID TABLET (FP) PO SCH (10:24)
[2019-05-11] MEDS: METOPROLOL TARTRATE 50 MG TABLET (FP) PO SCH ×2 (10:24→21:20)
[2019-05-11] MEDS: traZODone HCL 100 MG TABLET (FP) PO SCH (21:20)
[2019-05-11] MEDS: MELATONIN 5 MG TABLETS PO PRN (21:20)
[2019-05-11] MEDS: THIAMINE HCL 100 MG TABLET (FP) PO SCH (21:20)
[2019-05-12] MEDS: PRENATAL VITAMINS W/ FOLIC ACID TABLET (FP) PO SCH (10:13)
[2019-05-12] MEDS: SERTRALINE HCL 50 MG TABLET (FP) PO SCH (10:13)
[2019-05-12] MEDS: LISINOPRIL 20 MG TABLET (FP) PO SCH (10:13)
[2019-05-12] MEDS: METOPROLOL TARTRATE 50 MG TABLET (FP) PO SCH ×2 (10:13→21:27)
--- NOTE | 2019-05-12 11:06 | PN ---
BHS Progress Note Note: Pt is a 54 y/o male with a hx of HARDEEP admitted from [address] [place] [address] to rehab after detox completion. Vital Signs - 24 hr 05/11/19 05/11/19 05/12/19 14:03 20:50 00:30 Temperature 98.5 F 98.7 F Pulse Rate 82 90 Respiratory 18 20 18 Rate Blood Pressure 122/73 147/95 05/12/19 05/12/19 05/12/19 03:30 06:53 10:00 Temperature 97.7 F Pulse Rate 84 90 Respiratory 18 18 Rate Blood Pressure 127/77 114/66 Alert o x 3 nad oob ambulating with steady gait. A/P s/p Detox Increase po fluids Maintain safety
[2019-05-12] MEDS: NICOTINE 21 MG/24 HOURS TOPICAL PATCH TD SCH (11:54)
[2019-05-12] MEDS: THIAMINE HCL 100 MG TABLET (FP) PO SCH (21:26)
[2019-05-12] MEDS: traZODone HCL 100 MG TABLET (FP) PO SCH (21:27)
[2019-05-13] MEDS: LISINOPRIL 20 MG TABLET (FP) PO SCH (10:21)
[2019-05-13] MEDS: METOPROLOL TARTRATE 50 MG TABLET (FP) PO SCH ×2 (10:21→21:18)
[2019-05-13] MEDS: PRENATAL VITAMINS W/ FOLIC ACID TABLET (FP) PO SCH (10:21)
[2019-05-13] MEDS: SERTRALINE HCL 50 MG TABLET (FP) PO SCH (10:21)
[2019-05-13] MEDS: NICOTINE 21 MG/24 HOURS TOPICAL PATCH TD SCH (10:22)
[2019-05-13] MEDS: traZODone HCL 100 MG TABLET (FP) PO SCH (21:18)
[2019-05-13] MEDS: THIAMINE HCL 100 MG TABLET (FP) PO SCH (21:18)
[2019-05-14] MEDS: METOPROLOL TARTRATE 50 MG TABLET (FP) PO SCH ×2 (09:56→21:21)
[2019-05-14] MEDS: LISINOPRIL 20 MG TABLET (FP) PO SCH (09:56)
[2019-05-14] MEDS: SERTRALINE HCL 50 MG TABLET (FP) PO SCH (09:56)
[2019-05-14] MEDS: PRENATAL VITAMINS W/ FOLIC ACID TABLET (FP) PO SCH (09:56)
[2019-05-14] MEDS: NICOTINE 21 MG/24 HOURS TOPICAL PATCH TD SCH (09:57)
[2019-05-14] MEDS: THIAMINE HCL 100 MG TABLET (FP) PO SCH (21:21)
[2019-05-14] MEDS: traZODone HCL 100 MG TABLET (FP) PO SCH (21:21)
[2019-05-15] MEDS: LISINOPRIL 20 MG TABLET (FP) PO SCH (09:36)
[2019-05-15] MEDS: PRENATAL VITAMINS W/ FOLIC ACID TABLET (FP) PO SCH (09:36)
[2019-05-15] MEDS: SERTRALINE HCL 50 MG TABLET (FP) PO SCH (09:36)
[2019-05-15] MEDS: NICOTINE 21 MG/24 HOURS TOPICAL PATCH TD SCH (09:37)
[2019-05-15] MEDS: METOPROLOL TARTRATE 50 MG TABLET (FP) PO SCH ×2 (09:39→21:21)
[2019-05-15] MEDS: traZODone HCL 100 MG TABLET (FP) PO SCH (21:20)
[2019-05-15] MEDS: THIAMINE HCL 100 MG TABLET (FP) PO SCH (21:21)
[2019-05-16] MEDS: LISINOPRIL 20 MG TABLET (FP) PO SCH (10:07)
[2019-05-16] MEDS: PRENATAL VITAMINS W/ FOLIC ACID TABLET (FP) PO SCH (10:07)
[2019-05-16] MEDS: NICOTINE 21 MG/24 HOURS TOPICAL PATCH TD SCH (10:07)
[2019-05-16] MEDS: SERTRALINE HCL 50 MG TABLET (FP) PO SCH (10:07)
[2019-05-16] MEDS: METOPROLOL TARTRATE 50 MG TABLET (FP) PO SCH ×2 (10:08→21:19)
[2019-05-16] MEDS: ACETAMINOPHEN 325 MG TABLET (FP) PO PRN (13:16)
[2019-05-16] MEDS: traZODone HCL 100 MG TABLET (FP) PO SCH (21:19)
[2019-05-16] MEDS: THIAMINE HCL 100 MG TABLET (FP) PO SCH (21:19)
[2019-05-17] MEDS: METOPROLOL TARTRATE 50 MG TABLET (FP) PO SCH ×2 (10:27→21:22)
[2019-05-17] MEDS: PRENATAL VITAMINS W/ FOLIC ACID TABLET (FP) PO SCH (10:27)
[2019-05-17] MEDS: NICOTINE 21 MG/24 HOURS TOPICAL PATCH TD SCH (10:27)
[2019-05-17] MEDS: SERTRALINE HCL 50 MG TABLET (FP) PO SCH (10:27)
[2019-05-17] MEDS: LISINOPRIL 20 MG TABLET (FP) PO SCH (10:27)
[2019-05-17] MEDS: THIAMINE HCL 100 MG TABLET (FP) PO SCH (21:22)
[2019-05-17] MEDS: traZODone HCL 100 MG TABLET (FP) PO SCH (21:22)
[2019-05-18] MEDS: SERTRALINE HCL 50 MG TABLET (FP) PO SCH (11:56)
[2019-05-18] MEDS: LISINOPRIL 20 MG TABLET (FP) PO SCH (11:56)
[2019-05-18] MEDS: METOPROLOL TARTRATE 50 MG TABLET (FP) PO SCH ×2 (11:56→21:32)
[2019-05-18] MEDS: PRENATAL VITAMINS W/ FOLIC ACID TABLET (FP) PO SCH (11:56)
[2019-05-18] MEDS: NICOTINE 21 MG/24 HOURS TOPICAL PATCH TD SCH (11:58)
[2019-05-18] MEDS: THIAMINE HCL 100 MG TABLET (FP) PO SCH (21:32)
[2019-05-18] MEDS: traZODone HCL 100 MG TABLET (FP) PO SCH (21:32)
[2019-05-19] MEDS: SERTRALINE HCL 50 MG TABLET (FP) PO SCH (10:55)
[2019-05-19] MEDS: METOPROLOL TARTRATE 50 MG TABLET (FP) PO SCH ×2 (10:56→21:22)
[2019-05-19] MEDS: PRENATAL VITAMINS W/ FOLIC ACID TABLET (FP) PO SCH (10:56)
[2019-05-19] MEDS: LISINOPRIL 20 MG TABLET (FP) PO SCH (10:56)
[2019-05-19] MEDS: NICOTINE 21 MG/24 HOURS TOPICAL PATCH TD SCH (10:56)
[2019-05-19] MEDS: THIAMINE HCL 100 MG TABLET (FP) PO SCH (21:22)
[2019-05-19] MEDS: traZODone HCL 100 MG TABLET (FP) PO SCH (21:22)
[2019-05-20] MEDS: METOPROLOL TARTRATE 50 MG TABLET (FP) PO SCH ×2 (09:44→21:20)
[2019-05-20] MEDS: NICOTINE 21 MG/24 HOURS TOPICAL PATCH TD SCH (09:44)
[2019-05-20] MEDS: PRENATAL VITAMINS W/ FOLIC ACID TABLET (FP) PO SCH (09:44)
[2019-05-20] MEDS: SERTRALINE HCL 50 MG TABLET (FP) PO SCH (09:44)
[2019-05-20] MEDS: LISINOPRIL 20 MG TABLET (FP) PO SCH (09:44)
[2019-05-20] MEDS: THIAMINE HCL 100 MG TABLET (FP) PO SCH (21:20)
[2019-05-20] MEDS: traZODone HCL 100 MG TABLET (FP) PO SCH (21:20)
[2019-05-21] MEDS: METOPROLOL TARTRATE 50 MG TABLET (FP) PO SCH ×2 (10:19→21:17)
[2019-05-21] MEDS: LISINOPRIL 20 MG TABLET (FP) PO SCH (10:19)
[2019-05-21] MEDS: SERTRALINE HCL 50 MG TABLET (FP) PO SCH (10:19)
[2019-05-21] MEDS: NICOTINE 21 MG/24 HOURS TOPICAL PATCH TD SCH (10:19)
[2019-05-21] MEDS: PRENATAL VITAMINS W/ FOLIC ACID TABLET (FP) PO SCH (10:19)
[2019-05-21] MEDS: THIAMINE HCL 100 MG TABLET (FP) PO SCH (21:17)
[2019-05-21] MEDS: traZODone HCL 100 MG TABLET (FP) PO SCH (21:17)
[2019-05-22] MEDS: LISINOPRIL 20 MG TABLET (FP) PO SCH (09:51)
[2019-05-22] MEDS: SERTRALINE HCL 50 MG TABLET (FP) PO SCH (09:51)
[2019-05-22] MEDS: PRENATAL VITAMINS W/ FOLIC ACID TABLET (FP) PO SCH (09:51)
[2019-05-22] MEDS: METOPROLOL TARTRATE 50 MG TABLET (FP) PO SCH ×2 (09:51→21:19)
[2019-05-22] MEDS: NICOTINE 21 MG/24 HOURS TOPICAL PATCH TD SCH (09:52)
[2019-05-22] MEDS: THIAMINE HCL 100 MG TABLET (FP) PO SCH (21:19)
[2019-05-22] MEDS: traZODone HCL 100 MG TABLET (FP) PO SCH (21:19)
[2019-05-23] MEDS: ACETAMINOPHEN 325 MG TABLET (FP) PO PRN (06:46)
[2019-05-23] MEDS: SERTRALINE HCL 50 MG TABLET (FP) PO SCH (09:52)
[2019-05-23] MEDS: NICOTINE 21 MG/24 HOURS TOPICAL PATCH TD SCH (09:52)
[2019-05-23] MEDS: PRENATAL VITAMINS W/ FOLIC ACID TABLET (FP) PO SCH (09:52)
[2019-05-23] MEDS: METOPROLOL TARTRATE 50 MG TABLET (FP) PO SCH ×2 (09:53→21:12)
[2019-05-23] MEDS: LISINOPRIL 20 MG TABLET (FP) PO SCH (09:53)
[2019-05-23] MEDS: traZODone HCL 100 MG TABLET (FP) PO SCH (21:11)
[2019-05-23] MEDS: THIAMINE HCL 100 MG TABLET (FP) PO SCH (21:12)
[2019-05-24] MEDS: LISINOPRIL 20 MG TABLET (FP) PO SCH (10:41)
[2019-05-24] MEDS: METOPROLOL TARTRATE 50 MG TABLET (FP) PO SCH ×2 (10:41→21:19)
[2019-05-24] MEDS: SERTRALINE HCL 50 MG TABLET (FP) PO SCH (10:41)
[2019-05-24] MEDS: PRENATAL VITAMINS W/ FOLIC ACID TABLET (FP) PO SCH (10:41)
[2019-05-24] MEDS: NICOTINE 21 MG/24 HOURS TOPICAL PATCH TD SCH (10:42)
[2019-05-24] MEDS: traZODone HCL 100 MG TABLET (FP) PO SCH (21:19)
[2019-05-24] MEDS: THIAMINE HCL 100 MG TABLET (FP) PO SCH (21:20)
[2019-05-25 06:49] VITALS: BP 146/100; PULSE 92; TEMP 98.3
[2019-05-25] MEDS: NICOTINE 21 MG/24 HOURS TOPICAL PATCH TD SCH (10:12)
[2019-05-25] MEDS: LISINOPRIL 20 MG TABLET (FP) PO SCH (10:12)
[2019-05-25] MEDS: SERTRALINE HCL 50 MG TABLET (FP) PO SCH (10:12)
[2019-05-25] MEDS: METOPROLOL TARTRATE 50 MG TABLET (FP) PO SCH (10:12)
[2019-05-25] MEDS: PRENATAL VITAMINS W/ FOLIC ACID TABLET (FP) PO SCH (10:12)
--- NOTE | 2019-05-25 10:17 | PN ---
[facility] Progress Note Note: Patient is scheduled for discharge today. Scripts for 30 days supply of medications(Zoloft 50 mg/day, Trazadone 100 mg/hs) are electronically transmitted to [facility] at [address] [place] [id number]
--- NOTE | 2019-05-25 11:00 | DS ---
[facility] Rehab Discharge Summary - [facility] Rehab Discharge Summary Admission Date: 05/06/19 Discharge Date: 05/25/19 - History Present History: Alcohol dependence, Cocaine dependence Additional Comments: Pt is a 54 y/o male with a hx of HARDEEP admitted to rehab and discharged today, 05/25/19. Pt reports he has a primary care provider at [facility] for medical management. Pertinent Past History: HTN MDD Obesity - Discharge Physical Exam Vital Signs: Vital Signs Temperature 98.3 F 05/25/19 06:47 Pulse Rate 92 H 05/25/19 06:47 Respiratory Rate 20 05/25/19 06:47 Blood Pressure 146/100 05/25/19 06:47 O2 Sat by Pulse Oximetry (%) Alert o x 3 nad oob ambulating with steady gait cardiac:s1 s2,rrr lungs:cta,manuel. abdomen:+bs,+++fatty,nt extremities/skin:no edema,full ROM/weight bearing;skin intact. Pertinent Admission Physical Exam Findings: Laboratory Tests 05/06/19 05/06/19 05/06/19 13:00 14:00 14:00 WBC 7.1 RBC 5.41 Hgb 15.5 Hct 48.2 MCV 89.1 MCH 28.7 MCHC 32.2 RDW 14.6 Plt Count 197 D MPV 8.8 Sodium 138 Potassium 4.1 Chloride 105 Carbon Dioxide 25 Anion Gap 8 BUN 19.8 H Creatinine 1.2 Est GFR (CKD-EPI)AfAm 77.88 Est GFR (CKD-EPI)NonAf 67.19 Random Glucose 110 H Calcium 11.1 H Total Bilirubin 0.3 AST 24 ALT 58 Alkaline Phosphatase 100 Total Protein 8.4 H Albumin 4.7 RPR Titer Nonreactive - Treatment Discharge Condition: Discharge condition good Hospital Course: Rehabilitated safely and responded well CD aftercare referral accepted. - Medication Discharge Medications: Ambulatory Orders Amlodipine Besylate [Norvasc -] 5 mg PO DAILY #14 tablet 12/24/18 Hydrochlorothiazide 25 mg PO DAILY #14 tablet 12/24/18 Metoprolol Tartrate [Lopressor -] 50 mg PO BID #30 tablet 12/24/18 traZODone HCL [Desyrel -] 100 mg PO HS #30 tablet 12/25/18 hydrOXYzine PAMOATE [Vistaril -] 25 mg PO HS 05/05/19 Lisinopril [Prinivil] 20 mg PO DAILY #14 tab 05/25/19 Sertraline HCl [Zoloft -] 50 mg PO DAILY #30 tablet 05/25/19 traZODone HCL [Desyrel -] 100 mg PO HS #30 tablet 05/25/19 - Medication-Assisted Treatment (MAT) Medication-Assisted Treatment (MAT): No - Discharge Instructions Diet, activity, other medical instructions: Diet:DYAN Activity:oob ad luciano Other medical instructions:Follow up with primary care provider at [facility] on [place], [place] within 1 week after discharge. Follow up with CD aftercare as recommended and scheduled at [facility]. - Diagnosis (1) Alcohol dependence Status: Chronic Qualifiers: Substance use status: uncomplicated Qualified Code(s): F10.20 - Alcohol dependence, uncomplicated (2) Cocaine dependence Status: Chronic Qualifiers: Substance use status: uncomplicated Qualified Code(s): F14.20 - Cocaine dependence, uncomplicated (3) Nicotine dependence Status: Chronic Qualifiers: Nicotine product type: cigarettes Substance use status: uncomplicated Qualified Code(s): F17.210 - Nicotine dependence, cigarettes, uncomplicated (4) Essential hypertension Status: Chronic (5) Obesity Status: Chronic Qualifiers: Obesity type: unspecified obesity type Obesity classification: adult class 1 (BMI 30 - 34.9) Serious obesity comorbidity presence: unspecified whether serious comorbidity present Body mass index: BMI 34.0-34.9 Qualified Code(s) : E66.9 - Obesity, unspecified; Z68.34 - Body mass index (BMI) 34.0-34.9, adult - Follow-up Referral Minutes to complete discharge: 30 - AMA Did Patient Leave Against Medical Advice: No Additional Comments: Pt reports has own meds except lisinopril 20 mg po daily #14 and requested courtesy Rx as such which was sent to [facility].
== END 2019-05-25 11:15 | disposition home or self-care (01) | DRG 895 ==
LOC: YASAS 11:36 → Y6N 14:41 → UNDODISIN 05-11 12:44 → Y5N 05-11 13:41
PROVIDERS: ADMIT Allergy & Immunology; ATTEND Neuromusculoskeletal Medicine & OMM
PROC: HZ2ZZZZ Detoxification Services for Substance Abuse Treatment (ICD-10-PCS; 2019-05-06)
PROC: HZ42ZZZ Group Counseling for Substance Abuse Treatment, Cognitive-Behavioral (ICD-10-PCS; principal; 2019-05-11)
DX: F10.20 Alcohol dependence, uncomplicated (principal); F14.20 Cocaine dependence, uncomplicated; F19.282 Other psychoactive substance dependence with psychoactive substance-induced sleep disorder; F33.9 Major depressive disorder, recurrent, unspecified; F17.210 Nicotine dependence, cigarettes, uncomplicated; F19.24 Other psychoactive substance dependence with psychoactive substance-induced mood disorder; F31.9 Bipolar disorder, unspecified; I10 Essential (primary) hypertension; E83.52 Hypercalcemia; R79.89 Other specified abnormal findings of blood chemistry; E66.9 Obesity, unspecified; Z68.37 Body mass index [BMI] 37.0-37.9, adult
CPT/HCPCS: 36415; 80053; 85027; 86593

== ENCOUNTER 2019-08-31 10:19 | Inpatient (IN) | payer OTHER ==
--- NOTE | 2019-08-31 10:39 | BHS.RME ---
Substance Use & Tx History - Substance Use History Alcohol Substance amount: 4 pints vodka or rum, 3x6 pack of 16 ounce Date of Last Use: 08/30/19 Cocaine (Crack) Substance amount: $150 Frequency of use: Daily Substance route: Smoking Date of Last Use: 08/30/19 Physical/Psych/Mental Status - Behavior General Behavior: Decreased activity Eye Contact: Normal - Cooperativeness Cooperativeness: Cooperative - Thinking Thought Processes: Tight Thought content: Future oriented - Physical Health Problems Is patient presently having any pain?: No Does patient presently have any injuries (include location): No Does patient currently have a fever: Yes (100.5, no SOB, cough) Is patient : No CIWA Nausea/Vomitin-Mild Nausea/No Vomiting Muscle Tremors: 3 Anxiety: 0-No Anxiety, at Ease Agitation: 0-Normal Activity Paroxysmal Sweats: 4-Forehead w/Sweat Beads Orientation: 0-Oriented Tacttile Disturbances: 0-None Auditory Disturbances: 0-None Visual Disturbances: 0-None Headache: 0-None Present CIWA-Ar Total Score: 8
[2019-08-31 12:48] VITALS: BMI 35.2
--- NOTE | 2019-08-31 13:09 | HP ---
CIWA Score Nausea/Vomitin-Mild Nausea/No Vomiting Muscle Tremors: 3 Anxiety: 2 Agitation: 2 Paroxysmal Sweats: 4-Forehead w/Sweat Beads Orientation: 0-Oriented Tacttile Disturbances: 1-Very Mild Itch/Numbness Auditory Disturbances: 0-None Visual Disturbances: 0-None Headache: 0-None Present CIWA-Ar Total Score: 13 - Admission Criteria OASAS Guidelines: Admission for Medically Managed Detox: Requires at least one of the followin. CIWA greater than 12 2. Seizures within the past 24 hours 3. Delirium tremens within the past 24 hours 4. Hallucinations within the past 24 hours 5. Acute intervention needed for co occurring medical disorder 6. Acute intervention needed for co occurring psychiatric disorder 7. Severe withdrawal that cannot be handled at a lower level of care (continued vomiting, continued diarrhea, abnormal vital signs) requiring intravenous medication and/or fluids 8. Admitting History and Physical - Admission Chief Complaint: i am here for drinking alcohol andsmoke crack History of Present Illness: this 54 years old male with alcohol dependence and cocaine abused seeking detox,multiple admissions in detox and rehab History Source: Patient Limitations to Obtaining History: No Limitations - Past Medical History MEDICAID BILLING CLERK: Yes: Seizure, Syncope Cardiovascular: Yes: HTN Psych: Yes: Depression - Smoking History Smoking history: Current every day smoker Have you smoked in the past 12 months: Yes Aproximately how many cigarettes per day: 20 - Alcohol/Substance Use Hx Alcohol Use: Yes History of Substance Use: reports: Cocaine - Social History Usual Living Arrangement: Yes: Other (living in the senior care) ADL: Support Services History of Recent Travel: No Admission [facility] Chief Complaint: i am here for alcohol drinking,cocaine abused Allergies/Adverse Reactions: Allergies Allergy/AdvReac Type Severity Reaction Status Date / Time No Known Allergies Allergy Verified 08/31/19 12:43 History of Present Illness: this 54 years old male with alcohol dependence and cocaine abused,seeking help, multiple admissions in detox and rehab,last detox 10/25/18 to 03/01/19 rehab 05/06/19 to 05/25/19 denied seizure denied syncope nicotine dependence history of hypertension and depression living in the senior care,unemployed longest sobriety 18 months plan to go to rehab after detox denied any sickness,no fever,no cough,nu shortness of breath Exam Limitations: No Limitations - Ebola screening Have you traveled outside of the country in the last 21 days: No Have you had contact with anyone from an Ebola affected area: No Have you been sick,other than usual withdrawal symptoms: No Do you have a fever: No - Review of Systems Constitutional: Loss of Appetite, Malaise, Night Sweats, Changes in sleep, Weakness EENT: reports: Tearing, Nose Congestion Respiratory: reports: No Symptoms reported Cardiac: reports: No Symptoms Reported GI: reports: Nausea, Abdominal cramping : reports: No Symptoms Reported Musculoskeletal: reports: Muscle Pain Neuro: reports: Tremors Endocrine: reports: No Symptoms Reported Hematology: reports: No Symptoms Reported Psychiatric: reports: Mood/Affect Appropiate, Orientated x3, Depressed Other Systems: Reviewed and Negative Patient History - Patient Medical History Hx Anemia: No Hx Asthma: No Hx Chronic Obstructive Pulmonary Disease (COPD): No Hx Cancer: No Hx Cardiac Disorders: No Hx Congestive Heart Failure: No Hx Hypertension: Yes (on med) Hx Hypercholesterolemia: No Hx Pacemaker: No HX Cerebrovascular Accident: No Hx Seizures: No Hx Dementia: No Hx Diabetes: No Hx Gastrointestinal Disorders: No Hx Liver Disease: No Hx Genitourinary Disorders: No Hx Sexually Transmitted Disorders: No Hx Renal Disease (ESRD): No Hx Thyroid Disease: No Hx Human Immunodeficiency Virus (HIV): No (NEGATIVE OCTOBER 2018) Hx Hepatitis C: No (DENIES) Hx Depression: Yes (on med) Hx Suicide Attempt: No Hx Bipolar Disorder: Yes Hx Schizophrenia: No Other Medical History: no suicidal,no homicidal - Patient Surgical History Past Surgical History: No Hx Neurologic Surgery: No Hx Cataract Extraction: No Hx Cardiac Surgery: No Hx Lung Surgery: No Hx Breast Surgery: No Hx Breast Biopsy: No Hx Abdominal Surgery: No Hx Appendectomy: No Hx Cholecystectomy: No Hx Genitourinary Surgery: No Hx Section: No Hx Orthopedic Surgery: No Anesthesia Reaction: No - PPD History Previous Implant?: Yes Documented Results: Negative w/proof Implanted On Prior R Admission?: Yes Date: 12/13/18 Results: 0 mm PPD to be Administered?: No - Smoking Cessation Smoking history: Current every day smoker Have you smoked in the past 12 months: Yes Aproximately how many cigarettes per day: 20 Cigars Per Day: 0 Hx Chewing Tobacco Use: No Initiated information on smoking cessation: Yes 'Breaking Loose' booklet given: 08/31/19 - Substance & Tx. History Hx Alcohol Use: Yes Hx Substance Use: Yes Substance Use Type: Alcohol, Cocaine Hx Substance Use Treatment: Yes ([facility] detox 02/25/19 to 03/01/19) - Substances abused Alcohol Substance route: Oral Frequency: Daily Amount used: 3-4 pints vodka and rum Age of first use: 14 Date of last use: 08/30/19 Crack Substance route: Smoking Frequency: Daily Amount used: $150 Age of first use: 16 Date of last use: 08/30/19 Admission Physical Exam [facility] - Vital Signs Vital Signs: Vital Signs - 24 hr 08/31/19 12:43 Temperature 100.5 F H Pulse Rate 115 H Respiratory 18 Rate Blood Pressure 149/100 - Physical General Appearance: Yes: Moderate Distress, Tremorous, Irritable, Sweating, Anxious HEENTM: Yes: Normal ENT Inspection, MAKEDA, Pharynx Normal Respiratory: Yes: Lungs Clear, Normal Breath Sounds, No Respiratory Distress Breast: Yes: Within Normal Limits Cardiology: Yes: Within Normal Limits, Regular Rhythm, Regular Rate, S1, S2 Abdominal: Yes: Within Normal Limits, Normal Bowel Sounds, Non Tender, Soft Genitourinary: Yes: Within Normal Limits Musculoskeletal: Yes: Back pain, Muscle Pain Extremities: Yes: Tremors 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 intact, Alert, Motor Strength 5/5 Integumentary: Yes: Dry Lymphatic: Yes: Within Normal Limits - Diagnostic (1) Alcohol dependence with uncomplicated withdrawal Current Visit: No Status: Chronic (2) Cocaine dependence Current Visit: No Status: Chronic Qualifiers: Substance use status: uncomplicated Qualified Code(s): F14.20 - Cocaine dependence, uncomplicated (3) Essential hypertension Current Visit: No Status: Chronic (4) MDD (major depressive disorder), recurrent episode, mild Current Visit: No Status: Chronic (5) Nicotine dependence Current Visit: No Status: Chronic Qualifiers: Nicotine product type: cigarettes Substance use status: uncomplicated Qualified Code(s): F17.210 - Nicotine dependence, cigarettes, uncomplicated Cleared for Admission S - Detox or Rehab [facility] Level of Care: Medically Managed Detox Regimen/Protocol: Librium Breathalyzer - Breathalyzer Breathalyzer: 0 Urine Drug Screen - Test Device Lot number: [id number] Expiration date: 05/22/21 - Control Is test valid?: Yes - Results Drug screen NEGATIVE: No Urine drug screen results: KRISTINA-Cocaine, BZO-Benzodiazepines Inpatient Rehab Admission - Rehab Decision to Admit Inpatient rehab admission?: No
[2019-08-31] MEDS ORDERED: MENTHOL/PHENOL 1 EACH UD MM PRN (13:21)
[2019-08-31] MEDS ORDERED: MAGNESIUM CITRATE 300 ML BOTTLE PO PRN (13:21)
[2019-08-31] MEDS ORDERED: MAGNESIUM HYDROX 2400MG/30ML ORAL SUSPENSION 30 ML CUP PO PRN (13:21)
[2019-08-31] MEDS ORDERED: ACETAMINOPHEN 325 MG TABLET (FP) PO PRN ×2 (13:21)
[2019-08-31] MEDS ORDERED: chlordiazePOXIDE HCL 25 MG CAPSULE PO PRN (13:21)
[2019-08-31] MEDS ORDERED: METHOCARBAMOL 500 MG TABLET PO PRN (13:21)
[2019-08-31] MEDS ORDERED: MAG HYDROX/AL HYDROX/SIMETH 30 ML UNIT-DOSE CUP PO PRN (13:21)
[2019-08-31] MEDS ORDERED: BISMUTH SUBSALICYLATE 262 MG/15 ML BTL PO PRN (13:54)
[2019-08-31] MEDS ORDERED: ONDANSETRON *ODT* 4 MG TABLET SL ONE (13:55)
[2019-08-31] MEDS: LISINOPRIL 20 MG TABLET (FP) PO SCH (14:20)
[2019-08-31] MEDS: amLODIPine BESYLATE 5 MG TABLET (FP) PO SCH (14:20)
[2019-08-31] MEDS: HYDROCHLOROTHIAZIDE 25 MG TABLET (FP) PO SCH (14:20)
[2019-08-31] MEDS: hydrOXYzine PAMOATE 25 MG CAPSULE (FP) PO SCH ×3 (14:20→22:07)
[2019-08-31] MEDS: NICOTINE 21 MG/24 HOURS TOPICAL PATCH TD SCH (14:40)
[2019-08-31] MEDS: chlordiazePOXIDE HCL 25 MG CAPSULE PO SCH ×2 (17:14→22:07)
[2019-08-31 17:23] LABS: HEMATOCRIT 46.7 % (35.4-49); HEMOGLOBIN 15.2 GM/dL (11.7-16.9); MCH 29.5 pg (25.7-33.7); MCHC 32.6 g/dl (32.0-35.9); MEAN CELL VOLUME 90.5 fl (80-96); MEAN PLT VOLUME 8.7 fl (7.5-11.1); PLATELET COUNT 226 K/MM3 (134-434); RBC 5.16 M/mm3 (4.00-5.60); RDW 14.7 % (11.9-15.9); WHITE BLOOD COUNT 9.7 K/mm3 (4.0-10.0)
[2019-08-31 17:52] LABS: ALBUMIN 4.8 g/dl (3.4-5.0); BILIRUBIN,TOTAL 0.4 mg/dL (0.2-1); BLOOD UREA NITROGEN 17.6 mg/dL (7-18); CALCIUM 10.5 mg/dL (8.5-10.1); CREATININE 1.2 mg/dL (0.55-1.3); POTASSIUM 3.8 mmol/L (3.5-5.1); TOT PROT 8.8 g/dl (6.4-8.2)
[2019-08-31] MEDS: METOPROLOL TARTRATE 50 MG TABLET (FP) PO SCH (22:07)
[2019-08-31] MEDS: MELATONIN 5 MG TABLETS PO SCH (22:07)
[2019-08-31] MEDS: THIAMINE HCL 100 MG TABLET (FP) PO SCH (22:07)
[2019-09-01] MEDS: hydrOXYzine PAMOATE 25 MG CAPSULE (FP) PO SCH ×2 (05:51→10:09)
[2019-09-01] MEDS: chlordiazePOXIDE HCL 25 MG CAPSULE PO SCH ×4 (05:51→22:15)
--- NOTE | 2019-09-01 08:46 | CONSULT ---
[facility] Psychiatric Consult - Data Date of interview: 09/01/19 Admission source: Self-referred Identifying data: Mr Gill is a 53 years old Black male, father of 2 children, unemployed receiving SSD/SSI, homeless seeking detox treatment for alcohol and cocaine Substance Abuse History: Reports history of alcohol and crack cocaine use. Refer to addiction counselor's summary for further information Medical History: Significant for hypertension and mild obesity. Smokes cigarettes 1 ppd Psychiatric History: Patient is known for multiple previous admissions to this facility. Historical narrative remains consistent. He reports that his first psychiatric contact was in 1988 when he was admitted to [facility] for 28 days for depression. He was diagnosed with MDD and started on psychotropic medications. Reports 2 subsequent hospitalizations both at [facility] with most recent being in 1981. Reports receiving outpatient psychiatric treatment at [facility] in [facility]. He is currently prescribed Zoloft 50 mg/day and Trazadone 100 mg/hs. When seen by investment underwriter on 02/26/19, he was continued on his medications as prescribed. Told investment underwriter that he did not make an appointment to see his psychiatrist at [facility] and has been off medications after running out of the 30 days supply provided to him after his discharge on 03/01/19 from this facility. Denies previous suicide attempts. At present, denies experiencing depressive symptoms, S/H ideations. However, reports sleeping poorly. Requests to resume medications as prescribed Physical/Sexual Abuse/Trauma History: Denies history of emotional, physical or sexual abuse as well as DV relationship Additional Comment: No criminal history Mental Status Exam - Mental Status Exam Alert and Oriented to: Time, Place, Person Cognitive Function: Fair Patient Appearance: Well Groomed Mood: Hopeful, Euthymic Patient Behavior: Cooperative Speech Pattern: Clear Thought Process: Intact, Goal Oriented Hallucinations: Denies Suicidal Ideation: Denies Homicidal Ideation: Denies Insight/Judgement: Poor Sleep: Poorly Appetite: Good Muscle strength/Tone: Normal Gait/Station: Normal Psychiatric Findings - Problem List (Ackerman 1, 2,3) (1) MDD (major depressive disorder), recurrent episode, mild Current Visit: No Status: Chronic (2) Bipolar II disorder Current Visit: Yes Status: Ruled-out (3) Substance-induced sleep disorder Current Visit: Yes Status: Acute (4) Alcohol dependence with uncomplicated withdrawal Current Visit: No Status: Acute (5) Cocaine dependence Current Visit: No Status: Acute Qualifiers: Substance use status: uncomplicated Qualified Code(s): F14.20 - Cocaine dependence, uncomplicated (6) Nicotine dependence Current Visit: No Status: Chronic Qualifiers: Nicotine product type: cigarettes Substance use status: uncomplicated Qualified Code(s): F17.210 - Nicotine dependence, cigarettes, uncomplicated (7) Essential hypertension Current Visit: No Status: Chronic (8) Obesity Current Visit: No Status: Chronic Qualifiers: Obesity type: unspecified obesity type Obesity classification: adult class 1 (BMI 30 - 34.9) Serious obesity comorbidity presence: unspecified whether serious comorbidity present Body mass index: BMI 34.0-34.9 Qualified Code(s): E66.9 - Obesity, unspecified; Z68.34 - Body mass index (BMI) 34.0-34.9, adult - Initial Treatment Plan Initial Treatment Plan: 1) Continue Zoloft 50 mg po daily and Trazadone 100 mg po HS. 2) Continue inpatient detoxification
[2019-09-01] MEDS: HYDROCHLOROTHIAZIDE 25 MG TABLET (FP) PO SCH (10:06)
[2019-09-01] MEDS: PRENATAL VITAMINS W/ FOLIC ACID TABLET (FP) PO SCH (10:06)
[2019-09-01] MEDS: amLODIPine BESYLATE 5 MG TABLET (FP) PO SCH (10:06)
[2019-09-01] MEDS: LISINOPRIL 20 MG TABLET (FP) PO SCH (10:06)
[2019-09-01] MEDS: METOPROLOL TARTRATE 50 MG TABLET (FP) PO SCH ×2 (10:06→22:15)
[2019-09-01] MEDS: NICOTINE 21 MG/24 HOURS TOPICAL PATCH TD SCH (10:06)
[2019-09-01] MEDS: SERTRALINE HCL 50 MG TABLET (FP) PO SCH (10:11)
--- NOTE | 2019-09-01 10:50 | PN ---
S CIWA - CIWA Score Nausea/Vomitin-No Nausea/No Vomiting Muscle Tremors: 3 Anxiety: 3 Agitation: 3 Paroxysmal Sweats: 3 Orientation: 0-Oriented Tacttile Disturbances: 0-None Auditory Disturbances: 0-None Visual Disturbances: 0-None Headache: 0-None Present CIWA-Ar Total Score: 12 BHS Progress Note (SOAP) Subjective: sweats shakes interrupted sleep Objective: 09/01/19 10:49 Vital Signs Temperature 98.3 F 09/01/19 08:37 Pulse Rate 93 H 09/01/19 08:37 Respiratory Rate 09/01/19 08:37 Blood Pressure 129/87 09/01/19 08:37 O2 Sat by Pulse Oximetry (%) Laboratory Tests 08/31/19 08/31/19 08/31/19 13:40 13:40 13:40 WBC 9.7 RBC 5.16 Hgb 15.2 Hct 46.7 MCV 90.5 MCH 29.5 MCHC 32.6 RDW 14.7 Plt Count 226 MPV 8.7 Sodium 138 Potassium 3.8 Chloride 104 Carbon Dioxide 23 Anion Gap 11 BUN 17.6 Creatinine 1.2 Est GFR (CKD-EPI)AfAm 77.88 Est GFR (CKD-EPI)NonAf 67.19 Random Glucose 113 H Calcium 10.5 H Total Bilirubin 0.4 AST 61 H ALT 73 H Alkaline Phosphatase 97 Total Protein 8.8 H Albumin 4.8 RPR Titer Nonreactive labs noted elevated ast/alt, calcium and glucose. d/c tylenol repeat random glucose pt denies having diabetes aaox3 ambulating no acute distress Assessment: 09/01/19 10:51 withdrawals Plan: continue detox increase fluids repeat labs
[2019-09-01] MEDS ORDERED: hydrOXYzine PAMOATE 25 MG CAPSULE (FP) PO PRN (10:52)
[2019-09-01] MEDS: IBUPROFEN 400 MG TABLET (FP) PO PRN (11:55)
[2019-09-01] MEDS ORDERED: FLU VACCINE QUAD 60 MCG/0.5 ML (MDV 19-20) IM ONE (12:00)
[2019-09-01] MEDS: THIAMINE HCL 100 MG TABLET (FP) PO SCH (22:15)
[2019-09-01] MEDS: traZODone HCL 100 MG TABLET (FP) PO SCH (22:15)
[2019-09-01] MEDS: MELATONIN 5 MG TABLETS PO SCH (22:59)
[2019-09-02] MEDS: chlordiazePOXIDE HCL 25 MG CAPSULE PO SCH ×4 (05:46→22:11)
[2019-09-02 10:36] LABS: ALBUMIN 3.6 g/dl (3.4-5.0); BILIRUBIN,TOTAL 0.3 mg/dL (0.2-1); BLOOD UREA NITROGEN 16.1 mg/dL (7-18); CALCIUM 10.4 mg/dL (8.5-10.1); CREATININE 1.2 mg/dL (0.55-1.3); POTASSIUM 3.5 mmol/L (3.5-5.1); TOT PROT 6.8 g/dl (6.4-8.2)
[2019-09-02] MEDS: HYDROCHLOROTHIAZIDE 25 MG TABLET (FP) PO SCH (10:39)
[2019-09-02] MEDS: METOPROLOL TARTRATE 50 MG TABLET (FP) PO SCH ×2 (10:39→21:03)
[2019-09-02] MEDS: amLODIPine BESYLATE 5 MG TABLET (FP) PO SCH (10:39)
[2019-09-02] MEDS: SERTRALINE HCL 50 MG TABLET (FP) PO SCH (10:39)
[2019-09-02] MEDS: LISINOPRIL 20 MG TABLET (FP) PO SCH (10:40)
[2019-09-02] MEDS: PRENATAL VITAMINS W/ FOLIC ACID TABLET (FP) PO SCH (10:40)
--- NOTE | 2019-09-02 11:49 | PN ---
S CIWA - CIWA Score Nausea/Vomitin-No Nausea/No Vomiting Muscle Tremors: 3 Anxiety: 1-Mildly Anxious Agitation: 2 Paroxysmal Sweats: 2 Orientation: 0-Oriented Tacttile Disturbances: 0-None Auditory Disturbances: 0-None Visual Disturbances: 0-None Headache: 0-None Present CIWA-Ar Total Score: 8 BHS Progress Note (SOAP) Subjective: sweats mild shakes interrupted sleep agitation Objective: 09/02/19 11:46 Vital Signs Temperature 97.7 F 09/02/19 11:04 Pulse Rate 96 H 09/02/19 11:04 Respiratory Rate 18 09/02/19 11:04 Blood Pressure 112/77 09/02/19 11:04 O2 Sat by Pulse Oximetry (%) Laboratory Tests 08/31/19 08/31/19 08/31/19 13:40 13:40 13:40 WBC 9.7 RBC 5.16 Hgb 15.2 Hct 46.7 MCV 90.5 MCH 29.5 MCHC 32.6 RDW 14.7 Plt Count 226 MPV 8.7 Sodium 138 Potassium 3.8 Chloride 104 Carbon Dioxide 23 Anion Gap 11 BUN 17.6 Creatinine 1.2 Est GFR (CKD-EPI)AfAm 77.88 Est GFR (CKD-EPI)NonAf 67.19 Random Glucose 113 H Calcium 10.5 H Total Bilirubin 0.4 AST 61 H ALT 73 H Alkaline Phosphatase 97 Total Protein 8.8 H Albumin 4.8 RPR Titer Nonreactive 09/02/19 06:00 WBC RBC Hgb Hct MCV MCH MCHC RDW Plt Count MPV Sodium 140 Potassium 3.5 Chloride 103 Carbon Dioxide 27 Anion Gap 9 BUN 16.1 Creatinine 1.2 Est GFR (CKD-EPI)AfAm 77.88 Est GFR (CKD-EPI)NonAf 67.19 Random Glucose 175 H Calcium 10.4 H Total Bilirubin 0.3 AST 19 ALT 43 Alkaline Phosphatase 99 Total Protein 6.8 Albumin 3.6 RPR Titer repeat labs show random glucose at 175. pt denies have diabetes or ever diagnosed. pt encouraged to increase water intake, stay away from sugary products and foods high in sugar. Pt encouraged to see his PCP for further testing and or any medication for glucose control. pt in agreement. Assessment: 09/02/19 11:48 withdrawals Plan: continue detox
[2019-09-02] MEDS: NICOTINE 21 MG/24 HOURS TOPICAL PATCH TD SCH (12:24)
[2019-09-02] MEDS: IBUPROFEN 400 MG TABLET (FP) PO PRN (13:57)
[2019-09-02] MEDS: traZODone HCL 100 MG TABLET (FP) PO SCH (21:03)
[2019-09-02] MEDS: THIAMINE HCL 100 MG TABLET (FP) PO SCH (21:03)
[2019-09-02] MEDS: MELATONIN 5 MG TABLETS PO SCH (21:04)
[2019-09-03] MEDS ORDERED: chlordiazePOXIDE HCL 10 MG CAPSULE PO PRN
[2019-09-03] MEDS: chlordiazePOXIDE HCL 10 MG CAPSULE PO SCH ×4 (05:12→22:15)
[2019-09-03] MEDS ORDERED: ONDANSETRON *ODT* 4 MG TABLET SL PRN (05:21)
[2019-09-03] MEDS: NICOTINE 21 MG/24 HOURS TOPICAL PATCH TD SCH (10:45)
[2019-09-03] MEDS: SERTRALINE HCL 50 MG TABLET (FP) PO SCH (10:45)
[2019-09-03] MEDS: PRENATAL VITAMINS W/ FOLIC ACID TABLET (FP) PO SCH (10:45)
[2019-09-03] MEDS: IBUPROFEN 400 MG TABLET (FP) PO PRN ×2 (10:49→17:06)
--- NOTE | 2019-09-03 12:18 | PN ---
S CIWA - CIWA Score Nausea/Vomitin-No Nausea/No Vomiting Muscle Tremors: 1-None Visible, but [place] Anxiety: 1-Mildly Anxious Agitation: 1-Slight > Activity Paroxysmal Sweats: 1-Minimal Palms Moist Orientation: 0-Oriented Tacttile Disturbances: 0-None Auditory Disturbances: 0-None Visual Disturbances: 0-None Headache: 0-None Present CIWA-Ar Total Score: 4 BHS Progress Note (SOAP) Subjective: feeling better sweats Objective: 09/03/19 12:17 Vital Signs Temperature 98.2 F 09/03/19 08:43 Pulse Rate 86 09/03/19 08:43 Respiratory Rate 18 09/03/19 08:43 Blood Pressure 114/79 09/03/19 08:43 O2 Sat by Pulse Oximetry (%) aaox3 ambulating no acute distress Assessment: 09/03/19 12:17 withdrawals Plan: continue detox A1C ordered pt is made aware of testing and his part to see his PCP or get a PCP for further treatment if test indicate his A1C is high.
[2019-09-03] MEDS: METOPROLOL TARTRATE 50 MG TABLET (FP) PO SCH ×2 (14:38→22:15)
[2019-09-03] MEDS: amLODIPine BESYLATE 5 MG TABLET (FP) PO SCH (14:38)
[2019-09-03] MEDS: HYDROCHLOROTHIAZIDE 25 MG TABLET (FP) PO SCH (14:38)
[2019-09-03] MEDS: LISINOPRIL 20 MG TABLET (FP) PO SCH (14:38)
[2019-09-03] MEDS: traZODone HCL 100 MG TABLET (FP) PO SCH (22:15)
[2019-09-03] MEDS: MELATONIN 5 MG TABLETS PO SCH (22:15)
[2019-09-03] MEDS: THIAMINE HCL 100 MG TABLET (FP) PO SCH (22:15)
[2019-09-04] MEDS: chlordiazePOXIDE HCL 10 MG CAPSULE PO SCH ×2 (05:48→17:30)
[2019-09-04] MEDS: NICOTINE 21 MG/24 HOURS TOPICAL PATCH TD SCH (10:22)
[2019-09-04] MEDS: HYDROCHLOROTHIAZIDE 25 MG TABLET (FP) PO SCH (10:23)
[2019-09-04] MEDS: SERTRALINE HCL 50 MG TABLET (FP) PO SCH (10:23)
[2019-09-04] MEDS: METOPROLOL TARTRATE 50 MG TABLET (FP) PO SCH ×2 (12:06→22:14)
[2019-09-04] MEDS: PRENATAL VITAMINS W/ FOLIC ACID TABLET (FP) PO SCH (12:07)
[2019-09-04] MEDS: amLODIPine BESYLATE 5 MG TABLET (FP) PO SCH (14:16)
[2019-09-04] MEDS: LISINOPRIL 20 MG TABLET (FP) PO SCH (14:17)
--- NOTE | 2019-09-04 17:13 | PN ---
S CIWA - CIWA Score Nausea/Vomitin Muscle Tremors: None Anxiety: 1-Mildly Anxious Agitation: 1-Slight > Activity Paroxysmal Sweats: No Perspiration Orientation: 0-Oriented Tacttile Disturbances: 0-None Auditory Disturbances: 0-None Visual Disturbances: 0-None Headache: 0-None Present CIWA-Ar Total Score: 5 BHS Progress Note (SOAP) Subjective: Nausea. Objective: PATIENT A & O X 3, OBSERVED AMBULATING ON DETOX UNIT UNASSISTED. IN NO ACUTE DISTRESS. 09/04/19 17:09 Vital Signs Temperature 98.9 F 09/04/19 12:22 Pulse Rate 89 09/04/19 12:22 Respiratory Rate 16 09/04/19 12:22 Blood Pressure 134/91 09/04/19 12:22 O2 Sat by Pulse Oximetry (%) Laboratory Tests 08/31/19 08/31/19 08/31/19 13:40 13:40 13:40 WBC 9.7 RBC 5.16 Hgb 15.2 Hct 46.7 MCV 90.5 MCH 29.5 MCHC 32.6 RDW 14.7 Plt Count 226 MPV 8.7 Sodium 138 Potassium 3.8 Chloride 104 Carbon Dioxide 23 Anion Gap 11 BUN 17.6 Creatinine 1.2 Est GFR (CKD-EPI)AfAm 77.88 Est GFR (CKD-EPI)NonAf 67.19 Random Glucose 113 H Hemoglobin A1c % Calcium 10.5 H Total Bilirubin 0.4 AST 61 H ALT 73 H Alkaline Phosphatase 97 Total Protein 8.8 H Albumin 4.8 RPR Titer Nonreactive 09/02/19 09/04/19 06:00 07:00 WBC RBC Hgb Hct MCV MCH MCHC RDW Plt Count MPV Sodium 140 Potassium 3.5 Chloride 103 Carbon Dioxide 27 Anion Gap 9 BUN 16.1 Creatinine 1.2 Est GFR (CKD-EPI)AfAm 77.88 Est GFR (CKD-EPI)NonAf 67.19 Random Glucose 175 H Hemoglobin A1c % 6.5 H Calcium 10.4 H Total Bilirubin 0.3 AST 19 ALT 43 Alkaline Phosphatase 99 Total Protein 6.8 Albumin 3.6 RPR Titer LABS NOTED. Assessment: 09/04/19 17:11 WITHDRAWAL SYMPTOMS. Plan: CONTINUE DETOX. INCREASE DAILY ORAL WATER INTAKE. PRN ZOFRAN SL RECOMMENDED FOR RELIEF OF NAUSEA. PATIENT SCHEDULED FOR D/C FROM DETOX UNIT TOMORROW.
[2019-09-04] MEDS: THIAMINE HCL 100 MG TABLET (FP) PO SCH (22:14)
[2019-09-04] MEDS: MELATONIN 5 MG TABLETS PO SCH (22:14)
[2019-09-04] MEDS: traZODone HCL 100 MG TABLET (FP) PO SCH (22:14)
[2019-09-05] MEDS ORDERED: chlordiazePOXIDE HCL 10 MG CAPSULE PO ONE (05:00)
[2019-09-05] MEDS: SERTRALINE HCL 50 MG TABLET (FP) PO SCH (10:13)
[2019-09-05] MEDS: NICOTINE 21 MG/24 HOURS TOPICAL PATCH TD SCH (10:13)
[2019-09-05] MEDS: LISINOPRIL 20 MG TABLET (FP) PO SCH (10:13)
[2019-09-05] MEDS: METOPROLOL TARTRATE 50 MG TABLET (FP) PO SCH ×2 (10:13→22:31)
[2019-09-05] MEDS: HYDROCHLOROTHIAZIDE 25 MG TABLET (FP) PO SCH (10:13)
[2019-09-05] MEDS: amLODIPine BESYLATE 5 MG TABLET (FP) PO SCH (10:13)
[2019-09-05] MEDS: PRENATAL VITAMINS W/ FOLIC ACID TABLET (FP) PO SCH (10:14)
--- NOTE | 2019-09-05 14:48 | PN ---
S CIWA - CIWA Score Nausea/Vomitin-No Nausea/No Vomiting Muscle Tremors: None Anxiety: 1-Mildly Anxious Agitation: 0-Normal Activity Paroxysmal Sweats: 1-Minimal Palms Moist Orientation: 0-Oriented Tacttile Disturbances: 0-None Auditory Disturbances: 0-None Visual Disturbances: 0-None Headache: 0-None Present CIWA-Ar Total Score: 2 BHS Progress Note (SOAP) Subjective: Feels ok, wants to stay until tomorrow to go to inpatient rehab because afraid of relapsing if leave today Objective: 09/05/19 14:44 Last Vital Signs Temp Pulse Resp BP Pulse Ox 98.6 F 86 16 133/83 09/05/19 12:24 09/05/19 12:24 09/05/19 12:24 09/05/19 12:24 Elevated b/p: has htn (on med) Laboratory Tests 08/31/19 08/31/19 08/31/19 13:40 13:40 13:40 WBC 9.7 RBC 5.16 Hgb 15.2 Hct 46.7 MCV 90.5 MCH 29.5 MCHC 32.6 RDW 14.7 Plt Count 226 MPV 8.7 Sodium 138 Potassium 3.8 Chloride 104 Carbon Dioxide 23 Anion Gap 11 BUN 17.6 Creatinine 1.2 Est GFR (CKD-EPI)AfAm 77.88 Est GFR (CKD-EPI)NonAf 67.19 Random Glucose 113 H Hemoglobin A1c % Calcium 10.5 H Total Bilirubin 0.4 AST 61 H ALT 73 H Alkaline Phosphatase 97 Total Protein 8.8 H Albumin 4.8 RPR Titer Nonreactive 09/02/19 09/04/19 06:00 07:00 WBC RBC Hgb Hct MCV MCH MCHC RDW Plt Count MPV Sodium 140 Potassium 3.5 Chloride 103 Carbon Dioxide 27 Anion Gap 9 BUN 16.1 Creatinine 1.2 Est GFR (CKD-EPI)AfAm 77.88 Est GFR (CKD-EPI)NonAf 67.19 Random Glucose 175 H Hemoglobin A1c % 6.5 H Calcium 10.4 H Total Bilirubin 0.3 AST 19 ALT 43 Alkaline Phosphatase 99 Total Protein 6.8 Albumin 3.6 RPR Titer Labs reviewed: serum calcium 10.4 >>10.5, A1c 6.5%, serum glucose 175 Assessment: 09/05/19 14:48 Withdrawal sxs Noted with DMT2 and hypercalcemia Plan: Continue detox Encouraged PO water intake Discharge for today canceled due to risk of relapsing, patient requesting inpatient rehab but no bed available today Discharge scheduled for tomorrow to [facility] DMT2 with hyperglycemia: start FS TID with SS insulin coverage and diabetic diet, consider starting metformin if warranted Hypercalcemia: most likely due to HCTZ, discontinue HCTZ, follow up with PCP for monitoring
[2019-09-05] MEDS: INSULIN SLIDING SCALE (NOVOLOG) 1 VIAL SQ SCH (16:41)
[2019-09-05 18:19] LABS: PH,URINE 8.5 (5.0-8.0); URINE APPEARANCE CLEAR; URINE BILIRUBIN NEGATIVE (NEGATIVE); URINE COLOR YELLOW; URINE GLUCOSE (UA) NEGATIVE (NEGATIVE); URINE KETONE NEGATIVE (NEGATIVE); URINE LEUK ESTERASE NEGATIVE (NEGATIVE); URINE NITRITE NEGATIVE (NEGATIVE); URINE PROTEIN NEGATIVE (NEGATIVE); URINE UROBILINOGEN 0.2 mg/dL (0.2-1.0)
[2019-09-05] MEDS: THIAMINE HCL 100 MG TABLET (FP) PO SCH (22:31)
[2019-09-05] MEDS: traZODone HCL 100 MG TABLET (FP) PO SCH (22:31)
[2019-09-05] MEDS: MELATONIN 5 MG TABLETS PO SCH (22:32)
[2019-09-06 06:34] VITALS: BP 115/75; PULSE 76; TEMP 98.2
[2019-09-06] MEDS: INSULIN SLIDING SCALE (NOVOLOG) 1 VIAL SQ SCH (06:54)
--- NOTE | 2019-09-06 09:46 | DS ---
[facility] Detox Discharge Summary Admission Date: 08/31/19 Discharge Date: 09/06/19 - History Present History: Alcohol Dependence, Cannabis Dependence, Cocaine Dependence, Opioid Dependence, Sedative Dependence, Pcp Dependence, MMTP, K 2 - Physical Exam Results Vital Signs: Vital Signs Temperature 98.2 F 09/06/19 06:33 Pulse Rate 76 09/06/19 06:33 Respiratory Rate 18 09/06/19 06:33 Blood Pressure 115/75 09/06/19 06:33 O2 Sat by Pulse Oximetry (%) Pertinent Admission Physical Exam Findings: Vital Signs Temperature 98.2 F 09/06/19 06:33 Pulse Rate 76 09/06/19 06:33 Respiratory Rate 18 09/06/19 06:33 Blood Pressure 115/75 09/06/19 06:33 O2 Sat by Pulse Oximetry (%) Laboratory Tests 08/31/19 08/31/19 08/31/19 13:40 13:40 13:40 WBC 9.7 RBC 5.16 Hgb 15.2 Hct 46.7 MCV 90.5 MCH 29.5 MCHC 32.6 RDW 14.7 Plt Count 226 MPV 8.7 Sodium 138 Potassium 3.8 Chloride 104 Carbon Dioxide 23 Anion Gap 11 BUN 17.6 Creatinine 1.2 Est GFR (CKD-EPI)AfAm 77.88 Est GFR (CKD-EPI)NonAf 67.19 POC Glucometer Random Glucose 113 H Hemoglobin A1c % Calcium 10.5 H Total Bilirubin 0.4 AST 61 H ALT 73 H Alkaline Phosphatase 97 Total Protein 8.8 H Albumin 4.8 Urine Color Urine Appearance Urine pH Ur Specific [place] Urine Protein Urine Glucose (UA) Urine Ketones Urine Blood Urine Nitrite Urine Bilirubin Urine Urobilinogen Ur Leukocyte Esterase RPR Titer Nonreactive 09/02/19 09/04/19 09/05/19 06:00 07:00 13:30 WBC RBC Hgb Hct MCV MCH MCHC RDW Plt Count MPV Sodium 140 Potassium 3.5 Chloride 103 Carbon Dioxide 27 Anion Gap 9 BUN 16.1 Creatinine 1.2 Est GFR (CKD-EPI)AfAm 77.88 Est GFR (CKD-EPI)NonAf 67.19 POC Glucometer Random Glucose 175 H Hemoglobin A1c % 6.5 H Calcium 10.4 H Total Bilirubin 0.3 AST 19 ALT 43 Alkaline Phosphatase 99 Total Protein 6.8 Albumin 3.6 Urine Color Yellow Urine Appearance Clear Urine pH 8.5 H D Ur Specific [place] 1.015 Urine Protein Negative Urine Glucose (UA) Negative Urine Ketones Negative Urine Blood Negative Urine Nitrite Negative Urine Bilirubin Negative Urine Urobilinogen 0.2 Ur Leukocyte Esterase Negative RPR Titer 09/05/19 09/06/19 16:39 05:18 WBC RBC Hgb Hct MCV MCH MCHC RDW Plt Count MPV Sodium Potassium Chloride Carbon Dioxide Anion Gap BUN Creatinine Est GFR (CKD-EPI)AfAm Est GFR (CKD-EPI)NonAf POC Glucometer 121 159 Random Glucose Hemoglobin A1c % Calcium Total Bilirubin AST ALT Alkaline Phosphatase Total Protein Albumin Urine Color Urine Appearance Urine pH Ur Specific [place] Urine Protein Urine Glucose (UA) Urine Ketones Urine Blood Urine Nitrite Urine Bilirubin Urine Urobilinogen Ur Leukocyte Esterase RPR Titer aaox3 ambulating no acute distress - Treatment Hospital Course: Detox Protocol Followed, Detoxed Safely, Responded well, Discharged Condition Good, Rehab Referral Accepted - Medication Discharge Medications: Ambulatory Orders Amlodipine Besylate [Norvasc -] 5 mg PO DAILY #14 tablet 12/24/18 Hydrochlorothiazide 25 mg PO DAILY #14 tablet 12/24/18 Metoprolol Tartrate [Lopressor -] 50 mg PO BID #30 tablet 12/24/18 hydrOXYzine PAMOATE [Vistaril -] 25 mg PO HS 05/05/19 Lisinopril [Prinivil] 20 mg PO DAILY #14 tab 05/25/19 Sertraline HCl [Zoloft -] 50 mg PO DAILY #30 tablet 05/25/19 traZODone HCL [Desyrel -] 100 mg PO HS #30 tablet 05/25/19 - Diagnosis (1) Substance-induced sleep disorder Current Visit: Yes Status: Acute (2) Bipolar II disorder Current Visit: Yes Status: Ruled-out (3) Alcohol dependence with uncomplicated withdrawal Current Visit: Yes Status: Chronic (4) Cocaine dependence Current Visit: Yes Status: Chronic Qualifiers: Substance use status: uncomplicated Qualified Code(s): F14.20 - Cocaine dependence, uncomplicated (5) Hyperglycemia Current Visit: No Status: Acute (6) Substance-induced sleep disorder Current Visit: No Status: Acute (7) Bipolar disorder Current Visit: No Status: Chronic Qualifiers: Active/Remission status: remission status unspecified Qualified Code(s): F31.9 - Bipolar disorder, unspecified (8) Essential hypertension Current Visit: No Status: Chronic (9) Insomnia Current Visit: No Status: Chronic Qualifiers: Insomnia type: alcohol-induced Qualified Code(s): F10.982 - Alcohol use, unspecified with alcohol-induced sleep disorder (10) MDD (major depressive disorder), recurrent episode, mild Current Visit: No Status: Chronic (11) Nicotine dependence Current Visit: No Status: Chronic Qualifiers: Nicotine product type: cigarettes Substance use status: uncomplicated Qu alified Code(s): F17.210 - Nicotine dependence, cigarettes, uncomplicated (12) Obesity Current Visit: No Status: Chronic Qualifiers: Obesity type: unspecified obesity type Obesity classification: adult class 1 (BMI 30 - 34.9) Serious obesity comorbidity presence: unspecified whether serious comorbidity present Body mass index: BMI 34.0-34.9 Qualified Code(s): E66.9 - Obesity, unspecified; Z68.34 - Body mass index (BMI) 34.0-34.9, adult (13) Substance induced mood disorder Current Visit: No Status: Chronic - AMA Did Patient Leave Against Medical Advice: No
[2019-09-06] MEDS: PRENATAL VITAMINS W/ FOLIC ACID TABLET (FP) PO SCH (10:46)
[2019-09-06] MEDS: METOPROLOL TARTRATE 50 MG TABLET (FP) PO SCH (10:46)
[2019-09-06] MEDS: SERTRALINE HCL 50 MG TABLET (FP) PO SCH (10:46)
[2019-09-06] MEDS: amLODIPine BESYLATE 5 MG TABLET (FP) PO SCH (10:46)
[2019-09-06] MEDS: LISINOPRIL 20 MG TABLET (FP) PO SCH (10:46)
[2019-09-06] MEDS: NICOTINE 21 MG/24 HOURS TOPICAL PATCH TD SCH (10:47)
== END 2019-09-06 11:22 | disposition home or self-care (01) | DRG 897 ==
LOC: YASAS 10:19 → Y6N 13:45
PROVIDERS: ADMIT Allergy & Immunology; ATTEND Allergy & Immunology
PROC: HZ2ZZZZ Detoxification Services for Substance Abuse Treatment (ICD-10-PCS; principal; 2019-08-31)
DX: F10.230 Alcohol dependence with withdrawal, uncomplicated (principal); F14.20 Cocaine dependence, uncomplicated; F19.282 Other psychoactive substance dependence with psychoactive substance-induced sleep disorder; F33.9 Major depressive disorder, recurrent, unspecified; F17.210 Nicotine dependence, cigarettes, uncomplicated; F10.282 Alcohol dependence with alcohol-induced sleep disorder; F19.24 Other psychoactive substance dependence with psychoactive substance-induced mood disorder; F31.9 Bipolar disorder, unspecified; I10 Essential (primary) hypertension; E11.65 Type 2 diabetes mellitus with hyperglycemia; E83.52 Hypercalcemia; R74.0 Nonspecific elevation of levels of transaminase and lactic acid dehydrogenase [LDH]; E66.9 Obesity, unspecified; Z68.35 Body mass index [BMI] 35.0-35.9, adult; Z56.0 Unemployment, unspecified; Z59.0 Homelessness
CPT/HCPCS: 36415; 80053; 81003; 82962; 83036; 85027; 86593; Q0162; Q2036

== ENCOUNTER 2020-05-28 10:34 | Inpatient (IN) | payer OTHER ==
[2020-05-28 11:56] VITALS: BMI 37.3
[2020-05-28] MEDS ORDERED: BISMUTH SUBSALICYLATE 524 MG/30 ML PO PRN (14:22)
[2020-05-28] MEDS ORDERED: NICOTINE POLACRILEX 2 MG GUM BUC PRN (14:22)
[2020-05-28] MEDS ORDERED: ACETAMINOPHEN 325 MG TABLET (FP) PO PRN (14:22)
[2020-05-28] MEDS ORDERED: IBUPROFEN 400 MG TABLET (FP) PO PRN (14:22)
[2020-05-28] MEDS ORDERED: MAGNESIUM CITRATE 300 ML BOTTLE PO PRN (14:22)
[2020-05-28] MEDS ORDERED: MENTHOL/PHENOL 1 EACH UD MM PRN (14:22)
[2020-05-28] MEDS ORDERED: MAG HYDROX/AL HYDROX/SIMETH 30 ML UNIT-DOSE CUP PO PRN (14:22)
[2020-05-28] MEDS ORDERED: METHOCARBAMOL 500 MG TABLET PO PRN (14:22)
[2020-05-28] MEDS ORDERED: chlordiazePOXIDE HCL 25 MG CAPSULE PO PRN (14:22)
[2020-05-28] MEDS ORDERED: MAGNESIUM HYDROX 2400MG/30ML ORAL SUSPENSION 30 ML CUP PO PRN (14:22)
[2020-05-28] MEDS ORDERED: ONDANSETRON *ODT* 4 MG TABLET SL PRN (14:22)
[2020-05-28] MEDS: ACETAMINOPHEN 325 MG TABLET (FP) PO PRN (15:41)
[2020-05-28] MEDS: NICOTINE 21 MG/24 HOURS TOPICAL PATCH TD SCH (15:41)
[2020-05-28] MEDS: chlordiazePOXIDE HCL 25 MG CAPSULE PO SCH ×2 (17:36→22:38)
[2020-05-28] MEDS: hydrOXYzine PAMOATE 25 MG CAPSULE (FP) PO SCH ×2 (17:36→22:39)
[2020-05-28] MEDS: MELATONIN 5 MG TABLETS PO SCH (22:38)
[2020-05-28] MEDS: METOPROLOL TARTRATE 50 MG TABLET (FP) PO SCH (22:38)
[2020-05-28] MEDS: THIAMINE HCL 100 MG TABLET (FP) PO SCH (22:39)
[2020-05-29 01:55] LABS: URINE APPEARANCE CLEAR; URINE BILIRUBIN NEGATIVE (NEGATIVE); URINE COLOR YELLOW; URINE GLUCOSE (UA) NEGATIVE (NEGATIVE); URINE KETONE NEGATIVE (NEGATIVE); URINE LEUK ESTERASE NEGATIVE (NEGATIVE); URINE NITRITE NEGATIVE (NEGATIVE); URINE PROTEIN TRACE (NEGATIVE); URINE UROBILINOGEN 0.2 mg/dL (0.2-1.0)
[2020-05-29] MEDS: hydrOXYzine PAMOATE 25 MG CAPSULE (FP) PO SCH ×5 (05:45→22:26)
[2020-05-29] MEDS: chlordiazePOXIDE HCL 25 MG CAPSULE PO SCH ×4 (05:45→22:27)
[2020-05-29] MEDS: PRENATAL VITAMINS W/ FOLIC ACID TABLET (FP) PO SCH (10:26)
[2020-05-29] MEDS: amLODIPine BESYLATE 5 MG TABLET (FP) PO SCH (10:27)
[2020-05-29] MEDS: LISINOPRIL 20 MG TABLET PO SCH (10:27)
[2020-05-29] MEDS: NICOTINE 21 MG/24 HOURS TOPICAL PATCH TD SCH (10:27)
[2020-05-29] MEDS: METOPROLOL TARTRATE 50 MG TABLET (FP) PO SCH ×2 (10:27→22:26)
[2020-05-29] MEDS: ACETAMINOPHEN 325 MG TABLET (FP) PO PRN (10:30)
[2020-05-29 10:39] LABS: HEMATOCRIT 43.2 % (35.4-49); HEMOGLOBIN 14.3 GM/dL (11.7-16.9); MCH 29.6 pg (25.7-33.7); MCHC 33.1 g/dl (32.0-35.9); MEAN CELL VOLUME 89.4 fl (80-96); MEAN PLT VOLUME 8.8 fl (7.5-11.1); PLATELET COUNT 141 K/MM3 (134-434); RBC 4.83 M/mm3 (4.00-5.60); WHITE BLOOD COUNT 4.9 K/mm3 (4.0-10.0)
[2020-05-29 10:48] LABS: ALBUMIN 3.5 g/dl (3.4-5.0); BLOOD UREA NITROGEN 15.8 mg/dL (7-18); CALCIUM 9.8 mg/dL (8.5-10.1)
[2020-05-29 10:51] LABS: CREATININE 1.2 mg/dL (0.55-1.3)
[2020-05-29 10:53] LABS: BILIRUBIN,TOTAL 0.6 mg/dL (0.2-1); TOT PROT 6.9 g/dl (6.4-8.2)
[2020-05-29] MEDS ORDERED: DICYCLOMINE HCL 10 MG CAPSULE PO ONE ×2 (16:30→17:15)
[2020-05-29] MEDS: THIAMINE HCL 100 MG TABLET (FP) PO SCH (22:26)
[2020-05-29] MEDS: MELATONIN 5 MG TABLETS PO SCH (22:27)
[2020-05-30] MEDS: chlordiazePOXIDE HCL 25 MG CAPSULE PO SCH ×4 (05:35→22:08)
[2020-05-30] MEDS: hydrOXYzine PAMOATE 25 MG CAPSULE (FP) PO SCH ×5 (05:35→22:09)
[2020-05-30] MEDS: METOPROLOL TARTRATE 50 MG TABLET (FP) PO SCH ×2 (10:05→22:08)
[2020-05-30] MEDS: NICOTINE 21 MG/24 HOURS TOPICAL PATCH TD SCH (10:05)
[2020-05-30] MEDS: PRENATAL VITAMINS W/ FOLIC ACID TABLET (FP) PO SCH (10:06)
[2020-05-30] MEDS: amLODIPine BESYLATE 5 MG TABLET (FP) PO SCH (10:06)
[2020-05-30] MEDS: LISINOPRIL 20 MG TABLET PO SCH (10:06)
[2020-05-30] MEDS ORDERED: DICYCLOMINE HCL 10 MG CAPSULE PO ONE (12:04)
[2020-05-30] MEDS: FAMOTIDINE 20 MG TABLET PO SCH ×2 (12:25→22:09)
[2020-05-30] MEDS: THIAMINE HCL 100 MG TABLET (FP) PO SCH (22:08)
[2020-05-30] MEDS: MELATONIN 5 MG TABLETS PO SCH (22:08)
[2020-05-31] MEDS ORDERED: chlordiazePOXIDE HCL 10 MG CAPSULE PO PRN
[2020-05-31] MEDS: hydrOXYzine PAMOATE 25 MG CAPSULE (FP) PO SCH ×5 (05:52→22:19)
[2020-05-31] MEDS: chlordiazePOXIDE HCL 10 MG CAPSULE PO SCH ×4 (05:52→22:19)
[2020-05-31] MEDS: PRENATAL VITAMINS W/ FOLIC ACID TABLET (FP) PO SCH (10:24)
[2020-05-31] MEDS: METOPROLOL TARTRATE 50 MG TABLET (FP) PO SCH ×2 (10:24→22:19)
[2020-05-31] MEDS: LISINOPRIL 20 MG TABLET PO SCH (10:24)
[2020-05-31] MEDS: FAMOTIDINE 20 MG TABLET PO SCH ×2 (10:24→22:19)
[2020-05-31] MEDS: NICOTINE 21 MG/24 HOURS TOPICAL PATCH TD SCH (10:25)
[2020-05-31] MEDS: amLODIPine BESYLATE 5 MG TABLET (FP) PO SCH (10:25)
[2020-05-31] MEDS: THIAMINE HCL 100 MG TABLET (FP) PO SCH (22:19)
[2020-05-31] MEDS: MELATONIN 5 MG TABLETS PO SCH (22:20)
[2020-05-31] MEDS: ACETAMINOPHEN 325 MG TABLET (FP) PO PRN (22:22)
[2020-06-01] MEDS: hydrOXYzine PAMOATE 25 MG CAPSULE (FP) PO SCH ×5 (05:42→22:12)
[2020-06-01] MEDS: chlordiazePOXIDE HCL 10 MG CAPSULE PO SCH ×2 (05:42→17:57)
[2020-06-01] MEDS: LISINOPRIL 20 MG TABLET PO SCH (10:26)
[2020-06-01] MEDS: amLODIPine BESYLATE 5 MG TABLET (FP) PO SCH (10:26)
[2020-06-01] MEDS: METOPROLOL TARTRATE 50 MG TABLET (FP) PO SCH ×2 (10:26→22:12)
[2020-06-01] MEDS: FAMOTIDINE 20 MG TABLET PO SCH ×2 (10:27→22:12)
[2020-06-01] MEDS: NICOTINE 21 MG/24 HOURS TOPICAL PATCH TD SCH (10:27)
[2020-06-01] MEDS: PRENATAL VITAMINS W/ FOLIC ACID TABLET (FP) PO SCH (10:27)
[2020-06-01] MEDS: SERTRALINE HCL 50 MG TABLET (FP) PO SCH (11:43)
[2020-06-01] MEDS: traZODone HCL 50 MG TABLET (FP) PO SCH (22:12)
[2020-06-01] MEDS: THIAMINE HCL 100 MG TABLET (FP) PO SCH (22:12)
[2020-06-01] MEDS: MELATONIN 5 MG TABLETS PO SCH (22:12)
[2020-06-01] MEDS: ACETAMINOPHEN 325 MG TABLET (FP) PO PRN (22:15)
[2020-06-02] MEDS ORDERED: chlordiazePOXIDE HCL 10 MG CAPSULE PO ONE (05:00)
[2020-06-02] MEDS: hydrOXYzine PAMOATE 25 MG CAPSULE (FP) PO SCH ×5 (06:02→21:19)
[2020-06-02] MEDS: METOPROLOL TARTRATE 50 MG TABLET (FP) PO SCH ×2 (10:34→21:19)
[2020-06-02] MEDS: LISINOPRIL 20 MG TABLET PO SCH (10:34)
[2020-06-02] MEDS: SERTRALINE HCL 50 MG TABLET (FP) PO SCH (10:34)
[2020-06-02] MEDS: PRENATAL VITAMINS W/ FOLIC ACID TABLET (FP) PO SCH (10:34)
[2020-06-02] MEDS: amLODIPine BESYLATE 5 MG TABLET (FP) PO SCH (10:34)
[2020-06-02] MEDS: FAMOTIDINE 20 MG TABLET PO SCH ×2 (10:35→21:19)
[2020-06-02] MEDS: NICOTINE 21 MG/24 HOURS TOPICAL PATCH TD SCH (10:35)
[2020-06-02] MEDS: ACETAMINOPHEN 325 MG TABLET (FP) PO PRN (16:44)
[2020-06-02] MEDS ORDERED: PT OWN MED DRAWER 7, Y5N ONE (18:34)
[2020-06-02] MEDS: MELATONIN 5 MG TABLETS PO SCH (21:19)
[2020-06-02] MEDS: traZODone HCL 50 MG TABLET (FP) PO SCH (21:19)
[2020-06-02] MEDS: THIAMINE HCL 100 MG TABLET (FP) PO SCH (21:19)
[2020-06-03] MEDS: hydrOXYzine PAMOATE 25 MG CAPSULE (FP) PO SCH ×3 (07:11→13:21)
[2020-06-03] MEDS ORDERED: MASKS NR ONE ×2 (08:32→12:51)
[2020-06-03] MEDS: ACETAMINOPHEN 325 MG TABLET (FP) PO PRN (09:09)
[2020-06-03] MEDS: SERTRALINE HCL 50 MG TABLET (FP) PO SCH (09:21)
[2020-06-03] MEDS: NICOTINE 21 MG/24 HOURS TOPICAL PATCH TD SCH (09:21)
[2020-06-03] MEDS: FAMOTIDINE 20 MG TABLET PO SCH ×2 (09:21→21:37)
[2020-06-03] MEDS: PRENATAL VITAMINS W/ FOLIC ACID TABLET (FP) PO SCH (09:21)
[2020-06-03] MEDS: METOPROLOL TARTRATE 50 MG TABLET (FP) PO SCH ×2 (09:21→22:13)
[2020-06-03] MEDS: LISINOPRIL 20 MG TABLET PO SCH (09:21)
[2020-06-03] MEDS: amLODIPine BESYLATE 5 MG TABLET (FP) PO SCH (09:21)
[2020-06-03] MEDS: CEPHALEXIN MONOHYDRATE 500 MG CAPSULE (UD) PO SCH ×2 (17:49→23:27)
[2020-06-03] MEDS ORDERED: PT OWN MED DRAWER 7, Y5N ONE (18:55)
[2020-06-03] MEDS: THIAMINE HCL 100 MG TABLET (FP) PO SCH (21:37)
[2020-06-03] MEDS: MELATONIN 5 MG TABLETS PO SCH (21:37)
[2020-06-03] MEDS: traZODone HCL 50 MG TABLET (FP) PO SCH (21:37)
[2020-06-04] MEDS: CEPHALEXIN MONOHYDRATE 500 MG CAPSULE (UD) PO SCH ×4 (06:16→23:37)
[2020-06-04] MEDS: SERTRALINE HCL 50 MG TABLET (FP) PO SCH (10:10)
[2020-06-04] MEDS: FAMOTIDINE 20 MG TABLET PO SCH ×2 (10:10→21:27)
[2020-06-04] MEDS: amLODIPine BESYLATE 5 MG TABLET (FP) PO SCH (10:10)
[2020-06-04] MEDS: PRENATAL VITAMINS W/ FOLIC ACID TABLET (FP) PO SCH (10:10)
[2020-06-04] MEDS: NICOTINE 21 MG/24 HOURS TOPICAL PATCH TD SCH (10:10)
[2020-06-04] MEDS: LISINOPRIL 20 MG TABLET PO SCH (10:10)
[2020-06-04] MEDS ORDERED: PT OWN MED DRAWER 7, Y5N ONE ×2 (10:11→18:42)
[2020-06-04] MEDS: ACETAMINOPHEN 325 MG TABLET (FP) PO PRN ×2 (10:12→21:28)
[2020-06-04] MEDS: METOPROLOL TARTRATE 50 MG TABLET (FP) PO SCH ×2 (10:30→21:27)
[2020-06-04] MEDS: traZODone HCL 50 MG TABLET (FP) PO SCH (21:27)
[2020-06-04] MEDS: MELATONIN 5 MG TABLETS PO SCH (21:27)
[2020-06-04] MEDS: THIAMINE HCL 100 MG TABLET (FP) PO SCH (21:28)
[2020-06-05] MEDS: CEPHALEXIN MONOHYDRATE 500 MG CAPSULE (UD) PO SCH ×4 (06:54→23:46)
[2020-06-05] MEDS ORDERED: PT OWN MED DRAWER 7, Y5N ONE ×2 (09:05→20:36)
[2020-06-05] MEDS: SERTRALINE HCL 50 MG TABLET (FP) PO SCH (10:22)
[2020-06-05] MEDS: FAMOTIDINE 20 MG TABLET PO SCH ×2 (10:22→21:32)
[2020-06-05] MEDS: METOPROLOL TARTRATE 50 MG TABLET (FP) PO SCH ×2 (10:22→21:31)
[2020-06-05] MEDS: PRENATAL VITAMINS W/ FOLIC ACID TABLET (FP) PO SCH (10:22)
[2020-06-05] MEDS: amLODIPine BESYLATE 5 MG TABLET (FP) PO SCH (10:22)
[2020-06-05] MEDS: NICOTINE 21 MG/24 HOURS TOPICAL PATCH TD SCH (10:22)
[2020-06-05] MEDS: LISINOPRIL 20 MG TABLET PO SCH (10:22)
[2020-06-05] MEDS: THIAMINE HCL 100 MG TABLET (FP) PO SCH (21:30)
[2020-06-05] MEDS: traZODone HCL 50 MG TABLET (FP) PO SCH (21:30)
[2020-06-05] MEDS: MELATONIN 5 MG TABLETS PO SCH (21:31)
[2020-06-06] MEDS: CEPHALEXIN MONOHYDRATE 500 MG CAPSULE (UD) PO SCH ×4 (06:07→23:27)
[2020-06-06] MEDS ORDERED: PT OWN MED DRAWER 7, Y5N ONE ×2 (09:00→19:25)
[2020-06-06] MEDS: NICOTINE 21 MG/24 HOURS TOPICAL PATCH TD SCH (10:19)
[2020-06-06] MEDS: PRENATAL VITAMINS W/ FOLIC ACID TABLET (FP) PO SCH (10:19)
[2020-06-06] MEDS: SERTRALINE HCL 50 MG TABLET (FP) PO SCH (10:19)
[2020-06-06] MEDS: amLODIPine BESYLATE 5 MG TABLET (FP) PO SCH (10:19)
[2020-06-06] MEDS: LISINOPRIL 20 MG TABLET PO SCH (10:19)
[2020-06-06] MEDS: METOPROLOL TARTRATE 50 MG TABLET (FP) PO SCH ×2 (10:19→21:33)
[2020-06-06] MEDS: FAMOTIDINE 20 MG TABLET PO SCH ×2 (10:19→21:33)
[2020-06-06] MEDS: ACETAMINOPHEN 325 MG TABLET (FP) PO PRN (10:21)
[2020-06-06] MEDS ORDERED: BACITRACIN 0.9 GM PACKET ONE (10:24)
[2020-06-06] MEDS: BACITRACIN 0.9 GM PACKET TP SCH (12:45)
[2020-06-06] MEDS: THIAMINE HCL 100 MG TABLET (FP) PO SCH (21:33)
[2020-06-06] MEDS: MELATONIN 5 MG TABLETS PO SCH (21:33)
[2020-06-06] MEDS: traZODone HCL 50 MG TABLET (FP) PO SCH (21:33)
[2020-06-07] MEDS: CEPHALEXIN MONOHYDRATE 500 MG CAPSULE (UD) PO SCH ×4 (06:32→23:06)
[2020-06-07] MEDS ORDERED: PT OWN MED DRAWER 7, Y5N ONE ×2 (08:44→18:45)
[2020-06-07] MEDS: METOPROLOL TARTRATE 50 MG TABLET (FP) PO SCH ×2 (10:31→21:17)
[2020-06-07] MEDS: amLODIPine BESYLATE 5 MG TABLET (FP) PO SCH (10:32)
[2020-06-07] MEDS: FAMOTIDINE 20 MG TABLET PO SCH ×2 (10:32→21:17)
[2020-06-07] MEDS: PRENATAL VITAMINS W/ FOLIC ACID TABLET (FP) PO SCH (10:32)
[2020-06-07] MEDS: NICOTINE 21 MG/24 HOURS TOPICAL PATCH TD SCH (10:32)
[2020-06-07] MEDS: SERTRALINE HCL 50 MG TABLET (FP) PO SCH (10:33)
[2020-06-07] MEDS: LISINOPRIL 20 MG TABLET PO SCH (10:33)
[2020-06-07] MEDS: ACETAMINOPHEN 325 MG TABLET (FP) PO PRN (10:34)
[2020-06-07] MEDS: BACITRACIN 0.9 GM PACKET TP SCH (10:35)
[2020-06-07] MEDS: MELATONIN 5 MG TABLETS PO SCH (21:17)
[2020-06-07] MEDS: THIAMINE HCL 100 MG TABLET (FP) PO SCH (21:17)
[2020-06-07] MEDS: traZODone HCL 50 MG TABLET (FP) PO SCH (21:17)
[2020-06-08] MEDS: CEPHALEXIN MONOHYDRATE 500 MG CAPSULE (UD) PO SCH ×4 (06:16→23:35)
[2020-06-08] MEDS: FAMOTIDINE 20 MG TABLET PO SCH ×2 (10:05→21:21)
[2020-06-08] MEDS: LISINOPRIL 20 MG TABLET PO SCH (10:05)
[2020-06-08] MEDS: amLODIPine BESYLATE 5 MG TABLET (FP) PO SCH (10:05)
[2020-06-08] MEDS: SERTRALINE HCL 50 MG TABLET (FP) PO SCH (10:05)
[2020-06-08] MEDS: BACITRACIN 0.9 GM PACKET TP SCH (10:05)
[2020-06-08] MEDS: NICOTINE 21 MG/24 HOURS TOPICAL PATCH TD SCH (10:05)
[2020-06-08] MEDS: PRENATAL VITAMINS W/ FOLIC ACID TABLET (FP) PO SCH (10:05)
[2020-06-08] MEDS: ACETAMINOPHEN 325 MG TABLET (FP) PO PRN (10:06)
[2020-06-08] MEDS: METOPROLOL TARTRATE 50 MG TABLET (FP) PO SCH ×2 (11:00→21:21)
[2020-06-08] MEDS: MELATONIN 5 MG TABLETS PO SCH (21:21)
[2020-06-08] MEDS: traZODone HCL 50 MG TABLET (FP) PO SCH (21:21)
[2020-06-08] MEDS: THIAMINE HCL 100 MG TABLET (FP) PO SCH (21:21)
[2020-06-09] MEDS: CEPHALEXIN MONOHYDRATE 500 MG CAPSULE (UD) PO SCH ×4 (06:11→23:29)
[2020-06-09] MEDS: PRENATAL VITAMINS W/ FOLIC ACID TABLET (FP) PO SCH (10:09)
[2020-06-09] MEDS: BACITRACIN 0.9 GM PACKET TP SCH (10:10)
[2020-06-09] MEDS: LISINOPRIL 20 MG TABLET PO SCH (10:10)
[2020-06-09] MEDS: FAMOTIDINE 20 MG TABLET PO SCH ×2 (10:10→21:15)
[2020-06-09] MEDS: METOPROLOL TARTRATE 50 MG TABLET (FP) PO SCH ×2 (10:10→21:15)
[2020-06-09] MEDS: SERTRALINE HCL 50 MG TABLET (FP) PO SCH (10:10)
[2020-06-09] MEDS: ACETAMINOPHEN 325 MG TABLET (FP) PO PRN (10:10)
[2020-06-09] MEDS: amLODIPine BESYLATE 5 MG TABLET (FP) PO SCH (10:10)
[2020-06-09] MEDS: NICOTINE 21 MG/24 HOURS TOPICAL PATCH TD SCH (10:10)
[2020-06-09] MEDS ORDERED: COLLOIDAL OATMEAL 1 BAR EACH TP PRN (11:04)
[2020-06-09] MEDS: traZODone HCL 50 MG TABLET (FP) PO SCH (21:15)
[2020-06-09] MEDS: THIAMINE HCL 100 MG TABLET (FP) PO SCH (21:15)
[2020-06-09] MEDS: MELATONIN 5 MG TABLETS PO SCH (21:15)
[2020-06-10] MEDS: CEPHALEXIN MONOHYDRATE 500 MG CAPSULE (UD) PO SCH ×4 (06:27→17:44)
[2020-06-10] MEDS: PRENATAL VITAMINS W/ FOLIC ACID TABLET (FP) PO SCH (09:43)
[2020-06-10] MEDS: SERTRALINE HCL 50 MG TABLET (FP) PO SCH (09:43)
[2020-06-10] MEDS: LISINOPRIL 20 MG TABLET PO SCH (09:43)
[2020-06-10] MEDS: METOPROLOL TARTRATE 50 MG TABLET (FP) PO SCH ×2 (09:43→21:30)
[2020-06-10] MEDS: amLODIPine BESYLATE 5 MG TABLET (FP) PO SCH (09:43)
[2020-06-10] MEDS: ACETAMINOPHEN 325 MG TABLET (FP) PO PRN (09:44)
[2020-06-10] MEDS: FAMOTIDINE 20 MG TABLET PO SCH ×2 (09:44→21:31)
[2020-06-10] MEDS: BACITRACIN 0.9 GM PACKET TP SCH (09:44)
[2020-06-10] MEDS: NICOTINE 21 MG/24 HOURS TOPICAL PATCH TD SCH (09:44)
[2020-06-10] MEDS: MELATONIN 5 MG TABLETS PO SCH (21:30)
[2020-06-10] MEDS: THIAMINE HCL 100 MG TABLET (FP) PO SCH (21:30)
[2020-06-10] MEDS: traZODone HCL 50 MG TABLET (FP) PO SCH (21:30)
[2020-06-11] MEDS: CEPHALEXIN MONOHYDRATE 500 MG CAPSULE (UD) PO SCH ×4 (06:30→23:55)
[2020-06-11] MEDS: METOPROLOL TARTRATE 50 MG TABLET (FP) PO SCH ×2 (10:28→21:20)
[2020-06-11] MEDS: PRENATAL VITAMINS W/ FOLIC ACID TABLET (FP) PO SCH (10:28)
[2020-06-11] MEDS: BACITRACIN 0.9 GM PACKET TP SCH (10:28)
[2020-06-11] MEDS: amLODIPine BESYLATE 5 MG TABLET (FP) PO SCH (10:29)
[2020-06-11] MEDS: LISINOPRIL 20 MG TABLET PO SCH (10:29)
[2020-06-11] MEDS: FAMOTIDINE 20 MG TABLET PO SCH ×2 (10:29→21:20)
[2020-06-11] MEDS: NICOTINE 21 MG/24 HOURS TOPICAL PATCH TD SCH (10:29)
[2020-06-11] MEDS: ACETAMINOPHEN 325 MG TABLET (FP) PO PRN (10:29)
[2020-06-11] MEDS: SERTRALINE HCL 50 MG TABLET (FP) PO SCH (10:29)
[2020-06-11] MEDS: traZODone HCL 50 MG TABLET (FP) PO SCH (21:20)
[2020-06-11] MEDS: MELATONIN 5 MG TABLETS PO SCH (21:20)
[2020-06-11] MEDS: THIAMINE HCL 100 MG TABLET (FP) PO SCH (21:21)
[2020-06-12] MEDS: CEPHALEXIN MONOHYDRATE 500 MG CAPSULE (UD) PO SCH ×4 (06:56→23:07)
[2020-06-12] MEDS: LISINOPRIL 20 MG TABLET PO SCH (09:53)
[2020-06-12] MEDS: amLODIPine BESYLATE 5 MG TABLET (FP) PO SCH (09:53)
[2020-06-12] MEDS: BACITRACIN 0.9 GM PACKET TP SCH (09:53)
[2020-06-12] MEDS: METOPROLOL TARTRATE 50 MG TABLET (FP) PO SCH ×2 (09:53→21:12)
[2020-06-12] MEDS: PRENATAL VITAMINS W/ FOLIC ACID TABLET (FP) PO SCH (09:53)
[2020-06-12] MEDS: SERTRALINE HCL 50 MG TABLET (FP) PO SCH (09:54)
[2020-06-12] MEDS: ACETAMINOPHEN 325 MG TABLET (FP) PO PRN (09:54)
[2020-06-12] MEDS: FAMOTIDINE 20 MG TABLET PO SCH ×2 (09:54→21:12)
[2020-06-12] MEDS: NICOTINE 21 MG/24 HOURS TOPICAL PATCH TD SCH (09:54)
[2020-06-12] MEDS: traZODone HCL 50 MG TABLET (FP) PO SCH (21:11)
[2020-06-12] MEDS: MELATONIN 5 MG TABLETS PO SCH (21:11)
[2020-06-12] MEDS: THIAMINE HCL 100 MG TABLET (FP) PO SCH (21:11)
[2020-06-13] MEDS: CEPHALEXIN MONOHYDRATE 500 MG CAPSULE (UD) PO SCH ×2 (06:10→12:10)
[2020-06-13] MEDS: LISINOPRIL 20 MG TABLET PO SCH (09:51)
[2020-06-13] MEDS: PRENATAL VITAMINS W/ FOLIC ACID TABLET (FP) PO SCH (09:51)
[2020-06-13] MEDS: ACETAMINOPHEN 325 MG TABLET (FP) PO PRN (09:51)
[2020-06-13] MEDS: FAMOTIDINE 20 MG TABLET PO SCH ×2 (09:51→21:18)
[2020-06-13] MEDS: METOPROLOL TARTRATE 50 MG TABLET (FP) PO SCH ×2 (09:51→21:18)
[2020-06-13] MEDS: amLODIPine BESYLATE 5 MG TABLET (FP) PO SCH (09:51)
[2020-06-13] MEDS: NICOTINE 21 MG/24 HOURS TOPICAL PATCH TD SCH (09:51)
[2020-06-13] MEDS: SERTRALINE HCL 50 MG TABLET (FP) PO SCH (09:51)
[2020-06-13] MEDS: MELATONIN 5 MG TABLETS PO SCH (21:18)
[2020-06-13] MEDS: THIAMINE HCL 100 MG TABLET (FP) PO SCH (21:18)
[2020-06-13] MEDS: traZODone HCL 50 MG TABLET (FP) PO SCH (21:18)
[2020-06-14] MEDS: NICOTINE 21 MG/24 HOURS TOPICAL PATCH TD SCH (10:04)
[2020-06-14] MEDS: METOPROLOL TARTRATE 50 MG TABLET (FP) PO SCH ×2 (10:04→21:19)
[2020-06-14] MEDS: PRENATAL VITAMINS W/ FOLIC ACID TABLET (FP) PO SCH (10:04)
[2020-06-14] MEDS: amLODIPine BESYLATE 5 MG TABLET (FP) PO SCH (10:04)
[2020-06-14] MEDS: FAMOTIDINE 20 MG TABLET PO SCH ×2 (10:04→21:19)
[2020-06-14] MEDS: SERTRALINE HCL 50 MG TABLET (FP) PO SCH (10:04)
[2020-06-14] MEDS: LISINOPRIL 20 MG TABLET PO SCH (10:04)
[2020-06-14] MEDS: ACETAMINOPHEN 325 MG TABLET (FP) PO PRN (13:04)
[2020-06-14] MEDS: traZODone HCL 50 MG TABLET (FP) PO SCH (21:19)
[2020-06-14] MEDS: MELATONIN 5 MG TABLETS PO SCH (21:19)
[2020-06-14] MEDS: THIAMINE HCL 100 MG TABLET (FP) PO SCH (21:20)
[2020-06-15] MEDS: amLODIPine BESYLATE 5 MG TABLET (FP) PO SCH (10:01)
[2020-06-15] MEDS: METOPROLOL TARTRATE 50 MG TABLET (FP) PO SCH ×2 (10:01→21:30)
[2020-06-15] MEDS: LISINOPRIL 20 MG TABLET PO SCH (10:01)
[2020-06-15] MEDS: SERTRALINE HCL 50 MG TABLET (FP) PO SCH (10:01)
[2020-06-15] MEDS: NICOTINE 21 MG/24 HOURS TOPICAL PATCH TD SCH (10:01)
[2020-06-15] MEDS: FAMOTIDINE 20 MG TABLET PO SCH ×2 (10:02→21:30)
[2020-06-15] MEDS: PRENATAL VITAMINS W/ FOLIC ACID TABLET (FP) PO SCH (10:02)
[2020-06-15] MEDS: MELATONIN 5 MG TABLETS PO SCH (21:29)
[2020-06-15] MEDS: THIAMINE HCL 100 MG TABLET (FP) PO SCH (21:29)
[2020-06-15] MEDS: traZODone HCL 50 MG TABLET (FP) PO SCH (21:30)
[2020-06-16] MEDS: METOPROLOL TARTRATE 50 MG TABLET (FP) PO SCH ×2 (09:38→21:36)
[2020-06-16] MEDS: PRENATAL VITAMINS W/ FOLIC ACID TABLET (FP) PO SCH (09:39)
[2020-06-16] MEDS: LISINOPRIL 20 MG TABLET PO SCH (09:39)
[2020-06-16] MEDS: NICOTINE 21 MG/24 HOURS TOPICAL PATCH TD SCH (09:39)
[2020-06-16] MEDS: FAMOTIDINE 20 MG TABLET PO SCH ×2 (09:39→21:36)
[2020-06-16] MEDS: amLODIPine BESYLATE 5 MG TABLET (FP) PO SCH (09:39)
[2020-06-16] MEDS: SERTRALINE HCL 50 MG TABLET (FP) PO SCH (09:40)
[2020-06-16] MEDS: MELATONIN 5 MG TABLETS PO SCH (21:36)
[2020-06-16] MEDS: traZODone HCL 50 MG TABLET (FP) PO SCH (21:36)
[2020-06-16] MEDS: THIAMINE HCL 100 MG TABLET (FP) PO SCH (21:36)
[2020-06-17] MEDS: METOPROLOL TARTRATE 50 MG TABLET (FP) PO SCH ×2 (10:16→21:09)
[2020-06-17] MEDS: NICOTINE 21 MG/24 HOURS TOPICAL PATCH TD SCH (10:16)
[2020-06-17] MEDS: FAMOTIDINE 20 MG TABLET PO SCH ×2 (10:17→21:09)
[2020-06-17] MEDS: SERTRALINE HCL 50 MG TABLET (FP) PO SCH (10:17)
[2020-06-17] MEDS: PRENATAL VITAMINS W/ FOLIC ACID TABLET (FP) PO SCH (10:17)
[2020-06-17] MEDS: amLODIPine BESYLATE 5 MG TABLET (FP) PO SCH (10:17)
[2020-06-17] MEDS: LISINOPRIL 20 MG TABLET PO SCH (10:17)
[2020-06-17] MEDS: THIAMINE HCL 100 MG TABLET (FP) PO SCH (21:09)
[2020-06-17] MEDS: traZODone HCL 50 MG TABLET (FP) PO SCH (21:09)
[2020-06-17] MEDS: MELATONIN 5 MG TABLETS PO SCH (21:09)
[2020-06-18] MEDS: amLODIPine BESYLATE 5 MG TABLET (FP) PO SCH (09:26)
[2020-06-18] MEDS: NICOTINE 21 MG/24 HOURS TOPICAL PATCH TD SCH (09:26)
[2020-06-18] MEDS: METOPROLOL TARTRATE 50 MG TABLET (FP) PO SCH ×2 (09:27→21:38)
[2020-06-18] MEDS: FAMOTIDINE 20 MG TABLET PO SCH ×2 (09:27→21:38)
[2020-06-18] MEDS: LISINOPRIL 20 MG TABLET PO SCH (09:27)
[2020-06-18] MEDS: PRENATAL VITAMINS W/ FOLIC ACID TABLET (FP) PO SCH (09:27)
[2020-06-18] MEDS: SERTRALINE HCL 50 MG TABLET (FP) PO SCH (09:27)
[2020-06-18] MEDS ORDERED: MASKS NR ONE (12:47)
[2020-06-18] MEDS: traZODone HCL 50 MG TABLET (FP) PO SCH (21:38)
[2020-06-18] MEDS: THIAMINE HCL 100 MG TABLET (FP) PO SCH (21:38)
[2020-06-18] MEDS: MELATONIN 5 MG TABLETS PO SCH (21:38)
[2020-06-19] MEDS: amLODIPine BESYLATE 5 MG TABLET (FP) PO SCH (10:56)
[2020-06-19] MEDS: FAMOTIDINE 20 MG TABLET PO SCH ×2 (10:56→21:07)
[2020-06-19] MEDS: METOPROLOL TARTRATE 50 MG TABLET (FP) PO SCH ×2 (10:56→21:07)
[2020-06-19] MEDS: PRENATAL VITAMINS W/ FOLIC ACID TABLET (FP) PO SCH (10:56)
[2020-06-19] MEDS: NICOTINE 21 MG/24 HOURS TOPICAL PATCH TD SCH (10:56)
[2020-06-19] MEDS: SERTRALINE HCL 50 MG TABLET (FP) PO SCH (10:56)
[2020-06-19] MEDS: LISINOPRIL 20 MG TABLET PO SCH (10:56)
[2020-06-19] MEDS: ACETAMINOPHEN 325 MG TABLET (FP) PO PRN (13:44)
[2020-06-19] MEDS: MELATONIN 5 MG TABLETS PO SCH (21:07)
[2020-06-19] MEDS: traZODone HCL 50 MG TABLET (FP) PO SCH (21:07)
[2020-06-19] MEDS: THIAMINE HCL 100 MG TABLET (FP) PO SCH (21:07)
[2020-06-20] MEDS: SERTRALINE HCL 50 MG TABLET (FP) PO SCH (09:24)
[2020-06-20] MEDS: PRENATAL VITAMINS W/ FOLIC ACID TABLET (FP) PO SCH (09:24)
[2020-06-20] MEDS: LISINOPRIL 20 MG TABLET PO SCH (09:24)
[2020-06-20] MEDS: METOPROLOL TARTRATE 50 MG TABLET (FP) PO SCH ×2 (09:24→21:44)
[2020-06-20] MEDS: FAMOTIDINE 20 MG TABLET PO SCH ×2 (09:24→21:45)
[2020-06-20] MEDS: amLODIPine BESYLATE 5 MG TABLET (FP) PO SCH (09:24)
[2020-06-20] MEDS: NICOTINE 21 MG/24 HOURS TOPICAL PATCH TD SCH (09:24)
[2020-06-20] MEDS: MELATONIN 5 MG TABLETS PO SCH (21:44)
[2020-06-20] MEDS: THIAMINE HCL 100 MG TABLET (FP) PO SCH (21:44)
[2020-06-20] MEDS: traZODone HCL 50 MG TABLET (FP) PO SCH (21:44)
[2020-06-21] MEDS: PRENATAL VITAMINS W/ FOLIC ACID TABLET (FP) PO SCH (09:35)
[2020-06-21] MEDS: amLODIPine BESYLATE 5 MG TABLET (FP) PO SCH (09:35)
[2020-06-21] MEDS: LISINOPRIL 20 MG TABLET PO SCH (09:35)
[2020-06-21] MEDS: NICOTINE 21 MG/24 HOURS TOPICAL PATCH TD SCH (09:35)
[2020-06-21] MEDS: METOPROLOL TARTRATE 50 MG TABLET (FP) PO SCH ×2 (09:35→21:01)
[2020-06-21] MEDS: FAMOTIDINE 20 MG TABLET PO SCH ×2 (09:35→21:02)
[2020-06-21] MEDS: SERTRALINE HCL 50 MG TABLET (FP) PO SCH (09:35)
[2020-06-21] MEDS: ACETAMINOPHEN 325 MG TABLET (FP) PO PRN (09:36)
[2020-06-21] MEDS ORDERED: MASKS NR ONE (12:56)
[2020-06-21] MEDS: traZODone HCL 50 MG TABLET (FP) PO SCH (21:01)
[2020-06-21] MEDS: THIAMINE HCL 100 MG TABLET (FP) PO SCH (21:01)
[2020-06-21] MEDS: MELATONIN 5 MG TABLETS PO SCH (21:01)
[2020-06-22] MEDS: LISINOPRIL 20 MG TABLET PO SCH (09:01)
[2020-06-22] MEDS: NICOTINE 21 MG/24 HOURS TOPICAL PATCH TD SCH (09:01)
[2020-06-22] MEDS: PRENATAL VITAMINS W/ FOLIC ACID TABLET (FP) PO SCH (09:01)
[2020-06-22] MEDS: SERTRALINE HCL 50 MG TABLET (FP) PO SCH (09:01)
[2020-06-22] MEDS: METOPROLOL TARTRATE 50 MG TABLET (FP) PO SCH ×2 (09:01→21:30)
[2020-06-22] MEDS: amLODIPine BESYLATE 5 MG TABLET (FP) PO SCH (09:01)
[2020-06-22] MEDS: FAMOTIDINE 20 MG TABLET PO SCH ×2 (09:02→21:30)
[2020-06-22] MEDS: traZODone HCL 50 MG TABLET (FP) PO SCH (21:30)
[2020-06-22] MEDS: MELATONIN 5 MG TABLETS PO SCH (21:30)
[2020-06-22] MEDS: THIAMINE HCL 100 MG TABLET (FP) PO SCH (21:30)
[2020-06-23] MEDS: PRENATAL VITAMINS W/ FOLIC ACID TABLET (FP) PO SCH (09:21)
[2020-06-23] MEDS: SERTRALINE HCL 50 MG TABLET (FP) PO SCH (09:21)
[2020-06-23] MEDS: LISINOPRIL 20 MG TABLET PO SCH (09:21)
[2020-06-23] MEDS: amLODIPine BESYLATE 5 MG TABLET (FP) PO SCH (09:22)
[2020-06-23] MEDS: FAMOTIDINE 20 MG TABLET PO SCH ×2 (09:22→21:42)
[2020-06-23] MEDS: METOPROLOL TARTRATE 50 MG TABLET (FP) PO SCH ×2 (09:22→21:41)
[2020-06-23] MEDS: NICOTINE 21 MG/24 HOURS TOPICAL PATCH TD SCH (09:22)
[2020-06-23] MEDS: THIAMINE HCL 100 MG TABLET (FP) PO SCH (21:41)
[2020-06-23] MEDS: traZODone HCL 50 MG TABLET (FP) PO SCH (21:41)
[2020-06-23] MEDS: MELATONIN 5 MG TABLETS PO SCH (21:42)
[2020-06-24] MEDS: ACETAMINOPHEN 325 MG TABLET (FP) PO PRN (06:39)
[2020-06-24] MEDS: PRENATAL VITAMINS W/ FOLIC ACID TABLET (FP) PO SCH (10:08)
[2020-06-24] MEDS: NICOTINE 21 MG/24 HOURS TOPICAL PATCH TD SCH (10:08)
[2020-06-24] MEDS: FAMOTIDINE 20 MG TABLET PO SCH ×2 (10:09→21:35)
[2020-06-24] MEDS: LISINOPRIL 20 MG TABLET PO SCH (10:09)
[2020-06-24] MEDS: METOPROLOL TARTRATE 50 MG TABLET (FP) PO SCH ×2 (10:09→21:35)
[2020-06-24] MEDS: amLODIPine BESYLATE 5 MG TABLET (FP) PO SCH (10:09)
[2020-06-24] MEDS: SERTRALINE HCL 50 MG TABLET (FP) PO SCH (10:09)
[2020-06-24 20:45] VITALS: TEMP 97.7
[2020-06-24] MEDS: MELATONIN 5 MG TABLETS PO SCH (21:34)
[2020-06-24] MEDS: THIAMINE HCL 100 MG TABLET (FP) PO SCH (21:34)
[2020-06-24] MEDS: traZODone HCL 50 MG TABLET (FP) PO SCH (21:35)
[2020-06-25] MEDS: PRENATAL VITAMINS W/ FOLIC ACID TABLET (FP) PO SCH (10:13)
[2020-06-25] MEDS: FAMOTIDINE 20 MG TABLET PO SCH ×2 (10:13→21:07)
[2020-06-25] MEDS: NICOTINE 21 MG/24 HOURS TOPICAL PATCH TD SCH (10:13)
[2020-06-25] MEDS: LISINOPRIL 20 MG TABLET PO SCH (10:13)
[2020-06-25] MEDS: amLODIPine BESYLATE 5 MG TABLET (FP) PO SCH (10:13)
[2020-06-25] MEDS: SERTRALINE HCL 50 MG TABLET (FP) PO SCH (10:13)
[2020-06-25] MEDS: METOPROLOL TARTRATE 50 MG TABLET (FP) PO SCH ×2 (10:13→21:06)
[2020-06-25] MEDS: MELATONIN 5 MG TABLETS PO SCH (21:06)
[2020-06-25] MEDS: THIAMINE HCL 100 MG TABLET (FP) PO SCH (21:06)
[2020-06-25] MEDS: traZODone HCL 50 MG TABLET (FP) PO SCH (21:07)
[2020-06-26 07:27] VITALS: BP 133/89
[2020-06-26 09:05] VITALS: PULSE 107
[2020-06-26] MEDS: SERTRALINE HCL 50 MG TABLET (FP) PO SCH (09:06)
[2020-06-26] MEDS: FAMOTIDINE 20 MG TABLET PO SCH (09:07)
[2020-06-26] MEDS: METOPROLOL TARTRATE 50 MG TABLET (FP) PO SCH (09:07)
[2020-06-26] MEDS: PRENATAL VITAMINS W/ FOLIC ACID TABLET (FP) PO SCH (09:07)
[2020-06-26] MEDS: amLODIPine BESYLATE 5 MG TABLET (FP) PO SCH (09:07)
[2020-06-26] MEDS: LISINOPRIL 20 MG TABLET PO SCH (09:07)
[2020-06-26] MEDS: NICOTINE 21 MG/24 HOURS TOPICAL PATCH TD SCH (09:07)
== END 2020-06-26 09:28 | disposition home or self-care (01) | DRG 895 ==
LOC: YASAS 10:34 → Y3N 14:55 → Y3W 06-02 13:54
PROVIDERS: ADMIT Allergy & Immunology; ATTEND Allergy & Immunology
PROC: HZ2ZZZZ Detoxification Services for Substance Abuse Treatment (ICD-10-PCS; 2020-05-28)
PROC: HZ42ZZZ Group Counseling for Substance Abuse Treatment, Cognitive-Behavioral (ICD-10-PCS; principal; 2020-06-02)
DX: F10.20 Alcohol dependence, uncomplicated (principal); F14.20 Cocaine dependence, uncomplicated; F19.282 Other psychoactive substance dependence with psychoactive substance-induced sleep disorder; L02.31 Cutaneous abscess of buttock; F17.210 Nicotine dependence, cigarettes, uncomplicated; F19.24 Other psychoactive substance dependence with psychoactive substance-induced mood disorder; F32.9 Major depressive disorder, single episode, unspecified; I10 Essential (primary) hypertension; R73.9 Hyperglycemia, unspecified; Z86.19 Personal history of other infectious and parasitic diseases; Z20.2 Contact with and (suspected) exposure to infections with a predominantly sexual mode of transmission; Z56.0 Unemployment, unspecified; Z59.0 Homelessness
CPT/HCPCS: 36415; 80053; 81003; 82962; 85027; 86593; 86780; C9803; U0003

== ENCOUNTER 2021-02-23 14:45 | Inpatient (IN) | payer OTHER ==
[2021-02-23 15:46] VITALS: BMI 35.4
[2021-02-23] MEDS ORDERED: ONDANSETRON *ODT* 4 MG TABLET SL PRN (15:48)
[2021-02-23] MEDS ORDERED: BISMUTH SUBSALICYLATE 524 MG/30 ML PO PRN (15:48)
[2021-02-23] MEDS ORDERED: MENTHOL/PHENOL 1 EACH UD MM PRN (15:48)
[2021-02-23] MEDS ORDERED: ACETAMINOPHEN 325 MG TABLET (FP) PO PRN (15:48)
[2021-02-23] MEDS ORDERED: MAGNESIUM CITRATE 300 ML BOTTLE PO PRN (15:48)
[2021-02-23] MEDS ORDERED: NICOTINE 10 MG CARTRIDGE (INHALER) IH PRN (15:48)
[2021-02-23] MEDS ORDERED: MAGNESIUM HYDROX 2400MG/30ML ORAL SUSPENSION 30 ML CUP PO PRN (15:48)
[2021-02-23] MEDS ORDERED: MAG HYDROX/AL HYDROX/SIMETH 30 ML UNIT-DOSE CUP PO PRN (15:48)
[2021-02-23] MEDS: MELATONIN 5 MG TABLETS PO SCH (22:57)
[2021-02-23] MEDS: THIAMINE HCL 100 MG TABLET (FP) PO SCH (22:57)
[2021-02-24] MEDS: PRENATAL VITAMINS W/ FOLIC ACID TABLET (FP) PO SCH (10:12)
[2021-02-24] MEDS ORDERED: LORazepam 0.5 MG TABLET PO PRN (10:12)
[2021-02-24] MEDS: LORazepam 1 MG TABLET PO SCH ×3 (10:48→17:43)
[2021-02-24 15:18] LABS: ALBUMIN 3.9 g/dl (3.4-5.0); BLOOD UREA NITROGEN 13.7 mg/dL (7-18); CALCIUM 10.6 mg/dL (8.5-10.1)
[2021-02-24 15:22] LABS: CREATININE 1.4 mg/dL (0.55-1.3)
[2021-02-24 15:23] LABS: BILIRUBIN,TOTAL 0.4 mg/dL (0.2-1); TOT PROT 7.8 g/dl (6.4-8.2)
[2021-02-24 15:38] LABS: HEMATOCRIT 42.4 % (35.4-49); HEMOGLOBIN 14.1 GM/dL (11.7-16.9); MCH 29.1 pg (25.7-33.7); MCHC 33.2 g/dl (32.0-35.9); MEAN CELL VOLUME 87.6 fl (80-96); MEAN PLT VOLUME 9.1 fl (7.5-11.1); PLATELET COUNT 241 10^3/uL (134-434); RBC 4.83 M/mm3 (4.00-5.60); RDW 14.7 % (11.9-15.9); WHITE BLOOD COUNT 7.6 K/mm3 (4.0-10.0)
[2021-02-24] MEDS: THIAMINE HCL 100 MG TABLET (FP) PO SCH (22:05)
[2021-02-24] MEDS: MELATONIN 5 MG TABLETS PO SCH (22:05)
[2021-02-24] MEDS: hydrOXYzine PAMOATE 25 MG CAPSULE (FP) PO PRN (22:06)
[2021-02-24] MEDS: METHOCARBAMOL 500 MG TABLET PO PRN (22:06)
[2021-02-25] MEDS: LORazepam 0.5 MG TABLET PO SCH ×4 (05:32→23:11)
[2021-02-25] MEDS: PRENATAL VITAMINS W/ FOLIC ACID TABLET (FP) PO SCH (10:28)
[2021-02-25] MEDS: SERTRALINE HCL 50 MG TABLET (FP) PO SCH (15:59)
[2021-02-25] MEDS: traZODone HCL 50 MG TABLET (FP) PO SCH (23:10)
[2021-02-25] MEDS: MELATONIN 5 MG TABLETS PO SCH (23:11)
[2021-02-25] MEDS: THIAMINE HCL 100 MG TABLET (FP) PO SCH (23:11)
[2021-02-26] MEDS ORDERED: LORazepam 0.5 MG TABLET PO ONE (05:00)
[2021-02-26] MEDS: PRENATAL VITAMINS W/ FOLIC ACID TABLET (FP) PO SCH (10:25)
[2021-02-26] MEDS: SERTRALINE HCL 50 MG TABLET (FP) PO SCH (10:26)
[2021-02-26] MEDS: LISINOPRIL 20 MG TABLET PO SCH (14:19)
[2021-02-26] MEDS: amLODIPine BESYLATE 5 MG TABLET (FP) PO SCH (14:19)
[2021-02-26] MEDS ORDERED: METOPROLOL TARTRATE 25 MG TABLET (FP) PO ONE (16:51)
[2021-02-26] MEDS: METHOCARBAMOL 500 MG TABLET PO PRN (20:42)
[2021-02-26] MEDS: hydrOXYzine PAMOATE 25 MG CAPSULE (FP) PO PRN (20:43)
[2021-02-26] MEDS: METOPROLOL TARTRATE 50 MG TABLET (FP) PO SCH (21:38)
[2021-02-26] MEDS: THIAMINE HCL 100 MG TABLET (FP) PO SCH (21:38)
[2021-02-26] MEDS: traZODone HCL 50 MG TABLET (FP) PO SCH (21:38)
[2021-02-26] MEDS: MELATONIN 5 MG TABLETS PO SCH (21:39)
[2021-02-27] MEDS: PRENATAL VITAMINS W/ FOLIC ACID TABLET (FP) PO SCH (09:37)
[2021-02-27] MEDS: amLODIPine BESYLATE 5 MG TABLET (FP) PO SCH (09:38)
[2021-02-27] MEDS: SERTRALINE HCL 50 MG TABLET (FP) PO SCH (09:39)
[2021-02-27] MEDS: METOPROLOL TARTRATE 50 MG TABLET (FP) PO SCH (09:39)
[2021-02-27] MEDS: LISINOPRIL 20 MG TABLET PO SCH (09:39)
[2021-02-27] MEDS ORDERED: LISINOPRIL 20 MG TABLET PO ONE (13:30)
[2021-02-27] MEDS: MELATONIN 5 MG TABLETS PO SCH (21:47)
[2021-02-27] MEDS: THIAMINE HCL 100 MG TABLET (FP) PO SCH (21:47)
[2021-02-27] MEDS: traZODone HCL 50 MG TABLET (FP) PO SCH (21:47)
[2021-02-28] MEDS: hydrOXYzine PAMOATE 25 MG CAPSULE (FP) PO PRN ×2 (06:16→09:56)
[2021-02-28] MEDS: METHOCARBAMOL 500 MG TABLET PO PRN (09:56)
[2021-02-28] MEDS: SERTRALINE HCL 50 MG TABLET (FP) PO SCH (09:56)
[2021-02-28] MEDS: PRENATAL VITAMINS W/ FOLIC ACID TABLET (FP) PO SCH (09:56)
[2021-02-28] MEDS ORDERED: amLODIPine BESYLATE 5 MG TABLET (FP) PO SCH (10:00)
[2021-02-28] MEDS ORDERED: LISINOPRIL 20 MG TABLET PO SCH (10:00)
[2021-02-28] MEDS: METOPROLOL TARTRATE 50 MG TABLET (FP) PO SCH (10:39)
[2021-02-28] MEDS: traZODone HCL 50 MG TABLET (FP) PO SCH (21:01)
[2021-02-28] MEDS: MELATONIN 5 MG TABLETS PO SCH (21:01)
[2021-02-28] MEDS: THIAMINE HCL 100 MG TABLET (FP) PO SCH (21:01)
[2021-03-01] MEDS: LISINOPRIL 20 MG TABLET PO SCH (06:40)
[2021-03-01] MEDS: amLODIPine BESYLATE 5 MG TABLET (FP) PO SCH (06:40)
[2021-03-01] MEDS: PRENATAL VITAMINS W/ FOLIC ACID TABLET (FP) PO SCH (09:56)
[2021-03-01] MEDS: METOPROLOL TARTRATE 50 MG TABLET (FP) PO SCH (09:56)
[2021-03-01] MEDS: METHOCARBAMOL 500 MG TABLET PO PRN (09:56)
[2021-03-01] MEDS: hydrOXYzine PAMOATE 25 MG CAPSULE (FP) PO PRN (09:56)
[2021-03-01] MEDS: SERTRALINE HCL 50 MG TABLET (FP) PO SCH (09:56)
[2021-03-01] MEDS: MELATONIN 5 MG TABLETS PO SCH (21:27)
[2021-03-01] MEDS: THIAMINE HCL 100 MG TABLET (FP) PO SCH (21:27)
[2021-03-01] MEDS: traZODone HCL 50 MG TABLET (FP) PO SCH (21:27)
[2021-03-02] MEDS: LISINOPRIL 20 MG TABLET PO SCH (06:35)
[2021-03-02] MEDS: amLODIPine BESYLATE 5 MG TABLET (FP) PO SCH (06:35)
[2021-03-02] MEDS: SERTRALINE HCL 50 MG TABLET (FP) PO SCH (10:25)
[2021-03-02] MEDS: METOPROLOL TARTRATE 50 MG TABLET (FP) PO SCH (10:25)
[2021-03-02] MEDS: PRENATAL VITAMINS W/ FOLIC ACID TABLET (FP) PO SCH (10:26)
[2021-03-02] MEDS: THIAMINE HCL 100 MG TABLET (FP) PO SCH (21:22)
[2021-03-02] MEDS: MELATONIN 5 MG TABLETS PO SCH (21:22)
[2021-03-02] MEDS: traZODone HCL 50 MG TABLET (FP) PO SCH (21:22)
[2021-03-03] MEDS: amLODIPine BESYLATE 5 MG TABLET (FP) PO SCH (06:53)
[2021-03-03] MEDS: LISINOPRIL 20 MG TABLET PO SCH (06:53)
[2021-03-03] MEDS: SERTRALINE HCL 50 MG TABLET (FP) PO SCH (09:54)
[2021-03-03] MEDS: PRENATAL VITAMINS W/ FOLIC ACID TABLET (FP) PO SCH (09:54)
[2021-03-03] MEDS: METOPROLOL TARTRATE 50 MG TABLET (FP) PO SCH (09:54)
[2021-03-03] MEDS: traZODone HCL 50 MG TABLET (FP) PO SCH (21:06)
[2021-03-03] MEDS: THIAMINE HCL 100 MG TABLET (FP) PO SCH (21:06)
[2021-03-03] MEDS: MELATONIN 5 MG TABLETS PO SCH (21:06)
[2021-03-04] MEDS: LISINOPRIL 20 MG TABLET PO SCH (06:09)
[2021-03-04] MEDS: amLODIPine BESYLATE 5 MG TABLET (FP) PO SCH (06:10)
[2021-03-04] MEDS ORDERED: PT OWN MED DRAWER 7, Y5N ONE (08:18)
[2021-03-04] MEDS: METOPROLOL TARTRATE 50 MG TABLET (FP) PO SCH (09:52)
[2021-03-04] MEDS: SERTRALINE HCL 50 MG TABLET (FP) PO SCH (09:52)
[2021-03-04] MEDS: PRENATAL VITAMINS W/ FOLIC ACID TABLET (FP) PO SCH (09:52)
[2021-03-04] MEDS: MELATONIN 5 MG TABLETS PO SCH (21:40)
[2021-03-04] MEDS: traZODone HCL 50 MG TABLET (FP) PO SCH (21:40)
[2021-03-04] MEDS: THIAMINE HCL 100 MG TABLET (FP) PO SCH (21:40)
[2021-03-05] MEDS: LISINOPRIL 20 MG TABLET PO SCH (06:12)
[2021-03-05] MEDS: amLODIPine BESYLATE 5 MG TABLET (FP) PO SCH (06:12)
[2021-03-05] MEDS: ACETAMINOPHEN 325 MG TABLET (FP) PO PRN (07:14)
[2021-03-05] MEDS ORDERED: PT OWN MED DRAWER 7, Y5N ONE ×2 (08:40→15:33)
[2021-03-05] MEDS: SERTRALINE HCL 50 MG TABLET (FP) PO SCH (09:49)
[2021-03-05] MEDS: METOPROLOL TARTRATE 50 MG TABLET (FP) PO SCH (09:49)
[2021-03-05] MEDS: PRENATAL VITAMINS W/ FOLIC ACID TABLET (FP) PO SCH (09:49)
[2021-03-05] MEDS: traZODone HCL 50 MG TABLET (FP) PO SCH (21:04)
[2021-03-05] MEDS: MELATONIN 5 MG TABLETS PO SCH (21:04)
[2021-03-05] MEDS: THIAMINE HCL 100 MG TABLET (FP) PO SCH (21:04)
[2021-03-06] MEDS: amLODIPine BESYLATE 5 MG TABLET (FP) PO SCH (06:06)
[2021-03-06] MEDS: LISINOPRIL 20 MG TABLET PO SCH (06:06)
[2021-03-06] MEDS ORDERED: PT OWN MED DRAWER 7, Y5N ONE (08:34)
[2021-03-06] MEDS: METOPROLOL TARTRATE 50 MG TABLET (FP) PO SCH (10:27)
[2021-03-06] MEDS: PRENATAL VITAMINS W/ FOLIC ACID TABLET (FP) PO SCH (10:27)
[2021-03-06] MEDS: SERTRALINE HCL 50 MG TABLET (FP) PO SCH (10:27)
[2021-03-06] MEDS: THIAMINE HCL 100 MG TABLET (FP) PO SCH (21:14)
[2021-03-06] MEDS: MELATONIN 5 MG TABLETS PO SCH (21:14)
[2021-03-06] MEDS: traZODone HCL 50 MG TABLET (FP) PO SCH (21:14)
[2021-03-07] MEDS: LISINOPRIL 20 MG TABLET PO SCH (06:55)
[2021-03-07] MEDS: amLODIPine BESYLATE 5 MG TABLET (FP) PO SCH (06:55)
[2021-03-07] MEDS ORDERED: PT OWN MED DRAWER 7, Y5N ONE (08:47)
[2021-03-07] MEDS: METOPROLOL TARTRATE 50 MG TABLET (FP) PO SCH (10:19)
[2021-03-07] MEDS: PRENATAL VITAMINS W/ FOLIC ACID TABLET (FP) PO SCH (10:19)
[2021-03-07] MEDS: SERTRALINE HCL 50 MG TABLET (FP) PO SCH (10:19)
[2021-03-07] MEDS: traZODone HCL 50 MG TABLET (FP) PO SCH (21:10)
[2021-03-07] MEDS: MELATONIN 5 MG TABLETS PO SCH (21:10)
[2021-03-07] MEDS: THIAMINE HCL 100 MG TABLET (FP) PO SCH (21:10)
[2021-03-08] MEDS: LISINOPRIL 20 MG TABLET PO SCH (06:21)
[2021-03-08] MEDS: amLODIPine BESYLATE 5 MG TABLET (FP) PO SCH (06:21)
[2021-03-08] MEDS: SERTRALINE HCL 50 MG TABLET (FP) PO SCH (10:26)
[2021-03-08] MEDS: METOPROLOL TARTRATE 50 MG TABLET (FP) PO SCH (10:26)
[2021-03-08] MEDS: PRENATAL VITAMINS W/ FOLIC ACID TABLET (FP) PO SCH (10:26)
[2021-03-08] MEDS: MELATONIN 5 MG TABLETS PO SCH (21:18)
[2021-03-08] MEDS: THIAMINE HCL 100 MG TABLET (FP) PO SCH (21:18)
[2021-03-08] MEDS: traZODone HCL 50 MG TABLET (FP) PO SCH (21:18)
[2021-03-09] MEDS: LISINOPRIL 20 MG TABLET PO SCH (05:54)
[2021-03-09] MEDS: amLODIPine BESYLATE 5 MG TABLET (FP) PO SCH (05:54)
[2021-03-09] MEDS: ACETAMINOPHEN 325 MG TABLET (FP) PO PRN (06:42)
[2021-03-09] MEDS: PRENATAL VITAMINS W/ FOLIC ACID TABLET (FP) PO SCH (09:53)
[2021-03-09] MEDS: SERTRALINE HCL 50 MG TABLET (FP) PO SCH (09:53)
[2021-03-09] MEDS: METOPROLOL TARTRATE 50 MG TABLET (FP) PO SCH (09:53)
[2021-03-09] MEDS: THIAMINE HCL 100 MG TABLET (FP) PO SCH (21:17)
[2021-03-09] MEDS: MELATONIN 5 MG TABLETS PO SCH (21:17)
[2021-03-09] MEDS: traZODone HCL 50 MG TABLET (FP) PO SCH (21:18)
[2021-03-10] MEDS: amLODIPine BESYLATE 5 MG TABLET (FP) PO SCH (06:09)
[2021-03-10] MEDS: LISINOPRIL 20 MG TABLET PO SCH (06:09)
[2021-03-10] MEDS: PRENATAL VITAMINS W/ FOLIC ACID TABLET (FP) PO SCH (10:01)
[2021-03-10] MEDS: METOPROLOL TARTRATE 50 MG TABLET (FP) PO SCH (10:01)
[2021-03-10] MEDS: SERTRALINE HCL 50 MG TABLET (FP) PO SCH (10:01)
[2021-03-10] MEDS: MELATONIN 5 MG TABLETS PO SCH (21:22)
[2021-03-10] MEDS: traZODone HCL 50 MG TABLET (FP) PO SCH (21:22)
[2021-03-10] MEDS: THIAMINE HCL 100 MG TABLET (FP) PO SCH (21:22)
[2021-03-11] MEDS: amLODIPine BESYLATE 5 MG TABLET (FP) PO SCH (06:12)
[2021-03-11] MEDS: LISINOPRIL 20 MG TABLET PO SCH (06:12)
[2021-03-11] MEDS: METOPROLOL TARTRATE 50 MG TABLET (FP) PO SCH (10:18)
[2021-03-11] MEDS: SERTRALINE HCL 50 MG TABLET (FP) PO SCH (10:18)
[2021-03-11] MEDS: PRENATAL VITAMINS W/ FOLIC ACID TABLET (FP) PO SCH (10:18)
[2021-03-11] MEDS: ACETAMINOPHEN 325 MG TABLET (FP) PO PRN (19:40)
[2021-03-11] MEDS ORDERED: MASKS NR ONE (19:42)
[2021-03-11] MEDS: MELATONIN 5 MG TABLETS PO SCH (21:25)
[2021-03-11] MEDS: THIAMINE HCL 100 MG TABLET (FP) PO SCH (21:25)
[2021-03-11] MEDS: traZODone HCL 50 MG TABLET (FP) PO SCH (21:27)
[2021-03-12] MEDS: LISINOPRIL 20 MG TABLET PO SCH (07:08)
[2021-03-12] MEDS: amLODIPine BESYLATE 5 MG TABLET (FP) PO SCH (07:08)
[2021-03-12] MEDS: PRENATAL VITAMINS W/ FOLIC ACID TABLET (FP) PO SCH (10:13)
[2021-03-12] MEDS: METOPROLOL TARTRATE 50 MG TABLET (FP) PO SCH (10:13)
[2021-03-12] MEDS: SERTRALINE HCL 50 MG TABLET (FP) PO SCH (10:13)
[2021-03-12] MEDS: THIAMINE HCL 100 MG TABLET (FP) PO SCH (21:21)
[2021-03-12] MEDS: MELATONIN 5 MG TABLETS PO SCH (21:21)
[2021-03-12] MEDS: traZODone HCL 50 MG TABLET (FP) PO SCH (21:21)
[2021-03-13] MEDS: amLODIPine BESYLATE 5 MG TABLET (FP) PO SCH (06:39)
[2021-03-13] MEDS: LISINOPRIL 20 MG TABLET PO SCH (06:39)
[2021-03-13] MEDS ORDERED: PT OWN MED DRAWER 7, Y5N ONE (08:53)
[2021-03-13] MEDS: SERTRALINE HCL 50 MG TABLET (FP) PO SCH (10:17)
[2021-03-13] MEDS: METOPROLOL TARTRATE 50 MG TABLET (FP) PO SCH (10:17)
[2021-03-13] MEDS: PRENATAL VITAMINS W/ FOLIC ACID TABLET (FP) PO SCH (10:17)
[2021-03-13] MEDS: MELATONIN 5 MG TABLETS PO SCH (21:18)
[2021-03-13] MEDS: traZODone HCL 50 MG TABLET (FP) PO SCH (21:18)
[2021-03-13] MEDS: THIAMINE HCL 100 MG TABLET (FP) PO SCH (21:19)
[2021-03-14] MEDS: LISINOPRIL 20 MG TABLET PO SCH (06:45)
[2021-03-14] MEDS: amLODIPine BESYLATE 5 MG TABLET (FP) PO SCH (06:45)
[2021-03-14] MEDS ORDERED: PT OWN MED DRAWER 7, Y5N ONE (08:58)
[2021-03-14] MEDS: PRENATAL VITAMINS W/ FOLIC ACID TABLET (FP) PO SCH (10:06)
[2021-03-14] MEDS: SERTRALINE HCL 50 MG TABLET (FP) PO SCH (10:06)
[2021-03-14] MEDS: METOPROLOL TARTRATE 50 MG TABLET (FP) PO SCH (10:06)
[2021-03-14] MEDS: THIAMINE HCL 100 MG TABLET (FP) PO SCH (21:22)
[2021-03-14] MEDS: traZODone HCL 50 MG TABLET (FP) PO SCH (21:22)
[2021-03-14] MEDS: MELATONIN 5 MG TABLETS PO SCH (21:22)
[2021-03-15] MEDS: amLODIPine BESYLATE 5 MG TABLET (FP) PO SCH (06:13)
[2021-03-15] MEDS: LISINOPRIL 20 MG TABLET PO SCH (06:13)
[2021-03-15] MEDS: IBUPROFEN 400 MG TABLET (FP) PO PRN (06:50)
[2021-03-15] MEDS ORDERED: PT OWN MED DRAWER 7, Y5N ONE (09:05)
[2021-03-15] MEDS: SERTRALINE HCL 50 MG TABLET (FP) PO SCH (10:16)
[2021-03-15] MEDS: METOPROLOL TARTRATE 50 MG TABLET (FP) PO SCH (10:16)
[2021-03-15] MEDS: PRENATAL VITAMINS W/ FOLIC ACID TABLET (FP) PO SCH (10:16)
[2021-03-15] MEDS: MELATONIN 5 MG TABLETS PO SCH (21:19)
[2021-03-15] MEDS: traZODone HCL 50 MG TABLET (FP) PO SCH (21:19)
[2021-03-15] MEDS: THIAMINE HCL 100 MG TABLET (FP) PO SCH (21:19)
[2021-03-16] MEDS: LISINOPRIL 20 MG TABLET PO SCH (06:08)
[2021-03-16] MEDS: amLODIPine BESYLATE 5 MG TABLET (FP) PO SCH (06:08)
[2021-03-16] MEDS ORDERED: PT OWN MED DRAWER 7, Y5N ONE (08:50)
[2021-03-16] MEDS: PRENATAL VITAMINS W/ FOLIC ACID TABLET (FP) PO SCH (09:58)
[2021-03-16] MEDS: METOPROLOL TARTRATE 50 MG TABLET (FP) PO SCH (09:58)
[2021-03-16] MEDS: SERTRALINE HCL 50 MG TABLET (FP) PO SCH (09:58)
[2021-03-16] MEDS: THIAMINE HCL 100 MG TABLET (FP) PO SCH (21:35)
[2021-03-16] MEDS: traZODone HCL 50 MG TABLET (FP) PO SCH (21:35)
[2021-03-16] MEDS: MELATONIN 5 MG TABLETS PO SCH (21:35)
[2021-03-17] MEDS: LISINOPRIL 20 MG TABLET PO SCH (06:40)
[2021-03-17] MEDS: amLODIPine BESYLATE 5 MG TABLET (FP) PO SCH (06:40)
[2021-03-17] MEDS ORDERED: PT OWN MED DRAWER 7, Y5N ONE (09:03)
[2021-03-17] MEDS: PRENATAL VITAMINS W/ FOLIC ACID TABLET (FP) PO SCH (10:06)
[2021-03-17] MEDS: SERTRALINE HCL 50 MG TABLET (FP) PO SCH (10:06)
[2021-03-17] MEDS: METOPROLOL TARTRATE 50 MG TABLET (FP) PO SCH (10:06)
[2021-03-17] MEDS: THIAMINE HCL 100 MG TABLET (FP) PO SCH (21:14)
[2021-03-17] MEDS: traZODone HCL 50 MG TABLET (FP) PO SCH (21:14)
[2021-03-17] MEDS: MELATONIN 5 MG TABLETS PO SCH (21:14)
[2021-03-18] MEDS: amLODIPine BESYLATE 5 MG TABLET (FP) PO SCH (06:29)
[2021-03-18] MEDS: LISINOPRIL 20 MG TABLET PO SCH (06:29)
[2021-03-18] MEDS: METOPROLOL TARTRATE 50 MG TABLET (FP) PO SCH (09:54)
[2021-03-18] MEDS: SERTRALINE HCL 50 MG TABLET (FP) PO SCH (09:54)
[2021-03-18] MEDS: PRENATAL VITAMINS W/ FOLIC ACID TABLET (FP) PO SCH (09:54)
[2021-03-18] MEDS: THIAMINE HCL 100 MG TABLET (FP) PO SCH (21:23)
[2021-03-18] MEDS: traZODone HCL 50 MG TABLET (FP) PO SCH (21:23)
[2021-03-18] MEDS: MELATONIN 5 MG TABLETS PO SCH (21:23)
[2021-03-19] MEDS: amLODIPine BESYLATE 5 MG TABLET (FP) PO SCH (06:28)
[2021-03-19] MEDS: LISINOPRIL 20 MG TABLET PO SCH (06:28)
[2021-03-19] MEDS: METOPROLOL TARTRATE 50 MG TABLET (FP) PO SCH (10:20)
[2021-03-19] MEDS: SERTRALINE HCL 50 MG TABLET (FP) PO SCH (10:20)
[2021-03-19] MEDS: PRENATAL VITAMINS W/ FOLIC ACID TABLET (FP) PO SCH (10:20)
[2021-03-19] MEDS: IBUPROFEN 400 MG TABLET (FP) PO PRN (10:21)
[2021-03-19] MEDS: MELATONIN 5 MG TABLETS PO SCH (21:13)
[2021-03-19] MEDS: THIAMINE HCL 100 MG TABLET (FP) PO SCH (21:13)
[2021-03-19] MEDS: traZODone HCL 50 MG TABLET (FP) PO SCH (21:13)
[2021-03-20] MEDS: LISINOPRIL 20 MG TABLET PO SCH (06:11)
[2021-03-20] MEDS: amLODIPine BESYLATE 5 MG TABLET (FP) PO SCH (06:11)
[2021-03-20] MEDS: PRENATAL VITAMINS W/ FOLIC ACID TABLET (FP) PO SCH (10:05)
[2021-03-20] MEDS: SERTRALINE HCL 50 MG TABLET (FP) PO SCH (10:05)
[2021-03-20] MEDS: METOPROLOL TARTRATE 50 MG TABLET (FP) PO SCH (10:06)
[2021-03-20] MEDS: IBUPROFEN 400 MG TABLET (FP) PO PRN (14:35)
[2021-03-20] MEDS: MELATONIN 5 MG TABLETS PO SCH (21:17)
[2021-03-20] MEDS: traZODone HCL 50 MG TABLET (FP) PO SCH (21:17)
[2021-03-20] MEDS: THIAMINE HCL 100 MG TABLET (FP) PO SCH (21:17)
[2021-03-21] MEDS: LISINOPRIL 20 MG TABLET PO SCH (06:26)
[2021-03-21] MEDS: amLODIPine BESYLATE 5 MG TABLET (FP) PO SCH (06:26)
[2021-03-21] MEDS: SERTRALINE HCL 50 MG TABLET (FP) PO SCH (10:01)
[2021-03-21] MEDS: METOPROLOL TARTRATE 50 MG TABLET (FP) PO SCH (10:01)
[2021-03-21] MEDS: PRENATAL VITAMINS W/ FOLIC ACID TABLET (FP) PO SCH (10:01)
[2021-03-21] MEDS: ACETAMINOPHEN 325 MG TABLET (FP) PO PRN (16:37)
[2021-03-21] MEDS: traZODone HCL 50 MG TABLET (FP) PO SCH (21:09)
[2021-03-21] MEDS: THIAMINE HCL 100 MG TABLET (FP) PO SCH (21:09)
[2021-03-21] MEDS: MELATONIN 5 MG TABLETS PO SCH (21:09)
[2021-03-22] MEDS: amLODIPine BESYLATE 5 MG TABLET (FP) PO SCH (06:06)
[2021-03-22] MEDS: LISINOPRIL 20 MG TABLET PO SCH (06:06)
[2021-03-22] MEDS: PRENATAL VITAMINS W/ FOLIC ACID TABLET (FP) PO SCH (09:56)
[2021-03-22] MEDS: METOPROLOL TARTRATE 50 MG TABLET (FP) PO SCH (09:56)
[2021-03-22] MEDS: SERTRALINE HCL 50 MG TABLET (FP) PO SCH (09:56)
[2021-03-22] MEDS: THIAMINE HCL 100 MG TABLET (FP) PO SCH (21:12)
[2021-03-22] MEDS: traZODone HCL 50 MG TABLET (FP) PO SCH (21:12)
[2021-03-22] MEDS: MELATONIN 5 MG TABLETS PO SCH (21:13)
[2021-03-23] MEDS: LISINOPRIL 20 MG TABLET PO SCH (06:14)
[2021-03-23] MEDS: amLODIPine BESYLATE 5 MG TABLET (FP) PO SCH (06:14)
[2021-03-23] MEDS: METOPROLOL TARTRATE 50 MG TABLET (FP) PO SCH (10:05)
[2021-03-23] MEDS: SERTRALINE HCL 50 MG TABLET (FP) PO SCH (10:05)
[2021-03-23] MEDS: PRENATAL VITAMINS W/ FOLIC ACID TABLET (FP) PO SCH (10:05)
[2021-03-23] MEDS: traZODone HCL 50 MG TABLET (FP) PO SCH (21:25)
[2021-03-23] MEDS: THIAMINE HCL 100 MG TABLET (FP) PO SCH (21:25)
[2021-03-23] MEDS: MELATONIN 5 MG TABLETS PO SCH (21:25)
[2021-03-24] MEDS: amLODIPine BESYLATE 5 MG TABLET (FP) PO SCH (06:09)
[2021-03-24] MEDS: LISINOPRIL 20 MG TABLET PO SCH (06:09)
[2021-03-24] MEDS ORDERED: PT OWN MED DRAWER 7, Y5N ONE (08:44)
[2021-03-24] MEDS: METOPROLOL TARTRATE 50 MG TABLET (FP) PO SCH (10:08)
[2021-03-24] MEDS: PRENATAL VITAMINS W/ FOLIC ACID TABLET (FP) PO SCH (10:08)
[2021-03-24] MEDS: SERTRALINE HCL 50 MG TABLET (FP) PO SCH (10:09)
[2021-03-24] MEDS: MELATONIN 5 MG TABLETS PO SCH (21:27)
[2021-03-24] MEDS: traZODone HCL 50 MG TABLET (FP) PO SCH (21:27)
[2021-03-24] MEDS: THIAMINE HCL 100 MG TABLET (FP) PO SCH (21:27)
[2021-03-25] MEDS: amLODIPine BESYLATE 5 MG TABLET (FP) PO SCH (06:03)
[2021-03-25] MEDS: LISINOPRIL 20 MG TABLET PO SCH (06:03)
[2021-03-25] MEDS ORDERED: PT OWN MED DRAWER 7, Y5N ONE (08:46)
[2021-03-25] MEDS: PRENATAL VITAMINS W/ FOLIC ACID TABLET (FP) PO SCH (09:49)
[2021-03-25] MEDS: METOPROLOL TARTRATE 50 MG TABLET (FP) PO SCH (09:49)
[2021-03-25] MEDS: SERTRALINE HCL 50 MG TABLET (FP) PO SCH (09:49)
[2021-03-25] MEDS: MELATONIN 5 MG TABLETS PO SCH (21:08)
[2021-03-25] MEDS: traZODone HCL 50 MG TABLET (FP) PO SCH (21:08)
[2021-03-25] MEDS: THIAMINE HCL 100 MG TABLET (FP) PO SCH (21:08)
[2021-03-26] MEDS: amLODIPine BESYLATE 5 MG TABLET (FP) PO SCH (06:25)
[2021-03-26] MEDS: LISINOPRIL 20 MG TABLET PO SCH (06:25)
[2021-03-26] MEDS: METOPROLOL TARTRATE 50 MG TABLET (FP) PO SCH (09:52)
[2021-03-26] MEDS: PRENATAL VITAMINS W/ FOLIC ACID TABLET (FP) PO SCH (09:52)
[2021-03-26] MEDS: SERTRALINE HCL 50 MG TABLET (FP) PO SCH (09:52)
[2021-03-26] MEDS: THIAMINE HCL 100 MG TABLET (FP) PO SCH (21:31)
[2021-03-26] MEDS: traZODone HCL 50 MG TABLET (FP) PO SCH (21:31)
[2021-03-26] MEDS: MELATONIN 5 MG TABLETS PO SCH (21:32)
[2021-03-27] MEDS: amLODIPine BESYLATE 5 MG TABLET (FP) PO SCH (06:36)
[2021-03-27] MEDS: LISINOPRIL 20 MG TABLET PO SCH (06:36)
[2021-03-27 07:27] VITALS: BP 138/102; PULSE 96; TEMP 98.4
[2021-03-27] MEDS: SERTRALINE HCL 50 MG TABLET (FP) PO SCH (09:35)
[2021-03-27] MEDS: PRENATAL VITAMINS W/ FOLIC ACID TABLET (FP) PO SCH (09:35)
[2021-03-27] MEDS: METOPROLOL TARTRATE 50 MG TABLET (FP) PO SCH (09:35)
== END 2021-03-27 09:45 | disposition home or self-care (01) | DRG 895 ==
LOC: YASAS 14:45 → Y6N 18:55 → Y3N 02-26 18:19 → Y3W 02-27 11:59
PROVIDERS: ADMIT Allergy & Immunology; ATTEND Allergy & Immunology
PROC: HZ2ZZZZ Detoxification Services for Substance Abuse Treatment (ICD-10-PCS; 2021-02-23)
PROC: HZ42ZZZ Group Counseling for Substance Abuse Treatment, Cognitive-Behavioral (ICD-10-PCS; principal; 2021-02-27)
DX: F10.20 Alcohol dependence, uncomplicated (principal); F14.20 Cocaine dependence, uncomplicated; F13.20 Sedative, hypnotic or anxiolytic dependence, uncomplicated; F19.282 Other psychoactive substance dependence with psychoactive substance-induced sleep disorder; F33.0 Major depressive disorder, recurrent, mild; F17.210 Nicotine dependence, cigarettes, uncomplicated; F19.24 Other psychoactive substance dependence with psychoactive substance-induced mood disorder; I10 Essential (primary) hypertension; R73.9 Hyperglycemia, unspecified; R79.89 Other specified abnormal findings of blood chemistry; E66.9 Obesity, unspecified; Z68.35 Body mass index [BMI] 35.0-35.9, adult; Z86.19 Personal history of other infectious and parasitic diseases; Z59.01 Sheltered homelessness; Z56.0 Unemployment, unspecified
CPT/HCPCS: 36415; 80053; 83036; 85027; C9803; U0003; U0005

== ENCOUNTER 2021-05-30 12:49 | Inpatient (IN) | payer OTHER ==
[2021-05-30] MEDS ORDERED: MAGNESIUM CITRATE 300 ML BOTTLE PO PRN (13:32)
[2021-05-30] MEDS ORDERED: MAGNESIUM HYDROX 2400MG/30ML ORAL SUSPENSION 30 ML CUP PO PRN (13:32)
[2021-05-30] MEDS ORDERED: BISMUTH SUBSALICYLATE 524 MG/30 ML PO PRN (13:32)
[2021-05-30] MEDS ORDERED: chlordiazePOXIDE HCL 25 MG CAPSULE PO PRN (13:32)
[2021-05-30] MEDS ORDERED: ONDANSETRON *ODT* 4 MG TABLET SL PRN (13:32)
[2021-05-30] MEDS ORDERED: MENTHOL/PHENOL 1 EACH UD MM PRN (13:32)
[2021-05-30] MEDS ORDERED: IBUPROFEN 400 MG TABLET (FP) PO PRN (13:32)
[2021-05-30] MEDS ORDERED: ACETAMINOPHEN 325 MG TABLET (FP) PO PRN ×2 (13:32)
[2021-05-30] MEDS ORDERED: NICOTINE 10 MG CARTRIDGE (INHALER) IH PRN (13:32)
[2021-05-30 13:55] VITALS: BMI 34.4
[2021-05-30] MEDS: LISINOPRIL 20 MG TABLET PO SCH (15:18)
[2021-05-30] MEDS: METOPROLOL TARTRATE 50 MG TABLET (FP) PO SCH (15:18)
[2021-05-30] MEDS: amLODIPine BESYLATE 5 MG TABLET (FP) PO SCH (15:18)
[2021-05-30] MEDS: hydrOXYzine PAMOATE 25 MG CAPSULE (FP) PO SCH ×2 (15:19→18:10)
[2021-05-30 16:21] LABS: CALCIUM 10.5 mg/dL (8.5-10.1)
[2021-05-30 16:22] LABS: ALBUMIN 4.4 g/dl (3.4-5.0); BLOOD UREA NITROGEN 14.4 mg/dL (7-18)
[2021-05-30 16:25] LABS: CREATININE 1.2 mg/dL (0.55-1.3)
[2021-05-30 16:26] LABS: BILIRUBIN,TOTAL 0.9 mg/dL (0.2-1); TOT PROT 8.1 g/dl (6.4-8.2)
[2021-05-30 16:30] LABS: HEMOGLOBIN 16.3 GM/dL (11.7-16.9); MCH 29.4 pg (25.7-33.7); MCHC 33.2 g/dl (32.0-35.9); MEAN CELL VOLUME 88.5 fl (80-96); MEAN PLT VOLUME 8.4 fl (7.5-11.1); PLATELET COUNT 185 10^3/uL (134-434); RBC 5.54 M/mm3 (4.00-5.60); RDW 14.5 % (11.9-15.9); WHITE BLOOD COUNT 8.4 K/mm3 (4.0-10.0)
[2021-05-30] MEDS: chlordiazePOXIDE HCL 25 MG CAPSULE PO SCH (18:10)
[2021-05-31] MEDS: THIAMINE HCL 100 MG TABLET (FP) PO SCH ×2 (00:18→22:51)
[2021-05-31] MEDS: MELATONIN 5 MG TABLETS PO SCH ×2 (00:18→22:51)
[2021-05-31] MEDS: chlordiazePOXIDE HCL 25 MG CAPSULE PO SCH ×5 (00:18→22:51)
[2021-05-31] MEDS: hydrOXYzine PAMOATE 25 MG CAPSULE (FP) PO SCH ×6 (00:19→22:51)
[2021-05-31] MEDS: PRENATAL VITAMINS W/ FOLIC ACID TABLET (FP) PO SCH (10:16)
[2021-05-31] MEDS: SERTRALINE HCL 50 MG TABLET (FP) PO SCH (10:16)
[2021-05-31] MEDS: METHOCARBAMOL 500 MG TABLET PO PRN (10:17)
[2021-05-31] MEDS: METOPROLOL TARTRATE 50 MG TABLET (FP) PO SCH (10:17)
[2021-05-31] MEDS: amLODIPine BESYLATE 5 MG TABLET (FP) PO SCH (10:17)
[2021-05-31] MEDS: LISINOPRIL 20 MG TABLET PO SCH (10:17)
[2021-05-31] MEDS: MAG HYDROX/AL HYDROX/SIMETH 30 ML UNIT-DOSE CUP PO PRN (18:00)
[2021-05-31] MEDS: traZODone HCL 50 MG TABLET (FP) PO SCH (22:51)
[2021-06-01] MEDS: hydrOXYzine PAMOATE 25 MG CAPSULE (FP) PO SCH ×5 (05:48→22:43)
[2021-06-01] MEDS: chlordiazePOXIDE HCL 25 MG CAPSULE PO SCH ×4 (05:48→22:42)
[2021-06-01] MEDS: PRENATAL VITAMINS W/ FOLIC ACID TABLET (FP) PO SCH (10:54)
[2021-06-01] MEDS: METOPROLOL TARTRATE 50 MG TABLET (FP) PO SCH (10:55)
[2021-06-01] MEDS: LISINOPRIL 20 MG TABLET PO SCH (10:55)
[2021-06-01] MEDS: amLODIPine BESYLATE 5 MG TABLET (FP) PO SCH (10:55)
[2021-06-01] MEDS: SERTRALINE HCL 50 MG TABLET (FP) PO SCH (10:55)
[2021-06-01] MEDS: MAG HYDROX/AL HYDROX/SIMETH 30 ML UNIT-DOSE CUP PO PRN (11:17)
[2021-06-01] MEDS: traZODone HCL 50 MG TABLET (FP) PO SCH (22:42)
[2021-06-01] MEDS: MELATONIN 5 MG TABLETS PO SCH (22:42)
[2021-06-01] MEDS: METHOCARBAMOL 500 MG TABLET PO PRN (22:42)
[2021-06-01] MEDS: THIAMINE HCL 100 MG TABLET (FP) PO SCH (22:42)
[2021-06-02] MEDS ORDERED: chlordiazePOXIDE HCL 10 MG CAPSULE PO PRN
[2021-06-02] MEDS: hydrOXYzine PAMOATE 25 MG CAPSULE (FP) PO SCH ×5 (05:31→22:37)
[2021-06-02] MEDS: chlordiazePOXIDE HCL 10 MG CAPSULE PO SCH ×4 (05:31→22:37)
[2021-06-02] MEDS: MAG HYDROX/AL HYDROX/SIMETH 30 ML UNIT-DOSE CUP PO PRN (05:37)
[2021-06-02] MEDS: amLODIPine BESYLATE 5 MG TABLET (FP) PO SCH (10:17)
[2021-06-02] MEDS: PRENATAL VITAMINS W/ FOLIC ACID TABLET (FP) PO SCH (10:17)
[2021-06-02] MEDS: LISINOPRIL 20 MG TABLET PO SCH (10:18)
[2021-06-02] MEDS: SERTRALINE HCL 50 MG TABLET (FP) PO SCH (10:18)
[2021-06-02] MEDS: METOPROLOL TARTRATE 50 MG TABLET (FP) PO SCH (10:18)
[2021-06-02] MEDS: THIAMINE HCL 100 MG TABLET (FP) PO SCH (22:37)
[2021-06-02] MEDS: MELATONIN 5 MG TABLETS PO SCH (22:37)
[2021-06-02] MEDS: traZODone HCL 50 MG TABLET (FP) PO SCH (22:37)
[2021-06-03] MEDS: chlordiazePOXIDE HCL 10 MG CAPSULE PO SCH ×2 (05:32→18:09)
[2021-06-03] MEDS: hydrOXYzine PAMOATE 25 MG CAPSULE (FP) PO SCH ×5 (05:32→22:35)
[2021-06-03] MEDS: PRENATAL VITAMINS W/ FOLIC ACID TABLET (FP) PO SCH (10:30)
[2021-06-03] MEDS: LISINOPRIL 20 MG TABLET PO SCH (10:30)
[2021-06-03] MEDS: METOPROLOL TARTRATE 50 MG TABLET (FP) PO SCH (10:30)
[2021-06-03] MEDS: SERTRALINE HCL 50 MG TABLET (FP) PO SCH (10:30)
[2021-06-03] MEDS: amLODIPine BESYLATE 5 MG TABLET (FP) PO SCH (10:30)
[2021-06-03] MEDS ORDERED: amLODIPine BESYLATE 5 MG TABLET (FP) PO SCH (12:30)
[2021-06-03] MEDS: traZODone HCL 50 MG TABLET (FP) PO SCH (22:35)
[2021-06-03] MEDS: MELATONIN 5 MG TABLETS PO SCH (22:35)
[2021-06-03] MEDS: THIAMINE HCL 100 MG TABLET (FP) PO SCH (22:35)
[2021-06-04] MEDS ORDERED: chlordiazePOXIDE HCL 10 MG CAPSULE PO ONE (05:00)
[2021-06-04] MEDS: hydrOXYzine PAMOATE 25 MG CAPSULE (FP) PO SCH ×2 (05:58→10:25)
[2021-06-04] MEDS: MAG HYDROX/AL HYDROX/SIMETH 30 ML UNIT-DOSE CUP PO PRN (06:02)
[2021-06-04 07:28] VITALS: BP 127/79; PULSE 91; TEMP 96.9
[2021-06-04] MEDS: PRENATAL VITAMINS W/ FOLIC ACID TABLET (FP) PO SCH (10:25)
[2021-06-04] MEDS: METHOCARBAMOL 500 MG TABLET PO PRN (10:25)
[2021-06-04] MEDS: SERTRALINE HCL 50 MG TABLET (FP) PO SCH (10:25)
[2021-06-04] MEDS: LISINOPRIL 20 MG TABLET PO SCH (10:25)
[2021-06-04] MEDS: METOPROLOL TARTRATE 50 MG TABLET (FP) PO SCH (10:25)
== END 2021-06-04 13:24 | disposition home or self-care (01) | DRG 897 ==
LOC: YASAS 12:49 → Y6N 14:39
PROVIDERS: ADMIT Allergy & Immunology; ATTEND Allergy & Immunology
PROC: HZ2ZZZZ Detoxification Services for Substance Abuse Treatment (ICD-10-PCS; principal; 2021-05-30)
DX: F10.230 Alcohol dependence with withdrawal, uncomplicated (principal); F11.20 Opioid dependence, uncomplicated; F14.20 Cocaine dependence, uncomplicated; F19.282 Other psychoactive substance dependence with psychoactive substance-induced sleep disorder; F33.1 Major depressive disorder, recurrent, moderate; F17.213 Nicotine dependence, cigarettes, with withdrawal; F19.24 Other psychoactive substance dependence with psychoactive substance-induced mood disorder; I10 Essential (primary) hypertension; R76.8 Other specified abnormal immunological findings in serum; E83.52 Hypercalcemia; E66.9 Obesity, unspecified; Z68.34 Body mass index [BMI] 34.0-34.9, adult; Z86.19 Personal history of other infectious and parasitic diseases; Z56.0 Unemployment, unspecified; Z59.00 Homelessness unspecified
CPT/HCPCS: 36415; 80053; 85027; 86593; 86780; C9803; Q0162; U0003; U0005

== ENCOUNTER 2021-08-12 10:55 | Inpatient (IN) | payer OTHER ==
[2021-08-12 11:19] VITALS: BMI 35.4
[2021-08-12] MEDS ORDERED: cloNIDine HCL 0.1 MG TABLET PO ONE ×2 (12:39→18:09)
[2021-08-12] MEDS ORDERED: NICOTINE POLACRILEX 2 MG GUM BUC PRN (16:57)
[2021-08-12] MEDS ORDERED: MAGNESIUM HYDROX 2400MG/30ML ORAL SUSPENSION 30 ML CUP PO PRN (16:57)
[2021-08-12] MEDS ORDERED: MAGNESIUM CITRATE 300 ML BOTTLE PO PRN (16:57)
[2021-08-12] MEDS ORDERED: IBUPROFEN 400 MG TABLET (FP) PO PRN (16:57)
[2021-08-12] MEDS ORDERED: ACETAMINOPHEN 325 MG TABLET (FP) PO PRN (16:57)
[2021-08-12] MEDS ORDERED: LORazepam 1 MG TABLET PO PRN (16:57)
[2021-08-12] MEDS ORDERED: LOPERAMIDE HCL 2 MG CAPSULE PO PRN (16:57)
[2021-08-12] MEDS ORDERED: MENTHOL/PHENOL 1 EACH UD MM PRN (16:57)
[2021-08-12] MEDS ORDERED: MAG HYDROX/AL HYDROX/SIMETH 30 ML UNIT-DOSE CUP PO PRN (16:57)
[2021-08-12] MEDS ORDERED: BISMUTH SUBSALICYLATE 524 MG/30 ML PO PRN (16:57)
[2021-08-12] MEDS ORDERED: LORazepam 2 MG TABLET PO ONE (18:00)
[2021-08-12] MEDS: guaiFENesin 200 MG/10 ML 10 ML UNIT-DOSE CUPS PO SCH (19:24)
[2021-08-12] MEDS: P-EPHED 60MG/TRIPROLIDI 2.5MG TABLET PO SCH (19:24)
[2021-08-12] MEDS: THIAMINE HCL 100 MG TABLET (FP) PO SCH (22:32)
[2021-08-12] MEDS: LORazepam 2 MG TABLET PO SCH (22:32)
[2021-08-12] MEDS: MELATONIN 5 MG TABLETS PO PRN (22:33)
[2021-08-13] MEDS: LORazepam 2 MG TABLET PO SCH ×4 (06:17→22:14)
[2021-08-13] MEDS: P-EPHED 60MG/TRIPROLIDI 2.5MG TABLET PO SCH ×3 (06:19→17:37)
[2021-08-13] MEDS: guaiFENesin 200 MG/10 ML 10 ML UNIT-DOSE CUPS PO SCH ×3 (06:19→17:35)
[2021-08-13] MEDS: LISINOPRIL 20 MG TABLET PO SCH (10:42)
[2021-08-13] MEDS: PRENATAL VITAMINS W/ FOLIC ACID TABLET (FP) PO SCH (10:42)
[2021-08-13] MEDS: METOPROLOL TARTRATE 50 MG TABLET (FP) PO SCH (10:42)
[2021-08-13] MEDS: amLODIPine BESYLATE 10 MG TABLET (FP) PO SCH (10:42)
[2021-08-13] MEDS: NICOTINE 14 MG/24 HOURS TOPICAL PATCH TD SCH (10:46)
[2021-08-13] MEDS: hydrOXYzine PAMOATE 25 MG CAPSULE (FP) PO PRN (14:44)
[2021-08-13 16:36] LABS: ALBUMIN 4.2 g/dl (3.4-5.0); BLOOD UREA NITROGEN 18.9 mg/dL (7-18); CALCIUM 10.6 mg/dL (8.5-10.1)
[2021-08-13 16:36] LABS: HEMATOCRIT 46.2 % (35.4-49); HEMOGLOBIN 15.1 GM/dL (11.7-16.9); MCH 28.8 pg (25.7-33.7); MCHC 32.8 g/dl (32.0-35.9); MEAN PLT VOLUME 8.3 fl (7.5-11.1); PLATELET COUNT 165 10^3/uL (134-434); RBC 5.25 M/mm3 (4.00-5.60); RDW 14.5 % (11.9-15.9); WHITE BLOOD COUNT 5.8 K/mm3 (4.0-10.0)
[2021-08-13 16:39] LABS: CREATININE 1.4 mg/dL (0.55-1.3)
[2021-08-13 16:41] LABS: BILIRUBIN,TOTAL 0.6 mg/dL (0.2-1); TOT PROT 7.9 g/dl (6.4-8.2)
[2021-08-13] MEDS: MELATONIN 5 MG TABLETS PO PRN (22:15)
[2021-08-13] MEDS: traZODone HCL 50 MG TABLET (FP) PO SCH (22:15)
[2021-08-13] MEDS: THIAMINE HCL 100 MG TABLET (FP) PO SCH (22:15)
[2021-08-14] MEDS: LORazepam 1 MG TABLET PO SCH ×4 (05:17→22:26)
[2021-08-14] MEDS: guaiFENesin 200 MG/10 ML 10 ML UNIT-DOSE CUPS PO SCH ×2 (05:18→10:12)
[2021-08-14] MEDS: ACETAMINOPHEN 325 MG TABLET (FP) PO PRN (05:19)
[2021-08-14] MEDS: P-EPHED 60MG/TRIPROLIDI 2.5MG TABLET PO SCH ×2 (05:20→10:16)
[2021-08-14 08:10] LABS: SARS-CoV-2 NAA Not Detected (Not Detected)
[2021-08-14] MEDS: NICOTINE 14 MG/24 HOURS TOPICAL PATCH TD SCH (10:13)
[2021-08-14] MEDS: LISINOPRIL 20 MG TABLET PO SCH (10:13)
[2021-08-14] MEDS: amLODIPine BESYLATE 10 MG TABLET (FP) PO SCH (10:13)
[2021-08-14] MEDS: SERTRALINE HCL 50 MG TABLET (FP) PO SCH (10:13)
[2021-08-14] MEDS: PRENATAL VITAMINS W/ FOLIC ACID TABLET (FP) PO SCH (10:13)
[2021-08-14] MEDS: METOPROLOL TARTRATE 50 MG TABLET (FP) PO SCH (10:13)
[2021-08-14] MEDS: traZODone HCL 50 MG TABLET (FP) PO SCH (22:26)
[2021-08-14] MEDS: THIAMINE HCL 100 MG TABLET (FP) PO SCH (22:26)
[2021-08-15] MEDS ORDERED: LORazepam 0.5 MG TABLET PO PRN
[2021-08-15] MEDS: LORazepam 0.5 MG TABLET PO SCH ×4 (05:03→22:32)
[2021-08-15] MEDS: PRENATAL VITAMINS W/ FOLIC ACID TABLET (FP) PO SCH (10:35)
[2021-08-15] MEDS: amLODIPine BESYLATE 10 MG TABLET (FP) PO SCH (10:36)
[2021-08-15] MEDS: METOPROLOL TARTRATE 50 MG TABLET (FP) PO SCH (10:36)
[2021-08-15] MEDS: SERTRALINE HCL 50 MG TABLET (FP) PO SCH (10:36)
[2021-08-15] MEDS: LISINOPRIL 20 MG TABLET PO SCH (10:36)
[2021-08-15] MEDS: ONDANSETRON *ODT* 4 MG TABLET SL PRN ×2 (10:38→22:31)
[2021-08-15] MEDS: NICOTINE 14 MG/24 HOURS TOPICAL PATCH TD SCH (11:45)
[2021-08-15] MEDS: METHOCARBAMOL 500 MG TABLET PO PRN (22:32)
[2021-08-15] MEDS: THIAMINE HCL 100 MG TABLET (FP) PO SCH (22:32)
[2021-08-15] MEDS: MELATONIN 5 MG TABLETS PO PRN (22:32)
[2021-08-15] MEDS: hydrOXYzine PAMOATE 25 MG CAPSULE (FP) PO PRN (22:32)
[2021-08-15] MEDS: traZODone HCL 50 MG TABLET (FP) PO SCH (22:32)
[2021-08-16] MEDS ORDERED: LORazepam 0.5 MG TABLET PO ONE (05:00)
[2021-08-16] MEDS: hydrOXYzine PAMOATE 25 MG CAPSULE (FP) PO PRN (05:43)
[2021-08-16] MEDS: METHOCARBAMOL 500 MG TABLET PO PRN (05:43)
[2021-08-16] MEDS: ACETAMINOPHEN 325 MG TABLET (FP) PO PRN (05:43)
[2021-08-16] MEDS: METOPROLOL TARTRATE 50 MG TABLET (FP) PO SCH (10:27)
[2021-08-16] MEDS: NICOTINE 14 MG/24 HOURS TOPICAL PATCH TD SCH (10:27)
[2021-08-16] MEDS: PRENATAL VITAMINS W/ FOLIC ACID TABLET (FP) PO SCH (10:28)
[2021-08-16] MEDS: LISINOPRIL 20 MG TABLET PO SCH (10:28)
[2021-08-16] MEDS: amLODIPine BESYLATE 10 MG TABLET (FP) PO SCH (10:28)
[2021-08-16] MEDS: SERTRALINE HCL 50 MG TABLET (FP) PO SCH (10:28)
[2021-08-16] MEDS: traZODone HCL 50 MG TABLET (FP) PO SCH (21:05)
[2021-08-16] MEDS: THIAMINE HCL 100 MG TABLET (FP) PO SCH (21:05)
[2021-08-16] MEDS: MELATONIN 5 MG TABLETS PO PRN (21:05)
[2021-08-17] MEDS: amLODIPine BESYLATE 10 MG TABLET (FP) PO SCH (10:22)
[2021-08-17] MEDS: SERTRALINE HCL 50 MG TABLET (FP) PO SCH (10:22)
[2021-08-17] MEDS: PRENATAL VITAMINS W/ FOLIC ACID TABLET (FP) PO SCH (10:23)
[2021-08-17] MEDS: LISINOPRIL 20 MG TABLET PO SCH (10:23)
[2021-08-17] MEDS: METOPROLOL TARTRATE 50 MG TABLET (FP) PO SCH (10:24)
[2021-08-17] MEDS: NICOTINE 14 MG/24 HOURS TOPICAL PATCH TD SCH (10:24)
[2021-08-17] MEDS ORDERED: FLU VACC QS2021-22(6MOS UP)/PF 60 MCG/0.5 ML SYRINGE IM ONE (12:00)
[2021-08-17 18:07] LABS: SARS-CoV-2 NAA Not Detected (Not Detected)
[2021-08-17] MEDS: THIAMINE HCL 100 MG TABLET (FP) PO SCH (21:16)
[2021-08-17] MEDS: MELATONIN 5 MG TABLETS PO PRN (21:16)
[2021-08-17] MEDS: traZODone HCL 50 MG TABLET (FP) PO SCH (21:16)
[2021-08-18] MEDS: hydrOXYzine PAMOATE 25 MG CAPSULE (FP) PO PRN (06:57)
[2021-08-18] MEDS: SERTRALINE HCL 50 MG TABLET (FP) PO SCH (09:59)
[2021-08-18] MEDS: LISINOPRIL 20 MG TABLET PO SCH (09:59)
[2021-08-18] MEDS: PRENATAL VITAMINS W/ FOLIC ACID TABLET (FP) PO SCH (09:59)
[2021-08-18] MEDS: amLODIPine BESYLATE 10 MG TABLET (FP) PO SCH (09:59)
[2021-08-18] MEDS: NICOTINE 14 MG/24 HOURS TOPICAL PATCH TD SCH (10:00)
[2021-08-18] MEDS: METOPROLOL TARTRATE 50 MG TABLET (FP) PO SCH (10:00)
[2021-08-18] MEDS: traZODone HCL 50 MG TABLET (FP) PO SCH (21:27)
[2021-08-18] MEDS: THIAMINE HCL 100 MG TABLET (FP) PO SCH (21:27)
[2021-08-19] MEDS: PRENATAL VITAMINS W/ FOLIC ACID TABLET (FP) PO SCH (09:52)
[2021-08-19] MEDS: amLODIPine BESYLATE 10 MG TABLET (FP) PO SCH (09:52)
[2021-08-19] MEDS: NICOTINE 14 MG/24 HOURS TOPICAL PATCH TD SCH (09:52)
[2021-08-19] MEDS: SERTRALINE HCL 50 MG TABLET (FP) PO SCH (09:52)
[2021-08-19] MEDS: LISINOPRIL 20 MG TABLET PO SCH (09:52)
[2021-08-19] MEDS: METOPROLOL TARTRATE 50 MG TABLET (FP) PO SCH (09:52)
[2021-08-19] MEDS: traZODone HCL 50 MG TABLET (FP) PO SCH (21:32)
[2021-08-19] MEDS: THIAMINE HCL 100 MG TABLET (FP) PO SCH (21:32)
[2021-08-20] MEDS ORDERED: MODERNA COVID-19 VACC,MRNA/PF 100 MCG/0.5 ML IM ONE (10:00)
[2021-08-20] MEDS: METOPROLOL TARTRATE 50 MG TABLET (FP) PO SCH (10:15)
[2021-08-20] MEDS: SERTRALINE HCL 50 MG TABLET (FP) PO SCH (10:15)
[2021-08-20] MEDS: amLODIPine BESYLATE 10 MG TABLET (FP) PO SCH (10:15)
[2021-08-20] MEDS: NICOTINE 14 MG/24 HOURS TOPICAL PATCH TD SCH (10:15)
[2021-08-20] MEDS: PRENATAL VITAMINS W/ FOLIC ACID TABLET (FP) PO SCH (10:15)
[2021-08-20] MEDS: LISINOPRIL 20 MG TABLET PO SCH (10:16)
[2021-08-20] MEDS: ACETAMINOPHEN 325 MG TABLET (FP) PO PRN (10:53)
[2021-08-20] MEDS: traZODone HCL 50 MG TABLET (FP) PO SCH (21:24)
[2021-08-20] MEDS: THIAMINE HCL 100 MG TABLET (FP) PO SCH (21:24)
[2021-08-21] MEDS: METOPROLOL TARTRATE 50 MG TABLET (FP) PO SCH (10:16)
[2021-08-21] MEDS: LISINOPRIL 20 MG TABLET PO SCH (10:16)
[2021-08-21] MEDS: SERTRALINE HCL 50 MG TABLET (FP) PO SCH (10:16)
[2021-08-21] MEDS: NICOTINE 14 MG/24 HOURS TOPICAL PATCH TD SCH (10:17)
[2021-08-21] MEDS: PRENATAL VITAMINS W/ FOLIC ACID TABLET (FP) PO SCH (10:17)
[2021-08-21 14:08] LABS: SARS-CoV-2 NAA Not Detected (Not Detected)
[2021-08-21] MEDS: MELATONIN 5 MG TABLETS PO PRN (21:16)
[2021-08-21] MEDS: THIAMINE HCL 100 MG TABLET (FP) PO SCH (21:16)
[2021-08-21] MEDS: traZODone HCL 50 MG TABLET (FP) PO SCH (21:16)
[2021-08-22] MEDS: amLODIPine BESYLATE 10 MG TABLET (FP) PO SCH (06:25)
[2021-08-22] MEDS: SERTRALINE HCL 50 MG TABLET (FP) PO SCH (10:08)
[2021-08-22] MEDS: LISINOPRIL 20 MG TABLET PO SCH (10:08)
[2021-08-22] MEDS: PRENATAL VITAMINS W/ FOLIC ACID TABLET (FP) PO SCH (10:08)
[2021-08-22] MEDS: NICOTINE 14 MG/24 HOURS TOPICAL PATCH TD SCH (10:09)
[2021-08-22] MEDS: METOPROLOL TARTRATE 50 MG TABLET (FP) PO SCH (10:09)
[2021-08-22] MEDS: MELATONIN 5 MG TABLETS PO PRN (21:22)
[2021-08-22] MEDS: traZODone HCL 50 MG TABLET (FP) PO SCH (21:22)
[2021-08-22] MEDS: THIAMINE HCL 100 MG TABLET (FP) PO SCH (21:22)
[2021-08-23] MEDS: amLODIPine BESYLATE 10 MG TABLET (FP) PO SCH (06:58)
[2021-08-23] MEDS: NICOTINE 14 MG/24 HOURS TOPICAL PATCH TD SCH (09:29)
[2021-08-23] MEDS: METOPROLOL TARTRATE 50 MG TABLET (FP) PO SCH (09:29)
[2021-08-23] MEDS: SERTRALINE HCL 50 MG TABLET (FP) PO SCH (09:29)
[2021-08-23] MEDS: PRENATAL VITAMINS W/ FOLIC ACID TABLET (FP) PO SCH (09:29)
[2021-08-23] MEDS: LISINOPRIL 20 MG TABLET PO SCH (09:29)
[2021-08-23] MEDS: ACETAMINOPHEN 325 MG TABLET (FP) PO PRN ×2 (09:30→22:27)
[2021-08-23] MEDS: traZODone HCL 50 MG TABLET (FP) PO SCH (21:26)
[2021-08-23] MEDS: THIAMINE HCL 100 MG TABLET (FP) PO SCH (21:26)
[2021-08-24] MEDS: amLODIPine BESYLATE 10 MG TABLET (FP) PO SCH (06:32)
[2021-08-24] MEDS: LISINOPRIL 20 MG TABLET PO SCH (09:02)
[2021-08-24] MEDS: NICOTINE 14 MG/24 HOURS TOPICAL PATCH TD SCH (09:02)
[2021-08-24] MEDS: PRENATAL VITAMINS W/ FOLIC ACID TABLET (FP) PO SCH (09:02)
[2021-08-24] MEDS: METOPROLOL TARTRATE 50 MG TABLET (FP) PO SCH (09:02)
[2021-08-24] MEDS: SERTRALINE HCL 50 MG TABLET (FP) PO SCH (09:02)
[2021-08-24] MEDS: traZODone HCL 50 MG TABLET (FP) PO SCH (21:28)
[2021-08-24] MEDS: THIAMINE HCL 100 MG TABLET (FP) PO SCH (21:29)
[2021-08-24] MEDS: MELATONIN 5 MG TABLETS PO PRN (21:29)
[2021-08-25] MEDS: amLODIPine BESYLATE 10 MG TABLET (FP) PO SCH (06:21)
[2021-08-25] MEDS: PRENATAL VITAMINS W/ FOLIC ACID TABLET (FP) PO SCH (10:21)
[2021-08-25] MEDS: METOPROLOL TARTRATE 50 MG TABLET (FP) PO SCH (10:21)
[2021-08-25] MEDS: SERTRALINE HCL 50 MG TABLET (FP) PO SCH (10:21)
[2021-08-25] MEDS: NICOTINE 14 MG/24 HOURS TOPICAL PATCH TD SCH (10:22)
[2021-08-25] MEDS: LISINOPRIL 20 MG TABLET PO SCH (10:22)
[2021-08-25] MEDS: MELATONIN 5 MG TABLETS PO PRN (21:37)
[2021-08-25] MEDS: THIAMINE HCL 100 MG TABLET (FP) PO SCH (21:37)
[2021-08-25] MEDS: traZODone HCL 50 MG TABLET (FP) PO SCH (21:37)
[2021-08-26] MEDS: amLODIPine BESYLATE 10 MG TABLET (FP) PO SCH (06:34)
[2021-08-26] MEDS: METOPROLOL TARTRATE 50 MG TABLET (FP) PO SCH (09:44)
[2021-08-26] MEDS: NICOTINE 14 MG/24 HOURS TOPICAL PATCH TD SCH (09:44)
[2021-08-26] MEDS: SERTRALINE HCL 50 MG TABLET (FP) PO SCH (09:44)
[2021-08-26] MEDS: PRENATAL VITAMINS W/ FOLIC ACID TABLET (FP) PO SCH (09:44)
[2021-08-26] MEDS: LISINOPRIL 20 MG TABLET PO SCH (09:44)
[2021-08-26] MEDS: THIAMINE HCL 100 MG TABLET (FP) PO SCH (21:29)
[2021-08-26] MEDS: MELATONIN 5 MG TABLETS PO PRN (21:29)
[2021-08-26] MEDS: traZODone HCL 50 MG TABLET (FP) PO SCH (21:29)
[2021-08-27] MEDS: amLODIPine BESYLATE 10 MG TABLET (FP) PO SCH (07:15)
[2021-08-27] MEDS: LISINOPRIL 20 MG TABLET PO SCH (10:00)
[2021-08-27] MEDS: PRENATAL VITAMINS W/ FOLIC ACID TABLET (FP) PO SCH (10:01)
[2021-08-27] MEDS: NICOTINE 14 MG/24 HOURS TOPICAL PATCH TD SCH (10:01)
[2021-08-27] MEDS: METOPROLOL TARTRATE 50 MG TABLET (FP) PO SCH (10:01)
[2021-08-27] MEDS: SERTRALINE HCL 50 MG TABLET (FP) PO SCH (10:01)
[2021-08-27] MEDS: THIAMINE HCL 100 MG TABLET (FP) PO SCH (21:27)
[2021-08-27] MEDS: traZODone HCL 50 MG TABLET (FP) PO SCH (21:27)
[2021-08-27] MEDS: MELATONIN 5 MG TABLETS PO PRN (21:28)
[2021-08-28] MEDS: amLODIPine BESYLATE 10 MG TABLET (FP) PO SCH (06:11)
[2021-08-28 07:23] VITALS: BP 135/95; PULSE 106; TEMP 98.2
[2021-08-28] MEDS: LISINOPRIL 20 MG TABLET PO SCH (09:31)
[2021-08-28] MEDS: PRENATAL VITAMINS W/ FOLIC ACID TABLET (FP) PO SCH (09:31)
[2021-08-28] MEDS: METOPROLOL TARTRATE 50 MG TABLET (FP) PO SCH (09:31)
[2021-08-28] MEDS: NICOTINE 14 MG/24 HOURS TOPICAL PATCH TD SCH (09:32)
[2021-08-28] MEDS: SERTRALINE HCL 50 MG TABLET (FP) PO SCH (09:32)
== END 2021-08-28 09:42 | disposition home or self-care (01) | DRG 895 ==
LOC: YASAS 10:55 → Y3N 15:28 → Y3W 08-16 13:45
PROVIDERS: ADMIT Allergy & Immunology; ATTEND Allergy & Immunology
PROC: HZ2ZZZZ Detoxification Services for Substance Abuse Treatment (ICD-10-PCS; principal; 2021-08-12)
PROC: HZ42ZZZ Group Counseling for Substance Abuse Treatment, Cognitive-Behavioral (ICD-10-PCS; 2021-08-16)
DX: F10.230 Alcohol dependence with withdrawal, uncomplicated (principal); F14.20 Cocaine dependence, uncomplicated; F10.282 Alcohol dependence with alcohol-induced sleep disorder; F17.210 Nicotine dependence, cigarettes, uncomplicated; F19.24 Other psychoactive substance dependence with psychoactive substance-induced mood disorder; F32.A Depression, unspecified; I10 Essential (primary) hypertension; R00.0 Tachycardia, unspecified; E66.9 Obesity, unspecified; Z68.35 Body mass index [BMI] 35.0-35.9, adult; Z86.19 Personal history of other infectious and parasitic diseases; Z56.0 Unemployment, unspecified; Z59.01 Sheltered homelessness
CPT/HCPCS: 0012A; 36415; 80053; 83036; 85027; 86593; 86780; 87811; 90686; 91301; 93005; 93010; C9803-CS; G0008; J0735; Q0162; U0003; U0005

== ENCOUNTER 2022-01-30 16:58 | Inpatient (IN) | payer OTHER ==
[2022-01-30 19:16] VITALS: BMI 35.4
[2022-01-30] MEDS ORDERED: IBUPROFEN 600 MG TABLET (FP) PO PRN (19:58)
[2022-01-30] MEDS ORDERED: MAGNESIUM CITRATE 300 ML BOTTLE PO PRN (19:58)
[2022-01-30] MEDS ORDERED: METHOCARBAMOL 500 MG TABLET PO PRN (19:58)
[2022-01-30] MEDS ORDERED: DICYCLOMINE HCL 10 MG CAPSULE PO PRN (19:58)
[2022-01-30] MEDS ORDERED: NICOTINE 10 MG CARTRIDGE (INHALER) IH PRN (19:58)
[2022-01-30] MEDS ORDERED: LORazepam 1 MG TABLET PO PRN (19:58)
[2022-01-30] MEDS ORDERED: MAGNESIUM HYDROX 2400MG/30ML ORAL SUSPENSION 30 ML CUP PO PRN (19:58)
[2022-01-30] MEDS ORDERED: MAG HYDROX/AL HYDROX/SIMETH 30 ML UNIT-DOSE CUP PO PRN (19:58)
[2022-01-30] MEDS ORDERED: LORazepam 2 MG TABLET PO ONE (19:58)
[2022-01-30] MEDS ORDERED: NICOTINE POLACRILEX 2 MG GUM BUC PRN (19:58)
[2022-01-30] MEDS ORDERED: IBUPROFEN 400 MG TABLET (FP) PO PRN (19:58)
[2022-01-30] MEDS ORDERED: BISMUTH SUBSALICYLATE 524 MG/30 ML PO PRN (19:58)
[2022-01-30] MEDS ORDERED: BENZOCAINE/MENTHOL (CHLORASEPTIC ) LOZENGE MM PRN (19:58)
[2022-01-30] MEDS ORDERED: ACETAMINOPHEN 325 MG TABLET (FP) PO PRN (19:58)
[2022-01-30] MEDS ORDERED: LOPERAMIDE HCL 2 MG CAPSULE PO PRN (19:58)
[2022-01-30] MEDS ORDERED: METOPROLOL TARTRATE 25 MG TABLET (FP) ONE ×2 (21:47→21:53)
[2022-01-30] MEDS ORDERED: NICOTINE 21 MG/24 HOURS TOPICAL PATCH ONE (21:47)
[2022-01-30] MEDS ORDERED: LORazepam 2 MG TABLET ONE (21:47)
[2022-01-30] MEDS ORDERED: LISINOPRIL 10 MG TABLET ONE (21:48)
[2022-01-30] MEDS: NICOTINE 21 MG/24 HOURS TOPICAL PATCH TD SCH (21:48)
[2022-01-30] MEDS: LISINOPRIL 20 MG TABLET PO SCH (21:52)
[2022-01-30] MEDS ORDERED: traZODone HCL 50 MG TABLET (FP) PO ONE (22:00)
[2022-01-30] MEDS: METOPROLOL TARTRATE 50 MG TABLET (FP) PO SCH (22:02)
[2022-01-30] MEDS: hydrOXYzine PAMOATE 25 MG CAPSULE (FP) PO SCH (23:16)
[2022-01-30] MEDS: THIAMINE HCL 100 MG TABLET (FP) PO SCH (23:16)
[2022-01-30] MEDS: MELATONIN 5 MG TABLETS PO SCH (23:17)
[2022-01-30] MEDS: LORazepam 2 MG TABLET PO SCH (23:18)
[2022-01-31] MEDS: LORazepam 2 MG TABLET PO SCH ×4 (05:57→23:13)
[2022-01-31] MEDS: amLODIPine BESYLATE 10 MG TABLET (FP) PO SCH (05:58)
[2022-01-31] MEDS: hydrOXYzine PAMOATE 25 MG CAPSULE (FP) PO SCH ×5 (05:58→23:13)
[2022-01-31] MEDS: ONDANSETRON *ODT* 4 MG TABLET SL PRN ×2 (06:00→10:55)
[2022-01-31] MEDS: LISINOPRIL 20 MG TABLET PO SCH (10:53)
[2022-01-31] MEDS: NICOTINE 21 MG/24 HOURS TOPICAL PATCH TD SCH (10:53)
[2022-01-31] MEDS: PRENATAL VITAMINS W/ FOLIC ACID TABLET (FP) PO SCH (10:53)
[2022-01-31] MEDS: METOPROLOL TARTRATE 50 MG TABLET (FP) PO SCH (10:53)
[2022-01-31 11:55] LABS: HEMATOCRIT 43.1 % (35.4-49); HEMOGLOBIN 14.3 GM/dL (11.7-16.9); MCH 29.9 pg (25.7-33.7); MCHC 33.3 g/dl (32.0-35.9); MEAN CELL VOLUME 89.8 fl (80-96); PLATELET COUNT 162 10^3/uL (134-434); WHITE BLOOD COUNT 6.8 K/mm3 (4.0-10.0)
[2022-01-31 12:10] LABS: ALBUMIN 4.2 g/dl (3.4-5.0); CALCIUM 10.4 mg/dL (8.5-10.1)
[2022-01-31 12:12] LABS: BLOOD UREA NITROGEN 24.1 mg/dL (7-18)
[2022-01-31 12:14] LABS: CREATININE 1.3 mg/dL (0.55-1.3)
[2022-01-31 12:15] LABS: BILIRUBIN,TOTAL 0.4 mg/dL (0.2-1); TOT PROT 7.7 g/dl (6.4-8.2)
[2022-01-31] MEDS: MELATONIN 5 MG TABLETS PO SCH (23:13)
[2022-01-31] MEDS: THIAMINE HCL 100 MG TABLET (FP) PO SCH (23:13)
[2022-02-01] MEDS: amLODIPine BESYLATE 10 MG TABLET (FP) PO SCH (05:58)
[2022-02-01] MEDS: hydrOXYzine PAMOATE 25 MG CAPSULE (FP) PO SCH ×5 (05:59→22:26)
[2022-02-01] MEDS: LORazepam 1 MG TABLET PO SCH ×4 (05:59→22:26)
[2022-02-01] MEDS: LISINOPRIL 20 MG TABLET PO SCH (11:05)
[2022-02-01] MEDS: PRENATAL VITAMINS W/ FOLIC ACID TABLET (FP) PO SCH (11:05)
[2022-02-01] MEDS: METOPROLOL TARTRATE 50 MG TABLET (FP) PO SCH (11:05)
[2022-02-01] MEDS: NICOTINE 21 MG/24 HOURS TOPICAL PATCH TD SCH (11:06)
[2022-02-01] MEDS: ONDANSETRON *ODT* 4 MG TABLET SL PRN (11:07)
[2022-02-01] MEDS: MELATONIN 5 MG TABLETS PO SCH (22:26)
[2022-02-01] MEDS: THIAMINE HCL 100 MG TABLET (FP) PO SCH (22:26)
[2022-02-02] MEDS ORDERED: LORazepam 0.5 MG TABLET PO PRN
[2022-02-02] MEDS: hydrOXYzine PAMOATE 25 MG CAPSULE (FP) PO SCH ×5 (05:40→22:27)
[2022-02-02] MEDS: LORazepam 0.5 MG TABLET PO SCH ×4 (05:41→22:27)
[2022-02-02] MEDS: amLODIPine BESYLATE 10 MG TABLET (FP) PO SCH (05:41)
[2022-02-02] MEDS: PRENATAL VITAMINS W/ FOLIC ACID TABLET (FP) PO SCH (10:58)
[2022-02-02] MEDS: METOPROLOL TARTRATE 50 MG TABLET (FP) PO SCH (10:58)
[2022-02-02] MEDS: LISINOPRIL 20 MG TABLET PO SCH (10:58)
[2022-02-02] MEDS: NICOTINE 21 MG/24 HOURS TOPICAL PATCH TD SCH (10:58)
[2022-02-02] MEDS: THIAMINE HCL 100 MG TABLET (FP) PO SCH (22:27)
[2022-02-02] MEDS: MELATONIN 5 MG TABLETS PO SCH (22:27)
[2022-02-03] MEDS ORDERED: LORazepam 0.5 MG TABLET PO ONE (05:00)
[2022-02-03] MEDS: amLODIPine BESYLATE 10 MG TABLET (FP) PO SCH (05:55)
[2022-02-03] MEDS: hydrOXYzine PAMOATE 25 MG CAPSULE (FP) PO SCH ×5 (05:55→21:25)
[2022-02-03] MEDS: PRENATAL VITAMINS W/ FOLIC ACID TABLET (FP) PO SCH (10:36)
[2022-02-03] MEDS: METOPROLOL TARTRATE 50 MG TABLET (FP) PO SCH (10:36)
[2022-02-03] MEDS: LISINOPRIL 20 MG TABLET PO SCH (10:36)
[2022-02-03] MEDS: NICOTINE 21 MG/24 HOURS TOPICAL PATCH TD SCH (10:37)
[2022-02-03] MEDS: MELATONIN 5 MG TABLETS PO SCH (21:25)
[2022-02-03] MEDS: THIAMINE HCL 100 MG TABLET (FP) PO SCH (21:25)
[2022-02-04] MEDS: amLODIPine BESYLATE 10 MG TABLET (FP) PO SCH (07:00)
[2022-02-04] MEDS: hydrOXYzine PAMOATE 25 MG CAPSULE (FP) PO SCH ×5 (07:00→21:17)
[2022-02-04] MEDS: NICOTINE 21 MG/24 HOURS TOPICAL PATCH TD SCH (10:21)
[2022-02-04] MEDS: PRENATAL VITAMINS W/ FOLIC ACID TABLET (FP) PO SCH (10:21)
[2022-02-04] MEDS: METOPROLOL TARTRATE 50 MG TABLET (FP) PO SCH (10:22)
[2022-02-04] MEDS: LISINOPRIL 20 MG TABLET PO SCH (10:22)
[2022-02-04] MEDS: THIAMINE HCL 100 MG TABLET (FP) PO SCH (21:17)
[2022-02-04] MEDS: MELATONIN 5 MG TABLETS PO SCH (21:17)
[2022-02-05] MEDS: amLODIPine BESYLATE 10 MG TABLET (FP) PO SCH (06:03)
[2022-02-05] MEDS: hydrOXYzine PAMOATE 25 MG CAPSULE (FP) PO SCH ×4 (06:03→18:19)
[2022-02-05] MEDS: LISINOPRIL 20 MG TABLET PO SCH (10:28)
[2022-02-05] MEDS: PRENATAL VITAMINS W/ FOLIC ACID TABLET (FP) PO SCH (10:28)
[2022-02-05] MEDS: NICOTINE 21 MG/24 HOURS TOPICAL PATCH TD SCH (10:29)
[2022-02-05] MEDS: METOPROLOL TARTRATE 50 MG TABLET (FP) PO SCH (10:29)
[2022-02-05] MEDS: MELATONIN 5 MG TABLETS PO SCH (21:17)
[2022-02-05] MEDS: traZODone HCL 50 MG TABLET (FP) PO SCH (21:17)
[2022-02-05] MEDS: THIAMINE HCL 100 MG TABLET (FP) PO SCH (21:18)
[2022-02-06] MEDS: amLODIPine BESYLATE 10 MG TABLET (FP) PO SCH (06:48)
[2022-02-06] MEDS: SERTRALINE HCL 50 MG TABLET (FP) PO SCH (10:14)
[2022-02-06] MEDS: LISINOPRIL 20 MG TABLET PO SCH (10:14)
[2022-02-06] MEDS: METOPROLOL TARTRATE 50 MG TABLET (FP) PO SCH (10:14)
[2022-02-06] MEDS: NICOTINE 21 MG/24 HOURS TOPICAL PATCH TD SCH (10:15)
[2022-02-06] MEDS: PRENATAL VITAMINS W/ FOLIC ACID TABLET (FP) PO SCH (10:15)
[2022-02-06] MEDS: MELATONIN 5 MG TABLETS PO SCH (21:04)
[2022-02-06] MEDS: traZODone HCL 50 MG TABLET (FP) PO SCH (21:04)
[2022-02-06] MEDS: THIAMINE HCL 100 MG TABLET (FP) PO SCH (21:04)
[2022-02-07] MEDS: amLODIPine BESYLATE 10 MG TABLET (FP) PO SCH (06:09)
[2022-02-07] MEDS: PRENATAL VITAMINS W/ FOLIC ACID TABLET (FP) PO SCH (10:17)
[2022-02-07] MEDS: NICOTINE 21 MG/24 HOURS TOPICAL PATCH TD SCH (10:17)
[2022-02-07] MEDS: LISINOPRIL 20 MG TABLET PO SCH (10:19)
[2022-02-07] MEDS: SERTRALINE HCL 50 MG TABLET (FP) PO SCH (10:19)
[2022-02-07] MEDS: METOPROLOL TARTRATE 50 MG TABLET (FP) PO SCH (11:07)
[2022-02-07] MEDS: traZODone HCL 50 MG TABLET (FP) PO SCH (21:25)
[2022-02-07] MEDS: MELATONIN 5 MG TABLETS PO SCH (21:25)
[2022-02-07] MEDS: THIAMINE HCL 100 MG TABLET (FP) PO SCH (21:25)
[2022-02-08] MEDS: amLODIPine BESYLATE 10 MG TABLET (FP) PO SCH (06:29)
[2022-02-08] MEDS: NICOTINE 21 MG/24 HOURS TOPICAL PATCH TD SCH (10:12)
[2022-02-08] MEDS: LISINOPRIL 20 MG TABLET PO SCH (10:12)
[2022-02-08] MEDS: METOPROLOL TARTRATE 50 MG TABLET (FP) PO SCH (10:12)
[2022-02-08] MEDS: PRENATAL VITAMINS W/ FOLIC ACID TABLET (FP) PO SCH (10:12)
[2022-02-08] MEDS: SERTRALINE HCL 50 MG TABLET (FP) PO SCH (10:12)
[2022-02-08] MEDS: traZODone HCL 50 MG TABLET (FP) PO SCH (21:07)
[2022-02-08] MEDS: MELATONIN 5 MG TABLETS PO SCH (21:08)
[2022-02-08] MEDS: THIAMINE HCL 100 MG TABLET (FP) PO SCH (21:08)
[2022-02-09] MEDS: amLODIPine BESYLATE 10 MG TABLET (FP) PO SCH (06:08)
[2022-02-09] MEDS: LISINOPRIL 20 MG TABLET PO SCH (10:35)
[2022-02-09] MEDS: SERTRALINE HCL 50 MG TABLET (FP) PO SCH (10:35)
[2022-02-09] MEDS: METOPROLOL TARTRATE 50 MG TABLET (FP) PO SCH (10:35)
[2022-02-09] MEDS: PRENATAL VITAMINS W/ FOLIC ACID TABLET (FP) PO SCH (10:35)
[2022-02-09] MEDS: NICOTINE 21 MG/24 HOURS TOPICAL PATCH TD SCH (10:36)
[2022-02-09] MEDS: traZODone HCL 50 MG TABLET (FP) PO SCH (21:49)
[2022-02-09] MEDS: THIAMINE HCL 100 MG TABLET (FP) PO SCH (21:50)
[2022-02-09] MEDS: MELATONIN 5 MG TABLETS PO SCH (21:50)
[2022-02-10] MEDS: amLODIPine BESYLATE 10 MG TABLET (FP) PO SCH (06:33)
[2022-02-10] MEDS: PRENATAL VITAMINS W/ FOLIC ACID TABLET (FP) PO SCH (09:53)
[2022-02-10] MEDS: SERTRALINE HCL 50 MG TABLET (FP) PO SCH (09:54)
[2022-02-10] MEDS: LISINOPRIL 20 MG TABLET PO SCH (09:54)
[2022-02-10] MEDS: NICOTINE 21 MG/24 HOURS TOPICAL PATCH TD SCH (09:54)
[2022-02-10] MEDS: METOPROLOL TARTRATE 50 MG TABLET (FP) PO SCH (09:54)
[2022-02-10] MEDS: ACETAMINOPHEN 325 MG TABLET (FP) PO PRN (12:47)
[2022-02-10] MEDS: traZODone HCL 50 MG TABLET (FP) PO SCH (21:23)
[2022-02-10] MEDS: THIAMINE HCL 100 MG TABLET (FP) PO SCH (21:23)
[2022-02-10] MEDS: MELATONIN 5 MG TABLETS PO SCH (21:23)
[2022-02-11] MEDS: amLODIPine BESYLATE 10 MG TABLET (FP) PO SCH (06:22)
[2022-02-11] MEDS: LISINOPRIL 20 MG TABLET PO SCH (10:18)
[2022-02-11] MEDS: PRENATAL VITAMINS W/ FOLIC ACID TABLET (FP) PO SCH (10:18)
[2022-02-11] MEDS: NICOTINE 21 MG/24 HOURS TOPICAL PATCH TD SCH (10:18)
[2022-02-11] MEDS: METOPROLOL TARTRATE 50 MG TABLET (FP) PO SCH (10:19)
[2022-02-11] MEDS: SERTRALINE HCL 50 MG TABLET (FP) PO SCH (10:19)
[2022-02-11] MEDS: traZODone HCL 50 MG TABLET (FP) PO SCH (21:31)
[2022-02-11] MEDS: THIAMINE HCL 100 MG TABLET (FP) PO SCH (21:32)
[2022-02-11] MEDS: MELATONIN 5 MG TABLETS PO SCH (21:32)
[2022-02-12] MEDS: amLODIPine BESYLATE 10 MG TABLET (FP) PO SCH (06:04)
[2022-02-12] MEDS: NICOTINE 21 MG/24 HOURS TOPICAL PATCH TD SCH (10:17)
[2022-02-12] MEDS: SERTRALINE HCL 50 MG TABLET (FP) PO SCH (10:17)
[2022-02-12] MEDS: METOPROLOL TARTRATE 50 MG TABLET (FP) PO SCH (10:17)
[2022-02-12] MEDS: LISINOPRIL 20 MG TABLET PO SCH (10:17)
[2022-02-12] MEDS: PRENATAL VITAMINS W/ FOLIC ACID TABLET (FP) PO SCH (10:17)
[2022-02-12] MEDS: THIAMINE HCL 100 MG TABLET (FP) PO SCH (21:15)
[2022-02-12] MEDS: MELATONIN 5 MG TABLETS PO SCH (21:15)
[2022-02-12] MEDS: traZODone HCL 50 MG TABLET (FP) PO SCH (21:15)
[2022-02-13] MEDS: amLODIPine BESYLATE 10 MG TABLET (FP) PO SCH (06:10)
[2022-02-13] MEDS: METOPROLOL TARTRATE 50 MG TABLET (FP) PO SCH (09:58)
[2022-02-13] MEDS: SERTRALINE HCL 50 MG TABLET (FP) PO SCH (09:59)
[2022-02-13] MEDS: NICOTINE 21 MG/24 HOURS TOPICAL PATCH TD SCH (09:59)
[2022-02-13] MEDS: PRENATAL VITAMINS W/ FOLIC ACID TABLET (FP) PO SCH (09:59)
[2022-02-13] MEDS: LISINOPRIL 20 MG TABLET PO SCH (09:59)
[2022-02-13] MEDS: traZODone HCL 50 MG TABLET (FP) PO SCH (21:13)
[2022-02-13] MEDS: MELATONIN 5 MG TABLETS PO SCH (21:13)
[2022-02-13] MEDS: THIAMINE HCL 100 MG TABLET (FP) PO SCH (21:13)
[2022-02-14] MEDS: amLODIPine BESYLATE 10 MG TABLET (FP) PO SCH (06:17)
[2022-02-14] MEDS: LISINOPRIL 20 MG TABLET PO SCH (09:34)
[2022-02-14] MEDS: SERTRALINE HCL 50 MG TABLET (FP) PO SCH (09:34)
[2022-02-14] MEDS: PRENATAL VITAMINS W/ FOLIC ACID TABLET (FP) PO SCH (09:34)
[2022-02-14] MEDS: NICOTINE 21 MG/24 HOURS TOPICAL PATCH TD SCH (09:34)
[2022-02-14] MEDS: METOPROLOL TARTRATE 50 MG TABLET (FP) PO SCH (09:34)
[2022-02-14] MEDS: traZODone HCL 50 MG TABLET (FP) PO SCH (21:49)
[2022-02-14] MEDS: MELATONIN 5 MG TABLETS PO SCH (21:49)
[2022-02-14] MEDS: THIAMINE HCL 100 MG TABLET (FP) PO SCH (21:49)
[2022-02-15] MEDS: amLODIPine BESYLATE 10 MG TABLET (FP) PO SCH (06:09)
[2022-02-15] MEDS: PRENATAL VITAMINS W/ FOLIC ACID TABLET (FP) PO SCH (10:23)
[2022-02-15] MEDS: NICOTINE 21 MG/24 HOURS TOPICAL PATCH TD SCH (10:23)
[2022-02-15] MEDS: METOPROLOL TARTRATE 50 MG TABLET (FP) PO SCH (10:24)
[2022-02-15] MEDS: SERTRALINE HCL 50 MG TABLET (FP) PO SCH (10:24)
[2022-02-15] MEDS: LISINOPRIL 20 MG TABLET PO SCH (10:24)
[2022-02-15] MEDS: MELATONIN 5 MG TABLETS PO SCH (21:19)
[2022-02-15] MEDS: THIAMINE HCL 100 MG TABLET (FP) PO SCH (21:19)
[2022-02-15] MEDS: traZODone HCL 50 MG TABLET (FP) PO SCH (21:20)
[2022-02-16] MEDS: amLODIPine BESYLATE 10 MG TABLET (FP) PO SCH (06:19)
[2022-02-16] MEDS: NICOTINE 21 MG/24 HOURS TOPICAL PATCH TD SCH (09:43)
[2022-02-16] MEDS: SERTRALINE HCL 50 MG TABLET (FP) PO SCH (09:43)
[2022-02-16] MEDS: PRENATAL VITAMINS W/ FOLIC ACID TABLET (FP) PO SCH (09:43)
[2022-02-16] MEDS: LISINOPRIL 20 MG TABLET PO SCH (09:43)
[2022-02-16] MEDS: METOPROLOL TARTRATE 50 MG TABLET (FP) PO SCH (09:43)
[2022-02-16] MEDS: traZODone HCL 50 MG TABLET (FP) PO SCH (21:25)
[2022-02-16] MEDS: THIAMINE HCL 100 MG TABLET (FP) PO SCH (21:26)
[2022-02-16] MEDS: MELATONIN 5 MG TABLETS PO SCH (21:26)
[2022-02-17] MEDS: amLODIPine BESYLATE 10 MG TABLET (FP) PO SCH (06:17)
[2022-02-17] MEDS: METOPROLOL TARTRATE 50 MG TABLET (FP) PO SCH (10:15)
[2022-02-17] MEDS: NICOTINE 21 MG/24 HOURS TOPICAL PATCH TD SCH (10:15)
[2022-02-17] MEDS: PRENATAL VITAMINS W/ FOLIC ACID TABLET (FP) PO SCH (10:15)
[2022-02-17] MEDS: SERTRALINE HCL 50 MG TABLET (FP) PO SCH (10:16)
[2022-02-17] MEDS: LISINOPRIL 20 MG TABLET PO SCH (10:16)
[2022-02-17] MEDS: MELATONIN 5 MG TABLETS PO SCH (21:19)
[2022-02-17] MEDS: THIAMINE HCL 100 MG TABLET (FP) PO SCH (21:19)
[2022-02-17] MEDS: traZODone HCL 50 MG TABLET (FP) PO SCH (21:19)
[2022-02-18] MEDS: amLODIPine BESYLATE 10 MG TABLET (FP) PO SCH (06:26)
[2022-02-18] MEDS: SERTRALINE HCL 50 MG TABLET (FP) PO SCH (10:13)
[2022-02-18] MEDS: LISINOPRIL 20 MG TABLET PO SCH (10:13)
[2022-02-18] MEDS: NICOTINE 21 MG/24 HOURS TOPICAL PATCH TD SCH (10:14)
[2022-02-18] MEDS: METOPROLOL TARTRATE 50 MG TABLET (FP) PO SCH (10:14)
[2022-02-18] MEDS: PRENATAL VITAMINS W/ FOLIC ACID TABLET (FP) PO SCH (10:14)
[2022-02-18] MEDS: traZODone HCL 50 MG TABLET (FP) PO SCH (21:15)
[2022-02-18] MEDS: MELATONIN 5 MG TABLETS PO SCH (21:15)
[2022-02-18] MEDS: THIAMINE HCL 100 MG TABLET (FP) PO SCH (21:15)
[2022-02-19] MEDS: amLODIPine BESYLATE 10 MG TABLET (FP) PO SCH (06:06)
[2022-02-19] MEDS: LISINOPRIL 20 MG TABLET PO SCH (10:31)
[2022-02-19] MEDS: SERTRALINE HCL 50 MG TABLET (FP) PO SCH (10:31)
[2022-02-19] MEDS: PRENATAL VITAMINS W/ FOLIC ACID TABLET (FP) PO SCH (10:31)
[2022-02-19] MEDS: NICOTINE 21 MG/24 HOURS TOPICAL PATCH TD SCH (10:32)
[2022-02-19] MEDS: METOPROLOL TARTRATE 50 MG TABLET (FP) PO SCH (10:32)
[2022-02-19] MEDS: THIAMINE HCL 100 MG TABLET (FP) PO SCH (21:41)
[2022-02-19] MEDS: MELATONIN 5 MG TABLETS PO SCH (21:41)
[2022-02-19] MEDS: traZODone HCL 50 MG TABLET (FP) PO SCH (21:41)
[2022-02-20] MEDS: amLODIPine BESYLATE 10 MG TABLET (FP) PO SCH (06:02)
[2022-02-20] MEDS: SERTRALINE HCL 50 MG TABLET (FP) PO SCH (10:14)
[2022-02-20] MEDS: LISINOPRIL 20 MG TABLET PO SCH (10:14)
[2022-02-20] MEDS: NICOTINE 21 MG/24 HOURS TOPICAL PATCH TD SCH (10:14)
[2022-02-20] MEDS: PRENATAL VITAMINS W/ FOLIC ACID TABLET (FP) PO SCH (10:14)
[2022-02-20] MEDS: METOPROLOL TARTRATE 50 MG TABLET (FP) PO SCH (10:14)
[2022-02-20] MEDS: traZODone HCL 50 MG TABLET (FP) PO SCH (21:40)
[2022-02-20] MEDS: MELATONIN 5 MG TABLETS PO SCH (21:40)
[2022-02-20] MEDS: THIAMINE HCL 100 MG TABLET (FP) PO SCH (21:40)
[2022-02-21] MEDS: amLODIPine BESYLATE 10 MG TABLET (FP) PO SCH (06:36)
[2022-02-21] MEDS: SERTRALINE HCL 50 MG TABLET (FP) PO SCH (10:09)
[2022-02-21] MEDS: LISINOPRIL 20 MG TABLET PO SCH (10:09)
[2022-02-21] MEDS: METOPROLOL TARTRATE 50 MG TABLET (FP) PO SCH (10:09)
[2022-02-21] MEDS: PRENATAL VITAMINS W/ FOLIC ACID TABLET (FP) PO SCH (10:09)
[2022-02-21] MEDS: NICOTINE 21 MG/24 HOURS TOPICAL PATCH TD SCH (10:09)
[2022-02-21] MEDS: traZODone HCL 50 MG TABLET (FP) PO SCH (21:30)
[2022-02-21] MEDS: THIAMINE HCL 100 MG TABLET (FP) PO SCH (21:30)
[2022-02-21] MEDS: MELATONIN 5 MG TABLETS PO SCH (21:30)
[2022-02-22] MEDS: amLODIPine BESYLATE 10 MG TABLET (FP) PO SCH (07:02)
[2022-02-22] MEDS: METOPROLOL TARTRATE 50 MG TABLET (FP) PO SCH (10:33)
[2022-02-22] MEDS: LISINOPRIL 20 MG TABLET PO SCH (10:33)
[2022-02-22] MEDS: SERTRALINE HCL 50 MG TABLET (FP) PO SCH (10:33)
[2022-02-22] MEDS: PRENATAL VITAMINS W/ FOLIC ACID TABLET (FP) PO SCH (10:34)
[2022-02-22] MEDS: NICOTINE 21 MG/24 HOURS TOPICAL PATCH TD SCH (10:34)
[2022-02-22] MEDS: MELATONIN 5 MG TABLETS PO SCH (21:28)
[2022-02-22] MEDS: THIAMINE HCL 100 MG TABLET (FP) PO SCH (21:28)
[2022-02-22] MEDS: traZODone HCL 50 MG TABLET (FP) PO SCH (21:29)
[2022-02-23] MEDS: amLODIPine BESYLATE 10 MG TABLET (FP) PO SCH (06:10)
[2022-02-23] MEDS: SERTRALINE HCL 50 MG TABLET (FP) PO SCH (10:22)
[2022-02-23] MEDS: NICOTINE 21 MG/24 HOURS TOPICAL PATCH TD SCH (10:22)
[2022-02-23] MEDS: METOPROLOL TARTRATE 50 MG TABLET (FP) PO SCH (10:22)
[2022-02-23] MEDS: PRENATAL VITAMINS W/ FOLIC ACID TABLET (FP) PO SCH (10:22)
[2022-02-23] MEDS: LISINOPRIL 20 MG TABLET PO SCH (10:22)
[2022-02-23] MEDS: MELATONIN 5 MG TABLETS PO SCH (21:25)
[2022-02-23] MEDS: THIAMINE HCL 100 MG TABLET (FP) PO SCH (21:25)
[2022-02-23] MEDS: traZODone HCL 50 MG TABLET (FP) PO SCH (21:25)
[2022-02-24] MEDS: amLODIPine BESYLATE 10 MG TABLET (FP) PO SCH (06:37)
[2022-02-24] MEDS: ACETAMINOPHEN 325 MG TABLET (FP) PO PRN (08:28)
[2022-02-24] MEDS: LISINOPRIL 20 MG TABLET PO SCH (10:21)
[2022-02-24] MEDS: METOPROLOL TARTRATE 50 MG TABLET (FP) PO SCH (10:21)
[2022-02-24] MEDS: NICOTINE 21 MG/24 HOURS TOPICAL PATCH TD SCH (10:21)
[2022-02-24] MEDS: PRENATAL VITAMINS W/ FOLIC ACID TABLET (FP) PO SCH (10:21)
[2022-02-24] MEDS: SERTRALINE HCL 50 MG TABLET (FP) PO SCH (10:21)
[2022-02-24] MEDS: THIAMINE HCL 100 MG TABLET (FP) PO SCH (21:23)
[2022-02-24] MEDS: MELATONIN 5 MG TABLETS PO SCH (21:23)
[2022-02-24] MEDS: traZODone HCL 50 MG TABLET (FP) PO SCH (21:23)
[2022-02-25] MEDS: amLODIPine BESYLATE 10 MG TABLET (FP) PO SCH (06:10)
[2022-02-25] MEDS: NICOTINE 21 MG/24 HOURS TOPICAL PATCH TD SCH (10:23)
[2022-02-25] MEDS: LISINOPRIL 20 MG TABLET PO SCH (10:23)
[2022-02-25] MEDS: METOPROLOL TARTRATE 50 MG TABLET (FP) PO SCH (10:23)
[2022-02-25] MEDS: SERTRALINE HCL 50 MG TABLET (FP) PO SCH (10:23)
[2022-02-25] MEDS: PRENATAL VITAMINS W/ FOLIC ACID TABLET (FP) PO SCH (10:23)
[2022-02-25] MEDS: traZODone HCL 50 MG TABLET (FP) PO SCH (21:26)
[2022-02-25] MEDS: MELATONIN 5 MG TABLETS PO SCH (21:26)
[2022-02-25] MEDS: THIAMINE HCL 100 MG TABLET (FP) PO SCH (21:26)
[2022-02-26] MEDS: amLODIPine BESYLATE 10 MG TABLET (FP) PO SCH (06:16)
[2022-02-26] MEDS: METOPROLOL TARTRATE 50 MG TABLET (FP) PO SCH (10:35)
[2022-02-26] MEDS: PRENATAL VITAMINS W/ FOLIC ACID TABLET (FP) PO SCH (10:36)
[2022-02-26] MEDS: SERTRALINE HCL 50 MG TABLET (FP) PO SCH (10:36)
[2022-02-26] MEDS: LISINOPRIL 20 MG TABLET PO SCH (10:36)
[2022-02-26] MEDS: NICOTINE 21 MG/24 HOURS TOPICAL PATCH TD SCH (10:36)
[2022-02-26] MEDS: traZODone HCL 50 MG TABLET (FP) PO SCH (21:09)
[2022-02-26] MEDS: MELATONIN 5 MG TABLETS PO SCH (21:09)
[2022-02-26] MEDS: THIAMINE HCL 100 MG TABLET (FP) PO SCH (21:09)
[2022-02-27] MEDS: amLODIPine BESYLATE 10 MG TABLET (FP) PO SCH (06:34)
[2022-02-27] MEDS: SERTRALINE HCL 50 MG TABLET (FP) PO SCH (10:31)
[2022-02-27] MEDS: PRENATAL VITAMINS W/ FOLIC ACID TABLET (FP) PO SCH (10:31)
[2022-02-27] MEDS: METOPROLOL TARTRATE 50 MG TABLET (FP) PO SCH (10:31)
[2022-02-27] MEDS: NICOTINE 21 MG/24 HOURS TOPICAL PATCH TD SCH (10:31)
[2022-02-27] MEDS: LISINOPRIL 20 MG TABLET PO SCH (10:32)
[2022-02-27] MEDS: THIAMINE HCL 100 MG TABLET (FP) PO SCH (21:22)
[2022-02-27] MEDS: MELATONIN 5 MG TABLETS PO SCH (21:22)
[2022-02-27] MEDS: traZODone HCL 50 MG TABLET (FP) PO SCH (21:22)
[2022-02-28] MEDS: amLODIPine BESYLATE 10 MG TABLET (FP) PO SCH (06:27)
[2022-02-28] MEDS: LISINOPRIL 20 MG TABLET PO SCH (10:27)
[2022-02-28] MEDS: SERTRALINE HCL 50 MG TABLET (FP) PO SCH (10:27)
[2022-02-28] MEDS: PRENATAL VITAMINS W/ FOLIC ACID TABLET (FP) PO SCH (10:27)
[2022-02-28] MEDS: NICOTINE 21 MG/24 HOURS TOPICAL PATCH TD SCH (10:27)
[2022-02-28] MEDS: METOPROLOL TARTRATE 50 MG TABLET (FP) PO SCH (10:29)
[2022-02-28] MEDS: traZODone HCL 50 MG TABLET (FP) PO SCH (21:17)
[2022-02-28] MEDS: THIAMINE HCL 100 MG TABLET (FP) PO SCH (21:17)
[2022-02-28] MEDS: MELATONIN 5 MG TABLETS PO SCH (21:17)
[2022-03-01] MEDS: amLODIPine BESYLATE 10 MG TABLET (FP) PO SCH (06:32)
[2022-03-01] MEDS: SERTRALINE HCL 50 MG TABLET (FP) PO SCH (10:48)
[2022-03-01] MEDS: NICOTINE 21 MG/24 HOURS TOPICAL PATCH TD SCH (10:48)
[2022-03-01] MEDS: PRENATAL VITAMINS W/ FOLIC ACID TABLET (FP) PO SCH (10:48)
[2022-03-01] MEDS: METOPROLOL TARTRATE 50 MG TABLET (FP) PO SCH (10:48)
[2022-03-01] MEDS: LISINOPRIL 20 MG TABLET PO SCH (10:48)
[2022-03-01] MEDS: THIAMINE HCL 100 MG TABLET (FP) PO SCH (21:08)
[2022-03-01] MEDS: traZODone HCL 50 MG TABLET (FP) PO SCH (21:08)
[2022-03-01] MEDS: MELATONIN 5 MG TABLETS PO SCH (21:08)
[2022-03-02] MEDS: amLODIPine BESYLATE 10 MG TABLET (FP) PO SCH (06:34)
[2022-03-02] MEDS: LISINOPRIL 20 MG TABLET PO SCH (10:04)
[2022-03-02] MEDS: SERTRALINE HCL 50 MG TABLET (FP) PO SCH (10:04)
[2022-03-02] MEDS: METOPROLOL TARTRATE 50 MG TABLET (FP) PO SCH (10:04)
[2022-03-02] MEDS: PRENATAL VITAMINS W/ FOLIC ACID TABLET (FP) PO SCH (10:04)
[2022-03-02] MEDS: NICOTINE 21 MG/24 HOURS TOPICAL PATCH TD SCH (10:05)
[2022-03-02] MEDS: MELATONIN 5 MG TABLETS PO SCH (21:25)
[2022-03-02] MEDS: traZODone HCL 50 MG TABLET (FP) PO SCH (21:25)
[2022-03-02] MEDS: THIAMINE HCL 100 MG TABLET (FP) PO SCH (21:25)
[2022-03-02] MEDS: ACETAMINOPHEN 325 MG TABLET (FP) PO PRN (21:26)
[2022-03-03] MEDS: amLODIPine BESYLATE 10 MG TABLET (FP) PO SCH (06:29)
[2022-03-03] MEDS: SERTRALINE HCL 50 MG TABLET (FP) PO SCH (10:08)
[2022-03-03] MEDS: LISINOPRIL 20 MG TABLET PO SCH (10:08)
[2022-03-03] MEDS: PRENATAL VITAMINS W/ FOLIC ACID TABLET (FP) PO SCH (10:08)
[2022-03-03] MEDS: METOPROLOL TARTRATE 50 MG TABLET (FP) PO SCH (10:08)
[2022-03-03] MEDS: NICOTINE 21 MG/24 HOURS TOPICAL PATCH TD SCH (10:08)
[2022-03-03] MEDS: MELATONIN 5 MG TABLETS PO SCH (21:19)
[2022-03-03] MEDS: traZODone HCL 50 MG TABLET (FP) PO SCH (21:19)
[2022-03-03] MEDS: THIAMINE HCL 100 MG TABLET (FP) PO SCH (21:19)
[2022-03-04] MEDS: amLODIPine BESYLATE 10 MG TABLET (FP) PO SCH (06:09)
[2022-03-04] MEDS: SERTRALINE HCL 50 MG TABLET (FP) PO SCH (10:03)
[2022-03-04] MEDS: NICOTINE 21 MG/24 HOURS TOPICAL PATCH TD SCH (10:03)
[2022-03-04] MEDS: METOPROLOL TARTRATE 50 MG TABLET (FP) PO SCH (10:03)
[2022-03-04] MEDS: PRENATAL VITAMINS W/ FOLIC ACID TABLET (FP) PO SCH (10:03)
[2022-03-04] MEDS: LISINOPRIL 20 MG TABLET PO SCH (10:03)
[2022-03-04 10:12] VITALS: TEMP 97.5
[2022-03-04] MEDS: THIAMINE HCL 100 MG TABLET (FP) PO SCH (21:06)
[2022-03-04] MEDS: traZODone HCL 50 MG TABLET (FP) PO SCH (21:06)
[2022-03-04] MEDS: MELATONIN 5 MG TABLETS PO SCH (21:06)
[2022-03-05] MEDS: amLODIPine BESYLATE 10 MG TABLET (FP) PO SCH (06:02)
[2022-03-05 06:43] VITALS: RESP 18
[2022-03-05 09:08] VITALS: BP 136/92; PULSE 121
[2022-03-05] MEDS: LISINOPRIL 20 MG TABLET PO SCH (09:08)
[2022-03-05] MEDS: PRENATAL VITAMINS W/ FOLIC ACID TABLET (FP) PO SCH (09:08)
[2022-03-05] MEDS: NICOTINE 21 MG/24 HOURS TOPICAL PATCH TD SCH (09:09)
[2022-03-05] MEDS: SERTRALINE HCL 50 MG TABLET (FP) PO SCH (09:09)
[2022-03-05] MEDS: METOPROLOL TARTRATE 50 MG TABLET (FP) PO SCH (09:09)
== END 2022-03-05 09:42 | disposition home or self-care (01) | DRG 895 ==
LOC: YASAS 16:58 → Y6N 21:37 → Y3W 02-03 13:07
PROVIDERS: ADMIT Allergy & Immunology; ATTEND Surgery
PROC: HZ2ZZZZ Detoxification Services for Substance Abuse Treatment (ICD-10-PCS; 2022-01-30)
PROC: HZ42ZZZ Group Counseling for Substance Abuse Treatment, Cognitive-Behavioral (ICD-10-PCS; principal; 2022-02-03)
DX: F10.20 Alcohol dependence, uncomplicated (principal); F14.20 Cocaine dependence, uncomplicated; F17.210 Nicotine dependence, cigarettes, uncomplicated; F32.A Depression, unspecified; I10 Essential (primary) hypertension; E11.9 Type 2 diabetes mellitus without complications; Z79.84 Long term (current) use of oral hypoglycemic drugs; R00.0 Tachycardia, unspecified; E66.9 Obesity, unspecified; Z68.35 Body mass index [BMI] 35.0-35.9, adult; Z86.19 Personal history of other infectious and parasitic diseases; Z28.310 Unvaccinated for COVID-19; Z28.9 Immunization not carried out for unspecified reason; Z59.01 Sheltered homelessness
CPT/HCPCS: 36415; 80053; 82962; 83036; 85027; 86593; 86780; 87811; C9803-CS; Q0162; U0003; U0005

== ENCOUNTER 2022-08-29 07:29 | Inpatient (IN) | payer OTHER ==
[2022-08-29 07:47] VITALS: BMI 35.0
[2022-08-29] MEDS ORDERED: BISMUTH SUBSALICYLATE 262 MG/15 ML BTL PO PRN (08:28)
[2022-08-29] MEDS ORDERED: LOPERAMIDE HCL 2 MG CAPSULE PO PRN (08:28)
[2022-08-29] MEDS ORDERED: BENZOCAINE/MENTHOL (CHLORASEPTIC ) LOZENGE MM PRN (08:28)
[2022-08-29] MEDS ORDERED: ACETAMINOPHEN 325 MG TABLET (FP) PO PRN (08:28)
[2022-08-29] MEDS ORDERED: NICOTINE 10 MG CARTRIDGE (INHALER) IH PRN (08:28)
[2022-08-29] MEDS ORDERED: DICYCLOMINE HCL 10 MG CAPSULE PO PRN (08:28)
[2022-08-29] MEDS ORDERED: MAGNESIUM HYDROX 2400MG/30ML ORAL SUSPENSION 30 ML CUP PO PRN (08:28)
[2022-08-29] MEDS ORDERED: NICOTINE 21 MG/24 HOURS TOPICAL PATCH TD PRN (08:28)
[2022-08-29] MEDS ORDERED: MAG HYDROX/AL HYDROX/SIMETH 30 ML UNIT-DOSE CUP PO PRN (08:28)
[2022-08-29] MEDS ORDERED: hydrOXYzine PAMOATE 25 MG CAPSULE (FP) PO PRN (08:28)
[2022-08-29] MEDS ORDERED: POLYETHYLENE GLYCOL (HEALTHYLAX) 3350 17 GM PACKET PO PRN (08:28)
[2022-08-29] MEDS ORDERED: IBUPROFEN 600 MG TABLET (FP) PO PRN (08:28)
[2022-08-29] MEDS ORDERED: NICOTINE POLACRILEX 4 MG GUM BUC PRN (08:28)
[2022-08-29] MEDS ORDERED: IBUPROFEN 400 MG TABLET (FP) PO PRN (08:28)
[2022-08-29] MEDS ORDERED: METOPROLOL TARTRATE 50 MG TABLET (FP) PO ONE (09:34)
[2022-08-29] MEDS ORDERED: chlordiazePOXIDE HCL 25 MG CAPSULE PO PRN (09:35)
[2022-08-29] MEDS ORDERED: amLODIPine BESYLATE 5 MG TABLET (FP) ONE (09:36)
[2022-08-29] MEDS ORDERED: PRENATAL VITAMINS W/ FOLIC ACID TABLET (FP) PO ONE (09:37)
[2022-08-29] MEDS ORDERED: METOPROLOL TARTRATE 25 MG TABLET (FP) ONE (09:38)
[2022-08-29] MEDS: PRENATAL VITAMINS W/ FOLIC ACID TABLET (FP) PO SCH (09:46)
[2022-08-29] MEDS ORDERED: chlordiazePOXIDE HCL 25 MG CAPSULE ONE (10:15)
[2022-08-29] MEDS: chlordiazePOXIDE HCL 25 MG CAPSULE PO SCH ×3 (10:20→22:37)
[2022-08-29] MEDS ORDERED: amLODIPine BESYLATE 10 MG TABLET (FP) PO ONE (10:30)
[2022-08-29] MEDS ORDERED: TUBERCULIN PPD 5 TU/0.1ML VIAL ID ONE (11:37)
[2022-08-29] MEDS: LISINOPRIL 20 MG TABLET PO SCH (11:40)
[2022-08-29] MEDS ORDERED: LISINOPRIL 20 MG TABLET PO ONE (12:00)
[2022-08-29] MEDS: METHOCARBAMOL 500 MG TABLET PO PRN (12:18)
[2022-08-29] MEDS: SERTRALINE HCL 50 MG TABLET (FP) PO SCH (12:19)
[2022-08-29] MEDS: ACETAMINOPHEN 325 MG TABLET (FP) PO PRN (17:22)
[2022-08-29] MEDS: ONDANSETRON *ODT* 4 MG TABLET SL PRN (17:22)
[2022-08-29] MEDS: traZODone HCL 50 MG TABLET (FP) PO SCH (22:37)
[2022-08-29] MEDS: THIAMINE HCL 100 MG TABLET (FP) PO SCH (22:37)
[2022-08-29] MEDS: MELATONIN 5 MG TABLETS PO SCH (22:38)
[2022-08-30] MEDS: METOPROLOL TARTRATE 50 MG TABLET (FP) PO SCH (05:15)
[2022-08-30] MEDS: chlordiazePOXIDE HCL 25 MG CAPSULE PO SCH ×4 (05:16→22:44)
[2022-08-30] MEDS: amLODIPine BESYLATE 10 MG TABLET (FP) PO SCH (05:16)
[2022-08-30] MEDS: PRENATAL VITAMINS W/ FOLIC ACID TABLET (FP) PO SCH (10:27)
[2022-08-30] MEDS: SERTRALINE HCL 50 MG TABLET (FP) PO SCH (10:27)
[2022-08-30] MEDS: LISINOPRIL 20 MG TABLET PO SCH (10:27)
[2022-08-30] MEDS: ACETAMINOPHEN 325 MG TABLET (FP) PO PRN (10:29)
[2022-08-30] MEDS: ONDANSETRON *ODT* 4 MG TABLET SL PRN (10:30)
[2022-08-30 12:13] LABS: HEMATOCRIT 48.8 % (35.4-49); HEMOGLOBIN 15.9 GM/dL (11.7-16.9); MCH 28.5 pg (25.7-33.7); MCHC 32.5 g/dl (32.0-35.9); MEAN CELL VOLUME 87.5 fl (80-96); MEAN PLT VOLUME 8.9 fl (7.5-11.1); PLATELET COUNT 179 10^3/uL (134-434); RBC 5.58 M/mm3 (4.00-5.60); WHITE BLOOD COUNT 6.7 K/mm3 (4.0-10.0)
[2022-08-30 12:18] LABS: CALCIUM 11.4 mg/dL (8.5-10.1)
[2022-08-30 12:19] LABS: ALBUMIN 4.6 g/dl (3.4-5.0); BLOOD UREA NITROGEN 17.7 mg/dL (7-18)
[2022-08-30 12:22] LABS: CREATININE 1.2 mg/dL (0.55-1.3)
[2022-08-30 12:23] LABS: TOT PROT 8.5 g/dl (6.4-8.2)
[2022-08-30 12:24] LABS: BILIRUBIN,TOTAL 0.6 mg/dL (0.2-1)
[2022-08-30] MEDS: THIAMINE HCL 100 MG TABLET (FP) PO SCH (22:43)
[2022-08-30] MEDS: MELATONIN 5 MG TABLETS PO SCH (22:43)
[2022-08-30] MEDS: traZODone HCL 50 MG TABLET (FP) PO SCH (22:43)
[2022-08-31] MEDS: METOPROLOL TARTRATE 50 MG TABLET (FP) PO SCH (05:31)
[2022-08-31] MEDS: chlordiazePOXIDE HCL 25 MG CAPSULE PO SCH ×4 (05:31→22:33)
[2022-08-31] MEDS: amLODIPine BESYLATE 10 MG TABLET (FP) PO SCH (06:39)
[2022-08-31] MEDS: PRENATAL VITAMINS W/ FOLIC ACID TABLET (FP) PO SCH (10:27)
[2022-08-31] MEDS: SERTRALINE HCL 50 MG TABLET (FP) PO SCH (10:27)
[2022-08-31] MEDS: METHOCARBAMOL 500 MG TABLET PO PRN (10:28)
[2022-08-31] MEDS: LISINOPRIL 20 MG TABLET PO SCH (10:28)
[2022-08-31] MEDS: MELATONIN 5 MG TABLETS PO SCH (22:32)
[2022-08-31] MEDS: traZODone HCL 50 MG TABLET (FP) PO SCH (22:32)
[2022-08-31] MEDS: THIAMINE HCL 100 MG TABLET (FP) PO SCH (22:33)
[2022-09-01] MEDS ORDERED: chlordiazePOXIDE HCL 10 MG CAPSULE PO PRN
[2022-09-01] MEDS: amLODIPine BESYLATE 10 MG TABLET (FP) PO SCH (05:10)
[2022-09-01] MEDS: METOPROLOL TARTRATE 50 MG TABLET (FP) PO SCH (05:10)
[2022-09-01] MEDS: chlordiazePOXIDE HCL 10 MG CAPSULE PO SCH ×4 (05:11→22:31)
[2022-09-01] MEDS: SERTRALINE HCL 50 MG TABLET (FP) PO SCH (10:17)
[2022-09-01] MEDS: PRENATAL VITAMINS W/ FOLIC ACID TABLET (FP) PO SCH (10:17)
[2022-09-01] MEDS: LISINOPRIL 20 MG TABLET PO SCH (10:17)
[2022-09-01] MEDS: ACETAMINOPHEN 325 MG TABLET (FP) PO PRN (10:20)
[2022-09-01] MEDS: MELATONIN 5 MG TABLETS PO SCH (22:29)
[2022-09-01] MEDS: THIAMINE HCL 100 MG TABLET (FP) PO SCH (22:29)
[2022-09-01] MEDS: traZODone HCL 50 MG TABLET (FP) PO SCH (22:29)
[2022-09-02] MEDS: chlordiazePOXIDE HCL 10 MG CAPSULE PO SCH ×2 (05:30→17:11)
[2022-09-02] MEDS: amLODIPine BESYLATE 10 MG TABLET (FP) PO SCH (06:10)
[2022-09-02] MEDS: METOPROLOL TARTRATE 50 MG TABLET (FP) PO SCH (06:11)
[2022-09-02] MEDS: SERTRALINE HCL 50 MG TABLET (FP) PO SCH (09:55)
[2022-09-02] MEDS: PRENATAL VITAMINS W/ FOLIC ACID TABLET (FP) PO SCH (09:55)
[2022-09-02] MEDS: LISINOPRIL 20 MG TABLET PO SCH (09:55)
[2022-09-02] MEDS: MELATONIN 5 MG TABLETS PO SCH (22:14)
[2022-09-02] MEDS: THIAMINE HCL 100 MG TABLET (FP) PO SCH (22:14)
[2022-09-02] MEDS: METHOCARBAMOL 500 MG TABLET PO PRN (22:14)
[2022-09-02] MEDS: traZODone HCL 50 MG TABLET (FP) PO SCH (22:14)
[2022-09-03] MEDS ORDERED: chlordiazePOXIDE 5 MG CAPSULE ONE (04:30)
[2022-09-03] MEDS ORDERED: chlordiazePOXIDE HCL 10 MG CAPSULE PO ONE (05:00)
[2022-09-03] MEDS: amLODIPine BESYLATE 10 MG TABLET (FP) PO SCH (06:04)
[2022-09-03] MEDS: METOPROLOL TARTRATE 50 MG TABLET (FP) PO SCH (06:04)
[2022-09-03] MEDS: LISINOPRIL 20 MG TABLET PO SCH (10:03)
[2022-09-03] MEDS: SERTRALINE HCL 50 MG TABLET (FP) PO SCH (10:03)
[2022-09-03] MEDS: PRENATAL VITAMINS W/ FOLIC ACID TABLET (FP) PO SCH (10:03)
[2022-09-03 10:06] VITALS: BP 118/75; PULSE 85; RESP 16; TEMP 98
== END 2022-09-03 10:29 | disposition home or self-care (01) | DRG 897 ==
LOC: YASAS 07:29 → Y6N 10:16
PROVIDERS: ADMIT Allergy & Immunology; ATTEND Surgery
PROC: HZ2ZZZZ Detoxification Services for Substance Abuse Treatment (ICD-10-PCS; principal; 2022-08-29)
DX: F10.230 Alcohol dependence with withdrawal, uncomplicated (principal); F14.20 Cocaine dependence, uncomplicated; F33.1 Major depressive disorder, recurrent, moderate; F19.282 Other psychoactive substance dependence with psychoactive substance-induced sleep disorder; F17.210 Nicotine dependence, cigarettes, uncomplicated; I10 Essential (primary) hypertension; E11.9 Type 2 diabetes mellitus without complications; Z79.84 Long term (current) use of oral hypoglycemic drugs; E66.9 Obesity, unspecified; Z68.35 Body mass index [BMI] 35.0-35.9, adult; Z86.19 Personal history of other infectious and parasitic diseases
CPT/HCPCS: 36415; 80053; 82962; 85027; 86593; 86780; 87811; C9803-CS; Q0162; U0003; U0005